=== PATIENT | female | born 1960 | race Caucasian/White ===

== ENCOUNTER → 2016-04-03 | Outpatient (CLI) | payer MEDICARE, MEDICAID | LOC: NC 11:06 | PROVIDERS: ATTEND Family Medicine | DX: E11.9 Type 2 diabetes mellitus without complications (principal); I10 Essential (primary) hypertension; D64.9 Anemia, unspecified; E78.2 Mixed hyperlipidemia ==

== ENCOUNTER → 2016-04-24 | Outpatient (CLI) | payer MEDICARE | LOC: GMAM 16:45 | PROVIDERS: ATTEND Family Medicine | DX: L03.113 Cellulitis of right upper limb (principal) ==

== ENCOUNTER → 2016-05-16 | Outpatient (CLI) | payer MEDICARE | END | disposition home or self-care (01) | LOC: NC 17:01 | PROVIDERS: ATTEND Family Medicine | DX: E11.9 Type 2 diabetes mellitus without complications (principal); I10 Essential (primary) hypertension; D64.9 Anemia, unspecified ==

== ENCOUNTER → 2016-07-24 | Outpatient (CLI) | payer MEDICARE, MEDICAID | END | disposition home or self-care (01) | LOC: GMAM 14:48 | PROVIDERS: ATTEND Family Medicine | DX: Z79.899 Other long term (current) drug therapy (principal); M54.17 Radiculopathy, lumbosacral region ==

== ENCOUNTER → 2016-07-25 | Outpatient (CLI) | payer MEDICARE, MEDICAID ==
--- NOTE | 2016-07-25 18:25 | US ---
EXAM DESCRIPTION: Venous, lower Extremity RT CLINICAL HISTORY: 55 years, Female, PEDAL EDEMA COMPARISON: None. FINDINGS: The right common femoral, superficial femoral, deep femoral, popliteal, posterior tibial and peroneal veins identified. Appropriate flow compressibility and augmentation. IMPRESSION: No evidence deep venous thrombosis right lower extremity. Electronically signed by: Andrea Wadsworth MD 07/25/2016 6:24 PM CDT
== END | disposition home or self-care (01) ==
LOC: US 12:06
PROVIDERS: ATTEND Family Medicine
DX: R60.0 Localized edema (principal)

== ENCOUNTER → 2016-08-28 | Outpatient (CLI) | payer MEDICARE, MEDICAID | END | disposition home or self-care (01) | LOC: GMAM 17:23 | PROVIDERS: ATTEND Family Medicine | DX: M06.9 Rheumatoid arthritis, unspecified (principal); D64.9 Anemia, unspecified; N39.0 Urinary tract infection, site not specified ==

== ENCOUNTER → 2016-12-08 | Outpatient (CLI) | payer MEDICARE, MEDICAID | END | disposition home or self-care (01) | LOC: NC 09:20 | PROVIDERS: ATTEND Family Medicine | DX: E11.9 Type 2 diabetes mellitus without complications (principal); M71.061 Abscess of bursa, right knee ==

== ENCOUNTER → 2016-12-15 | Outpatient (CLI) | payer MEDICARE, MEDICAID | END | disposition home or self-care (01) | LOC: GMAM 14:35 | PROVIDERS: ATTEND Family Medicine | DX: L08.89 Other specified local infections of the skin and subcutaneous tissue (principal) ==

== ENCOUNTER → 2016-12-21 | Outpatient (CLI) | payer MEDICARE, MEDICAID ==
--- NOTE | 2016-12-21 10:28 | US ---
EXAM DESCRIPTION: Thyroid: Ultrasound CLINICAL HISTORY: THYROID NODULE COMPARISON: None. TECHNIQUE: Transcutaneous scannin-dimensional and Doppler modes. FINDINGS: Right lobe dimensions 5.7 x 2.3 x 1.8 cm. Heterogeneous echoes. Complex nodule in the mid right lobe with transverse diameter 1.5 cm. 1.8 x 1.5 cm in the sagittal plane. Second nodule abutting this nodule with calcified echogenic capsule and acoustic shadowing obscuring most of the details of the nodule. Transverse diameter 1.6 cm. 1.6 x 1.6 cm in the sagittal plane. Neither nodule is significantly vascular. Decreased vascularity in the remainder of the lobe. Contour right lobe smooth. Juxta-thyroid masses/fluid: none. Left lobe dimensions 4.0 x 1.5 x 1.2 cm. Heterogeneous echoes. Hypoechoic posterior nodule measuring 5.7 x 4.0 mm and nonvascular. Decreased vascularity in the remainder of the lobe. No microcalcifications. Contour left lobe smooth. Juxta-thyroid masses/fluid: none. Isthmus thickness 1.8 mm. Heterogeneous echoes. Heterogeneous hypoechoic nodule measuring 1.4 cm transverse and 1.6 x 0.6 cm in the sagittal plane. Decreased. Contour smooth. IMPRESSION: 1. Enlarged right lobe in the thyroid gland containing two hypovascular complex nodules. One nodule has calcified kwon and detail is limited due to acoustic shadowing. These nodules both meet the imaging criteria for fine needle aspiration sampling according to RP best practice guidelines, adopted from ACR white paper and Barone 3-tiered guidelines on incidental thyroid nodules. Please see below.* 2. Small nodule in the posterior left lobe and a slightly larger nodule in the isthmus. These nodules do not meet the imaging criteria for fine needle aspiration sampling. These recommendations do not apply to patients with increased risk for thyroid cancer or patients with symptomatic thyroid disease. 3. No discrete solid masses, cystic masses, or edema in the surrounding soft tissues. *Further evaluation by thyroid US recommended for: -Solitary incidental thyroid nodule (ITN) with high risk imaging features (locally invasive nodule or suspicious lymph nodes) -Solitary ITN of any size in pediatric patients <= 18 years of age -Solitary ITN >= 1 cm in axial plane in patients between 18 and 35 years of age -Solitary ITN >= 1.5 cm in axial plane in patients >= 35 years of age -Heterogeneous enlarged thyroid gland -ITN avid on FDG-PET or other nuclear medicine (MIBI and octreotide) scans. FNA biopsy is also recommended for PET avid nodules. 2.No f/u imaging is recommended for ITN's not meeting the above criteria. 3.For multiple thyroid nodules, the above recommendations for solitary ITN are to be applied to the largest nodule. 4.No US or f/u recommended for ITN's without high risk features in patients with limited life expectancy or significant co-morbidities, unless clinically warranted. 5.These recommendations do not apply to patients w/ increased risk for thyroid cancer or patients with symptomatic thyroid disease. Recommendations for f/u of Incidental Thyroid Nodules (ITN) found on CT, MR, NM and Extrathyroidal US are based upon the ACR white paper and Barone 3-tiered system for managing ITN's: [facility] 2015 Apr;12(2): 143-50 Electronically signed by: eY Terrazas MD 12/21/2016 10:27 AM CDT
== END | disposition home or self-care (01) ==
LOC: US 10:35
PROVIDERS: ATTEND Family Medicine
DX: E04.1 Nontoxic single thyroid nodule (principal)

== ENCOUNTER → 2017-02-21 | Outpatient (CLI) | payer MEDICARE, MEDICAID ==
--- NOTE | 2017-02-21 13:22 | US ---
EXAM DESCRIPTION: Biopsy/Needle Guidance: Ultrasound. CLINICAL HISTORY: 56 yearsFemale. Abnormal nodules in the right lobe of the thyroid gland. COMPARISON: Thyroid ultrasound 12/21/2016. TECHNIQUE: Procedure was explained to the patient with risks and benefits. The patient gave verbal and written consent. Sterile preparation draping. 1% xylocaine dermal anesthetic. Sterile ultrasound guidance. A total of 6 passes into 2 separate nodules; to needle samplings with a separate 1.5 inch, 25-gauge needle per sample, , into each nodule and 1 aspiration, with a separate 1.5 inch, 25-gauge needle/10-cc syringe set, per aspiration, from each nodule. Each sample was placed on a separate slide and fixed in 95% alcohol container. for later pathologic examination at remote facility. . Aspirate and needle placed in [place] fluid container for cellblock. Patient tolerated procedure well, with no immediate complications. FINDINGS: Complex hypoechoic nodule in the right lobe mid portion and abutting the anterior capsule of the lobe measuring 1.6 cm transverse and 1.5 cm AP. Second nodule is more medial inferior and posterior, with calcification of the anterior capsule with significant posterior acoustic shadowing. Transverse diameter approximately 1.2 cm. Echogenic needle is noted within each nodule. There was posterior displacement of the nodule with anterior wall calcification, during the procedure. IMPRESSION: Successful, ultrasound-guided fine-needle sampling and aspiration of 2 nodules in the right thyroid lobe. Pathology reports are pending. Electronically signed by: Ye Terrazas MD 02/21/2017 1:21 PM AUDITING MANAGER
== END | disposition home or self-care (01) ==
LOC: US 12:56
PROVIDERS: ATTEND Family Medicine
DX: E04.1 Nontoxic single thyroid nodule (principal)

== ENCOUNTER → 2017-04-13 | Outpatient (CLI) | payer MEDICARE, MEDICAID | END | disposition home or self-care (01) | LOC: NC 09:34 | PROVIDERS: ATTEND Family Medicine | DX: E11.9 Type 2 diabetes mellitus without complications (principal); M71.061 Abscess of bursa, right knee; I10 Essential (primary) hypertension ==

== ENCOUNTER → 2017-04-17 | Outpatient (CLI) | payer MEDICARE, MEDICAID | END | disposition home or self-care (01) | LOC: GMAM 14:14 | PROVIDERS: ATTEND Family Medicine | DX: D64.9 Anemia, unspecified (principal); Z79.899 Other long term (current) drug therapy ==

== ENCOUNTER → 2017-05-15 | Outpatient (CLI) | payer MEDICARE, MEDICAID | LOC: GMAM 14:55 | PROVIDERS: ATTEND Family Medicine | DX: Z79.899 Other long term (current) drug therapy (principal) ==

== ENCOUNTER → 2017-06-04 | Outpatient (CLI) | payer MEDICARE, MEDICAID | LOC: GMAM 10:32 | PROVIDERS: ATTEND Family Medicine | DX: J44.9 Chronic obstructive pulmonary disease, unspecified (principal); G47.00 Insomnia, unspecified; M79.89 Other specified soft tissue disorders; R50.9 Fever, unspecified; R07.89 Other chest pain ==

== ENCOUNTER → 2017-06-14 | Outpatient (CLI) | payer MEDICARE, MEDICAID | LOC: NC 14:27 | PROVIDERS: ATTEND Family Medicine | DX: R30.0 Dysuria (principal); E11.9 Type 2 diabetes mellitus without complications ==

== ENCOUNTER 2017-06-21 11:59 | Emergency (ER) | payer MEDICARE, MEDICAID ==
--- NOTE | 2017-06-21 12:35 | ED.PDOC ---
History of Present Illness - General Chief Complaint: Skin/Abrasion/Tear Stated Complaint: right ankle pain Time Seen by Provider: 06/21/17 12:12 Source: patient Exam Limitations: no limitations - History of Present Illness Initial Comments: Gwen Boyd 56 y/o female stated that while laying in bed rolled over to reach for clothes on her table lamp but rolled down fell on her bed and down to the floor stated right ankle still hurting but with right hip pain and lid swelling felt better except for her right ankle swelling and pain.Denies head or neck injury. Occurred: yesterday Severity: moderate Injuries/Pain Location: lower extremity - right ankle Reason for Fall: other - see hpi Loss of Consciousness: no loss of consciousness Improving Factors: rest Worsening Factors: movement Associated Symptoms (Fall): denies symptoms Allergies/Adverse Reactions: Allergies Trazodone Allergy (Verified 12/10/15 09:24) Home Medications: Ambulatory Orders Gabapentin [Neurontin] 200 mg PO BID 04/21/15 HYDROcodone 10MG/APAP 325MG [[place]ut[place] 10325] 1 - 2 tab PO Q6H PRN 04/21/15 Metformin HCl 500 mg PO BIDFD 04/21/15 Tizanidine HCl [Zanaflex] 6 mg PO QID PRN 04/21/15 ALPRAZolam [Xanax] 0.5 mg PO BEDTIME PRN 12/10/15 Insulin Glargine [Lantus Solostar] 30 unit SC NOON 12/10/15 Sertraline HCl 150 mg PO DAILY 12/10/15 Aspirin [Aspirin Adult Low Dose] 81 mg PO DAILY 01/20/16 Glucagon HCl (Diagnostic) [Glucagon] 1 mg IJ PRN 01/20/16 Promethazine HCl 25 mg PO BID PRN 01/20/16 Vancomycin HCl in Sodium Chlor [Vancomycin 750-0.9 mg/150Ml-%] 1.25 gm IV Q12HR 01/20/16 ALPRAZolam [Xanax] 0.5 mg PO TID PRN 02/15/16 Furosemide 40 mg PO DAILY 02/15/16 Acetamin W/Cod #3 Tab [Tylenol w/CODEINE #3] 1 ea PO TID PRN #10 tab 06/21/17 Review of Systems - Review of Systems Constitutional: States: no symptoms reported EENTM: States: no symptoms reported Respiratory: States: no symptoms reported Cardiology: States: no symptoms reported Gastrointestinal/Abdominal: States: no symptoms reported Genitourinary: States: no symptoms reported Musculoskeletal: States: no symptoms reported Skin: States: other - chronic sinus tract skin from infection of her knee surgery for the last 6 1/2 years-has appoint ment with ortho Dr. Blair 29 June Neurological: States: no symptoms reported Past Medical History (General) - Patient Medical History Hx Seizures: No Hx Stroke: No Hx Dementia: No Hx Asthma: Yes Hx of COPD: Yes Hx Cardiac Disorders: No Hx Congestive Heart Failure: No Hx Pacemaker: No Hx Hypertension: No Hx Thyroid Disease: No Hx Diabetes: Yes Hx Gastroesophageal Reflux: No Hx Renal Disease: No Hx Cancer: No Hx of HIV: No Hx Hepatitis C: No Hx MRSA: Yes MRSA Source:: Wound Surgical History: cholecystectomy, other - lower back,right knee,,BTL, left toe - Vaccination History Hx Tetanus, Diphtheria Vaccination: Yes Hx Influenza Vaccination: Yes Hx Pneumococcal Vaccination: Yes - Social History Hx Tobacco Use: Yes Hx Chewing Tobacco Use: No Hx Alcohol Use: No Hx Substance Use: Yes - not any more pt states Hx Substance Use Treatment: No Hx Depression: No Hx Physical Abuse: No Hx Emotional Abuse: No Hx Suspected Abuse: No - Female History Patient : No Physical Exam - Physical Exam General Appearance: Alert, Comfortable, No apparent distress Head Injury: no evidence of injury Eye Exam: bilateral normal ENT Exam: hearing grossly normal Peripheral Pulses: radial,right: 2+, radial,left: 2+ Cardiovascular/Respiratory: regular rate, rhythm, no M/R/G, normal peripheral pulses Gastrointestinal/Abdominal: non tender, soft, no organomegaly Back Exam: no CVA tenderness, no vertebral tenderness Extremity Exam: pelvis stable, joint effusion - right knee chronic, pain with movement - right ankle, pedal edema - right > left, tenderness - right leg Neurologic: alert, oriented x 3 Skin Exam: other - draining sinus tract right knee - Cookie Coma Score Best Eye Response ([place]): (4) open spontaneously Best Verbal Response (Cookie): (5) oriented Best Motor Response (Cookie): (6) obeys commands Progress - EKG/XRAY/CT XRAY: ankle - no fracture right Xray Comments: Venous US- no dvt right leg Departure - Departure Clinical Impression: Leg swelling Sprained ankle Qualifiers: Encounter type: initial encounter Involved ligament of ankle: unspecified ligament Laterality: right Qualified Code(s): S93.401A - Sprain of unspecified ligament of right ankle, initial encounter Time of Disposition: 14:29 Disposition: Discharge to Home or Self Care Condition: Fair Departure Forms: ED Discharge - Pt. Copy, Patient Portal Self Enrollment Instructions: DI for Abrasion, DI for Ankle Sprain Referrals: Marc Arriola MD [Primary Care Provider] - 1-2 Weeks Prescriptions: Acetamin W/Cod #3 Tab [Tylenol w/CODEINE #3] 1 ea PO TID PRN #10 tab PRN Reason: Pain Home Medications: Ambulatory Orders Gabapentin [Neurontin] 200 mg PO BID 04/21/15 HYDROcodone 10MG/APAP 325MG [Caruthers ] 1 - 2 tab PO Q6H PRN 04/21/15 Metformin HCl 500 mg PO BIDFD 04/21/15 Tizanidine HCl [Zanaflex] 6 mg PO QID PRN 04/21/15 ALPRAZolam [Xanax] 0.5 mg PO BEDTIME PRN 12/10/15 Insulin Glargine [Lantus Solostar] 30 unit SC NOON 12/10/15 Sertraline HCl 150 mg PO DAILY 12/10/15 Aspirin [Aspirin Adult Low Dose] 81 mg PO DAILY 01/20/16 Glucagon HCl (Diagnostic) [Glucagon] 1 mg IJ PRN 01/20/16 Promethazine HCl 25 mg PO BID PRN 01/20/16 Vancomycin HCl in Sodium Chlor [Vancomycin 750-0.9 mg/150Ml-%] 1.25 gm IV Q12HR 01/20/16 ALPRAZolam [Xanax] 0.5 mg PO TID PRN 02/15/16 Furosemide 40 mg PO DAILY 02/15/16 Acetamin W/Cod #3 Tab [Tylenol w/CODEINE #3] 1 ea PO TID PRN #10 tab 06/21/17 Additional Instructions: Keep appointment with orthopedist Dr. Blair as scheduled
--- NOTE | 2017-06-21 12:59 | RAD ---
Study: Three views of the Right Ankle. Indication: pain Comparison: August 12, 2013. Impression: Moderate plantar heel spur. Osteopenia throughout the right lower leg, ankle, foot. Given this limitation, no gross fracture. Ankle mortise alignment appears normal. Soft tissue swelling about the ankle and foot. At least mild tibiotalar joint osteoarthritis noted. Electronically signed by: Daquan Daley MD 06/21/2017 12:57 PM CDT
--- NOTE | 2017-06-21 13:47 | US ---
EXAM DESCRIPTION: Venous,Lower Extremity RT CLINICAL HISTORY: right leg swelling /pain COMPARISON: None Available. TECHNIQUE: Right lower extremity venous duplex FINDINGS: There is no DVT identified. There is normal color flow observed with good flow augmentation. All deep veins compress normally. Extensive subcutaneous edema is present. IMPRESSION: Negative for DVT Electronically signed by: Chu Cohen MD 06/21/2017 1:44 PM CDT
[2017-06-21 14:54] VITALS: TEMP 98.9; O2SAT 95
[2017-06-21 14:59] VITALS: BP 154/91
== END 2017-06-21 14:55 | disposition home or self-care (01) ==
LOC: ER 11:59
DX: S93.401A Sprain of unspecified ligament of right ankle, initial encounter (principal); J44.9 Chronic obstructive pulmonary disease, unspecified; E11.9 Type 2 diabetes mellitus without complications; Z79.82 Long term (current) use of aspirin; Z79.4 Long term (current) use of insulin; Z87.891 Personal history of nicotine dependence; W06.XXXA Fall from bed, initial encounter

== ENCOUNTER 2017-08-29 15:47 | Inpatient (IN) | payer MEDICARE, MEDICAID ==
--- NOTE | 2017-08-29 16:33 | RAD ---
EXAM DESCRIPTION: Knee,Right 2 or More Views CLINICAL HISTORY: 56 years, Female, pain at op site 2 wks out COMPARISON: Previous study December 10, 2015 and February 15, 2016 TECHNIQUE: Two views of the right knee FINDINGS: Intramedullary shoaib traverses the distal femur and proximal tibia with a proximal screw in place. Methacrylate is seen in the region of the right knee joint and the previous total right knee arthroplasty has been removed. A few tiny gas bubbles are present in the soft tissues along the superomedial aspect right knee. If this patient is recently postop this would explain the findings. Otherwise infectious process must be considered. Clinical correlation recommended. Lateral view shows tiny gas bubbles anteriorly behind the patella. There is generalized soft tissue edema. Destructive bony changes are seen posteriorly. IMPRESSION: Posterior destructive changes at the knee joint with tiny gas bubbles anteriorly below the patella. If surgery was not recent and these findings would be worrisome for infection. Electronically signed by: Wellington Alexis MD 08/29/2017 4:31 PM CDT
[2017-08-29] MEDS ORDERED: HYDROcodone 10MG/APAP 325MG 1 EA TAB PO ONE (16:55)
[2017-08-29] MEDS ORDERED: KETOROLAC TROMETHAMINE INJ 30 MG/ML VIAL IM ONE (17:36)
[2017-08-29] MEDS ORDERED: VANCOMYCIN HCL INJ 1,000 MG VIAL IVPB ONE (17:36)
--- NOTE | 2017-08-29 17:39 | ED.PDOC ---
History of Present Illness - General Chief Complaint: Post Op Problems Stated Complaint: s/p knee surgery pain, swelling, and drainage Time Seen by Provider: 08/29/17 15:49 Source: patient Exam Limitations: no limitations - History of Present Illness Initial Comments: the patient is a 56-year-old female presenting to the emergency room secondary to pain in the right knee. Pain has been increasing over the last 2 days along with increasing swelling and now new drainage from just right of the patella. The patient had a knee surgery with Dr. 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 We do not have culture results. The patient has been getting IV meropenem and oral doxycycline and [place] since her discharge from surgery. The patient does not appear septic. No fevers. Erythema appears localized to the knee area. Sutures are still in place. She does have some swelling distally. Timing/Duration: unsure Severity: moderate Improving Factors: nothing Worsening Factors: movement Associated Symptoms: denies symptoms Allergies/Adverse Reactions: Allergies Trazodone Allergy (Verified 08/29/17 16:17) Home Medications: Ambulatory Orders Gabapentin [Neurontin] 200 mg PO BID 04/21/15 HYDROcodone 10MG/APAP 325MG [[place] 10/325] 1 - 2 tab PO Q6H PRN 04/21/15 Metformin HCl 500 mg PO BIDFD 04/21/15 Tizanidine HCl [Zanaflex] 6 mg PO QID PRN 04/21/15 ALPRAZolam [Xanax] 0.5 mg PO BEDTIME PRN 12/10/15 Insulin Glargine [Lantus Solostar] 30 unit SC NOON 12/10/15 Sertraline HCl 150 mg PO DAILY 12/10/15 Aspirin [Aspirin Adult Low Dose] 81 mg PO DAILY 01/20/16 Glucagon HCl (Diagnostic) [Glucagon] 1 mg IJ PRN 01/20/16 Promethazine HCl 25 mg PO BID PRN 01/20/16 Vancomycin HCl in Sodium Chlor [Vancomycin 750-0.9 mg/150Ml-%] 1.25 gm IV Q12HR 01/20/16 ALPRAZolam [Xanax] 0.5 mg PO TID PRN 02/15/16 Furosemide 40 mg PO DAILY 02/15/16 Acetamin W/Cod #3 Tab [Tylenol w/CODEINE #3] 1 ea PO TID PRN #10 tab 06/21/17 Review of Systems - Review of Systems Constitutional: States: no symptoms reported EENTM: States: no symptoms reported Respiratory: States: no symptoms reported Cardiology: States: no symptoms reported Gastrointestinal/Abdominal: States: no symptoms reported Genitourinary: States: no symptoms reported Musculoskeletal: States: see HPI Skin: States: see HPI Neurological: States: anxiety Endocrine: States: no symptoms reported All other Systems: No Change from Baseline Past Medical History (General) - Patient Medical History Hx Seizures: No Hx Stroke: No Hx Dementia: No Hx Asthma: Yes Hx of COPD: Yes Hx Cardiac Disorders: No Hx Congestive Heart Failure: No Hx Pacemaker: No Hx Hypertension: No Hx Thyroid Disease: No Hx Diabetes: Yes Hx Gastroesophageal Reflux: No Hx Renal Disease: No Hx Cancer: No Hx of HIV: No Hx Hepatitis C: No Hx MRSA: Yes MRSA Source:: Wound Surgical History: cholecystectomy, tonsillectomy, other - Vaccination History Hx Tetanus, Diphtheria Vaccination: Yes Hx Influenza Vaccination: Yes Hx Pneumococcal Vaccination: Yes - Social History Hx Tobacco Use: Yes Hx Chewing Tobacco Use: No Hx Alcohol Use: No Hx Substance Use: Yes - not any more pt states Hx Substance Use Treatment: No Hx Depression: No Hx Physical Abuse: No Hx Emotional Abuse: No Hx Suspected Abuse: No - Activities of Daily Living [facility]if applicable[facility] - Female History Patient : No - Triage Comment ED Triage Comment: Staying at [facility] for IV antibiotics for 6- 8 weeks, reported per patient. Family Medical History - Family History Father Family History: Unknown Living Status: Age at (years of age): 60 Hx Family Cancer: Yes Mother Living Status: Age at (years of age): 60 Hx Family Cancer: Yes Physical Exam - Physical Exam General Appearance: Alert, Other - he does seem to be hurting Eye Exam: bilateral normal Ears, Nose, Throat: normal ENT inspection, normal pharynx Neck: full range of motion, supple Respiratory: lungs clear, normal breath sounds, no respiratory distress, no accessory muscle use Cardiovascular/Chest: normal peripheral pulses, no edema, other - egular rate Peripheral Pulses: radial,right: 2+, radial,left: 2+ Gastrointestinal/Abdominal: non tender - obese, soft Rectal Exam: deferred Back Exam: no CVA tenderness, no vertebral tenderness Extremity: no calf tenderness, normal capillary refill, swelling - right knee See history of present illness. 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 The patient has a known chronic infection of that site. She is currently on meropenem and doxycycline. I discussed the patient with Dr. Blair, the surgeon who was uncertain of any change in antibiotics that needs to be made. I then contacted infectious disease, dr leonard, who recommended adding vancomycin and obtaining the knee cultures in the morning from the last surgery to alter antibiotic therapy if necessary. The patient will also be admitted for pain control as she is having very significant pain. The patient will be dosed with a loading dose of 2 g of IV vancomycin. Admit for continued care. Blood cultures have been performed. Orthopedics did not recommend drawing fluid from the joint space at this time. - Results/Orders Results/Orders: x-ray shows postoperative changes. Chronic findings are present as well. 08/29/17 16:26 BLOOD CULTURE Stat Laboratory Results - last 24 hr 08/29/17 08/29/17 16:26 16:26 WBC 6.3 RBC 3.75 L Hgb 10.1 L Hct 30.2 L MCV 80.6 L MCH 26.9 L MCHC 33.4 RDW 17.2 H Plt Count 238 MPV 8.2 Absolute Neuts (auto) 5.00 Absolute Lymphs (auto) 0.80 L Absolute Monos (auto) 0.40 Absolute Eos (auto) 0.10 Absolute Basos (auto) 0.00 Neutrophils % 79.2 H Lymphocytes % 13.2 L Monocytes % 6.3 Eosinophils % 1.1 Basophils % 0.2 Sodium 138 Potassium 4.5 Chloride 103 Carbon Dioxide 26 Anion Gap 13.5 BUN 34 H Creatinine 1.05 BUN/Creatinine Ratio 32.4 H Random Glucose 179 H Serum Osmolality 287.8 Calcium 8.7 Total Bilirubin 0.4 AST 20 ALT 11 Alkaline Phosphatase 253 H C-Reactive Protein 7.0 H Serum Total Protein 8.8 H Albumin 3.3 Globulin 5.5 H Albumin/Globulin Ratio 0.6 L Departure - Departure Clinical Impression: Postoperative complication Qualifiers: Surgical complication system/body Area: musculoskeletal system Surgical complication type: unspecified Disposition: Admit Patient Referrals: Marc Arriola MD [Primary Care Provider] - 1-2 Weeks Home Medications: Ambulatory Orders Gabapentin [Neurontin] 200 mg PO BID 04/21/15 HYDROcodone 10MG/APAP 325MG [[place] ] 1 - 2 tab PO Q6H PRN 04/21/15 Metformin HCl 500 mg PO BIDFD 04/21/15 Tizanidine HCl [Zanaflex] 6 mg PO QID PRN 04/21/15 ALPRAZolam [Xanax] 0.5 mg PO BEDTIME PRN 12/10/15 Insulin Glargine [Lantus Solostar] 30 unit SC NOON 12/10/15 Sertraline HCl 150 mg PO DAILY 12/10/15 Aspirin [Aspirin Adult Low Dose] 81 mg PO DAILY 01/20/16 Glucagon HCl (Diagnostic) [Glucagon] 1 mg IJ PRN 01/20/16 Promethazine HCl 25 mg PO BID PRN 01/20/16 Vancomycin HCl in Sodium Chlor [Vancomycin 750-0.9 mg/150Ml-%] 1.25 gm IV Q12HR 01/20/16 ALPRAZolam [Xanax] 0.5 mg PO TID PRN 02/15/16 Furosemide 40 mg PO DAILY 02/15/16 Acetamin W/Cod #3 Tab [Tylenol w/CODEINE #3] 1 ea PO TID PRN #10 tab 06/21/17 Decision To Admit - Decistion To Admit Decision to Admit Reason: Medical Nature Decision to Admit Date: 08/29/17 Decision to Admit Time: 17:44
[2017-08-29] MEDS ORDERED: SODIUM CHLORIDE 0.9% 250ML 0 ML ONE (17:52)
[2017-08-29] MEDS ORDERED: SODIUM CHLORIDE 0.9% 500ML 500 ML ONE (17:55)
--- NOTE | 2017-08-29 17:57 | HP ---
SUPERVISING PHYSICIAN: Akil Lopez M.D. CHIEF COMPLAINT: Right knee pain. HISTORY OF PRESENT ILLNESS: This is a 56 year-old female patient who has been a resident of [facility] since 08/17/17. She was admitted to [facility] after she had had a shoaib replaced in her right knee by Dr. Blair in [place]. She has had 3 previous knee replacements but has had multiple complications to that right knee with MRSA and other infections to the hardware , and they have had to be replaced. This last time Dr. Blair replaced it with a shoaib. She has been on oral doxycycline and [place] [facility] [place] [facility]. She was seen by the P.A. at [facility] today and was sent to the Emergency Room due to purulent drainage from that right knee. In the Emergency Room her WBCs were 6.3 with hemoglobin 10.1 and hematocrit 30.2, neutrophils were 79.2. Her electrolytes were basically within normal limits. BUN was 34, creatinine 1.04. Alkaline phosphatase is 253. C reactive protein is 7, serum total protein is 8.8. Dr. Nain Arriola, the Emergency Room doctor, contacted Dr. Blair in [place] about the drainage. He did not recommend that it be aspirated but recommended that we do a culture on the drainage. He also stated that he could do no further surgical interventions other than an [id number]-[id number] amputation and she should be treated with antibiotics in the hospital. Dr. Mckeon, Infectious Diseases, was also contacted by Dr. Arriola and he recommended that we continue the Meropenem as well as adding vancomycin due to her history of MRSA. Knee x-ray showed posterior destructive changes at the knee joint with tiny gas bubbles anteriorly below the patella. The surgery was not recent and the findings would be worrisome for infection. I was called for admission to the hospital. PAST MEDICAL HISTORY: 1. Asthma. 2. Atrial flutter. 3. Hypertension. 4. Rheumatoid arthritis. 5. Osteoarthritis. 6. Osteoporosis. 7. Multiple MRSA knee infections. 8. Type 2 diabetes poorly controlled. PAST SURGICAL HISTORY: 1. Tonsillectomy. 2. Cholecystectomy. 3. section times 2. 4. Right knee replacement times 3. 5. Right shoaib replacement times 1. 6. Bilateral tubal ligation. 7. Left first and third toe amputation. 8. Right sided port per Dr. Ng. OUTPATIENT MEDICATIONS: 1. Acetaminophen. 2. Albuterol. 3. Bydureon. 4. Hydrocodone. 5. NovoLog insulin. 6. Tresiba. 7. Meropenem. 8. Doxycycline. 9. Alprazolam. 10. Diphenhydramine. 11. Furosemide. 12. Lisinopril. 13. Melatonin. 14. Metformin. 15. Lyrica. 16. Sertraline. 17. Zanaflex. ALLERGIES: TRAZODONE. FAMILY HISTORY: SOCIAL HISTORY: She has lived at [facility] since 08/17/17, otherwise she is a resident of [place]. She is . She has 2 children. She smokes 1 pack of cigarettes daily and denies any ETOH or illicit drug use. REVIEW OF SYSTEMS: GENERAL: Denies fever, fatigue or weight changes. HEENT: Negative for ear pain, sinus symptoms, sore throat or vision changes. RESPIRATORY: Negative for coughing, wheezing or shortness of breath. CARDIAC: Negative for chest pain, palpitations or tachycardia. GASTROINTESTINAL: Negative for nausea, vomiting or diarrhea. GENITOURINARY: Negative for hematuria, dysuria or polyuria. MUSCULOSKELETAL: As per history of present illness. INTEGUMENT: As per history of present illness. NEUROLOGIC: Positive for anxiety and some depression, but negative for headaches, dizziness or seizures. PHYSICAL EXAMINATION: VITAL SIGNS: She is afebrile, heart rate 96, respiratory rate 20, O2 sat is 99 % on room air. GENERAL: This is a 56 year-old female patient lying in her hospital bed. She is in no acute distress. HEENT: Normocephalic and atraumatic. Pupils are equal and reactive. Oropharynx is clear. NECK: Supple without mass. RESPIRATORY: Somewhat diminished at the bases but otherwise clear to auscultation bilaterally. CARDIOVASCULAR: Regular rate and rhythm. GASTROINTESTINAL: Abdomen is soft. She is obese. It is non-tender. Bowel sounds are positive. EXTREMITIES: No cyanosis or clubbing. There is edema around the incision to the right knee. SKIN: There is drainage just lateral to the right patella. There is erythema around the incision. She also has as very small amount of edema to just distal to her knee along the tibia. Her sutures are still in place to the incision. The incision is well approximated. NEUROLOGIC: She is awake, alert and oriented times three. LABORATORY: Labs and films are as per the History of Present Illness. ASSESSMENT: 1. Right knee pain status post surgical intervention to replace her knee hardware times [address] Blair in [place]. This is due to multiple infections and a history of MRSA infections. 2. Hypertension. 3. Diabetes mellitus type 2 poorly controlled. 4. Asthma. 5. History of rheumatoid arthritis. PLAN: We will admit the patient to the hospital. We will continue her Meropenem. She has received a dose of vancomycin in the E. R. I will continue that tomorrow per Pharmacy protocol. We will get the culture results from [place] tomorrow. I believe it is at [facility]. I have also started a PPI for ulcer prophylaxis and Lovenox for DVT prophylaxis. Her home medications have been restarted. Will also do sliding scale insulin. I will need to contact Dr. Rankin's office to see the length of treatment as well as monitor the culture results as they become available. Repeated lab in the morning. Will continue to monitor closely and follow as needed. Dr. Lopez is the collaborating physician available for consultation. #[id number] [facility]
[2017-08-29] MEDS ORDERED: SODIUM CHLORIDE 0.9% (FLUSH) 10 ML SYG IV PRN (18:46)
[2017-08-29] MEDS ORDERED: SODIUM CHLORIDE 0.45% 1000ML 1,000 ML IV ONE (18:48)
[2017-08-29] MEDS ORDERED: ENOXAPARIN SODIUM 40 MG/0.4 ML SYG SUBCU SCH (19:00)
[2017-08-29] MEDS ORDERED: PANTOPRAZOLE SODIUM IV 40 MG VIAL IV SCH (19:00)
[2017-08-29] MEDS ORDERED: GLUCAGON INJ 1 MG VIAL SUBCU PRN (19:02)
[2017-08-29] MEDS ORDERED: DEXTROSE 50% 25 GM/50 ML SYG IV PRN (19:02)
[2017-08-29] MEDS ORDERED: SODIUM CHL 0.9% 50ML MIN-BAG+ 50 ML IVPB ONE (19:34)
[2017-08-29] MEDS ORDERED: MEROPENEM 1 GM VIAL IVPB ONE (19:35)
[2017-08-29] MEDS: IV SET AND CAP CHANGE INJ INJ SCH (19:50)
[2017-08-29] MEDS ORDERED: ALBUTEROL SULFATE 2.5 MG/3 ML VIAL NEB PRN (20:08)
[2017-08-29] MEDS ORDERED: tiZANidine 4 MG TAB ONE (20:59)
[2017-08-29] MEDS ORDERED: TIZANIDINE HCL 6 MG PO SCH (21:00)
[2017-08-29] MEDS ORDERED: FUROSEMIDE 40 MG TAB PO SCH (21:00)
[2017-08-29] MEDS ORDERED: NON-FORMULARY MEDICATION 1 EA MIS (Melatonin [Melatonin] 5 MG) PO SCH (21:00)
[2017-08-29] MEDS ORDERED: MELATONIN 3 MG TAB ONE (21:00)
[2017-08-29] MEDS: INSULIN LISPRO 100 UNITS/ML PEN SUBCU SCH (21:05)
[2017-08-29] MEDS: diphenhydrAMINE HCL 25 MG CAP PO SCH (21:10)
[2017-08-29] MEDS: PREGABALIN 100 MG CAP PO SCH (21:10)
[2017-08-29] MEDS: ALPRAZolam 0.5 MG TAB PO SCH (21:10)
[2017-08-29] MEDS: LISINOPRIL 5 MG TAB PO SCH (21:11)
[2017-08-29] MEDS: metFORMIN HCL 500 MG TAB PO SCH (21:11)
[2017-08-29] MEDS: SODIUM CHLORIDE 0.9% (FLUSH) 10 ML SYG IV SCH (21:11)
[2017-08-29] MEDS: MELATONIN 3 MG TAB PO SCH (21:19)
[2017-08-29] MEDS: MEROPENEM 1 GM in SODIUM CHL 0.9% 50ML MIN-BAG+ 50 ML IVPB SCH (22:47)
[2017-08-29] MEDS: HYDROcodone 10MG/APAP 325MG 1 EA TAB PO PRN (22:50)
[2017-08-30] MEDS ORDERED: MEROPENEM 1 GM VIAL IVPB ONE ×4 (03:53→20:04)
[2017-08-30] MEDS ORDERED: SODIUM CHL 0.9% 50ML MIN-BAG+ 50 ML IVPB ONE ×4 (03:53→20:02)
[2017-08-30] MEDS ORDERED: MEROPENEM 1 GM in SODIUM CHL 0.9% 50ML MIN-BAG+ 50 ML IVPB SCH (04:22)
[2017-08-30] MEDS: MEROPENEM 1 GM in SODIUM CHL 0.9% 50ML MIN-BAG+ 50 ML IVPB SCH ×4 (04:29→23:18)
[2017-08-30] MEDS: HYDROcodone 10MG/APAP 325MG 1 EA TAB PO PRN ×3 (07:00→21:04)
[2017-08-30] MEDS: INSULIN LISPRO 100 UNITS/ML PEN SUBCU SCH ×4 (07:48→21:44)
[2017-08-30] MEDS ORDERED: VANCOMYCIN PER PHARMACY INJ SCH (08:00)
[2017-08-30] MEDS ORDERED: SODIUM CHLORIDE 0.9% 250ML 250 ML ONE ×2 (08:30→20:02)
[2017-08-30] MEDS ORDERED: VANCOMYCIN HCL INJ 1,000 MG VIAL IVPB ONE ×2 (08:31→20:04)
[2017-08-30] MEDS: ALPRAZolam 0.5 MG TAB PO SCH ×3 (08:37→21:01)
[2017-08-30] MEDS: PREGABALIN 100 MG CAP PO SCH (08:37)
[2017-08-30] MEDS: LISINOPRIL 5 MG TAB PO SCH (08:38)
[2017-08-30] MEDS: tiZANidine 4 MG TAB PO SCH ×3 (08:38→21:04)
[2017-08-30] MEDS: FUROSEMIDE 40 MG TAB PO SCH ×2 (08:39→17:27)
[2017-08-30] MEDS: SERTRALINE HCL 50 MG TAB PO SCH (08:39)
[2017-08-30] MEDS: metFORMIN HCL 500 MG TAB PO SCH ×2 (08:40→21:02)
[2017-08-30] MEDS: SODIUM CHLORIDE 0.9% (FLUSH) 10 ML SYG IV SCH ×2 (08:40→21:02)
[2017-08-30] MEDS: VANCOMYCIN HCL INJ 1,000 MG in SODIUM CHLORIDE 0.9% 250ML 250 ML IVPB SCH ×2 (08:56→21:03)
[2017-08-30] MEDS: NICOTINE PATCH 14 MG TD SCH (11:00)
[2017-08-30] MEDS ORDERED: HYDROcodone 10MG/APAP 325MG 1 EA TAB ONE (13:37)
[2017-08-30] MEDS ORDERED: MORPHINE SULFATE INJ 10 MG/ML VIAL IV ONE (17:40)
[2017-08-30] MEDS: KETOROLAC TROMETHAMINE INJ 30 MG/ML VIAL IV SCH (18:45)
--- NOTE | 2017-08-30 20:51 | PN ---
DATE: 08/30/17 SUPERVISING PHYSICIAN: Akil Lopez M.D. SUBJECTIVE: The patient is sitting up in her hospital bed. She is crying. Her right leg is hurting. She said it is about an 8 out of 10. Otherwise she denies any shortness of breath, chest pain, nausea or vomiting. The pain in her leg feels like needles and like there is "wire wrapped around her lower leg. " OBJECTIVE: VITAL SIGNS: She is afebrile, heart rate 74, blood pressure 120/72, respiratory rate 18, O2 sat is 94% on room air. RESPIRATORY: Essentially clear to auscultation bilaterally. It is somewhat diminished at the bases. CARDIAC: Regular rate and rhythm. GASTROINTESTINAL: She is obese. Abdomen is rounded, soft. Bowel sounds are positive. EXTREMITIES: There is some right lower leg edema that is slightly improved since yesterday. Bilateral pedal pulses are + 2. SKIN: The incision to her right knee is well approximated with sutures. There is some erythema surrounding the incision site and just laterally. There is some drainage from that area but it is much less than yesterday. It is slightly warm and tight. There is less erythema than yesterday. LABORATORY: WBCs are 35, hemoglobin 8.5, hematocrit 25.9. Sodium 137, potassium 4.1, chloride 106, carbon dioxide 25, BUN 34, creatinine 1.19. Blood sugars have run between 154 and 277. Calcium 8. Alkaline phosphatase has improved slightly to 239. Albumin 2.5. Preliminary blood cultures show no growth after 24 hours. All other labs and films have been reviewed via the EMR. ASSESSMENT: 1. Right knee pain status post surgical intervention to replace her knee hardware times [address] Blair in [place]. This is due to multiple infections and a history of MRSA infections. 2. Hypochromic/microcytic anemia. 3. Hypertension. 4. Diabetes mellitus type 2 poorly controlled. 5. Asthma. 6. History of rheumatoid arthritis. PLAN: We will continue present supportive care, including her antibiotics of Merrem and vancomycin. Will monitor her cultures. They have requested her previous wound cultures from [facility]. I will repeat her labs in the morning including a CBC as her hemoglobin has dropped 1.5 grams overnight. That may be dilutional. I will watch that closely. I have given her some IV morphine times 1 dose and will start her on Toradol IV times 6 doses. I have also increased her Lyrica to 150 mg b.i.d. I have ordered a nicotine patch for her. I expect that she will be on IV antibiotic therapy for at least through the weekend. On Sunday will call Dr. Rankin and get her recommendations on the length of our IV antibiotic therapy. Will continue to monitor her closely and follow as needed. Dr. Lopez is the collaborating physician available for consultation. #[id number] [facility]
[2017-08-30] MEDS ORDERED: MELATONIN 3 MG TAB PO SCH (21:00)
[2017-08-30] MEDS: ENOXAPARIN SODIUM 40 MG/0.4 ML SYG SUBCU SCH (21:01)
[2017-08-30] MEDS: PREGABALIN 75 MG CAP PO SCH (21:02)
[2017-08-30] MEDS: diphenhydrAMINE HCL 25 MG CAP PO SCH (21:02)
[2017-08-30] MEDS: MELATONIN 3 MG TAB PO SCH (21:02)
[2017-08-31] MEDS: KETOROLAC TROMETHAMINE INJ 30 MG/ML VIAL IV SCH ×5 (00:24→23:59)
[2017-08-31] MEDS ORDERED: MEROPENEM 1 GM VIAL IVPB ONE ×4 (03:47→20:23)
[2017-08-31] MEDS ORDERED: SODIUM CHL 0.9% 50ML MIN-BAG+ 50 ML IVPB ONE ×4 (03:47→20:22)
[2017-08-31] MEDS: MEROPENEM 1 GM in SODIUM CHL 0.9% 50ML MIN-BAG+ 50 ML IVPB SCH ×4 (06:34→23:27)
[2017-08-31] MEDS: INSULIN LISPRO 100 UNITS/ML PEN SUBCU SCH ×4 (07:43→21:14)
[2017-08-31] MEDS ORDERED: SODIUM CHLORIDE 0.9% 250ML 250 ML ONE ×2 (08:01→20:19)
[2017-08-31] MEDS ORDERED: VANCOMYCIN HCL INJ 1,000 MG VIAL IVPB ONE ×2 (08:05→20:21)
[2017-08-31] MEDS: FUROSEMIDE 40 MG TAB PO SCH ×2 (08:50→18:05)
[2017-08-31] MEDS: ALPRAZolam 0.5 MG TAB PO SCH ×3 (08:50→21:13)
[2017-08-31] MEDS: tiZANidine 4 MG TAB PO SCH ×3 (08:50→21:13)
[2017-08-31] MEDS: metFORMIN HCL 500 MG TAB PO SCH ×2 (08:50→21:14)
[2017-08-31] MEDS: LISINOPRIL 5 MG TAB PO SCH (08:50)
[2017-08-31] MEDS: NICOTINE PATCH 14 MG TD SCH (08:51)
[2017-08-31] MEDS: SODIUM CHLORIDE 0.9% (FLUSH) 10 ML SYG IV SCH ×2 (08:51→21:12)
[2017-08-31] MEDS: PREGABALIN 75 MG CAP PO SCH ×2 (08:51→21:13)
[2017-08-31] MEDS: VANCOMYCIN HCL INJ 1,000 MG in SODIUM CHLORIDE 0.9% 250ML 250 ML IVPB SCH ×2 (08:52→21:12)
[2017-08-31] MEDS: SERTRALINE HCL 50 MG TAB PO SCH (08:52)
[2017-08-31] MEDS: HYDROcodone 10MG/APAP 325MG 1 EA TAB PO PRN ×2 (09:57→20:09)
[2017-08-31] MEDS ORDERED: MAGNESIUM SULFATE PREMIX 2GM 2 GM in PREMIX BAG 1 BAG IVPB ONE (15:18)
[2017-08-31] MEDS ORDERED: MAGNESIUM SULFATE PREMIX 2GM 50 ML IVPB ONE (16:09)
--- NOTE | 2017-08-31 16:19 | PN ---
DATE: 08/31/17 SUPERVISING PHYSICIAN: Akil Lopez M.D. SUBJECTIVE: The patient is lying in bed. She is asleep. She awakens easily. The pain in her leg is much less than it was yesterday. She continues to have some pain at the incision site as well as due to the tightness. Otherwise denies chest pain, nausea, vomiting, constipation or shortness of breath. OBJECTIVE: VITAL SIGNS: She is afebrile, heart rate 100, blood pressure 123/75 , respiratory rate 22, O2 sat 96% on room air. RESPIRATORY: Diminished breath sounds throughout, otherwise clear to auscultation. CARDIAC: Regular rate and rhythm. NEUROLOGIC: She is awake, alert and oriented times three. LABORATORY: WBCs 3.3, hematocrit 8.3, hematocrit 25.4. Sodium 140, potassium 4.4, chloride 107, carbon dioxide 26, BUN 37, creatinine 1.07, magnesium 1.5, calcium 8.3, alkaline phosphatase 266. Preliminary blood cultures are negative to date. All other labs and films have been reviewed via the EMR. ASSESSMENT: 1. Right knee pain status post surgical intervention to replace her knee hardware times [address] Blair in [place]. This is due to multiple infections and a history of MRSA infections. 2. Hypochromic/microcytic anemia. 3. Hypertension. 4. Diabetes mellitus type 2 poorly controlled. 5. Asthma. 6. History of rheumatoid arthritis. PLAN: We will continue present supportive care. I have given her magnesium replacement. Will recheck her labs in the morning. Will continue with her vancomycin and Merrem. Will have to do that for several days. The plan is to call Dr. Rankin, Infectious Diseases, on Sunday to see how long the treatment for her antibiotics should be as well as recommendation on her care. Her H&H is gradually decreasing so we will monitor that closely. Otherwise will continue to monitor her closely and follow as needed. Dr. Lopez is the collaborating physician available for consultation. #[id number] [facility]
[2017-08-31] MEDS: ENOXAPARIN SODIUM 40 MG/0.4 ML SYG SUBCU SCH (21:12)
[2017-08-31] MEDS: diphenhydrAMINE HCL 25 MG CAP PO SCH (21:13)
[2017-08-31] MEDS: MELATONIN 3 MG TAB PO SCH (21:13)
[2017-09-01] MEDS: HYDROcodone 10MG/APAP 325MG 1 EA TAB PO PRN ×4 (02:06→20:56)
[2017-09-01] MEDS: MEROPENEM 1 GM in SODIUM CHL 0.9% 50ML MIN-BAG+ 50 ML IVPB SCH ×3 (05:55→22:26)
[2017-09-01] MEDS: INSULIN LISPRO 100 UNITS/ML PEN SUBCU SCH ×4 (07:25→21:17)
[2017-09-01] MEDS: metFORMIN HCL 500 MG TAB PO SCH ×2 (07:38→20:58)
[2017-09-01] MEDS: VANCOMYCIN HCL INJ 1,000 MG in SODIUM CHLORIDE 0.9% 250ML 250 ML IVPB SCH (09:00)
[2017-09-01] MEDS: ALPRAZolam 0.5 MG TAB PO SCH ×3 (09:07→20:58)
[2017-09-01] MEDS: LISINOPRIL 5 MG TAB PO SCH (09:07)
[2017-09-01] MEDS: PREGABALIN 75 MG CAP PO SCH ×2 (09:07→20:58)
[2017-09-01] MEDS: FUROSEMIDE 40 MG TAB PO SCH ×2 (09:07→17:02)
[2017-09-01] MEDS: tiZANidine 4 MG TAB PO SCH ×3 (09:07→20:58)
[2017-09-01] MEDS: SERTRALINE HCL 50 MG TAB PO SCH (09:07)
[2017-09-01] MEDS: NICOTINE PATCH 14 MG TD SCH (09:08)
[2017-09-01] MEDS: SODIUM CHLORIDE 0.9% (FLUSH) 10 ML SYG IV SCH ×2 (09:08→20:56)
[2017-09-01] MEDS ORDERED: SODIUM CHL 0.9% 50ML MIN-BAG+ 50 ML IVPB ONE ×2 (14:41→22:21)
[2017-09-01] MEDS ORDERED: MEROPENEM 1 GM VIAL IVPB ONE ×2 (14:42→22:21)
--- NOTE | 2017-09-01 15:04 | PN ---
DATE: 09/01/17 SUPERVISING PHYSICIAN: Maikel Rojas M.D. SUBJECTIVE: The patient is sitting up in her bed. Has no complaints of nausea , vomiting or shortness of breath. She feels like her leg is much improved. There is very little redness today. She feels like the swelling has decreased. OBJECTIVE: VITAL SIGNS: She is afebrile, heart rate 80, blood pressure 127/76, respiratory rate 18, O2 sat 98% on room air. RESPIRATORY: Diminished at the bases. Essentially clear to auscultation bilaterally. CARDIAC: Regular rate and rhythm. Her right knee has an incision that is well approximated with sutures. It does appear to be less erythematous and less edematous than it was yesterday. There is no drainage other than a small amount of serosanguinous drainage on the dressing. There is no erythema to the lower leg. The generalized swelling from the ankle up to mid thigh is just diffuse and nonpitting. Her bilateral pedal pulses are +1. NEUROLOGIC: She is awake, alert and oriented times three. LABORATORY: WBCs are 2.9, neutrophils 67. Hemoglobin has improved to 8.5 with hematocrit 25.7. Blood sugars have been running between 173 and 219. Electrolytes are basically within normal limits with excepting her calcium is 8.1. Preliminary blood cultures show no growth. All other labs and films have been reviewed via the EMR. ASSESSMENT: 1. Right knee pain status post surgical intervention to replace her knee hardware times [address] Blair in [place]. This is due to multiple infections and a history of MRSA infections. 2. Hypochromic/microcytic anemia. 3. Hypertension. 4. Diabetes mellitus type 2 poorly controlled. 5. Asthma. 6. History of rheumatoid arthritis. PLAN: We will continue present supportive care, especially continuing with her Merrem and her vancomycin. I will hold off on any labs for tomorrow. I will repeat the labs for Sunday and at that time we can call Dr. Rankin to see recommendations for antibiotic therapy as well as the length of treatment. She is on vancomycin. She is willing to be discharged home and come in daily for outpatient treatment with vancomycin, especially if he length of treatment is for an extended amount of time. Will continue to monitor her closely and follow as needed. Dr. Rojas is the collaborating physician available for consultation. #[id number] [facility]
[2017-09-01] MEDS ORDERED: VANCOMYCIN HCL INJ 1,000 MG VIAL IVPB ONE ×2 (15:05→19:28)
[2017-09-01] MEDS ORDERED: SODIUM CHLORIDE 0.9% 500ML 0 ML ONE (15:05)
[2017-09-01] MEDS: VANCOMYCIN HCL INJ 1,750 MG in SODIUM CHLORIDE 0.9% 500ML 500 ML IVPB SCH (15:57)
[2017-09-01] MEDS ORDERED: SODIUM CHLORIDE 0.9% 500ML 500 ML ONE (19:26)
[2017-09-01] MEDS ORDERED: FLUCONAZOLE IV 100 ML IVPB ONE (19:51)
[2017-09-01] MEDS: IV SET AND CAP CHANGE INJ INJ SCH (19:52)
[2017-09-01] MEDS: diphenhydrAMINE HCL 25 MG CAP PO SCH (20:57)
[2017-09-01] MEDS: MELATONIN 3 MG TAB PO SCH (20:57)
[2017-09-01] MEDS: ENOXAPARIN SODIUM 40 MG/0.4 ML SYG SUBCU SCH (20:57)
[2017-09-01] MEDS: NYSTATIN POWDER 15GM BTTL TOP SCH (20:57)
[2017-09-01] MEDS ORDERED: FLUCONAZOLE IVPB ONE (21:00)
[2017-09-01] MEDS ORDERED: FLUCONAZOLE IV 200 MG in PREMIX BAG 1 BAG IVPB ONE (21:00)
[2017-09-02] MEDS: HYDROcodone 10MG/APAP 325MG 1 EA TAB PO PRN ×3 (03:27→18:16)
[2017-09-02] MEDS ORDERED: MEROPENEM 1 GM VIAL IVPB ONE ×3 (04:11→20:04)
[2017-09-02] MEDS ORDERED: SODIUM CHL 0.9% 50ML MIN-BAG+ 50 ML IVPB ONE ×3 (04:11→20:02)
[2017-09-02] MEDS: MEROPENEM 1 GM in SODIUM CHL 0.9% 50ML MIN-BAG+ 50 ML IVPB SCH ×3 (06:07→22:26)
[2017-09-02] MEDS: INSULIN LISPRO 100 UNITS/ML PEN SUBCU SCH ×4 (06:56→21:15)
[2017-09-02] MEDS: metFORMIN HCL 500 MG TAB PO SCH ×2 (07:52→21:17)
[2017-09-02] MEDS: FUROSEMIDE 40 MG TAB PO SCH ×2 (08:54→16:36)
[2017-09-02] MEDS: ALPRAZolam 0.5 MG TAB PO SCH ×3 (08:55→21:19)
[2017-09-02] MEDS: tiZANidine 4 MG TAB PO SCH ×3 (08:55→21:21)
[2017-09-02] MEDS: PREGABALIN 75 MG CAP PO SCH ×2 (08:55→21:19)
[2017-09-02] MEDS: SERTRALINE HCL 50 MG TAB PO SCH (08:55)
[2017-09-02] MEDS: LISINOPRIL 5 MG TAB PO SCH (08:55)
[2017-09-02] MEDS: NICOTINE PATCH 14 MG TD SCH (09:26)
[2017-09-02] MEDS: NYSTATIN POWDER 15GM BTTL TOP SCH ×4 (09:28→21:22)
[2017-09-02] MEDS: SODIUM CHLORIDE 0.9% (FLUSH) 10 ML SYG IV SCH ×2 (09:29→21:19)
[2017-09-02] MEDS ORDERED: SODIUM CHLORIDE 0.9% 500ML 500 ML ONE (14:16)
[2017-09-02] MEDS ORDERED: VANCOMYCIN HCL INJ 1,000 MG VIAL IVPB ONE (14:17)
--- NOTE | 2017-09-02 14:57 | PN ---
DATE: 09/02/17 SUPERVISING PHYSICIAN: Maikel Rojas M.D. SUBJECTIVE: The patient is sitting in her hospital bed. She is crying, she very frustrated over the multiple procedures she has had with her legs. We discussed her discharge plan and at this point after talking with Dr. Rankin tomorrow, she may be able to do outpatient IV therapy. She also complained that she had a yeast infection under her panniculus. She denies any chest pain , nausea or vomiting, diarrhea or constipation. OBJECTIVE: VITAL SIGNS: She is afebrile, heart rate 73, blood pressure 143/78, respiratory rate 18, O2 sat 97% on room air. RESPIRATORY: Essentially clear to auscultation bilaterally. Somewhat diminished at the bases. CARDIAC: Regular rate and rhythm. EXTREMITIES: There is a small amount of erythema surrounding the incision site but drainage is minimal. Swelling has decreased substantially since admission. There is no edema to the ankle area of either leg. Her right lower leg is much improved since admission. NEUROLOGIC: She is awake, alert and oriented times three, although very tearful and somewhat depressed. LABORATORY: There are no labs or films to report at this time. Please refer to the wound culture and sensitivity report in her chart from [facility] from 2 weeks ago. ASSESSMENT: 1. Right knee pain status post surgical intervention to replace her knee hardware times [address] Blair in [place]. This is due to multiple infections and a history of MRSA infections. 2. Hypochromic/microcytic anemia. 3. Hypertension. 4. Diabetes mellitus type 2 poorly controlled. 5. Asthma. 6. History of rheumatoid arthritis. 7. Yeast infection to the panniculus. PLAN: We will continue present supportive care. I will hold on any lab for tomorrow as it has fairly normalized. She has been on vancomycin and Merrem since admission to the hospital on the . Recommendations that Dr. Rankin be contacted tomorrow to discuss which antibiotics to continue as well as the length of treatment due to her multiple and extensive of MRSA infections, especially for her surgical implants. If she is only on vancomycin, she can most likely do this as an outpatient. She is on Merrem. She may have to go back to [facility]. She would prefer to go home and come in daily for outpatient treatment but I will leave that up to Dr. Rankin tomorrow. She is on an antidepressant and antianxiety medication and will continue to monitor her closely and follow as needed. Dr. Rojas is the collaborating physician available for consultation. #[id number] [facility]
[2017-09-02] MEDS: VANCOMYCIN HCL INJ 1,750 MG in SODIUM CHLORIDE 0.9% 500ML 500 ML IVPB SCH (15:23)
[2017-09-02] MEDS ORDERED: FLUCONAZOLE IV 100 ML IVPB ONE (20:03)
[2017-09-02] MEDS ORDERED: FLUCONAZOLE IVPB SCH (21:00)
[2017-09-02] MEDS: diphenhydrAMINE HCL 25 MG CAP PO SCH (21:16)
[2017-09-02] MEDS: ENOXAPARIN SODIUM 40 MG/0.4 ML SYG SUBCU SCH (21:18)
[2017-09-02] MEDS: MELATONIN 3 MG TAB PO SCH (21:18)
[2017-09-03] MEDS: HYDROcodone 10MG/APAP 325MG 1 EA TAB PO PRN ×3 (02:31→16:22)
[2017-09-03] MEDS ORDERED: SODIUM CHL 0.9% 50ML MIN-BAG+ 50 ML IVPB ONE ×2 (04:23→08:29)
[2017-09-03] MEDS ORDERED: MEROPENEM 1 GM VIAL IVPB ONE ×2 (04:23→08:31)
[2017-09-03] MEDS: MEROPENEM 1 GM in SODIUM CHL 0.9% 50ML MIN-BAG+ 50 ML IVPB SCH ×2 (06:44→14:41)
[2017-09-03] MEDS: INSULIN LISPRO 100 UNITS/ML PEN SUBCU SCH ×3 (07:15→17:14)
[2017-09-03] MEDS: metFORMIN HCL 500 MG TAB PO SCH (07:16)
[2017-09-03] MEDS: ALPRAZolam 0.5 MG TAB PO SCH ×2 (08:44→16:20)
[2017-09-03] MEDS: PREGABALIN 75 MG CAP PO SCH (08:44)
[2017-09-03] MEDS: tiZANidine 4 MG TAB PO SCH ×2 (08:44→16:20)
[2017-09-03] MEDS: FUROSEMIDE 40 MG TAB PO SCH ×2 (08:45→17:10)
[2017-09-03] MEDS: LISINOPRIL 5 MG TAB PO SCH (08:45)
[2017-09-03] MEDS: SERTRALINE HCL 50 MG TAB PO SCH (08:45)
[2017-09-03] MEDS: NYSTATIN POWDER 15GM BTTL TOP SCH ×3 (08:45→17:10)
[2017-09-03] MEDS: SODIUM CHLORIDE 0.9% (FLUSH) 10 ML SYG IV SCH (08:46)
[2017-09-03] MEDS: NICOTINE PATCH 14 MG TD SCH (08:46)
[2017-09-03 11:25] VITALS: O2SAT 96
[2017-09-03] MEDS ORDERED: IBUPROFEN 400 MG TAB ONE (14:00)
[2017-09-03] MEDS ORDERED: IBUPROFEN 400 MG TAB PO ONE (14:06)
[2017-09-03] MEDS ORDERED: VANCOMYCIN HCL INJ 1,750 MG in SODIUM CHLORIDE 0.9% 500ML 500 ML IVPB ONE (15:30)
[2017-09-03] MEDS ORDERED: SODIUM CHLORIDE 0.9% 500ML 500 ML ONE (15:52)
[2017-09-03] MEDS ORDERED: VANCOMYCIN HCL INJ 1,000 MG VIAL IVPB ONE (15:52)
[2017-09-03] MEDS: VANCOMYCIN HCL INJ 1,750 MG in SODIUM CHLORIDE 0.9% 500ML 500 ML IVPB SCH (17:27)
[2017-09-03 19:13] VITALS: BP 145/76; TEMP 97.8
[2017-09-03] MEDS ORDERED: FLUCONAZOLE 100 MG TAB PO ONE (21:00)
--- NOTE | 2017-09-04 08:45 | DS ---
SUPERVISING PHYSICIAN: Marc Arriola MD DISCHARGE DIAGNOSIS: 1. Right knee pain status post surgical intervention having replaced her knee with hardware times [address] Blair in [place] due to multiple infections and a history of MRSA infections with continued wound drainage requiring initiation of vancomycin. 2. Hypochromic/microcytic anemia secondary to chronic illness. 3. Hypertension, stable, 4. Diabetes mellitus type 2 poorly controlled secondary to poor medical compliance. 5. Asthma. 6. History of rheumatoid arthritis. 7. Yeast infection to the panniculus secondary to chronic antibiotic therapy. REASON FOR HOSPITALIZATION: The patient was admitted on 08/29/17 to the hospital. She is a 56 year-old female resident of [facility] since . She was initially admitted to [facility] after she had had a shoaib replaced in her right knee by Dr. Blair in [place]. She had 3 previous knee replacements but this had multiple complications to that right knee with MRSA and other infections to the hardware which had to be replaced. This last time Dr. Blair replaced it with a shoaib. She was then started on oral doxycycline and IV Meropenem in the skilled nursing. She was seen by the P.A. at [facility] on the date of admission and was sent to the Emergency Room due to purulent drainage from that right knee. In the Emergency Room her white count was noted to ave 6,300 with an early left shift. C-reactive protein was 7. Dr. Nain Arriola, Emergency Room physician, was able to contact Dr. Blair in [place] about the drainage. He did not recommend that it be aspirated but recommended that the drainage be cultured. He noted that he could do any further surgical interventions other than an [id number] amputation and she should be treated with antibiotics in the hospital. Dr. Mckeon, Infectious Diseases, was also contacted by Dr. Arriola who recommended that we continue the Meropenem as well as adding vancomycin due to her history of MRSA. Knee x-ray showed posterior destructive changes at the knee with gas bubbles anteriorly below the patella. The surgery was not recent and the findings would be worrisome for infection. The patient was then admitted to the medical/surgical floor for further treatment.. LABORATORY STUDIES: White count on admission was 6,300, at discharge was 4, 200. Hemoglobin and hematocrit were stable and on discharge was 9.0 and 27.6 with RBC indices indicating a microcytic hypochromic anemia with a platelet count of 165,000. She did have a slight left shift on admission and then had a slight increase in bands up to 3%. This had resolved and normalized back to baseline before discharge. Initial ESR at discharge was 115. Chemistries on admission showed normal electrolytes with a BUN of 34, creatinine 1.05, calcium 8.7, magnesium 1.5 and after replacement it was 1.8 prior to discharge. Liver functions all showed to be within normal limits except for alkaline phosphatase which was elevated at 253. She did have a C-reactive protein that was 7.0 initially on admission. At discharge it was essentially the same at 7.3. She had 2 sets of vancomycin trough that were drawn initially on 09/01 it was 29.0 and on date of discharge it was 17.7. MICROBIOLOGY: Wound cultures were pending. Blood cultures showed to be negative RADIOLOGY: There was a knee performed in the Emergency Department prior to admission and per radiology interpretation showed posterior destructive changes in the knee with tiny gas bubbles anteriorly below the patella. Surgery was not recent and these findings would be worrisome for infection per radiology interpretation. No additional radiographic studies were completed prior to discharge. HOSPITAL COURSE: Ms. Boyd was admitted as noted on 08/29/17 with concerns for worsening infection of her right knee with having a history of MRSA. Per recommendations of Dr. Mckeon and Dr. Blair, the patient was admitted. She was started on IV vancomycin and continued on emamnuel Meropenem over the weekend. She did show good response after beginning vancomycin. On date of discharge, the patient was showing good improvement and after discussing the case with Dr. Rankin, the patient was to be discharged home to continue with outpatient treatment plan which would include at least 2 more months of antibiotic therapy with vancomycin and Rocephin. Again, the patient was showing to be improved clinically and was discharged to continue with outpatient management. PLAN: Ms. Boyd was discharged on 09/03/17 with instructions to have continued outpatient treatment for IV antibiotic therapy with vancomycin per pharmacy protocol at [facility] as well as 2 grams of Rocephin every 24 hours. She was to make arrangements with outpatient services to have infusions daily for at least two months. She was to followup with Dr. Rankin in two to three weeks as well as her primary care physician, Dr. Arriola. Wound care was july but no tub bath per physical therapy and Dr. Blair. ACTIVITIES: The patient was to have no weightbearing to that right leg and to keep it elevated when possible. DISCHARGE DIET: Diabetic diet. ACTIVITIES: As noted above. NEW PRESCRIPTIONS AT DISCHARGE: 1. Rocephin 2 grams every 24 hours. 2. Vancomycin per pharmacy protocol daily for 60 days with a goal of peak-and- trough between 15 and 20 and to have troughs drawn per protocol at least every third dose and doses adjusted accordingly. 3. Nystatin powder to areas of panniculus for yeast infection as needed. CONDITION AT DISCHARGE: Stable and improved. #[id number] [facility]
== END 2017-09-03 20:05 | disposition home or self-care (01) | DRG 561 ==
LOC: ER 15:47 → MS 17:56
PROVIDERS: ADMIT Nurse Practitioner Acute Care; ATTEND Nurse Practitioner Family
DX: T84.53XA Infection and inflammatory reaction due to internal right knee prosthesis, initial encounter (principal); B37.2 Candidiasis of skin and nail; D50.9 Iron deficiency anemia, unspecified; J44.9 Chronic obstructive pulmonary disease, unspecified; I10 Essential (primary) hypertension; R74.8 Abnormal levels of other serum enzymes; M06.9 Rheumatoid arthritis, unspecified; M19.90 Unspecified osteoarthritis, unspecified site; M81.0 Age-related osteoporosis without current pathological fracture; E66.9 Obesity, unspecified; E11.9 Type 2 diabetes mellitus without complications; F17.210 Nicotine dependence, cigarettes, uncomplicated; Z96.641 Presence of right artificial hip joint; Z79.891 Long term (current) use of opiate analgesic; Z79.4 Long term (current) use of insulin; Z79.899 Other long term (current) drug therapy; Z88.8 Allergy status to other drugs, medicaments and biological substances; Y92.9 Unspecified place or not applicable; Z91.19 Patient's noncompliance with other medical treatment and regimen; T36.95XA Adverse effect of unspecified systemic antibiotic, initial encounter; Y92.230 Patient room in hospital as the place of occurrence of the external cause; Z86.14 Personal history of Methicillin resistant Staphylococcus aureus infection; Z68.39 Body mass index [BMI] 39.0-39.9, adult

== ENCOUNTER → 2017-10-29 | Outpatient (CLI) | payer MEDICARE, MEDICAID | LOC: GMAE 11:29 | PROVIDERS: ATTEND Family Medicine | DX: R06.02 Shortness of breath (principal) ==

== ENCOUNTER 2017-11-20 16:48 | Inpatient (IN) | payer MEDICARE, MEDICAID ==
[2017-11-20] MEDS ORDERED: SODIUM CHLORIDE 0.9% 1000ML 1,000 ML IVS ONE ×2 (17:23→18:31)
[2017-11-20] MEDS ORDERED: ONDANSETRON INJ 4 MG/2 ML VIAL IV ONE ×2 (17:23→18:02)
--- NOTE | 2017-11-20 17:56 | ED.PDOC ---
History of Present Illness - General Chief Complaint: GI Problem Stated Complaint: vomiting,diarrhea Time Seen by Provider: 11/20/17 17:47 Source: patient Exam Limitations: no limitations - History of Present Illness Initial Comments: 8 D OF N/V/D. KEEPING H20 DOWN BUT NOT FOOD. MILD FRONTAL TENSION-TYPE H.A. Timing/Duration: 1 week Severity: moderate Improving Factors: nothing Worsening Factors: nothing Associated Symptoms: headaches, nausea/vomiting Allergies/Adverse Reactions: Allergies Trazodone Allergy (Verified 08/29/17 18:21) Home Medications: Ambulatory Orders HYDROcodone 10MG/APAP 325MG [Cylinder 10/325] 1 tab PO Q4H PRN 04/21/15 Tizanidine HCl [Zanaflex] 6 mg PO TID 04/21/15 ALPRAZolam [Xanax] 0.5 mg PO TID 02/15/16 Furosemide 20 mg PO BID 02/15/16 Albuterol Sulfate [Proair Hfa] 2 puff INH Q4H PRN 08/29/17 Exenatide [Bydureon Pen] 2 mg SC WKLY 08/29/17 Insulin Aspart [Novolog] 7 unit SC BID 08/29/17 Insulin Degludec [Tresiba Flextouch] 36 unit SC DAILY 08/29/17 Lisinopril 5 mg PO DAILY 08/29/17 Melatonin 5 mg PO BEDTIME 08/29/17 Metformin HCl 1,000 mg PO BID 08/29/17 Pregabalin [Lyrica] 100 mg PO BID 08/29/17 diphenhydrAMINE HCL [Benadryl] 100 mg PO BEDTIME 08/29/17 Doxycycline (Monohydrate) [Doxycycline] 100 mg PO BID 11/20/17 Review of Systems - Review of Systems Constitutional: States: no symptoms reported EENTM: Denies: ear pain, ear discharge, nose congestion Respiratory: Denies: cough, short of breath Cardiology: States: no symptoms reported Gastrointestinal/Abdominal: States: diarrhea, nausea, vomiting. Denies: abdominal pain Genitourinary: States: no symptoms reported Musculoskeletal: States: no symptoms reported Skin: States: lumps - L BACK, C/W LIPOMA AND TOLD THE SAME IN PAST BY HER PCP. Neurological: States: no symptoms reported Endocrine: States: no symptoms reported Hematologic/Lymphatic: States: no symptoms reported All other Systems: Reviewed and Negative Past Medical History (General) - Patient Medical History Hx Seizures: No Hx Stroke: No Hx Dementia: No Hx Asthma: Yes Hx of COPD: Yes Hx Cardiac Disorders: No Hx Congestive Heart Failure: No Hx Pacemaker: No Hx Hypertension: Yes Hx Thyroid Disease: No Hx Diabetes: Yes Hx Gastroesophageal Reflux: No Hx Renal Disease: No Hx Cancer: No Hx of HIV: No Hx Hepatitis C: No Hx MRSA: Yes MRSA Source:: Wound Surgical History: cholecystectomy - Vaccination History Hx Tetanus, Diphtheria Vaccination: Yes Hx Influenza Vaccination: Yes Hx Pneumococcal Vaccination: Yes - Social History Hx Tobacco Use: Yes Hx Chewing Tobacco Use: No Hx Alcohol Use: No Hx Substance Use: Yes - not any more pt states Hx Substance Use Treatment: No Hx Depression: No Hx Physical Abuse: No Hx Emotional Abuse: No Hx Suspected Abuse: No - Female History Patient : No Family Medical History - Family History Father Family History: Unknown Living Status: Age at (years of age): 60 Hx Family Cancer: Yes Mother Living Status: Age at (years of age): 60 Hx Family Cancer: Yes Physical Exam - Physical Exam General Appearance: Alert, Obese Eye Exam: bilateral normal Ears, Nose, Throat: hearing grossly normal, normal ENT inspection Neck: full range of motion, normal inspection Respiratory: lungs clear, normal breath sounds Cardiovascular/Chest: regular rate, rhythm, no murmur Peripheral Pulses: radial,right: 2+, radial,left: 2+ Gastrointestinal/Abdominal: normal bowel sounds, non tender, soft, no organomegaly, no pulsatile mass Back Exam: no CVA tenderness, no vertebral tenderness Extremity: normal range of motion, normal inspection Neurologic: no motor/sensory deficits, alert Skin Exam: normal color, warm/dry, other - L SUPERIOR BACK SOFT TUMOR, NTTP, BALLOTTABLE, NON-INDURATED. C/W LIPOMA VS SEBACEOUS CYST. Lymphatic: no adenopathy Progress - Progress Progress: 11/20/17 18:49 CBC UNREMARKABLE. CMP: Na 130. BICARB 14 (METAB ACIDOSIS). BUN 86 (BASELINE ~30). CR 2.21 ( BASELINE ~ 1). ANION GAP NL AT 11. UA: NEG FOR KETONES. POS TRACE PROTEIN AND RARE BACTERIA. SEVERE DEHYDRATION/HYPOVOLEMIA RESULTING IN ARF/PRERENAL AZOTEMIA, METABOLIC ACIDOSIS, AND RESULTANT H.A. 2L NS BOLUS GIVEN IN ER BUT SHE NEEDS ADMISSION WITH IVF OVERNIGHT TO RECHECK LABS IN THE AM AND ENSURE HER ARF IS IMPROVING. I TALKED WITH BILL TARIQ, HOSPITALIST [facility], WHO HAS ACCEPTED ADMISSION AND FURTHER CARE. THANK YOU, [facility], FOR ACCEPTING CARE OF THIS PT. Departure - Departure Clinical Impression: Acute renal failure (ARF), Acute prerenal azotemia, Metabolic acidosis with normal anion gap and bicarbonate losses, Severe dehydration, Gastroenteritis, Headache, Hyponatremia, Proteinuria, Vomiting and diarrhea Disposition: Admit Patient Condition: Fair Departure Forms: ED Discharge - Pt. Copy, Patient Portal Self Enrollment Diet: bland diet Referrals: Marc Arriola MD [Primary Care Provider] - 1-2 Weeks Home Medications: Ambulatory Orders HYDROcodone 10MG/APAP 325MG [Cylinder 10/325] 1 tab PO Q4H PRN 04/21/15 Tizanidine HCl [Zanaflex] 6 mg PO TID 04/21/15 ALPRAZolam [Xanax] 0.5 mg PO TID 02/15/16 Furosemide 20 mg PO BID 02/15/16 Albuterol Sulfate [Proair Hfa] 2 puff INH Q4H PRN 08/29/17 Exenatide [Bydureon Pen] 2 mg SC WKLY 08/29/17 Insulin Aspart [Novolog] 7 unit SC BID 08/29/17 Insulin Degludec [Tresiba Flextouch] 36 unit SC DAILY 08/29/17 Lisinopril 5 mg PO DAILY 08/29/17 Melatonin 5 mg PO BEDTIME 08/29/17 Metformin HCl 1,000 mg PO BID 08/29/17 Pregabalin [Lyrica] 100 mg PO BID 08/29/17 diphenhydrAMINE HCL [Benadryl] 100 mg PO BEDTIME 08/29/17 Doxycycline (Monohydrate) [Doxycycline] 100 mg PO BID 11/20/17 Decision To Admit - Decistion To Admit Decision to Admit Reason: Admit from ER Decision to Admit Date: 11/20/17 Decision to Admit Time: 19:01
[2017-11-20] MEDS ORDERED: ACETAMINOPHEN 500 MG TAB PO ONE (18:23)
--- NOTE | 2017-11-20 19:57 | HP ---
SUPERVISING PHYSICIAN: Maikel Rojas M.D. CHIEF COMPLAINT: HISTORY OF PRESENT ILLNESS: This is a 56 year-old female who came to the Emergency Room with an 8 day history of nausea and vomiting with some diarrhea. She denies any blood in the stool. States her appetite has been down quite a bit and when asked about her blood sugar she says they have actually been pretty good, but she has not had much p.o. intake. She really denies any significant abdominal pain either other than being sore from the vomiting. In the E. R., she had a workup which included labs primarily. She had a CO2 of 14 on her chemistry. White count was normal. No left shift. Sodium was low at 130 but she had an elevated BUN and creatinine of 86 and 2.21 respectively as well. Bilirubin was normal. For these reasons she was referred for admission. I went to see her in the Emergency Room and added a KUB which was pretty much nonspecific. Had a lactic acid as well which was normal and an arterial blood gas which actually showed a pretty significant metabolic acidosis with a pH of 7.20, PCO2 of 25, bicarb 9.4, PO2 of 98, base excess of -17.2. However, the patient is completely alert and oriented. Her vital signs appear to be acceptable. She has not had any episodes of hypotension and she does not appear to be in any severe distress at this time. Given the nonspecific nature of the abdominal film, I couldn't really see any gas pattern, therefore I ordered a CT scan of the abdomen and pelvis without contrast due to her renal function. This did not show any acute findings. She continued to vomit and got some Zofran in the Emergency Room but I have added Promethazine to her regimen as well. PAST MEDICAL HISTORY: 1. Asthma. 2. Atrial flutter. 3. Hypertension. 4. Rheumatoid arthritis. 5. Osteoarthritis. 6. Osteoporosis. 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 8. Type 2 diabetes mellitus. PAST SURGICAL HISTORY: 1. Tonsillectomy. 2. Cholecystectomy. 3. sections times 2. 4. 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 This last time she had a shoaib placed, therefore she is unable to bend her knee. 5. Bilateral tubal ligation. 6. Left first and third toe amputations. 7. [id number] placement on the right by Dr. Ng for antibiotic infusion due to the fact PICC lines were unsuccessful. CURRENT MEDICATIONS: 1. Albuterol 2 puffs every 4 hours p.r.n. 2. Alprazolam 0.5 mg p.o. t.i.d. 3. Benadryl 100 mg p.o. at bedtime. 4. Doxycycline 100 mg p.o. b.i.d. 5. Exenatide 2 mg subcutaneously weekly. 6. Furosemide 20 mg p.o. b.i.d. 7. Hydrocodone 10/325 one tab every 4 hours p.r.n. for pain. 8. NovoLog 7 units subcutaneously b.i.d. 9. Tresiba 36 units subcutaneously daily. 10. Lisinopril 5 mg p.o. daily. 11. Melatonin 5 mg p.o. at bedtime. 12. Metformin 1,000 mg p.o. b.i.d. 13. Lyrica 100 mg p.o. b.i.d. 14. Zanaflex 6 mg p.o. t.i.d. ALLERGIES: TRAZODONE. FAMILY HISTORY: Hypertension and chronic obstructive pulmonary disease. SOCIAL HISTORY: The patient smoke a pack of cigarettes daily. Denies alcohol or illicit drugs. She is . Has 2 children. She was at [facility] this summer after her knee infection but she is currently at home. REVIEW OF SYSTEMS: CONSTITUTIONAL: No fever or chills. No recent weight loss or weight gain. HEENT: No headaches, vision changes, ear pain, nasal congestion or throat pain. RESPIRATORY: No cough, hemoptysis or pleuritic chest pain. CARDIOVASCULAR: No chest pain, palpitations or peripheral edema. GASTROINTESTINAL: Positive for nausea, vomiting and diarrhea. No constipation. No significant abdominal pain. GENITOURINARY: No dysuria, frequency or flank pain. HEMATOLOGIC: No easy bruising or transfusion reaction. MUSCULOSKELETAL: No muscle cramping. She does have that right knee discomfort due to the shoaib being in place. INTEGUMENT: No rashes, lesions or wounds. NEUROLOGIC: No paresthesias. No seizures. No syncope. ENDOCRINE: No polydipsia, polyuria or polyphagia. No heat or cold intolerance. PHYSICAL EXAMINATION: VITAL SIGNS: Blood pressure 145/71, heart rate 72, respiratory rate 16, temperature 97.8, oxygen saturation 100%. GENERAL: Ms. Boyd is a 56 year-old female in no active distress. HEENT: Head is normocephalic and atraumatic. Eyes: Pupils are equal and reactive. Nose: No drainage. Throat: Moist mucosa. NECK: Supple. Midline trachea. No jugular venous distention. CHEST: Symmetrical with equal rise and fall of the chest with inspiration and expiration. Lung sounds are diminished in the bases but otherwise clear to auscultation bilaterally. CARDIOVASCULAR: The patient has a regular rate and rhythm. Normal S1 and S2. ABDOMEN: Soft, obese. Positive bowel sounds. She does have a little bit of epigastric tenderness to palpation but no rebound tenderness. There is no rigidity. GENITOURINARY: Exam is deferred. EXTREMITIES: Lower extremities with 2+ pulses. Capillary refill is less than 2 seconds. The right knee is straight due to the shoaib being in place. She cannot bend that knee. NEUROLOGIC: The patient is alert and oriented. Moves all extremities. Extraocular movements are intact. There are no focal deficits. LABORATORY: Labs and films are as discussed in the History of Present Illness. ASSESSMENT: 1. Acute kidney injury. 2. Severe dehydration. 3. Metabolic acidosis. 4. Gastroenteritis versus an infectious process. 5. Diabetes mellitus which appears to be controlled currently. 6. Hypertension. 7. 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 PLAN: At this time, the patient will be admitted as an inpatient due to the acute renal failure and metabolic acidosis. I am giving her additional IV fluids as she already had 2 liters in the Emergency Room, but she is still acidotic on her labs. Lactic acid is normal so it does not appear that she has any tissue hypoperfusion. I am going to go ahead and give her some sodium bicarbonate due to the fact she is acidotic. That has already been ordered. I have added Zofran as well as Promethazine to try to control her vomiting. She will remain NPO for now. Additionally due to the vomiting, I will need to hold her home medications. As stated above, the CT scan of the abdomen does not show any acute infectious process. Given the fact she has a normal white count , there is no indication for any antibiotic therapy at this time. Will start her on DVT and GI prophylaxis as well. Recheck labs in the morning. In fact, I will repeat an ABG tonight to ensure that we are not going in the wrong direction. #[id number] [facility]
--- NOTE | 2017-11-20 20:13 | RAD ---
EXAM DESCRIPTION: KUB CLINICAL HISTORY: 56 years Female, vomiting COMPARISON: None. FINDINGS: Surgical clips in the right upper quadrant noted. Bowel gas pattern is nonspecific with paucity of gas. No obvious free air. Degenerative changes of the lower lumbar spine noted. IMPRESSION: Nonspecific paucity of bowel gas. Obstruction not excluded. Electronically signed by: Parveen Elizalde MD 11/20/2017 8:12 PM CDT
[2017-11-20] MEDS ORDERED: LACTATED RINGERS 1,000 ML IVS PRN (20:14)
[2017-11-20] MEDS ORDERED: SODIUM BICARBONATE VIAL 50 MEQ/50 ML VIAL IV ONE (20:17)
[2017-11-20] MEDS: ONDANSETRON INJ 4 MG/2 ML VIAL IV PRN (20:25)
[2017-11-20] MEDS ORDERED: IV SET AND CAP CHANGE INJ INJ SCH (20:30)
--- NOTE | 2017-11-20 21:06 | CT ---
CT ABDOMEN PELVIS WITHOUT IV CONTRAST Exam date: 11/20/2017 8:19 PM CDT Comparison: CT abdomen July 12, 2009 Indication: MAIN Technique: Multiple helical axial images were obtained through the abdomen and pelvis without intravenous contrast. Sagittal and coronal reformatted images are reviewed as well. All CT scans at this facility use dose modulation, iterative reconstruction, and/or weight-based dosing when appropriate to reduce radiation dose to as low as reasonably achievable. Findings: Lung bases: There is a 3 mm nodular density in the left lower lobe (series 2, image 8) not seen on the prior study. Small nodular density in the right lower lobe is unchanged suggestive of an intrapulmonary lymph node. Liver: There is slight low-attenuation in the liver suggestive of fatty changes. Liver demonstrates a slightly nodular contour which may reflect cirrhotic changes. Caudate lobe appears prominent. Gallbladder/biliary: Gallbladder is surgically absent. No calcified gallstones. No evidence of biliary ductal dilatation. Pancreas: Unremarkable. Spleen: Unremarkable. Adrenals: Unremarkable. Kidneys and ureters: No evidence of renal or ureteral stones. No hydronephrosis. Bladder: Unremarkable. Pelvic organs: Unremarkable. Bowel: No evidence of bowel obstruction. No bowel wall thickening. Appendix appears unremarkable. Peritoneum: No free air. No significant free fluid. Lymph nodes: Nonspecific mildly prominent 4 cm x 1.2 cm lymph node in the right inguinal region noted. Vasculature: Aortoiliac atherosclerosis is noted. Soft tissues: Unremarkable. Bones: Degenerative changes of the lumbar spine noted. Postoperative changes involving the intramedullary region of the right femur partly imaged. Impression: 1. No obvious acute process within the abdomen or pelvis. 2. Left lower lobe 3 mm nodule. For a high-risk patient, optional follow-up chest CT in one year is recommended. 3. Few additional incidental findings as above. Electronically signed by: Parveen Elizalde MD 11/20/2017 9:05 PM CDT
[2017-11-20] MEDS: PANTOPRAZOLE SODIUM IV 40 MG VIAL IV SCH (21:10)
[2017-11-20] MEDS ORDERED: LACTATED RINGERS 1,000 ML ONE (21:44)
[2017-11-20] MEDS ORDERED: PROMETHAZINE HCL INJ 25 MG/ML VIAL ONE (21:44)
[2017-11-20] MEDS ORDERED: SODIUM CHLORIDE 0.9% 50ML 50 ML ONE (21:44)
[2017-11-20] MEDS: PROMETHAZINE HCL INJ 12.5 MG in SODIUM CHLORIDE 0.9% 50ML 50 ML IVPB PRN (22:36)
[2017-11-20] MEDS: SODIUM CHLORIDE 0.9% (FLUSH) 10 ML SYG IV PRN (22:37)
[2017-11-20] MEDS ORDERED: SODIUM CHLORIDE 0.9% 100ML 100 ML IVPB ONE (22:39)
[2017-11-21] MEDS ORDERED: SODIUM CHLORIDE 0.45% 1000ML 1,000 ML IVS ONE ×2 (00:25→08:55)
[2017-11-21] MEDS ORDERED: SODIUM BICARBONATE VIAL 50 MEQ/50 ML VIAL IV ONE (00:25)
[2017-11-21] MEDS: SODIUM CHLORIDE 0.9% (FLUSH) 10 ML SYG IV PRN ×2 (00:37→05:39)
[2017-11-21] MEDS: SODIUM CHLORIDE 0.45% IVS PRN ×2 (00:38→09:12)
[2017-11-21] MEDS: SODIUM BICARBONATE IVS PRN ×2 (00:38→09:12)
[2017-11-21] MEDS: HYDROcodone 10MG/APAP 325MG 1 EA TAB PO PRN ×4 (00:44→20:27)
[2017-11-21] MEDS ORDERED: SODIUM CHLORIDE 0.9% 50ML 50 ML ONE (05:33)
[2017-11-21] MEDS ORDERED: PROMETHAZINE HCL INJ 25 MG/ML VIAL ONE (05:33)
[2017-11-21] MEDS: PROMETHAZINE HCL INJ 12.5 MG in SODIUM CHLORIDE 0.9% 50ML 50 ML IVPB PRN (05:39)
[2017-11-21] MEDS ORDERED: SODIUM BICARBONATE VIAL 50 MEQ/50 ML VIAL ONE (09:01)
[2017-11-21] MEDS: ENOXAPARIN SODIUM 30 MG/0.3 ML SYG SUBCU SCH (09:19)
[2017-11-21] MEDS ORDERED: DEXTROSE 50% 25 GM/50 ML SYG IV PRN (09:24)
[2017-11-21] MEDS ORDERED: GLUCAGON INJ 1 MG VIAL SUBCU PRN (09:24)
[2017-11-21] MEDS: INSULIN LISPRO 100 UNITS/ML PEN SUBCU SCH ×2 (12:26→18:04)
[2017-11-21] MEDS: DEX 5% W/NACL 0.45% 1000ML 1,000 ML IVS PRN ×2 (14:27→22:09)
[2017-11-21] MEDS ORDERED: HYDROcodone 10MG/APAP 325MG 1 EA TAB PO PRN (15:57)
[2017-11-21] MEDS ORDERED: ALPRAZolam 0.5 MG TAB PO PRN (15:57)
[2017-11-21] MEDS ORDERED: FUROSEMIDE 40 MG TAB PO PRN (15:57)
[2017-11-21] MEDS ORDERED: TEMAZEPAM 15 MG CAP PO PRN (16:37)
--- NOTE | 2017-11-21 17:14 | PN ---
DATE: 11/21/17 SUPERVISING PHYSICIAN: Maikel Rojas M.D. SUBJECTIVE: The patient is lying in bed. She has no complaints of chest pain but continues complaints of some generalized abdominal pain as well as some mild nausea. Denies chest pain. OBJECTIVE: VITAL SIGNS: She is afebrile, heart rate 93, blood pressure 129/72, respiratory rate 18, O2 sat 97% on room air. RESPIRATORY: Essentially clear to auscultation bilaterally, somewhat diminished at the bases. CARDIOVASCULAR: Regular rate and rhythm. GASTROINTESTINAL: Abdomen is soft. She is obese. There is mild epigastric tenderness but no rebound tenderness. There is no guarding and bowel sounds are positive. NEUROLOGIC: She is awake, alert and oriented times three. LABORATORY: CBC is basically within normal limits. Electrolytes are within normal limits. Creatinine has improved slightly to 1.57, BUN 65. Stool culture is pending. Clostridium Difficile is negative. MRSA is pending. KUB x -ray shows surgical clips in the right upper quadrant, bowel gas pattern is nonspecific with paucity of gas. No obvious free air. Obstruction is not excluded. All other labs and films have been reviewed via the EMR. ASSESSMENT: 1. Acute kidney injury that is slightly improving. 2. Severe dehydration. 3. Metabolic acidosis that has improved. 4. Gastroenteritis versus an infectious process but cannot rule out an early small bowel obstruction 5. Diabetes mellitus. 6. Hypertension. 7. 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 PLAN: We will continue present supportive care. I have restarted her home medications. I have discontinued her bicarb drip and have started her on fluids. We will continue with bowel rest and I will repeat an abdominal x-ray in the morning to rule out early small bowel obstruction. If there are complications or she continues to have pain, I will consult Dr. Ng. We will hold on antibiotics for right now as her white count is normal. Will continue to monitor closely and follow as needed. Dr. Rojas is the collaborating physician available for consultation. #[id number] [facility]
[2017-11-21] MEDS ORDERED: ONDANSETRON INJ 4 MG/2 ML VIAL ONE (17:23)
[2017-11-21] MEDS: ONDANSETRON INJ 4 MG/2 ML VIAL IV PRN (17:26)
[2017-11-21] MEDS ORDERED: DOXYCYCLINE HYCLATE CAP 100 MG CAP ONE (19:35)
[2017-11-21] MEDS ORDERED: MELATONIN 40 MG PO SCH (21:00)
[2017-11-21] MEDS ORDERED: NON-FORMULARY MEDICATION 1 EA MIS (Tizanidine Hcl [Zanaflex] 4 MG) PO SCH (21:00)
[2017-11-21] MEDS ORDERED: NON-FORMULARY MEDICATION 1 EA MIS (Metformin Hcl [Metformin Hcl] 1,000 MG) PO SCH (21:00)
[2017-11-21] MEDS: PREGABALIN 100 MG CAP PO SCH (21:05)
[2017-11-21] MEDS: diphenhydrAMINE HCL 25 MG CAP PO SCH (21:05)
[2017-11-21] MEDS: metFORMIN HCL 500 MG TAB PO SCH (21:05)
[2017-11-21] MEDS: PANTOPRAZOLE SODIUM IV 40 MG VIAL IV SCH (21:05)
[2017-11-21] MEDS: tiZANidine 4 MG TAB PO SCH (21:05)
[2017-11-21] MEDS: MELATONIN 3 MG TAB PO SCH (21:05)
[2017-11-21] MEDS: DOXYCYCLINE 100 MG PO SCH (21:06)
[2017-11-22] MEDS: INSULIN LISPRO 100 UNITS/ML PEN SUBCU SCH ×5 (00:11→21:09)
[2017-11-22] MEDS: DEX 5% W/NACL 0.45% 1000ML 1,000 ML IVS PRN (05:59)
[2017-11-22] MEDS: HYDROcodone 10MG/APAP 325MG 1 EA TAB PO PRN ×2 (07:00→19:57)
--- NOTE | 2017-11-22 07:08 | RAD ---
EXAM DESCRIPTION: Abdomen Flat Upright CLINICAL HISTORY: 56 years Female, ?early SBO COMPARISON: None. FINDINGS: There is no free subdiaphragmatic gas or intra-abdominal air-fluid level. Several gas-filled small bowel loops in the right midabdomen are at the upper limits of normal caliber. There is a small amount of colonic stool and gas. Surgical clips are noted in the right mid abdomen. Multiple small pelvic calcifications are probably vascular. Degenerative changes in the lumbar spine. IMPRESSION: Slightly abnormal bowel gas pattern is detailed above without convincing evidence of obstruction at this time. Findings may represent focal ileus or enteritis, less likely developing small bowel obstruction. If symptoms persist or worsen, follow-up KUB or CT is recommended. Electronically signed by: Amando Fontenot MD 11/22/2017 7:07 AM CDT
[2017-11-22] MEDS ORDERED: DOXYCYCLINE HYCLATE CAP 100 MG CAP ONE ×2 (08:39→19:35)
[2017-11-22] MEDS: DOXYCYCLINE 100 MG PO SCH ×2 (08:50→20:52)
[2017-11-22] MEDS: SERTRALINE HCL 50 MG TAB PO SCH (08:50)
[2017-11-22] MEDS: PREGABALIN 100 MG CAP PO SCH ×2 (08:51→20:35)
[2017-11-22] MEDS: LISINOPRIL 5 MG TAB PO SCH (08:51)
[2017-11-22] MEDS: INSULIN DEGLUDEC 36 UNIT SC SCH (08:51)
[2017-11-22] MEDS: ENOXAPARIN SODIUM 30 MG/0.3 ML SYG SUBCU SCH (08:51)
[2017-11-22] MEDS: tiZANidine 4 MG TAB PO SCH ×3 (08:51→20:34)
[2017-11-22] MEDS: metFORMIN HCL 500 MG TAB PO SCH ×2 (08:51→20:34)
[2017-11-22] MEDS ORDERED: MAGNESIUM SULFATE PREMIX 2GM 2 GM in PREMIX BAG 1 BAG IVPB ONE (09:08)
[2017-11-22] MEDS ORDERED: MAGNESIUM SULFATE PREMIX 2GM 50 ML IVPB ONE (09:19)
--- NOTE | 2017-11-22 11:41 | PN ---
SUPERVISING PHYSICIAN: Maliha Rojas MD DATE: 11/22/17 SUBJECTIVE: The patient is lying in bed. She is asleep. She awakens easily. She tolerated her clear liquid diet without any issues and has no complaints of abdominal pain, nausea or vomiting. OBJECTIVE: VITAL SIGNS: Afebrile. Heart rate 74. Blood pressure 138/71. Respiratory rate 18. O2 saturation 99% on room air. RESPIRATORY: Essentially clear to auscultation bilaterally. CARDIOVASCULAR: Regular rate and rhythm. GASTROINTESTINAL: Abdomen is soft, nondistended. It is nontender. Bowel sounds are positive. EXTREMITIES: No cyanosis, clubbing or edema. NEUROLOGIC: She is awake, alert and oriented times three. LABORATORY: WBCs slightly low at 3.3, hemoglobin 11.5, hematocrit 35.3, platelet count 82. Blood sugars have run between 92 and 172. Electrolytes are basically within normal limits with the exception of magnesium is low at 1.5. Her stool studies are pending. Her abdominal x-ray shows slightly abnormal bowel gas pattern without convincing evidence of obstruction at this time. Findings may represent focal ileus or enteritis, less likely developing small bowel obstruction. All other labs and films have been reviewed via the EMR. ASSESSMENT: 1. Acute kidney injury, improving. 2. Severe dehydration, improved with fluids. 3. Metabolic acidosis, improved. 4. Gastroenteritis versus an infectious process, but cannot rule out an early small bowel obstruction 5. Diabetes mellitus, type 2. 6. Hypertension. 7. History of methicillin resistant Staphylococcus aureus infections of the knee. PLAN: We will continue present supportive care. She has tolerated her clear liquids this morning. I will advance her diet to full liquid. If she tolerates that, she will have a bland diet this evening. I have given her some magnesium supplementation today. I will recheck her labs and abdominal x-ray tomorrow. If she tolerates her diet and has no further abdominal pain, she can be discharged home tomorrow. Otherwise, we will monitor closely and follow as needed. Dr. Rojas is the collaborating physician available for consultation. #[id number] [facility]
[2017-11-22] MEDS: MELATONIN 3 MG TAB PO SCH (20:34)
[2017-11-22] MEDS: PANTOPRAZOLE SODIUM IV 40 MG VIAL IV SCH ×2 (20:35→21:57)
[2017-11-22] MEDS: diphenhydrAMINE HCL 25 MG CAP PO SCH (20:35)
[2017-11-22] MEDS: SODIUM CHLORIDE 0.9% (FLUSH) 10 ML SYG IV SCH (20:53)
[2017-11-23] MEDS: HYDROcodone 10MG/APAP 325MG 1 EA TAB PO PRN ×2 (05:08→11:14)
[2017-11-23] MEDS ORDERED: PANTOPRAZOLE SODIUM TAB 40 MG PO SCH (06:30)
[2017-11-23] MEDS: INSULIN LISPRO 100 UNITS/ML PEN SUBCU SCH (07:20)
[2017-11-23] MEDS ORDERED: DOXYCYCLINE HYCLATE CAP 100 MG CAP ONE (07:46)
[2017-11-23] MEDS: ENOXAPARIN SODIUM 30 MG/0.3 ML SYG SUBCU SCH (08:42)
[2017-11-23] MEDS: LISINOPRIL 5 MG TAB PO SCH (08:48)
[2017-11-23] MEDS: PREGABALIN 100 MG CAP PO SCH (08:48)
[2017-11-23] MEDS: metFORMIN HCL 500 MG TAB PO SCH (08:48)
[2017-11-23] MEDS: tiZANidine 4 MG TAB PO SCH (08:48)
[2017-11-23] MEDS: SERTRALINE HCL 50 MG TAB PO SCH (08:48)
[2017-11-23] MEDS ORDERED: DOXYCYCLINE HYCLATE CAP 100 MG CAP PO SCH (09:00)
[2017-11-23] MEDS: INSULIN DEGLUDEC 36 UNIT SC SCH (09:35)
[2017-11-23] MEDS: SODIUM CHLORIDE 0.9% (FLUSH) 10 ML SYG IV SCH (09:35)
--- NOTE | 2017-11-23 09:56 | RAD ---
Procedure: XR ABDOMEN 2 VIEWS SUPINE ERECT Exam Date: 11/23/2017 Ordering Provider: KOLTON BEVERLY Clinical Indication: abd pain Comparison: 11/22/2017 Findings: Surgical clips in the right upper quadrant. Nonobstructive bowel gas pattern. There is no pneumoperitoneum. Pelvic phleboliths. There is no acute osseous abnormality. Impression: 1. Nonobstructive bowel gas pattern. Electronically signed by: Ilya Culp MD 11/23/2017 9:55 AM CDT
[2017-11-23 10:11] VITALS: BP 157/85; TEMP 98.1; O2SAT 100
--- NOTE | 2017-11-27 13:46 | DS ---
SUPERVISING PHYSICIAN: Maliha Rojas MD ADMISSION DIAGNOSIS: 1. Acute kidney injury. 2. Severe dehydration. 3. Metabolic acidosis. 4. Gastroenteritis versus an infectious process. 5. Diabetes mellitus which appears to be controlled currently. 6. Hypertension. 7. 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 DISCHARGE DIAGNOSIS: 1. Acute kidney injury, improving, returning to baseline. 2. Severe dehydration, resolved after fluids. 3. Metabolic acidosis, resolved. 4. Gastroenteritis, likely viral, improving with fluids. 5. Diabetes mellitus, type 2, poorly controlled. 6. Hypertension. 7. History of methicillin resistant Staphylococcus aureus infections of the knee on chronic medications. REASON FOR HOSPITALIZATION: Ms. Boyd is a 56-year-old female who came to the Emergency Room on 11/20/17 with an 8-day history of nausea and vomiting with some diarrhea. She denied any blood in the stool. She noted her appetite had been poor and her blood sugar had actually been pretty good despite not having much p.o. intake. She denied any significant abdominal pain other than being sore from the vomiting. In the Emergency Room, initial workup included labs which showed a CO2 of 14 with normal white count with no liver function tests shift. Renal function did show an elevation in creatinine at 2.21. She had a KUB completed, which was nonspecific. She also had a lactic acid that was normal. Arterial blood gas showed a significant metabolic acidosis with a pH of 7.2, PCO2 of 25, bicarb 9.4, base excess of -17.2. The patient was completely alert and oriented in the Emergency Room and in no severe distress without Any significant abdominal pains. Given the patient appeared to be stable despite the metabolic acidosis, she was admitted for ongoing treatment of the nausea, vomiting and metabolic acidosis, likely secondary to persisted diarrhea, nausea and vomiting. LABORATORY: White count on admission was 7,400. At discharge, it was 3,300. Hemoglobin and hematocrit were fairly stable. At discharge, hemoglobin 11.5, hematocrit 35.3. She did show a microcytic/hyperchromic RBC presentation with platelet count of 82,000 compared to admission of 237,000. Differential was without a left shift for the entire hospitalization. Initial blood gas in the Emergency Room showed pH 7.2, PCO2 25, PO2 98, bicarb 9.4 with -17.2 base excess. Repeat ABG after fluids later that night showed pH 7.33, PCO2 30, PO2 87, base excess -9.4. Chemistries initially in the Emergency Room showed sodium 130, normal potassium of 4.4, but carbon dioxide was 14. BUN 86, creatinine 2.21, initial glucose 139, lactic acid 0.8, calcium 9.1. AST, ALT and bilirubin were normal with alkaline phosphatase elevated at 309. At discharge, electrolytes had normalized with sodium 137, BUN 27, creatinine down to 1.2, blood sugars ranging between 100 and 174. She did have a low magnesium of 1.5 to 1.6. Initial urinalysis on admission was within normal limits. She had stool studies completed that were still pending at time of discharge although there was a report on stool Giardia antigen that was none detected. MICROBIOLOGY: She had a stool culture and final report showed normal enteric maldonado recovered. She also had MRSA surveillance culture that was negative for methicillin-resistant Staphylococcus aureus. One C. difficile toxin A and B that was negative for antigen and toxin. RADIOLOGY: Initially in the Emergency Department, she had a KUB and abdominopelvic CT. Per radiologic interpretation, the KUB showed nonspecific opacity of bowel gas, obstruction not excluded. This was followed up with a non -contrast CT of her abdomen and pelvis and per radiologic interpretation it showed no obvious acute process within the abdomen or pelvis. There was note of left lower lobe 3-mm nodule in additional findings. Please see that report for full details. Abdominal x-ray done on 11/22/17 showed slight abnormal bowel gas pattern without any convincing evidence of obstruction with concerns for possible focus ileus or enteritis, less likely developing small bowel obstruction. Additional followup abdominal x-ray on 11/23/17 showed nonobstructive bowel gas pattern. DISCHARGE PHYSICAL EXAMINATION: VITAL SIGNS: Temperature 98.1. Pulse 70. Blood pressure 157/85. Respirations 20. Saturation 100%. GENERAL APPEARANCE: The patient was comfortable, in no distress, very pleasant. RESPIRATORY: Lungs clear to auscultation bilaterally. HEART: Regular rate and rhythm. ABDOMEN: Soft, nontender with positive bowel sounds. EXTREMITIES: No cyanosis or clubbing. NEUROLOGIC: Alert and oriented with no motor or sensory deficits noted. HOSPITAL COURSE: Ms. Boyd was admitted as noted above for nausea, vomiting and diarrhea along with developing metabolic acidosis. She was given IV fluids which she responded well to. Her nausea and vomiting was controlled with Zofran which did resolve prior to discharge. Her diet was advanced slowly as she tolerated and on the day of discharge, she was tolerating a regular diet and was noted to be dramatically improved and clinically feeling good. Therefore, she was discharged home to continue with outpatient management. PLAN: Ms. Boyd was discharged on 11/23/[address] Arriola in 7 days or sooner. She was to continue activities as previous as tolerated utilizing a wheelchair and with physical therapy. Diet was to be diabetic diet as tolerated. She was instructed to encourage oral fluids to prevent dehydration. She was told to return to the hospital if she had concerning symptoms or call Dr. Arriola's office. MEDICATIONS AT DISCHARGE: No new medications were prescribed at discharge. She continued on medications as previous. 1. Albuterol 2 puffs every 4 hours p.r.n. 2. Alprazolam 0.5 mg p.o. t.i.d. 3. Benadryl 100 mg p.o. at bedtime. 4. Doxycycline 100 mg p.o. b.i.d. 5. Exenatide 2 mg subcutaneously weekly. 6. Furosemide 20 mg p.o. b.i.d. 7. Hydrocodone 10/325 one tab every 4 hours p.r.n. for pain. 8. NovoLog 7 units subcutaneously b.i.d. 9. Tresiba 36 units subcutaneously daily. 10. Lisinopril 5 mg p.o. daily. 11. Melatonin 5 mg p.o. at bedtime. 12. Metformin 1,000 mg p.o. b.i.d. 13. Lyrica 100 mg p.o. b.i.d. 14. Zanaflex 6 mg p.o. t.i.d. #[id number] [facility]
[2017-11-28] MEDS ORDERED: EXENATIDE 2 MG SC SCH (09:00)
== END 2017-11-23 11:29 | disposition home or self-care (01) | DRG 683 ==
LOC: ER 16:48 → OBSVTOIN 19:56 → MS 19:56
PROVIDERS: ADMIT Nurse Practitioner; ATTEND Nurse Practitioner Family
DX: N17.9 Acute kidney failure, unspecified (principal); E87.2 Acidosis; I48.92 Unspecified atrial flutter; E86.0 Dehydration; A08.4 Viral intestinal infection, unspecified; E83.42 Hypomagnesemia; E11.9 Type 2 diabetes mellitus without complications; I10 Essential (primary) hypertension; J44.9 Chronic obstructive pulmonary disease, unspecified; M06.9 Rheumatoid arthritis, unspecified; M19.90 Unspecified osteoarthritis, unspecified site; M81.0 Age-related osteoporosis without current pathological fracture; F17.210 Nicotine dependence, cigarettes, uncomplicated; E66.9 Obesity, unspecified; Z96.651 Presence of right artificial knee joint; Z86.14 Personal history of Methicillin resistant Staphylococcus aureus infection; Z79.4 Long term (current) use of insulin; Z79.891 Long term (current) use of opiate analgesic; Z79.899 Other long term (current) drug therapy; Z88.8 Allergy status to other drugs, medicaments and biological substances; Z68.36 Body mass index [BMI] 36.0-36.9, adult

== ENCOUNTER 2017-12-31 09:54 | Inpatient (IN) | payer MEDICARE, MEDICAID ==
[2017-12-31] MEDS ORDERED: ONDANSETRON INJ 4 MG/2 ML VIAL IV ONE ×2 (10:15→11:57)
--- NOTE | 2017-12-31 10:22 | ED.PDOC ---
History of Present Illness - General Chief Complaint: Abdominal Pain Time Seen by Provider: 12/31/17 10:08 Source: patient Exam Limitations: no limitations - History of Present Illness Initial Comments: Patient presents with watery diarrhea for one week and N/V for two days. She has a cramping sensation just above her bladder that she says gets a little better after a bowel movement. The cramping is constant with no exacerbating symptoms. Diarrhea is non-bloody. She has had a decreased appetite. She had dysuria today but not yesterday. She says she hasn't had anything to eat in two days. She has had previous episodes of this and the last time she was hospitalized for three days. That was about two weeks ago. She has had a cholecystectomy and two C-sections. She says she received CT scans the last time this happened. No other complaints. Timing/Duration: 1 week Severity: moderate Improving Factors: nothing Worsening Factors: nothing Associated Symptoms: other - see HPI Allergies/Adverse Reactions: Allergies Trazodone Allergy (Verified 11/20/17 21:18) Home Medications: Ambulatory Orders HYDROcodone 10MG/APAP 325MG [[place] 10/325] 2 tab PO Q6HR PRN 04/21/15 Tizanidine HCl [Zanaflex] 4 mg PO TID 04/21/15 ALPRAZolam [Xanax] 0.5 mg PO TID PRN 02/15/16 Furosemide 20 mg PO BID PRN 02/15/16 Albuterol Sulfate [Proair Hfa] 2 puff INH Q4H PRN 08/29/17 Exenatide [Bydureon Pen] 2 mg SC WKLY 08/29/17 Insulin Aspart [Novolog] See Protocol SC BID 08/29/17 Insulin Degludec [Tresiba Flextouch] 36 unit SC DAILY 08/29/17 Lisinopril 5 mg PO DAILY 08/29/17 Metformin HCl 1,000 mg PO BID 08/29/17 Pregabalin [Lyrica] 100 mg PO BID 08/29/17 diphenhydrAMINE HCL [Benadryl] 100 mg PO BEDTIME 08/29/17 Doxycycline (Monohydrate) [Doxycycline] 100 mg PO BID 11/20/17 Melatonin 40 mg PO BEDTIME 11/20/17 Sertraline HCl [Zoloft] 150 mg PO DAILY 11/20/17 Review of Systems - Review of Systems Constitutional: States: no symptoms reported EENTM: States: no symptoms reported Respiratory: States: no symptoms reported Cardiology: States: no symptoms reported Gastrointestinal/Abdominal: States: see HPI Genitourinary: States: see HPI Musculoskeletal: States: no symptoms reported Skin: States: no symptoms reported Neurological: States: no symptoms reported Endocrine: States: no symptoms reported Hematologic/Lymphatic: States: no symptoms reported Past Medical History (General) - Patient Medical History Hx Seizures: No Hx Stroke: No Hx Dementia: No Hx Asthma: Yes Hx of COPD: No Hx Cardiac Disorders: No Hx Congestive Heart Failure: No Hx Pacemaker: No Hx Hypertension: Yes Hx Thyroid Disease: No Hx Diabetes: Yes Hx Gastroesophageal Reflux: No Hx Renal Disease: No Hx Cancer: No Hx of HIV: No Hx Hepatitis C: No Hx MRSA: Yes MRSA Source:: Wound Surgical History: no surgical history - Vaccination History Hx Tetanus, Diphtheria Vaccination: Yes Hx Influenza Vaccination: Yes Hx Pneumococcal Vaccination: Yes Immunizations Up to Date: Yes - Social History Hx Tobacco Use: Yes Hx Chewing Tobacco Use: No Hx Alcohol Use: No Hx Substance Use: No Hx Substance Use Treatment: No Hx Depression: No Feels Threatened In Home Enviroment: No Feels Threatened In a Relationship: No Hx Physical Abuse: No Hx Emotional Abuse: No Hx Suspected Abuse: No - Female History Patient is a Female of Child Bearing Age (10 -59 yrs old): No Patient : No Family Medical History - Family History Father Family History: Unknown Living Status: Age at (years of age): 60 Hx Family Cancer: Yes - mesothelioma Mother Living Status: Age at (years of age): 60 Hx Family Diabetes: Yes Hx Family Cancer: Yes - ovarian Physical Exam - Physical Exam General Appearance: Alert Eye Exam: bilateral normal Ears, Nose, Throat: normal ENT inspection Neck: non-tender, full range of motion, supple Respiratory: other - bronchia sounds diffusily and expiratory wheezing diffusily Cardiovascular/Chest: regular rate, rhythm, no edema Gastrointestinal/Abdominal: normal bowel sounds, non tender, soft Back Exam: normal inspection, no CVA tenderness Extremity: normal range of motion, non-tender, normal inspection Neurologic: chief contract officer II-XII nml as tested, no motor/sensory deficits, alert, normal mood/affect, oriented x 3 Skin Exam: other - TNTC excoriations over the patient's trunk and arms. Lymphatic: no adenopathy Progress - Progress Progress: 12/31/17 15:13 Laboratory Tests 12/31/17 12/31/17 12/31/17 10:40 10:40 10:40 WBC 7.7 RBC 4.77 Hgb 12.9 Hct 39.2 MCV 82.3 MCH 27.1 MCHC 32.9 L RDW 19.4 H Plt Count 162 MPV 8.6 Absolute Neuts (auto) 6.20 Absolute Lymphs (auto) 0.90 L Absolute Monos (auto) 0.50 Absolute Eos (auto) 0.00 Absolute Basos (auto) 0.00 Neutrophils % 80.6 H Lymphocytes % 11.4 L Monocytes % 7.1 Eosinophils % 0.3 L Basophils % 0.6 RBC Morphology 1+microcytosis Sodium 132 L Potassium 4.4 Chloride 108 Carbon Dioxide 17 L Anion Gap 11.4 L BUN 35 H Creatinine 1.25 BUN/Creatinine Ratio 28.0 H POC Glucose Random Glucose 144 H Serum Osmolality 275.0 Calcium 9.3 Total Bilirubin 0.6 AST 22 ALT 17 Alkaline Phosphatase 241 H Serum Total Protein 8.6 H Albumin 3.5 Globulin 5.1 H Albumin/Globulin Ratio 0.7 L Lipase 20 L Urine Color Urine Appearance Urine pH Ur Specific [place] Urine Protein Urine Glucose (UA) Urine Ketones Urine Blood Urine Nitrite Urine Bilirubin Urine Urobilinogen Ur Leukocyte Esterase Urine RBC Urine WBC Ur Epithelial Cells Urine Bacteria 12/31/17 12/31/17 11:05 11:38 WBC RBC Hgb Hct MCV MCH MCHC RDW Plt Count MPV Absolute Neuts (auto) Absolute Lymphs (auto) Absolute Monos (auto) Absolute Eos (auto) Absolute Basos (auto) Neutrophils % Lymphocytes % Monocytes % Eosinophils % Basophils % RBC Morphology Sodium Potassium Chloride Carbon Dioxide Anion Gap BUN Creatinine BUN/Creatinine Ratio POC Glucose 144 H Random Glucose Serum Osmolality Calcium Total Bilirubin AST ALT Alkaline Phosphatase Serum Total Protein Albumin Globulin Albumin/Globulin Ratio Lipase Urine Color Yellow Urine Appearance Clear Urine pH 5.5 Ur Specific [place] 1.020 Urine Protein 100 H Urine Glucose (UA) Negative Urine Ketones Negative Urine Blood Trace-lysed H Urine Nitrite Negative Urine Bilirubin Negative Urine Urobilinogen 0.2 Ur Leukocyte Esterase Trace H Urine RBC 1-3 Urine WBC 1-3 Ur Epithelial Cells 1-3 Urine Bacteria 0 Bicarbonate 17. Unable to get ABG due to dehydration. It would be safer to rehydrate the patient in the hospital and check pH at a later time. Stool culture, ova and parasites, and C. difficile collected and sent. Patient admitted for dehydration, N/V/D, and likely metabolic acidosis. - EKG/XRAY/CT CT Ordered: No CT Interpretation Call Back: No Departure - Departure Clinical Impression: Dehydration, Nausea & vomiting, Diarrhea Disposition: Admit Patient Condition: Fair Departure Forms: ED Discharge - Pt. Copy, Patient Portal Self Enrollment Instructions: DI for Abdominal Pain-Adult Diet: other - as per hospitalist Activity: other - as per hospitalist Referrals: Marc Arriola MD [Primary Care Provider] - 1-2 Weeks Home Medications: Ambulatory Orders HYDROcodone 10MG/APAP 325MG [[place] 10/325] 2 tab PO Q6HR PRN 04/21/15 Tizanidine HCl [Zanaflex] 4 mg PO TID 04/21/15 ALPRAZolam [Xanax] 0.5 mg PO TID PRN 02/15/16 Furosemide 20 mg PO BID PRN 02/15/16 Albuterol Sulfate [Proair Hfa] 2 puff INH Q4H PRN 08/29/17 Exenatide [Bydureon Pen] 2 mg SC WKLY 08/29/17 Insulin Aspart [Novolog] See Protocol SC BID 08/29/17 Insulin Degludec [Tresiba Flextouch] 36 unit SC DAILY 08/29/17 Lisinopril 5 mg PO DAILY 08/29/17 Metformin HCl 1,000 mg PO BID 08/29/17 Pregabalin [Lyrica] 100 mg PO BID 08/29/17 diphenhydrAMINE HCL [Benadryl] 100 mg PO BEDTIME 08/29/17 Doxycycline (Monohydrate) [Doxycycline] 100 mg PO BID 11/20/17 Melatonin 40 mg PO BEDTIME 11/20/17 Sertraline HCl [Zoloft] 150 mg PO DAILY 11/20/17
[2017-12-31] MEDS ORDERED: SODIUM CHLORIDE 0.9% 1000ML 1,000 ML IVS ONE ×2 (12:23→19:04)
[2017-12-31] MEDS ORDERED: ALUM & MAG HYDROX-SIMETHICONE 30 ML UD ONE (14:00)
[2017-12-31] MEDS ORDERED: ALUM & MAG HYDROX-SIMETHICONE 30 ML, LIDOCAINE VISCOUS 2% 15 ML PO ONE ×2 (14:00)
[2017-12-31] MEDS ORDERED: LIDOCAINE HCL 2% (MOUTH-THROAT) 15 ML UD ONE (14:00)
[2017-12-31] MEDS ORDERED: SODIUM CHLORIDE 0.9% 1000ML 1,000 ML IVS PRN (15:10)
--- NOTE | 2017-12-31 15:27 | HP ---
SUPERVISING PHYSICIAN: Maikel Rojas M.D. CHIEF COMPLAINT: Nausea, vomiting, diarrhea and abdominal pain. HISTORY OF PRESENT ILLNESS: Ms. Boyd is a 57 year-old female that presented to the Emergency Room today complaining of 1 week of watery diarrhea with nausea and vomiting for the last 2 days. She noted that she had been having diarrhea and over the weekend started developing some nausea with vomiting associated with some abdominal cramping and she was having a bladder spasm but was better once she had a bowel movement. She denied any bloody diarrhea but has been unable to hold any significant oral intake in. Due to the fact that she was having persistent nausea and vomiting, she presented today for evaluation. On admission, laboratory studies showed that she was with a normal white count with a slight left shift. Electrolytes showed a low sodium at 132 with carbon dioxide 17, anion gap was 11.4 with BUN 35, creatinine 1.25. Glucose 144 with serum osmolality 275. Liver functions were showing to be within normal limits as well as lipase. Urinalysis showed just 100 of protein with trace amount of blood, leukocyte esterase otherwise within normal limits. Attempts were made at obtaining ABGs, however, 3 attempts were unsuccessful due to the patient's dehydration. Again, the fact that her CO2 was showing to be low at 17 with nausea and vomiting, persistent diarrhea and severe dehydration, the patient was felt to be in a metabolic acidotic state, however she is diabetic but her glucose was only 144. She was given initially a liter of IV fluids in the E. R. without any success of getting ABG and the patient only having 1 liter of fluid and persistent normal with vomiting, Dr. Aviles requested the patient be admitted for further evaluation and treatment. The patient had been admitted within the last month on 11/20/17 for similar symptoms. At that time a CT was completed after admission. That report indicated there was no acute process noted that explained the patient's symptoms. Of note is the patient has had an ongoing chronic infection in her relative knee with a prosthesis that has been positive for MRSA and she has had multiple rounds of vancomycin as well as has been on doxycycline well over a year or more. Again, the concern was that possibly she was starting to develop an enterocolitis secondary to Clostridium Difficile versus a viral gastroenteritis. Her white count was showing to be normal. She has been afebrile. At this point no antibiotics were started in the E. R. She was admitted in stable condition for further treatment. PAST MEDICAL HISTORY: 1. Asthma. 2. Atrial flutter. 3. Hypertension. 4. Rheumatoid arthritis. 5. Osteoarthritis. 6. Osteoporosis. 7. 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 8. Type 2 diabetes mellitus both on insulin and oral therapy. PAST SURGICAL HISTORY: 1. Tonsillectomy. 2. Cholecystectomy. 3. section times 2. 4. 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 5. Bilateral tubal ligation. 6. 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 7. [id number] placement by Dr. Ng on the right for antibiotic infusions due to difficulty with insertion of PICC line in the past. CURRENT MEDICATIONS: 1. Benadryl 100 mg at bedtime. 2. Tizanidine 4 mg t.i.d. 3. Zoloft 150 mg daily. 4. Lyrica 100 mg b.i.d. 5. Metformin 1,000 mg b.i.d. 6. Melatonin 40 mg at bedtime. 7. Lisinopril 5 mg daily. 8. Tresiba Flextouch 36 units daily. 9. Novolog sliding scale. 10. Troup 10/325 two tablets every 6 hours p.r.n. 11. Lasix 20 mg b.i.d. as needed. 12. Bydureon pen 2 mg weekly. 13. Doxycycline 100 mg b.i.d. 14. Albuterol inhaler 2 puffs every 4 hours as needed. 15. Xanax 0.5 mg t.i.d. as needed. ALLERGIES: TRAZODONE. FAMILY HISTORY: Hypertension and chronic obstructive pulmonary disease. SOCIAL HISTORY: The patient smokes approximately a pack of cigarettes a day. She denies any alcohol or illicit drug use. She is . She has 2 children. She lives at home currently and has been previously in [facility] for ongoing knee infections. REVIEW OF SYSTEMS: CONSTITUTIONAL: Denies any fever or chills. No weight changes or weight gain. HEENT: No headaches, vision changes, ear pain, nasal congestion or sore throat. RESPIRATORY: Denies any cough, hemoptysis, pleuritic chest pains, wheezing. CARDIOVASCULAR: Denies any chest pains, palpitations or peripheral edema. GASTROINTESTINAL: Positive for nausea, vomiting, diarrhea. Denies any constipation or any other bowel habit changes. She does note she has had some intermittent abdominal pains. GENITOURINARY: Denies dysuria, hematuria, polyuria or flank pains. MUSCULOSKELETAL: No muscle cramping. She does have chronic knee discomfort due to multiple infections and ongoing hardware with a shoaib in place. INTEGUMENT: She denies any rashes, lesions or wounds, but reports that she has had some lesions or scabbing of areas to her left upper extremity but denies any infection. NEUROLOGIC: No reported paresthesias, seizures, syncopal episodes, ataxia or other focal neurological deficits. ENDOCRINE: Positive for diabetes but denies any polydipsia, polyuria or polyphagia. PHYSICAL EXAMINATION: VITAL SIGNS: Temperature on admission to the [facility] was 96.3, pulse 97, blood pressure 144/88, respirations 18, satting 93 to 97% on room air. Admission weight 95.0 kg. GENERAL: She is alert, appears to be comfortable in no acute distress. She does look somewhat dehydrated. HEENT: Tympanic membranes are clear bilaterally. Oropharynx is pink with mucosal membranes showing to be dry with cracked lips but no lesions. NECK: Supple, non-tender with full range of motion. No jugular venous distention was noted. CHEST: Lung sounds are clear to auscultation bilaterally without any rhonchi, wheezing or rales. CARDIOVASCULAR: Regular rate and rhythm without appreciable murmurs, gallops, or rubs. ABDOMEN: Soft but obese with positive bowel sounds with no rebound tenderness but some tenderness over the epigastric region on palpation. No peritoneal signs. No guarding. GENITOURINARY: Exam was deferred. EXTREMITIES: Left leg is without any edema, clubbing or cyanosis. Capillary refill was brisk. Right knee is straight with bandage overlying the knee with no drainage noted with the leg extended and rigid with no edema noted distally and pulses were equal bilaterally. NEUROLOGIC: She is alert and oriented times three. Extraocular movements are within normal limits. There was no notable nystagmus. Facial features were symmetrical. Cranial nerves II-XII are grossly intact. LABORATORY: White count on admission was 7,700 with hemoglobin 12.9, hematocrit 39.2, platelet count 162,000. Differential showed just a slight left shift. No bands. Chemistry showed low sodium at 132, potassium 4.4, carbon dioxide was low at 17, anion gap 11.4, BUN 35, creatinine 1.25, glucose 144, lactic acid was pending, calcium normal at 9.3. AST and ALT were normal. Alkaline phosphatase was elevated at 241. Lipase normal at 20. Urinalysis showed 100 protein, trace lysed blood with trace leukocyte esterase, otherwise within normal limits. She did have stool cultures collected and pending. Occult stool bloods pending. Leukoferrin is pending. First Clostridium Difficile toxin A and B was negative for both antigen and toxin. MRSA surveillance cultures pending. Stool cultures pending. RADIOLOGY: Chest x-ray and abdominal x-ray pending at time of admission. ASSESSMENT: 1. Severe dehydration secondary to persistent nausea and vomiting and diarrhea , uncertain etiology possibly due to gastroenteritis, viral versus bacterial with concern for possible Clostridium Difficile infection with the patient having a longstanding history of extensive antibiotic coverage for MRSA infections. 2. Metabolic acidosis with a noted low CO2 with ABGs unable to be obtained due to the patient's dehydration status. 3. Electrolyte imbalance to include hyponatremia secondary to persistent diarrhea. 4. Diabetes mellitus both oral and insulin dependent with the patient having severe dehydration and a metabolic acidotic state and unable to hold a significant amount of oral intake in requiring initiation of IV fluids to prevent further complications. 5. Hypertension poorly controlled. 6. 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 PLAN: The patient is going to be admitted as an inpatient given that she is diabetic and has been unable to hold any significant oral intake, and has had diarrhea and nausea well over 3 to 4 days placing her at high risk for complications. She does have a Mediport in place. This has been accessed. She was given a liter of fluid in the E. R. This will be followed-up with an additional liter of normal saline and maintenance fluids with D5W with 20 of potassium at 150 an hour to repeat a BMP in 4 hours and in the morning to further help in management of IV fluids. Will hold off on any insulin but put her on a sliding scale a.c. and h.s., and monitor blood sugars closely. As her blood sugar shows elevation, certainly will put her on long-acting insulin with Levemir and prevent her from going into fasting state, and hopefully reverse her metabolic acidosis and prevent from worsening. Maday will keep her NPO and have her on bowel rest. Once she shows clinical improvement, certainly will stater her on a clear liquid diet and advance as tolerated. Will anticipate her length of stay to be at least 2 to 3 days until she is able to advance to a diet and shows clinical improvement. At this point, there is no significant evidence of infection. Will hold off on any antibiotic therapy and await further stool cultures and Clostridium Difficile samples. If she continues with some abdominal pain in the morning, will consider a CT of the abdomen. Will repeat labs in the morning. Until she is showing clinical improvement and can discharge for outpatient management, will continue to monitor and treat appropriately. #[id number] [facility]
[2017-12-31] MEDS ORDERED: PROMETHAZINE HCL INJ 25 MG in SODIUM CHLORIDE 0.9% 50ML 50 ML IVPB ONE (17:00)
[2017-12-31] MEDS ORDERED: SODIUM CHLORIDE 0.9% 50ML 50 ML ONE (17:00)
[2017-12-31] MEDS ORDERED: PROMETHAZINE HCL INJ 25 MG/ML VIAL ONE (17:00)
[2017-12-31] MEDS ORDERED: ONDANSETRON INJ 4 MG/2 ML VIAL IV PRN (18:58)
[2017-12-31] MEDS ORDERED: GLUCAGON INJ 1 MG VIAL SUBCU PRN (18:58)
[2017-12-31] MEDS ORDERED: ACETAMINOPHEN SUPPOSITORY 650 MG PR PRN (18:58)
[2017-12-31] MEDS ORDERED: DEXTROSE 50% 25 GM/50 ML SYG IV PRN (18:58)
[2017-12-31] MEDS ORDERED: IV SET AND CAP CHANGE INJ INJ SCH (19:00)
[2017-12-31] MEDS ORDERED: KCL 20MEQ/D5W 1,000 ML IVS PRN (19:03)
[2017-12-31] MEDS ORDERED: MORPHINE SULFATE INJ 10 MG/ML VIAL IV PRN (19:08)
[2017-12-31] MEDS ORDERED: ALBUTEROL SULFATE 2.5 MG/3 ML VIAL NEB PRN (19:13)
[2017-12-31] MEDS ORDERED: tiZANidine 4 MG TAB ONE (19:27)
[2017-12-31] MEDS ORDERED: PANTOPRAZOLE SODIUM IV 40 MG VIAL IV SCH (19:30)
[2017-12-31] MEDS ORDERED: PROMETHAZINE HCL INJ 25 MG in SODIUM CHLORIDE 0.9% 50ML 50 ML IVPB PRN (20:06)
[2017-12-31] MEDS: diphenhydrAMINE HCL 25 MG CAP PO SCH (20:53)
[2017-12-31] MEDS: PREGABALIN 100 MG CAP PO SCH (20:53)
[2017-12-31] MEDS ORDERED: NON-FORMULARY MEDICATION 1 EA MIS (Tizanidine Hcl [Zanaflex] 4 MG) PO SCH (21:00)
[2017-12-31] MEDS ORDERED: INSULIN LISPRO 100 UNITS/ML PEN SUBCU SCH (21:00)
[2017-12-31] MEDS: MELATONIN 40 MG PO SCH (21:01)
[2018-01-01] MEDS ORDERED: GLUCAGON INJ 1 MG VIAL SUBCU PRN (01:22)
[2018-01-01] MEDS ORDERED: DEXTROSE 50% 25 GM/50 ML SYG IV PRN (01:22)
[2018-01-01] MEDS ORDERED: DEXTROSE 5% IV PRN (03:06)
[2018-01-01] MEDS ORDERED: SODIUM BICARBONATE IV PRN (03:06)
[2018-01-01] MEDS ORDERED: SODIUM BICARBONATE SYRINGE 50 MEQ/50 ML SYG IV ONE (03:10)
[2018-01-01] MEDS ORDERED: DEXTROSE 5% 1000ML 1,000 ML IVS ONE ×3 (03:10→18:44)
[2018-01-01] MEDS ORDERED: SODIUM BICARBONATE VIAL 50 MEQ/50 ML VIAL ONE ×3 (03:12→18:44)
[2018-01-01] MEDS: SODIUM BICARBONATE IVS PRN ×3 (03:43→18:55)
[2018-01-01] MEDS: DEXTROSE 5% IVS PRN ×3 (03:43→18:55)
[2018-01-01] MEDS ORDERED: SODIUM BICARBONATE IVS SCH (04:00)
[2018-01-01] MEDS ORDERED: DEXTROSE 5% IVS SCH (04:00)
[2018-01-01] MEDS: HYDROcodone 10MG/APAP 325MG 1 EA TAB PO PRN ×3 (05:11→19:59)
[2018-01-01] MEDS: ALPRAZolam 0.5 MG TAB PO PRN ×2 (05:12→20:43)
[2018-01-01] MEDS: INSULIN LISPRO 100 UNITS/ML PEN SUBCU SCH ×3 (07:20→20:57)
[2018-01-01] MEDS ORDERED: tiZANidine 4 MG TAB ONE (07:25)
[2018-01-01] MEDS: PANTOPRAZOLE SODIUM IV 40 MG VIAL IV SCH (09:00)
[2018-01-01] MEDS: PREGABALIN 100 MG CAP PO SCH ×2 (09:01→20:43)
[2018-01-01] MEDS: SERTRALINE HCL 50 MG TAB PO SCH (09:01)
[2018-01-01] MEDS: LISINOPRIL 5 MG TAB PO SCH (09:01)
[2018-01-01] MEDS: tiZANidine 4 MG TAB PO SCH ×3 (09:01→20:43)
[2018-01-01] MEDS: diphenhydrAMINE HCL 25 MG CAP PO SCH (20:43)
[2018-01-01] MEDS: MELATONIN 40 MG PO SCH (20:58)
[2018-01-01] MEDS ORDERED: ENOXAPARIN SODIUM 40 MG/0.4 ML SYG SUBCU SCH (21:00)
--- NOTE | 2018-01-01 21:27 | PN ---
DATE: 01/01/18 SUPERVISING PHYSICIAN: Maikel Rojas M.D. SUBJECTIVE: The patient notes that she is feeling a little bit better today. She is still having a significant amount of diarrhea but is able to tolerate clear liquids this morning. She was started on sodium bicarbonate infusion last night given that she continues to show a significant decline and an increase in metabolic acidosis due to the diarrhea. She has been afebrile. She has had no nausea or vomiting. OBJECTIVE: VITAL SIGNS: Temperature 97.5, pulse 62, blood pressure 151/76, respirations 16, satting 97% on room air. I's and O's show a positive balance of 1320 with 2920 in, 1600 out. Weight 94.8 kg. GENERAL: The patient is sitting on his bed resting comfortably and appears to be in no acute distress. She is alert. CHEST: Lungs are clear to auscultation. HEART: Regular rate and rhythm. ABDOMEN: Obese but soft, non-tender. Positive bowel sounds. EXTREMITIES: Without any significant clubbing, cyanosis or edema. NEUROLOGIC: She is alert and oriented times three. LABORATORY: White count 4,600, hemoglobin and hematocrit have shown a slight decrease 10.8 and 33.0 respectively with platelet count 140,000. Differential shows to be without a left shift today. She had a blood gas analysis last night and early this morning it showed a pH of 7.27 with pCO2 of 30, pO2 of 85, bicarb was 13. She was satting 97% on nasal cannula at 2 liters. Chemistries today show mild low sodium at 134 and decreasing chloride from initial 117 that is down to 113. BUN 23, creatinine 1.0. Blood sugars are between 132 and 194. Liver functions all show to be within normal limits. Stool occult blood was negative. O and P is pending. She has 2 Clostridium Difficile toxins A and B that both have been negative. Stool culture is pending. MRSA surveillance is pending. Stool leukocytes were negative. RADIOLOGY: No radiographic studies this morning. ASSESSMENT: 1. Severe dehydration secondary to persistent nausea and vomiting on admission with some diarrhea, most likely gastroenteritis with viral infectious process with current stool cultures pending as well as Clostridium Difficile toxin showing to be negative. 2. Metabolic acidosis requiring initiation of bicarbonate infusion showing improvement. 3. Electrolyte imbalance to include hyponatremia and hyperkalemia secondary to persistent diarrhea. 4. Diabetes mellitus type 2 both on oral and insulin therapy with the patient having severe dehydration and metabolic acidotic state showing improvement with fluids and able to slowly increase diet. 5. Hypertension poorly controlled. 6. 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 7. History of being on multiple rounds of antibiotic infusions including both vancomycin and p.o. doxycycline. PLAN: At this point will continue with sodium bicarbonate and recheck her BMP, and then decrease probably as her metabolic acidosis improves. Decrease the sodium bicarb content to an amp and a half for at least another 12 to 24 hours and repeat labs in the morning. She is not showing any signs of infection at this point. Will continue to hold off on any antibiotics. I have advanced her diet to clear liquid and then will advance after that as she tolerates. She will be managed on sliding scale now a.c. and h.s., and has had good blood sugar control. Will anticipate hopefully being able to discharge tomorrow or the next. Until then continue to monitor and treat appropriately. #[id number] [facility]
[2018-01-01] MEDS: SODIUM CHLORIDE 0.9% (FLUSH) 10 ML SYG IV SCH (21:59)
[2018-01-02] MEDS: SODIUM CHLORIDE 0.9% (FLUSH) 10 ML SYG IV PRN ×2 (06:36→15:26)
[2018-01-02] MEDS: PANTOPRAZOLE SODIUM IV 40 MG VIAL IV SCH (06:36)
[2018-01-02] MEDS: INSULIN LISPRO 100 UNITS/ML PEN SUBCU SCH ×3 (07:17→17:05)
[2018-01-02] MEDS: HYDROcodone 10MG/APAP 325MG 1 EA TAB PO PRN ×2 (07:37→15:37)
[2018-01-02] MEDS: tiZANidine 4 MG TAB PO SCH ×2 (09:08→15:26)
[2018-01-02] MEDS: SERTRALINE HCL 50 MG TAB PO SCH (09:08)
[2018-01-02] MEDS: LISINOPRIL 5 MG TAB PO SCH (09:09)
[2018-01-02] MEDS: PREGABALIN 100 MG CAP PO SCH (09:09)
[2018-01-02] MEDS: SODIUM CHLORIDE 0.9% (FLUSH) 10 ML SYG IV SCH (09:09)
[2018-01-02] MEDS: NYSTATIN POWDER 15GM BTTL TOP SCH ×3 (09:18→17:35)
[2018-01-02] MEDS: ALPRAZolam 0.5 MG TAB PO PRN (11:53)
[2018-01-02 12:23] VITALS: TEMP 98; O2SAT 98
[2018-01-02] MEDS ORDERED: HEPARIN SODIUM 100 U/ML 5 ML SYG IV ONE ×2 (14:13→14:17)
[2018-01-02 18:13] VITALS: BP 138/72
--- NOTE | 2018-01-07 08:17 | DS ---
SUPERVISING PHYSICIAN: Maikel Rojas MD ADMISSION DIAGNOSES: 1. Severe dehydration secondary to persistent nausea and vomiting and diarrhea , uncertain etiology possibly due to gastroenteritis, versus viral versus bacterial with concern for possible Clostridium Difficile infection with the patient having a longstanding history of extensive antibiotic coverage for MRSA infections. 2. Metabolic acidosis, hyperkalemic state noted with a low CO2 with ABGs and exacerbated by patient's dehydration status. 3. Electrolyte imbalance to include hyponatremia secondary to persistent diarrhea. 4. Diabetes mellitus both oral and insulin dependent with the patient having severe dehydration and a metabolic acidotic state and unable to hold a significant amount of oral intake in requiring initiation of IV fluids to prevent further complications. 5. Hypertension poorly controlled. 6. 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 DISCHARGE DIAGNOSES: 1. Severe dehydration secondary to persistent nausea and vomiting likely gastroenteritis with viral infectious process with stools pending at time of discharge with negative Clostridium Difficile screen responding well to fluids. . 2. Metabolic acidosis hyperkalemic state requiring initiation of bicarbonate infusion improving with treatment. . 3. Electrolyte imbalance to include hyponatremia and hyperkalemia secondary to persistent diarrhea resolved with treatment.and IV fluids. 4. Diabetes mellitus type 2 both on oral and insulin therapy with the patient having severe dehydration and metabolic acidotic state improving with fluids and able tolerate normal diabetic diet at discharge. . 5. Hypertension poorly controlled. 6. 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 7. History of being on multiple rounds of antibiotic infusions including both vancomycin and doxycycline for #6. REASON FOR HOSPITALIZATION: Ms. Boyd is a 57 year-old female that presented to the Emergency Room today on 12/31/17 complaining of 7 days of diarrhea with nausea and vomiting now for 2 days. She noted that she had been having diarrhea well over a week and then started developing nausea and vomiting associated with abdominal cramping and she having severe bladder spasms but improved once she had a bowel movement. She denied any bloody diarrhea but has been unable to hold any significant oral intake in. Due to the fact that she was having persistent nausea and vomiting, she presented today for evaluation. On the Emergency Room evaluation, studies showed that she was having a normal white count with a slight left shift. Electrolytes indicated she had a low sodium at 132 with carbon dioxide low at 17, anion gap was 11.4. Liver functions were showing to be within normal limits as well as lipase. Urinalysis showed 100 of protein with trace amount of blood, leukocyte esterase within normal limits. Attempts were made in the Emergency Room for ABGs, however, 3 attempts were unsuccessful due to the patient's dehydrated status. Again, the fact that her CO2 was showing to be low at 17 with nausea and vomiting, persistent diarrhea and severe dehydration, the patient was felt to be in a metabolic acidotic state, however she is diabetic but her glucose was only 144. She was given initial liter of IV fluids in the Emergency Room without any success of getting ABG and the patient only having 1 liter of fluid and persistent normal with vomiting, Dr. Aviles requested the patient be admitted for further evaluation and treatment. The patient was admitted within the last month on 11/20/17 for similar symptoms. At that time a CT was completed after admission. That report indicated there was no acute process noted that explained the patient's symptoms. Of note is the patient has had an ongoing chronic infection in her right knee with a prosthesis that has been positive for MRSA and she has had multiple rounds of vancomycin as well as has been on doxycycline chronically for over 3 years. Again, the concern was that possibly she was starting to develop an enterocolitis secondary to Clostridium Difficile versus a viral gastroenteritis. Her white count was showing to be normal and she was afebrile. At this point no antibiotics were started in the Emergency Room and she was then admitted in stable condition for further treatment and evaluation. LABORATORY STUDIES: White count on admission was 7,700, discharge was 4,600. Hemoglobin and hematocrit were stable, at discharge was 10.8 and 33.0 with a platelet count of 140,000. Differential showed to be slightly shifted to the left on admission but had normalized prior to discharge. Blood gas analysis were finally obtained on 01/01 at 3:30 in the morning with ABG showing a pH of 7.27, PC02 of 30, P02 of 85, bicarb 13 with a base excess of negative 12.5. Chemistries initially on admission showed a sodium of 132 with a carbon dioxide of 17, BUN 35, creatinine 1.25. Liver functions all within normal limits with lipase normal at 20. Blood sugar initially was 144. C02 did drop to a low of 11. She was initiated on bicarb drip and normalized at 23 and 24 before discharge. BUN had gone down to 20, creatinine had stayed within normal limits and was at 1.13 prior to discharge. Anion gap was persistently low at 11.4 on admission, at discharge was 8.8, however, correcting for a low albumin corrected to 22. However, the patient was showing to be without any significant evidence of acidosis. It was felt her C02 had improved and had resulted in an anion gap with by the bicarb drip increasing to just slightly above normal limits. MICROBIOLOGY: She had multiple cultures, C-diff toxins that were all negative. Leukocytes on stools was negative. MRSA surveillance culture was negative. Stool culture was pending at time of discharge. RADIOLOGY: She had no additional radiographic studies on this stay. HOSPITAL COURSE: Ms. Boyd was admitted on 12/31/17 for metabolic acidosis secondary to a significant hypochloremic state from persistent diarrhea. Given that she was showing no signs of infectious process, she was given fluids, antibiotics were not started and she showed good response to fluids, however, she remained acidotic and required initiation of the bicarb infusion which was initiated with 3 amps of bicarb continued for 12 hours and she improved significantly and was felt stable enough to be discharged to continue with outpatient management. On the morning of discharge her vital signs were showing temperature of 98, pulse 88, blood pressure 138/72, respirations 16, saturation 98% on room air. She was actually a regular diabetic diet without anymore nausea or vomiting and had very minimal diarrhea and was showing to be ore euvolemic with good output in regards to her urine output. PLAN: Ms. Boyd was discharged on 01/02/18 with instructions to followup with Dr. Arriola as scheduled. She is to resume her home medications as instructed and encouraged fluids to prevent dehydration. She was told to return to the hospital if she had any concerning symptoms or other questions. Discharge diet was diabetic diet. Activities: increase as tolerated. Her home medications are resumed as prior to hospitalization and no new medications were prescribed at discharge. She had a followup appointment at 01/03 at 10:45 AM. Condition on discharge was stable and improved. #[id number] [facility]
== END 2018-01-02 17:30 | disposition home or self-care (01) | DRG 641 ==
LOC: ER 09:54 → MS 15:24
PROVIDERS: ADMIT Nurse Practitioner Family; ATTEND Nurse Practitioner Family
DX: E86.0 Dehydration (principal); I48.92 Unspecified atrial flutter; A08.4 Viral intestinal infection, unspecified; E87.2 Acidosis; E87.5 Hyperkalemia; E87.1 Hypo-osmolality and hyponatremia; E11.9 Type 2 diabetes mellitus without complications; I10 Essential (primary) hypertension; E87.8 Other disorders of electrolyte and fluid balance, not elsewhere classified; J45.909 Unspecified asthma, uncomplicated; F17.210 Nicotine dependence, cigarettes, uncomplicated; M06.9 Rheumatoid arthritis, unspecified; M81.0 Age-related osteoporosis without current pathological fracture; Z96.651 Presence of right artificial knee joint; Z88.8 Allergy status to other drugs, medicaments and biological substances; Z89.422 Acquired absence of other left toe(s); Z79.84 Long term (current) use of oral hypoglycemic drugs; Z79.4 Long term (current) use of insulin; Z86.14 Personal history of Methicillin resistant Staphylococcus aureus infection

== ENCOUNTER 2018-01-14 17:07 | Emergency (ER) | payer MEDICARE, MEDICAID ==
--- NOTE | 2018-01-14 17:38 | RAD ---
EXAM DESCRIPTION: AP view of the chest CLINICAL HISTORY:57 years Female, chest pain Comparison: July 24, 2017 FINDINGS: The lung volumes are decreased. Mediport from a right subclavian approach is unchanged. There is right basilar subsegmental atelectasis and possible tiny right pleural effusion. Fluid is noted in the minor fissure. The left lung is clear with no pleural abnormalities. The cardiac silhouette remains stable. IMPRESSION: Right basilar subsegmental atelectasis and possible small pleural effusion. Electronically signed by: Ariel Leyva DO 01/14/2018 5:36 PM CDT
[2018-01-14] MEDS ORDERED: ALBUTEROL SULFATE 2.5 MG/3 ML VIAL NEB ONE (17:45)
[2018-01-14] MEDS: ALBUTEROL SULFATE 2.5 MG/3 ML VIAL NEB ONE (17:54)
[2018-01-14] MEDS: SODIUM CHLORIDE 0.9% 1000ML 1,000 ML IVS ONE ×2 (18:01→21:37)
--- NOTE | 2018-01-14 18:39 | ED.PDOC ---
History of Present Illness - General Chief Complaint: Chest Pain/KS Stated Complaint: chest pain Time Seen by Provider: 01/14/18 17:26 Source: patient - History of Present Illness Initial Comments: Gwen Boyd 57 y/o female brought by EMS with sob yesterday then hurts to breaths mostlly back of her chest.Her symptoms not any better she called up EMS.Had thallium stress test in 2017 no acute findings. Timing/Duration: 24 hours Severity: moderate Location: back - between shoulder blades Activities at Onset: none Prior Chest Pain/Cardiac Workup: thallium scan Improving Factors: nothing Worsening Factors: nothing Nitro Today/Relief: no nitro taken today Aspirin Treatment Today: no aspirin today Allergies/Adverse Reactions: Allergies Trazodone Allergy (Verified 12/31/17 18:15) Home Medications: Ambulatory Orders HYDROcodone 10MG/APAP 325MG [[place] 10/325] 2 tab PO Q6HR PRN 04/21/15 Tizanidine HCl [Zanaflex] 4 mg PO TID 04/21/15 ALPRAZolam [Xanax] 0.5 mg PO TID PRN 02/15/16 Furosemide 20 mg PO BID PRN 02/15/16 Albuterol Sulfate [Proair Hfa] 2 puff INH Q4H PRN 08/29/17 Exenatide [Bydureon Pen] 2 mg SC WKLY 08/29/17 Insulin Aspart [Novolog] See Protocol SC BID 08/29/17 Insulin Degludec [Tresiba Flextouch] 36 unit SC DAILY 08/29/17 Lisinopril 5 mg PO DAILY 08/29/17 Metformin HCl 1,000 mg PO BID 08/29/17 Pregabalin [Lyrica] 100 mg PO BID 08/29/17 diphenhydrAMINE HCL [Benadryl] 100 mg PO BEDTIME 08/29/17 Doxycycline (Monohydrate) [Doxycycline] 100 mg PO BID 11/20/17 Melatonin 40 mg PO BEDTIME 11/20/17 Sertraline HCl [Zoloft] 150 mg PO DAILY 11/20/17 Review of Systems - Review of Systems Constitutional: States: no symptoms reported EENTM: States: no symptoms reported Respiratory: States: see HPI Cardiology: States: see HPI Gastrointestinal/Abdominal: States: no symptoms reported Genitourinary: States: no symptoms reported Musculoskeletal: States: no symptoms reported Skin: States: no symptoms reported Neurological: States: no symptoms reported Past Medical History (General) - Patient Medical History Hx Seizures: No Hx Stroke: No Hx Dementia: No Hx Asthma: Yes Hx of COPD: No Hx Cardiac Disorders: No Hx Congestive Heart Failure: No Hx Pacemaker: No Hx Hypertension: Yes Hx Thyroid Disease: No Hx Diabetes: Yes Hx Gastroesophageal Reflux: No Hx Renal Disease: No Hx Cancer: No Hx of HIV: No Hx Hepatitis C: No Hx MRSA: Yes MRSA Source:: Wound Surgical History: appendectomy, cholecystectomy, other - 6 right knee surgeries- - Vaccination History Hx Tetanus, Diphtheria Vaccination: No Hx Influenza Vaccination: Yes Hx Pneumococcal Vaccination: Yes Immunizations Up to Date: No - Social History Hx Tobacco Use: No Hx Chewing Tobacco Use: No Hx Alcohol Use: No Hx Substance Use: No Hx Substance Use Treatment: No Hx Depression: No Feels Threatened In Home Enviroment: No Feels Threatened In a Relationship: No Hx Physical Abuse: No Hx Emotional Abuse: No Hx Suspected Abuse: No - Activities of Daily Living Patient Lives Alone: Yes - brother in law Hospice Agency (if applicable):: None Grooming Ability: Independent Eating (Feeding) Ability: Independent Toileting Ability: Independent - Female History Patient is a Female of Child Bearing Age (10 -59 yrs old): No Patient : No Family Medical History - Family History Father Family History: Unknown Living Status: Age at (years of age): 59 Hx Family Stroke: Yes - sister Hx Family Cancer: Yes - mesothelioma-dad;ovaries-mom Mother Living Status: Age at (years of age): 59 Hx Family Diabetes: Yes Hx Family Cancer: Yes - ovarian Physical Exam - Physical Exam General Appearance: Alert, Comfortable, No apparent distress Eyes, Ears, Nose, Throat Exam: normal ENT inspection Neck: non-tender, full range of motion, supple Respiratory: decreased breath sounds, wheezing - expiratory Cardiovascular/Chest: normal peripheral pulses, regular rate, rhythm, no murmur Peripheral Pulses: radial,right: 2+, radial,left: 2+ Gastrointestinal/Abdominal: normal bowel sounds, non tender, soft, no organomegaly Extremity: non-tender, no pedal edema, no calf tenderness, swelling - right knee ,warm Neurologic: alert, oriented x 3 Skin Exam: normal color, warm/dry, other - skin sinus tract drainage right knee, Progress - Progress Progress: 01/14/18 18:37 Vital Signs - 24 hr 01/14/18 01/14/18 17:08 17:54 Temperature 98.3 F Pulse Rate 80 Pulse Rate [ 79 Apical] Respiratory 20 20 Rate Blood Pressure 119/70 [Left Arm] O2 Sat by Pulse 80 L 86 L Oximetry 01/14/18 19:06 Crcl-39.67;GFR-23.4 - Results/Orders Results/Orders: 01/14/18 17:30 B-TYPE NATRIURETIC PEPTIDE/BNP Stat HEPATIC FUNCTION PANEL Stat 01/14/18 18:21 BLOOD CULTURE Routine BLOOD CULTURE Routine 01/14/18 18:28 URINE CULTURE W/COLONY COUNT Stat 01/14/18 19:00 SVN/Updraft Therapy .ONCE 01/14/18 19:12 Vancomycin HCl Inj 1,000 mg Vancomycin HCl Inj 500 mg Sodium Chloride 0.9% 250Ml [NS 250ml] 250 ml IVPB ONCE 01/14/18 20:09 URINE CULTURE W/COLONY COUNT Stat 01/14/18 20:14 Sodium Chloride 0.9% 500Ml [NS 500ml] 500 ml IVS ONCE 01/14/18 20:16 cefTRIAXone SODIUM [Rocephin] 2 gm Sodium Chl 0.9% 100Ml Mini-Bag [NS 100ml MINI-BAG+] 100 ml IVPB ONCE 01/15/18 09:00 Updrafts Daily Laboratory Results - last 24 hr 01/14/18 01/14/18 01/14/18 17:30 17:30 17:30 WBC 26.5 H* RBC 3.63 L Hgb 9.8 L Hct 29.8 L MCV 82.2 MCH 26.9 L MCHC 32.7 L RDW 19.1 H Plt Count 117 L MPV 9.1 Absolute Neuts (auto) Floor Surfacer Absolute Lymphs (auto) Floor Surfacer Absolute Monos (auto) Floor Surfacer Absolute Eos (auto) Floor Surfacer Absolute Basos (auto) Floor Surfacer Neutrophils % Floor Surfacer Neutrophils % (Manual) 81.0 H Lymphocytes % Floor Surfacer Lymphocytes % (Manual) 4.0 Monocytes % Floor Surfacer Monocytes % (Manual) 1.0 Eosinophils % Floor Surfacer Basophils % Floor Surfacer Band Neutrophils 14.0 H* Platelet Estimate Normal Normal RBC Morphology Normal rbc morph PT 12.1 H INR 1.21 H PTT (SP) 32.8 H Sodium 123 L Potassium 4.9 Chloride 93 L Carbon Dioxide 18 L Anion Gap 16.9 BUN 53 H Creatinine 2.28 H BUN/Creatinine Ratio 23.2 H Random Glucose 309 H Serum Osmolality 273.9 L Calcium 6.3 L* Phosphorus Magnesium 0.8 L* Creatine Kinase 38 CK-MB (CK-2) 3.0 CK-MB (CK-2) % Not Reportable Troponin I 0.03 C-Reactive Protein B-Natriuretic Peptide 155.0 H Urine Color Urine Appearance Urine pH Ur Specific Brogan Urine Protein Urine Glucose (UA) Urine Ketones Urine Blood Urine Nitrite Urine Bilirubin Urine Urobilinogen Ur Leukocyte Esterase Urine RBC Urine WBC Ur Epithelial Cells Amorphous Sediment Urine Bacteria Urine Mucus Urine Opiates Screen Urine Barbiturates Ur Phencyclidine Scrn U Amphetamin/Meth Scrn U Benzodiazepines Scrn U Cocaine Metab Screen U Cannabinoids Screen 01/14/18 01/14/18 01/14/18 17:30 18:28 18:28 WBC RBC Hgb Hct MCV MCH MCHC RDW Plt Count MPV Absolute Neuts (auto) Absolute Lymphs (auto) Absolute Monos (auto) Absolute Eos (auto) Absolute Basos (auto) Neutrophils % Neutrophils % (Manual) Lymphocytes % Lymphocytes % (Manual) Monocytes % Monocytes % (Manual) Eosinophils % Basophils % Band Neutrophils Platelet Estimate Normal RBC Morphology PT INR PTT (SP) Sodium Potassium Chloride Carbon Dioxide Anion Gap BUN Creatinine BUN/Creatinine Ratio Random Glucose Serum Osmolality Calcium Phosphorus 5.5 H Magnesium Creatine Kinase CK-MB (CK-2) CK-MB (CK-2) % Troponin I C-Reactive Protein B-Natriuretic Peptide Urine Color Yellow Urine Appearance Clear Urine pH 5.0 Ur Specific Brogan 1.010 Urine Protein Negative Urine Glucose (UA) Negative Urine Ketones Negative Urine Blood Trace-intact H Urine Nitrite Positive H Urine Bilirubin Negative Urine Urobilinogen 0.2 Ur Leukocyte Esterase Small H Urine RBC 0-1 Urine WBC 1-3 Ur Epithelial Cells 3-5 Amorphous Sediment 2+ Urine Bacteria 1+ Urine Mucus Small Urine Opiates Screen Positive H Urine Barbiturates Negative Ur Phencyclidine Scrn Negative U Amphetamin/Meth Scrn Negative U Benzodiazepines Scrn Positive H U Cocaine Metab Screen Negative U Cannabinoids Screen Negative 01/14/18 Unknown WBC RBC Hgb Hct MCV MCH MCHC RDW Plt Count MPV Absolute Neuts (auto) Absolute Lymphs (auto) Absolute Monos (auto) Absolute Eos (auto) Absolute Basos (auto) Neutrophils % Neutrophils % (Manual) Lymphocytes % Lymphocytes % (Manual) Monocytes % Monocytes % (Manual) Eosinophils % Basophils % Band Neutrophils Platelet Estimate Normal RBC Morphology PT INR PTT (SP) Sodium Potassium Chloride Carbon Dioxide Anion Gap BUN Creatinine BUN/Creatinine Ratio Random Glucose Serum Osmolality Calcium Phosphorus Magnesium Creatine Kinase CK-MB (CK-2) CK-MB (CK-2) % Troponin I C-Reactive Protein 28.7 H* B-Natriuretic Peptide Urine Color Urine Appearance Urine pH Ur Specific Brogan Urine Protein Urine Glucose (UA) Urine Ketones Urine Blood Urine Nitrite Urine Bilirubin Urine Urobilinogen Ur Leukocyte Esterase Urine RBC Urine WBC Ur Epithelial Cells Amorphous Sediment Urine Bacteria Urine Mucus Urine Opiates Screen Urine Barbiturates Ur Phencyclidine Scrn U Amphetamin/Meth Scrn U Benzodiazepines Scrn U Cocaine Metab Screen U Cannabinoids Screen - EKG/XRAY/CT CT Ordered: No CT Interpretation Call Back: No Departure - Departure Clinical Impression: History of right knee surgery, Diabetes 1.5, managed as type 1, Hypomagnesemia with secondary hypocalcemia, Pleuritic pain Pneumonia Qualifiers: Pneumonia type: due to unspecified organism Laterality: bilateral Lung location : lower lobe of lung Qualified Code(s): J18.1 - Lobar pneumonia, unspecified organism Right knee pain Qualifiers: Chronicity: unspecified Qualified Code(s): M25.561 - Pain in right knee Renal failure (ARF), acute on chronic Qualifiers: Acute renal failure type: unspecified Chronic kidney disease stage: stage 4 ( severe) Qualified Code(s): N17.9 - Acute kidney failure, unspecified Time of Disposition: 20:45 Disposition: Transfer to Hospital Condition: Fair Departure Forms: Patient Portal Self Enrollment Referrals: Marc Arriola MD [Primary Care Provider] - 1-2 Weeks Home Medications: Ambulatory Orders HYDROcodone 10MG/APAP 325MG [[place] 10/325] 2 tab PO Q6HR PRN 04/21/15 Tizanidine HCl [Zanaflex] 4 mg PO TID 04/21/15 ALPRAZolam [Xanax] 0.5 mg PO TID PRN 02/15/16 Furosemide 20 mg PO BID PRN 02/15/16 Albuterol Sulfate [Proair Hfa] 2 puff INH Q4H PRN 08/29/17 Exenatide [Bydureon Pen] 2 mg SC WKLY 08/29/17 Insulin Aspart [Novolog] See Protocol SC BID 08/29/17 Insulin Degludec [Tresiba Flextouch] 36 unit SC DAILY 08/29/17 Lisinopril 5 mg PO DAILY 08/29/17 Metformin HCl 1,000 mg PO BID 08/29/17 Pregabalin [Lyrica] 100 mg PO BID 08/29/17 diphenhydrAMINE HCL [Benadryl] 100 mg PO BEDTIME 08/29/17 Doxycycline (Monohydrate) [Doxycycline] 100 mg PO BID 11/20/17 Melatonin 40 mg PO BEDTIME 11/20/17 Sertraline HCl [Zoloft] 150 mg PO DAILY 11/20/17 Transfer to Outside Facility - Transfer Information Accepting Provider:: Dr. 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
[2018-01-14] MEDS: LEVALBUTEROL NEBS 1.25 MG/3 ML VIAL NEB ONE (19:24)
[2018-01-14] MEDS ORDERED: VANCOMYCIN HCL INJ 500 MG VIAL ONE (19:27)
[2018-01-14] MEDS ORDERED: VANCOMYCIN HCL INJ 1,000 MG VIAL IVPB ONE (19:28)
[2018-01-14] MEDS ORDERED: SODIUM CHLORIDE 0.9% 250ML 250 ML ONE (19:28)
[2018-01-14] MEDS: VANCOMYCIN HCL INJ 1,000 MG, VANCOMYCIN HCL INJ 500 MG in SODIUM CHLORIDE 0.9% 250ML 25... IVPB ONE (19:31)
--- NOTE | 2018-01-14 19:52 | RAD ---
PROCEDURE: Knee,Right 2 or More Views Clinical History: swelling Indication: Same as above. Comparison: 08/29/2017 . Technique: Two Views of the right knee were done. Findings: There is no evidence of acute fractures or dislocations involving the bones of the right knee joint. There is complete arthrodesis of the right knee joint utilizing an intramedullary shoaib through the distal right femur and the proximal right tibia. There appears to be interval loosening of the proximal fixating screw in the distal right femur. Exuberant periosteal reaction is seen in the distal right femur and the proximal right tibia. The lucency around the bone cement in the proximal right tibia is stable. There is no interval loosening of the fixation screw anchoring the intramedullary shoaib in the right proximal tibia Impression: There is complete arthrodesis of the right knee joint utilizing an intramedullary shoaib through the distal right femur and the proximal right tibia. There appears to be interval loosening of the proximal fixating screw in the distal right femur. Electronically signed by: Jaspreet Hammond MD 01/14/2018 7:51 PM CDT Workstation: [employer]
--- NOTE | 2018-01-14 19:56 | CT ---
EXAM DESCRIPTION: Chest w/o Contrast CLINICAL HISTORY: chest pain COMPARISON: None Available. TECHNIQUE: Contiguous axial images of the chest were obtained from the thoracic inlet up to the upper abdomen followed by reconstruction images. This exam was performed according to our departmental dose-optimization program, which includes automated exposure control, adjustment of the mA and/or kV according to patient size and/or use of iterative reconstruction technique. FINDINGS: Central catheter tip is at the distal SVC. There is a moderate right pleural effusion, partially loculated. Consolidation and atelectasis involves the right lung. Gallbladder is surgically absent. There is fatty infiltration of liver. There is mild enlargement of mediastinal lymph nodes. Focal consolidation involves the lingula. There is also poorly defined consolidation involving the left lung, and a 6 mm nodule at the left pulmonary apex. The aorta is of normal contour and tapering. IMPRESSION: Loculated right pleural effusion with consolidation of the right lung. Consolidations also involve the left lung. Mediastinal lymph node enlargement. See additional findings. Electronically signed by: Ye Justin 01/14/2018 7:55 PM CDT
[2018-01-14] MEDS ORDERED: SODIUM CHL 0.9% 100ML MINI-BAG 100 ML IVPB ONE (20:18)
[2018-01-14] MEDS: HYDROcodone 10MG/APAP 325MG 1 EA TAB PO ONE (21:01)
[2018-01-14] MEDS: cefTRIAXone SODIUM 2 GM in SODIUM CHL 0.9% 100ML MINI-BAG 100 ML IVPB ONE (21:01)
[2018-01-14] MEDS: SODIUM CHLORIDE 0.9% 500ML 500 ML IVS ONE (21:02)
[2018-01-14 21:28] VITALS: BP 95/56; TEMP 98.4; O2SAT 91
== END 2018-01-14 21:50 | disposition short-term general hospital (02) ==
LOC: ER 17:07
DX: J18.9 Pneumonia, unspecified organism (principal); E83.42 Hypomagnesemia; E83.51 Hypocalcemia; N17.9 Acute kidney failure, unspecified; E11.22 Type 2 diabetes mellitus with diabetic chronic kidney disease; N18.4 Chronic kidney disease, stage 4 (severe); I12.9 Hypertensive chronic kidney disease with stage 1 through stage 4 chronic kidney disease, or unspecified chronic kidney disease; M25.561 Pain in right knee; J45.909 Unspecified asthma, uncomplicated; Z98.890 Other specified postprocedural states; Z79.4 Long term (current) use of insulin; Z79.899 Other long term (current) drug therapy; Z88.8 Allergy status to other drugs, medicaments and biological substances
CPT/HCPCS: 36415; 71045; 71250; 73560; 80048; 80076; 80307; 81001; 82550; 82553; 83605; 83880; 84100; 84484; 85025; 85610; 85730; 86140; 87040; 87086; 93005; 94640; J0696; J3370; J7030; J7040; J7050; J7611; J7614

== ENCOUNTER 2018-02-08 14:20 | Emergency (ER) | payer MEDICARE, MEDICAID ==
[2018-02-08 14:33] VITALS: TEMP 98.9; O2SAT 97
--- NOTE | 2018-02-08 14:48 | ED.PDOC ---
History of Present Illness - General Chief Complaint: General Stated Complaint: bleeding from surgical site Time Seen by Provider: 02/08/18 14:23 Source: patient Exam Limitations: no limitations - History of Present Illness Initial Comments: the patient is a 57-year-old female presenting to the emergency room secondary to continued mild bleeding from her right AKA site. She had the amputation done one week ago. She's not had any other problems other than continued mild bleeding from the mid to right lateral aspect. There is no significant increased erythema. No foul drainage. No evidence of any cellulitis. The patient is pleasant and cooperative. Vital signs are stable. mild bleeding has been present since the surgery. it did not just restart recently. no evidence of wound dehiscence. Timing/Duration: 1 week Severity: mild Improving Factors: nothing Worsening Factors: nothing Associated Symptoms: denies symptoms Allergies/Adverse Reactions: Allergies Trazodone Allergy (Verified 12/31/17 18:15) Home Medications: Ambulatory Orders HYDROcodone 10MG/APAP 325MG [[place] 10/325] 2 tab PO Q6HR PRN 04/21/15 Tizanidine HCl [Zanaflex] 4 mg PO TID 04/21/15 ALPRAZolam [Xanax] 0.5 mg PO TID PRN 02/15/16 Furosemide 20 mg PO BID PRN 02/15/16 Albuterol Sulfate [Proair Hfa] 2 puff INH Q4H PRN 08/29/17 Exenatide [Bydureon Pen] 2 mg SC WKLY 08/29/17 Insulin Aspart [Novolog] See Protocol SC BID 08/29/17 Insulin Degludec [Tresiba Flextouch] 36 unit SC DAILY 08/29/17 Lisinopril 5 mg PO DAILY 08/29/17 Metformin HCl 1,000 mg PO BID 08/29/17 Pregabalin [Lyrica] 100 mg PO BID 08/29/17 diphenhydrAMINE HCL [Benadryl] 100 mg PO BEDTIME 08/29/17 Doxycycline (Monohydrate) [Doxycycline] 100 mg PO BID 11/20/17 Melatonin 40 mg PO BEDTIME 11/20/17 Sertraline HCl [Zoloft] 150 mg PO DAILY 11/20/17 Review of Systems - Review of Systems Constitutional: States: no symptoms reported EENTM: States: no symptoms reported Respiratory: States: no symptoms reported Cardiology: States: no symptoms reported Gastrointestinal/Abdominal: States: no symptoms reported Genitourinary: States: no symptoms reported Musculoskeletal: States: see HPI - expected pain at the operative site Skin: States: no symptoms reported Neurological: States: no symptoms reported Endocrine: States: no symptoms reported All other Systems: No Change from Baseline Past Medical History (General) - Patient Medical History Hx Seizures: No Hx Stroke: No Hx Dementia: No Hx Asthma: Yes Hx of COPD: No Hx Cardiac Disorders: No Hx Congestive Heart Failure: No Hx Pacemaker: No Hx Hypertension: Yes Hx Thyroid Disease: No Hx Diabetes: Yes Hx Gastroesophageal Reflux: No Hx Renal Disease: No Hx Cancer: No Hx of HIV: No Hx Hepatitis C: No Hx MRSA: Yes MRSA Source:: Wound Surgical History: cholecystectomy, tonsillectomy - Vaccination History Hx Tetanus, Diphtheria Vaccination: No Hx Influenza Vaccination: Yes Hx Pneumococcal Vaccination: Yes - Social History Hx Tobacco Use: Yes Hx Chewing Tobacco Use: No Hx Alcohol Use: No Hx Substance Use: No Hx Substance Use Treatment: No Hx Depression: No Hx Physical Abuse: No Hx Emotional Abuse: No Hx Suspected Abuse: No - Activities of Daily Living Longterm/Assisted Living (if applicable):: [facility] - Female History Patient : No Family Medical History - Family History Father Family History: Unknown Living Status: Age at (years of age): 59 Hx Family Stroke: Yes - sister Hx Family Cancer: Yes - mesothelioma-dad;ovaries-mom Mother Living Status: Age at (years of age): 59 Hx Family Diabetes: Yes Hx Family Cancer: Yes - ovarian Physical Exam - Physical Exam General Appearance: Alert, Comfortable, No apparent distress Eye Exam: bilateral normal Ears, Nose, Throat: hearing grossly normal Neck: full range of motion Respiratory: lungs clear, normal breath sounds, no respiratory distress, no accessory muscle use Cardiovascular/Chest: normal peripheral pulses, no edema, other - regular rate Peripheral Pulses: radial,right: 2+, radial,left: 2+ Gastrointestinal/Abdominal: soft, other - obese Rectal Exam: deferred Back Exam: no vertebral tenderness Extremity: other - right AKA site as above. 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 There does not appear to be any clinical evidence of any cellulitis or superimposed infection at this time. I believe she is continuing to have some drainage secondary to what is likely a subcutaneous pocket created by the repair flap, that simply needs additional pressure applied externally in order to stop the seepage. The patient had her wound rewrapped with 2 Woody wraps with increased pressure. The patient tolerated this well. She needs to have this readjusted at least once every 24 hours. She needs to keep follow-up with her orthopedic surgeon. Obviously if it starts to appear that she is having infection at the site, then she will need a reevaluation. At this time it does not appear to be infected. Departure - Departure Clinical Impression: Draining postoperative wound Qualifiers: Encounter type: initial encounter Qualified Code(s): T81.89XA - Other complications of procedures, not elsewhere classified, initial encounter Disposition: Discharge to Home or Self Care Condition: Fair Departure Forms: ED Discharge - Pt. Copy, Patient Portal Self Enrollment Diet: diabetic diet Activity: no pushing/pulling with affected limb Referrals: Marc Arriola MD [Primary Care Provider] - 1-2 Weeks Home Medications: Ambulatory Orders HYDROcodone 10MG/APAP 325MG [[place] 10/325] 2 tab PO Q6HR PRN 04/21/15 Tizanidine HCl [Zanaflex] 4 mg PO TID 04/21/15 ALPRAZolam [Xanax] 0.5 mg PO TID PRN 02/15/16 Furosemide 20 mg PO BID PRN 02/15/16 Albuterol Sulfate [Proair Hfa] 2 puff INH Q4H PRN 08/29/17 Exenatide [Bydureon Pen] 2 mg SC WKLY 08/29/17 Insulin Aspart [Novolog] See Protocol SC BID 08/29/17 Insulin Degludec [Tresiba Flextouch] 36 unit SC DAILY 08/29/17 Lisinopril 5 mg PO DAILY 08/29/17 Metformin HCl 1,000 mg PO BID 08/29/17 Pregabalin [Lyrica] 100 mg PO BID 08/29/17 diphenhydrAMINE HCL [Benadryl] 100 mg PO BEDTIME 08/29/17 Doxycycline (Monohydrate) [Doxycycline] 100 mg PO BID 11/20/17 Melatonin 40 mg PO BEDTIME 11/20/17 Sertraline HCl [Zoloft] 150 mg PO DAILY 11/20/17 Additional Instructions: the patient is a 57-year-old female presenting to emergency room secondary to mild persistent slow serosanguineous drainage from her right AKA site since the surgery one week ago. There does not appear to be any clinical evidence of any cellulitis or superimposed infection at this time. I believe she is continuing to have some drainage secondary to what is likely a subcutaneous pocket created by the repair flap, that simply needs additional pressure applied externally in order to stop the seepage. The patient had her wound rewrapped with 2 Woody wraps with increased pressure. The patient tolerated this well. She needs to have this readjusted at least once every 24 hours. She needs to keep follow-up with her orthopedic surgeon. Obviously if it starts to appear that she is having infection at the site, then she will need a reevaluation. At this time it does not appear to be infected.she does additionally need to maintain good blood sugar control to aid in healing.
[2018-02-08 15:12] VITALS: BP 158/80
== END 2018-02-08 15:12 ==
LOC: ER 14:20
DX: T81.89XA Other complications of procedures, not elsewhere classified, initial encounter (principal); E11.9 Type 2 diabetes mellitus without complications; I10 Essential (primary) hypertension; J45.909 Unspecified asthma, uncomplicated; Y83.8 Other surgical procedures as the cause of abnormal reaction of the patient, or of later complication, without mention of misadventure at the time of the procedure; Z89.611 Acquired absence of right leg above knee; Z87.891 Personal history of nicotine dependence; Z79.4 Long term (current) use of insulin; Z79.899 Other long term (current) drug therapy; Z88.8 Allergy status to other drugs, medicaments and biological substances

== ENCOUNTER 2018-02-12 14:54 | Emergency (ER) | payer MEDICARE, MEDICAID ==
--- NOTE | 2018-02-12 15:07 | ED.PDOC ---
History of Present Illness - General Chief Complaint: Fever Stated Complaint: FEVER Time Seen by Provider: 02/12/18 14:59 Source: patient, EMS Exam Limitations: no limitations - History of Present Illness Initial Comments: The patient presents to ED with complaint of fever. The patient was noted have a fever with MAXIMUM TEMPERATURE of 101. the patient states that this concerns her due to recent surgical procedure that she had on February 07, 2018 where she had an amputation above the knee due to persistent right lower extremity infection. The patient states she noticed occasional chills with this issue as well. She also notes a small nonproductive cough. The patient is currently at a local facility receiving IV antibiotics for this issue and voices concern that the antibiotics "may not be killing my infection" Review of Systems - Review of Systems Review of Systems: 02/12/18 15:13 A 10 pt review of systems was done at the patient's bedside and is negative except as noted in HPI Past Medical History (General) - Patient Medical History Hx Seizures: No Hx Stroke: No Hx Dementia: No Hx Asthma: Yes Hx of COPD: No Hx Cardiac Disorders: No Hx Congestive Heart Failure: No Hx Pacemaker: No Hx Hypertension: Yes Hx Thyroid Disease: No Hx Diabetes: Yes Hx Gastroesophageal Reflux: No Hx Renal Disease: No Hx Cancer: No Hx of HIV: No Hx Hepatitis C: No Hx MRSA: Yes MRSA Source:: Wound - Vaccination History Hx Tetanus, Diphtheria Vaccination: No Hx Influenza Vaccination: Yes Hx Pneumococcal Vaccination: Yes - Social History Hx Tobacco Use: Yes Hx Chewing Tobacco Use: No Hx Alcohol Use: No Hx Substance Use: No Hx Substance Use Treatment: No Hx Depression: No Hx Physical Abuse: No Hx Emotional Abuse: No Hx Suspected Abuse: No - Female History Patient : No Family Medical History - Family History Father Family History: Unknown Living Status: Age at (years of age): 59 Hx Family Stroke: Yes - sister Hx Family Cancer: Yes - mesothelioma-dad;ovaries-mom Mother Living Status: Age at (years of age): 59 Hx Family Diabetes: Yes Hx Family Cancer: Yes - ovarian Physical Exam - Physical Exam General Appearance: Well Developed, Well Groomed ENT Exam: normal ENT inspection, hearing grossly normal Neck: non-tender Respiratory: chest non-tender, lungs clear Cardiovascular/Chest: regular rate, rhythm Gastrointestinal/Abdominal: normal bowel sounds, non tender Extremity: other - there is a right [id number] amputation with sutures in place. There is purulent discharge from the medial aspect of the ceiling wound small amount of erythema noted. Neurologic: alert, oriented x 3 Skin Exam: normal color Lymphatic: no adenopathy Progress - Progress Progress: 02/12/18 15:15 The patient's presentation is concerning for fever at this time. I will order a CBC to evaluate for white blood cell count elevation at this time. The patient will receive a metabolic panel to evaluate for electrolyte derangement, dehydration, and glucose abnormalities. The patient will be evaluated for UTI. The patient will receive a chest x-ray to evaluate for pneumonia. The patient will receive ivf at 30ml/kg based on ibw. The patient will also receive iv abx empirically. The patient's dispo will be dependent upon the patient's ED course. 02/12/18 17:16 The patient is doing well at this time. She has been advised all labs and radiological results at this time. She is advised that I have spoken with her orthopedic surgeon's partner as well as the hospitalist service at [facility]. She is advised that she will be transferred there for further evaluation and care. She is in agreement w/ this plan. 02/12/18 17:22 - Consult/PCP Time Called: 17:15 Consult/PCP: DR NANE(ORTHO) Consult Reason/Comments: STATES HE WILL BE CONSULTING ORTHOPEDIST. - Additional EKG/XRAY/Consults Comments: DR. CHARLES(HOSPITALIST) Time Called: 17:17 Consult/PCP: STATES HE WILL BE ACCEPTING HOSPITALIST AT THIS TIME. Departure - Departure Clinical Impression: Fever due to virus Pneumonia Qualifiers: Pneumonia type: due to unspecified organism Laterality: unspecified laterality Lung location: unspecified part of lung Qualified Code(s): J18.9 - Pneumonia, unspecified organism ICD-10 Supporting Text: CONCERN FOR STUMP INFECTION Disposition: Discharge to Home or Self Care Departure Forms: ED Discharge - Pt. Copy, Patient Portal Self Enrollment Referrals: Marc Arriola MD [Primary Care Provider] - 1-2 Weeks Home Medications: Ambulatory Orders RX: HYDROcodone 10MG/APAP 325MG [[place] 10/325] 2 tab PO Q6HR PRN 04/21/15 RX: ALPRAZolam [Xanax] 0.5 mg PO Q8H PRN 02/15/16 RX: Furosemide 20 mg PO BID PRN 02/15/16 RX: Albuterol Sulfate [Proair Hfa] 2 puff INH Q4H PRN 08/29/17 RX: Exenatide [Bydureon Pen] 2 mg SC WE 08/29/17 RX: Insulin Aspart [Novolog] See Protocol SC BID 08/29/17 RX: Insulin Degludec [Tresiba Flextouch] 36 unit SC DAILY 08/29/17 RX: Lisinopril 5 mg PO DAILY 08/29/17 RX: Metformin HCl 1,000 mg PO BID 08/29/17 RX: Pregabalin [Lyrica] 100 mg PO BID 08/29/17 RX: Melatonin 40 mg PO BEDTIME 11/20/17 RX: Sertraline HCl [Zoloft] 150 mg PO DAILY 11/20/17 Arformoterol Tartrate Nebs [Brovana Nebs] 15 mcg NEB BID 02/08/18 Balsam [place] Oil [Venelex] 1 applic TOP DAILY 02/08/18 Balsam [place] Oil [Venelex] 1 applic TOP PRN 02/08/18 Micafungin Sodium [Mycamine] 100 mg IV DAILY 02/08/18 Nafcillin Sodium in Dextrose [Nallpen Iso-Osmotic in De] 2 gm IV Q4H 02/08/18 Nystatin (Topical) [Nystatin] 100,000 unit EX BID 02/08/18
--- NOTE | 2018-02-12 15:23 | RAD ---
EXAM DESCRIPTION: Chest,1 View CLINICAL HISTORY: 57 years Female, fever COMPARISON: Previous study January 14, 2018 TECHNIQUE: AP portable chest. FINDINGS: Heart size is large with mildly increased pulmonary vascularity. Abnormal density in the right lower lung zone suggests infiltrate, pleural fluid or both. No pulmonary mass or worrisome nodule. No pneumothorax or pleural effusion. Bones are unremarkable. IMPRESSION: Large heart with mild increased pulmonary vascularity. Patchy infiltrate in the right lung base. Electronically signed by: Wellington Alexis MD 02/12/2018 3:21 PM [facility]
[2018-02-12] MEDS ORDERED: VANCOMYCIN HCL INJ 1,000 MG in SODIUM CHLORIDE 0.9% 250ML 250 ML IVPB ONE (16:11)
[2018-02-12] MEDS ORDERED: CEFEPIME 1 GM in SODIUM CHLORIDE 0.9% 50ML 50 ML IVPB ONE (16:11)
[2018-02-12] MEDS ORDERED: SODIUM CHLORIDE 0.9% 1000ML 2,100 ML IVS ONE (16:14)
[2018-02-12] MEDS ORDERED: CEFEPIME 2 GM VIAL ONE (16:16)
[2018-02-12] MEDS ORDERED: SODIUM CHLORIDE 0.9% 50ML 50 ML ONE (16:16)
[2018-02-12] MEDS ORDERED: SODIUM CHLORIDE 0.9% 250ML 250 ML ONE (17:11)
[2018-02-12] MEDS ORDERED: VANCOMYCIN HCL INJ 1,000 MG VIAL IVPB ONE (17:11)
[2018-02-12] MEDS ORDERED: MORPHINE SULFATE INJ 10 MG/ML VIAL IV ONE (17:13)
[2018-02-12] MEDS ORDERED: ACETAMINOPHEN 500 MG TAB PO ONE (17:13)
[2018-02-12 17:14] VITALS: TEMP 100.2
[2018-02-12 17:54] VITALS: BP 176/86; O2SAT 100
== END 2018-02-12 17:54 | disposition short-term general hospital (02) ==
LOC: ER 14:54
DX: J18.9 Pneumonia, unspecified organism (principal); E11.9 Type 2 diabetes mellitus without complications; I10 Essential (primary) hypertension; Z89.611 Acquired absence of right leg above knee; Z86.14 Personal history of Methicillin resistant Staphylococcus aureus infection; Z87.891 Personal history of nicotine dependence
CPT/HCPCS: 36415; 71045; 80048; 81001; 83605; 85025; 87040; 87086; A4216; J0692; J2270; J3370; J7030; J7050

== ENCOUNTER → 2018-02-20 | Outpatient (CLI) | payer MEDICARE, MEDICAID | LOC: GMAM 16:46 | PROVIDERS: ATTEND Family Medicine | DX: I50.9 Heart failure, unspecified (principal) ==

== ENCOUNTER → 2018-02-28 | Outpatient (CLI) | payer MEDICARE, MEDICAID | LOC: GMAM 12:04 | PROVIDERS: ATTEND Family Medicine | DX: A41.02 Sepsis due to Methicillin resistant Staphylococcus aureus (principal) ==

== ENCOUNTER → 2018-03-27 | Outpatient (CLI) | payer MEDICARE, MEDICAID ==
--- NOTE | 2018-03-27 21:10 | MRI ---
EXAM DESCRIPTION: Shoulder,Left: Magnetic Resonance Imaging. CLINICAL HISTORY: SHOULDER PAIN left. COMPARISON: None. TECHNIQUE: Multiplanar, high-field MRI, multiple sequences, without contrast, left shoulder FINDINGS: Edema in the undersurface of the distal supraspinatus and infraspinatus tendons with minimal signal in the insertions but no tear. Edema also on the distal bursal surface of the supraspinatus. Intermediate signal extending longitudinally in the supraspinatus and infraspinatus. Minimal edema in the subacromial-subdeltoid bursa. Minimal fluid on the dorsal surface of the subscapular tendon and intermediate signal at the insertion. No significant atrophy. Enlarged AC joint capsule with effusion and subchondral edema and irregularity of the distal clavicle. Minimal subchondral edema in the acromion facet. Inferior marginal spurs and inferior joint capsule impressing on the musculotendinous junction of the supraspinatus. Minimal flattening of the lateral coracoacromial arch. Type II lateral acromion. Coracoid ligaments are intact. Minimal fluid in the subcoracoid bursa. Degenerative signal in the superior glenoid labrum. Minimal marginal spurs but no subchondral edema. No glenohumeral joint effusion. Minimal edema in the bicipital labral anchor. Long head biceps tendon within the bicipital groove. No loose bodies. IMPRESSION: 1. Edema in the undersurface of the distal supraspinatus infraspinatus tendons. Edema also in the supraspinatus tendon extending approximately and on the bursal surface. Tendinopathy but no definite tear. Minimal fluid in the subacromial-subdeltoid bursa. Tendinopathy distal subscapularis tendon with surrounding fluid. 2. Marked arthrosis in the AC joint with effusion and significant subchondral bone changes of the distal clavicle. Inferior marginal spurs and enlarged joint capsule with moderate impingement of the musculotendinous junction of the supraspinatus. 3. Degenerative changes in the bicipital labral anchor and superior labrum but no definite tear. Marginal spurs but no subchondral bone changes. Electronically signed by: Ye Terrazas MD 03/27/2018 9:09 PM [facility]
== END ==
LOC: MRI 10:00
PROVIDERS: ATTEND Family Medicine
DX: M25.512 Pain in left shoulder (principal); M19.012 Primary osteoarthritis, left shoulder; R60.0 Localized edema

== ENCOUNTER 2018-03-29 11:43 | Observation (INO) | payer MEDICARE, MEDICAID ==
[2018-03-29] MEDS ORDERED: SODIUM CHLORIDE 0.9% (FLUSH) 10 ML SYG IV PRN ×2 (12:04→16:06)
[2018-03-29] MEDS ORDERED: IPRATROPIUM/ALBUTEROL 3 ML VIAL NEB ONE (12:06)
[2018-03-29] MEDS ORDERED: SODIUM CHLORIDE 0.9% 1000ML 1,000 ML IVS ONE (12:06)
--- NOTE | 2018-03-29 12:20 | RAD ---
EXAM DESCRIPTION: Chest,1 View CLINICAL HISTORY: 57 years Female, sob COMPARISON: 02/12/2018 IMPRESSION: The heart is at the upper limits of normal in size, with mild central pulmonary vascular congestion. Mild perihilar interstitial thickening which may be secondary to mild CHF with interstitial edema versus an atypical infectious/inflammatory process. Patchy right basilar airspace opacity which has improved since the prior exam, likely improving pneumonia. Continued follow-up to confirm complete resolution recommended. No large pleural effusion or pneumothorax. No acute osseous abnormality. Electronically signed by: Anderson Lewis MD 03/29/2018 12:18 PM [facility]
--- NOTE | 2018-03-29 12:59 | ED.PDOC ---
History of Present Illness - General Chief Complaint: General Stated Complaint: abnormal lab Time Seen by Provider: 03/29/18 12:04 Source: patient, RN/MD, [facility] - History of Present Illness Initial Comments: PT SENT TO THE ED FROM NURSING FACILITY AFTER HAVING ROUTINE LABS DONE TODAY WHICH REVEALED AN ELEVATED POTASSIUM LEVEL. PT COMPLAINS OF GENERALLY NOT FEELING WELL AND SEVERAL EPISODES OF DIARRHEA OVER THE PAST FEW DAYS. PT ALSO NOTICED A RASH ON THE DORSUM OF HER LEFT FOOT AND STATES SHE FEELS LIKE SHE IS STEPPING ON A ROCK WHEN SHE BEARS WEIGHT ON IT. PT DENIES CHEST PAIN, SOB, OR PALPITATIONS. Improving Factors: nothing Worsening Factors: nothing Associated Symptoms: malaise Allergies/Adverse Reactions: Allergies Trazodone Allergy (Verified 03/29/18 11:58) Home Medications: Ambulatory Orders HYDROcodone 10MG/APAP 325MG [[place] 10/325] 2 tab PO Q6HR PRN 04/21/15 ALPRAZolam [Xanax] 0.5 mg PO Q8H PRN 02/15/16 Furosemide 20 mg PO BID PRN 02/15/16 Albuterol Sulfate [Proair Hfa] 2 puff INH Q4H PRN 08/29/17 Exenatide [Bydureon Pen] 2 mg SC WE 08/29/17 Insulin Aspart [Novolog] See Protocol SC BID 08/29/17 Insulin Degludec [Tresiba Flextouch] 36 unit SC DAILY 08/29/17 Lisinopril 5 mg PO DAILY 08/29/17 Metformin HCl 1,000 mg PO BID 08/29/17 Pregabalin [Lyrica] 100 mg PO BID 08/29/17 Melatonin 40 mg PO BEDTIME 11/20/17 Sertraline HCl [Zoloft] 150 mg PO DAILY 11/20/17 Arformoterol Tartrate Nebs [Brovana Nebs] 15 mcg NEB BID 02/08/18 Balsam [place] Oil [Venelex] 1 applic TOP DAILY 02/08/18 Balsam [place] Oil [Venelex] 1 applic TOP PRN 02/08/18 Micafungin Sodium [Mycamine] 100 mg IV DAILY 02/08/18 Nafcillin Sodium in Dextrose [Nallpen Iso-Osmotic in De] 2 gm IV Q4H 02/08/18 Nystatin (Topical) [Nystatin] 100,000 unit EX BID 02/08/18 Review of Systems - Review of Systems Constitutional: Denies: chills, fever EENTM: Denies: nose congestion, throat pain Respiratory: Denies: cough, short of breath Cardiology: Denies: chest pain, palpitations Gastrointestinal/Abdominal: States: diarrhea. Denies: nausea, vomiting Genitourinary: Denies: dysuria, frequency Musculoskeletal: Denies: joint pain, joint swelling Skin: States: see HPI, rash Neurological: Denies: anxiety, headache Endocrine: States: no symptoms reported Past Medical History (General) - Patient Medical History Hx Seizures: No Hx Stroke: No Hx Dementia: No Hx Asthma: Yes Hx of COPD: No Hx Cardiac Disorders: No Hx Congestive Heart Failure: No Hx Pacemaker: No Hx Hypertension: Yes Hx Thyroid Disease: No Hx Diabetes: Yes Hx Gastroesophageal Reflux: No Hx Renal Disease: No Hx Cancer: No Hx of HIV: No Hx Hepatitis C: No Hx MRSA: Yes MRSA Source:: Wound Surgical History: other - Vaccination History Hx Tetanus, Diphtheria Vaccination: No Hx Influenza Vaccination: Yes Hx Pneumococcal Vaccination: Yes - Social History Hx Tobacco Use: Yes Hx Chewing Tobacco Use: No Hx Alcohol Use: No Hx Substance Use: No Hx Substance Use Treatment: No Hx Depression: No Hx Physical Abuse: No Hx Emotional Abuse: No Hx Suspected Abuse: No - Activities of Daily Living Retirement/Assisted Living (if applicable):: [facility] - Female History Patient : No Family Medical History - Family History Father Family History: Unknown Living Status: Age at (years of age): 59 Hx Family Stroke: Yes - sister Hx Family Cancer: Yes - mesothelioma-dad;ovaries-mom Mother Living Status: Age at (years of age): 59 Hx Family Diabetes: Yes Hx Family Cancer: Yes - ovarian Physical Exam - Physical Exam General Appearance: Alert, Comfortable, No apparent distress, Obese, Well Groomed Eye Exam: bilateral normal Ears, Nose, Throat: hearing grossly normal Neck: non-tender, full range of motion Respiratory: no respiratory distress, no accessory muscle use, wheezing Cardiovascular/Chest: regular rate, rhythm, no murmur Gastrointestinal/Abdominal: non tender, soft Back Exam: normal inspection Extremity: other - RIGHT AKA, FAINT ERYTHEMATOUS MACULAR RASH ON DORUM OF L FOOT AND ANKLE. NO MASSES PALPATED TO BALL OF FOOT. Neurologic: alert, normal mood/affect, oriented x 3 Skin Exam: warm/dry Progress - Results/Orders Results/Orders: Laboratory Tests 03/29/18 12:12 WBC 5.2 RBC 3.63 L Hgb 11.1 L Hct 33.5 L MCV 92.5 MCH 30.5 MCHC 33.0 RDW 15.9 H Plt Count 129 L MPV 8.6 Absolute Neuts (auto) 3.90 Absolute Lymphs (auto) 0.90 L Absolute Monos (auto) 0.40 Absolute Eos (auto) 0.10 Absolute Basos (auto) 0.00 Neutrophils % 73.7 Lymphocytes % 16.9 L Monocytes % 7.6 Eosinophils % 1.3 Basophils % 0.5 PT 9.8 INR 0.98 PTT (SP) 19.0 L Sodium 134 L Potassium 6.5 H Chloride 110 Carbon Dioxide 16 L Anion Gap 14.5 BUN 49 H Creatinine 1.02 BUN/Creatinine Ratio 48.0 H Random Glucose 107 H Serum Osmolality 281.7 Calcium 9.1 Magnesium 1.8 Total Bilirubin 0.5 Direct Bilirubin 0.2 Indirect Bilirubin 0.3 AST 42 ALT 31 Alkaline Phosphatase 243 H Creatine Kinase 43 CK-MB (CK-2) 2.5 CK-MB (CK-2) % Not Reportable Troponin I < 0.02 Serum Total Protein 8.5 H Albumin 3.8 - EKG/XRAY/CT EKG: Sinus - @67BPM, NL INTERVALS, NL AXIS, Unchanged from - 01/14/18 Departure - Departure Clinical Impression: Dehydration, Diarrhea, Hyperkalemia, Metabolic acidosis with normal anion gap and bicarbonate losses Time of Disposition: 14:06 Disposition: Admit Patient Condition: Fair Departure Forms: ED Discharge - Pt. Copy, Patient Portal Self Enrollment Referrals: Marc Arriola MD [Primary Care Provider] - 1-2 Weeks Home Medications: Ambulatory Orders HYDROcodone 10MG/APAP 325MG [[place] 10/325] 2 tab PO Q6HR PRN 04/21/15 ALPRAZolam [Xanax] 0.5 mg PO Q8H PRN 02/15/16 Furosemide 20 mg PO BID PRN 02/15/16 Albuterol Sulfate [Proair Hfa] 2 puff INH Q4H PRN 08/29/17 Exenatide [Bydureon Pen] 2 mg SC WE 08/29/17 Insulin Aspart [Novolog] See Protocol SC BID 08/29/17 Insulin Degludec [Tresiba Flextouch] 36 unit SC DAILY 08/29/17 Lisinopril 5 mg PO DAILY 08/29/17 Metformin HCl 1,000 mg PO BID 08/29/17 Pregabalin [Lyrica] 100 mg PO BID 08/29/17 Melatonin 40 mg PO BEDTIME 11/20/17 Sertraline HCl [Zoloft] 150 mg PO DAILY 11/20/17 Arformoterol Tartrate Nebs [Brovana Nebs] 15 mcg NEB BID 02/08/18 Balsam [place] Oil [Venelex] 1 applic TOP DAILY 02/08/18 Balsam [place] Oil [Venelex] 1 applic TOP PRN 02/08/18 Micafungin Sodium [Mycamine] 100 mg IV DAILY 02/08/18 Nafcillin Sodium in Dextrose [Nallpen Iso-Osmotic in De] 2 gm IV Q4H 02/08/18 Nystatin (Topical) [Nystatin] 100,000 unit EX BID 02/08/18 Critical Care Note - Critical Care Note Total Time (mins): 45 Decision To Admit - Decistion To Admit Decision to Admit Reason: Admit from ER Decision to Admit Date: 03/29/18 Decision to Admit Time: 14:07 - CASE DISCUSSED WITH BILL BROUSSARD NP WHO AGREES TO ADMIT
[2018-03-29] MEDS ORDERED: DEXTROSE 50% 25 GM/50 ML SYG IV ONE (13:35)
[2018-03-29] MEDS ORDERED: SODIUM BICARBONATE VIAL 50 MEQ/50 ML VIAL IV ONE (13:35)
[2018-03-29] MEDS ORDERED: CALCIUM GLUCONATE INJ 1 GM/10 ML VIAL IV ONE (13:36)
[2018-03-29] MEDS ORDERED: INSULIN, REG.(HUMAN) 100 U/ML VIAL IV ONE (13:36)
[2018-03-29] MEDS ORDERED: SOD POLYSTYRENE SULFONATE 15 GM/60 ML BTTL PO ONE (13:36)
--- NOTE | 2018-03-29 14:42 | HP ---
SUPERVISING PHYSICIAN: Maikel Rojas MD CHIEF COMPLAINT: Hyperkalemia. HISTORY OF PRESENT ILLNESS: Ms. Boyd is a 57 year-old female diabetic patient. She has had a longstanding history of a left knee infection that ultimately resulted in above-knee amputation 01-07-18. She had been developing some right foot redness since she started to rehab and went to see Dr. Lopez today in the clinic. She had above-knee amputation on the left leg. She also noted she has been having some diarrhea over the last couple of days and she does live at [facility]. Labs today showed she had an elevated potassium at 6.5. Dr. Lopez referred her to the Emergency Room for further evaluation. Laboratory repeat in the Emergency Room showed her potassium was again 6.5, sodium 134, BUN 49, creatinine 1.0. Liver functions all showed to be within normal limits. CBC showed a normal white count at 5,200, hemoglobin 11.1, hematocrit 13.5, platelet count at 129,000, differential showed to be without a left shift. Coagulation studies showed to be normal PT/PTT as well as urinalysis showed to be unremarkable. On examination, the patient was obviously dehydrated and based off the elevated BUN it was felt the patient was likely having some hypernatremia due to hemoconcentration from dehydration. She was referred to the medical/surgical floor for observation and further evaluation of the hyperkalemia. She was placed in observation in stable. condition. PAST MEDICAL HISTORY: 1. Asthma. 2. Atrial flutter. 3. Hypertension. 4. Rheumatoid arthritis. 5. Osteoarthritis. 6. Osteoporosis. 7. 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 8. Type 2 diabetes mellitus both on insulin and oral therapy. PAST SURGICAL HISTORY: 1. Above-knee amputation, right knee on 01/07/18. 2. Tonsillectomy. 3. Cholecystectomy. 4. section times 2. 5. 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 6. Bilateral tubal ligation. 7. 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 8. Bzuli-O-Pcyn placement by for antibiotic infusions due to difficulty with insertion of PICC line in the past. CURRENT MEDICATIONS: 1. Benadryl 25 mg at bedtime. 2. Zoloft 100 mg daily. 3. Metoprolol tartrate 25 mg b.i.d. 4. Milk of magnesia 400 mg daily. 5. Lactose bacillus 1 tablet b.i.d. 6. [place] 10/325 one every 6 hours as needed for pain. 7. Amino acid protein hydrolysis. 30 mL daily. 8. Lyrica 100 mg b.i.d. 9. Chlorthalidone 25 mg daily. 10. Lisinopril 20 mg daily. 11. NovoLog sliding scale. 12. Bydureon 2 mg daily. 13. Tresiba 36 units daily. 14. Melatonin 40 mg at bedtime. 15. Ranitidine 150 mg b.i.d. 16. Metformin 1000 mg b.i.d. 17. Albuterol inhaler 2 puffs inhaled every 4 hours as needed. 18. Lasix 20 mg b.i.d. as needed. ALLERGIES: TRAZODONE. FAMILY HISTORY: Positive for hypertension, chronic obstructive pulmonary disease. SOCIAL HISTORY: The patient currently lives at [facility]. She does smoke approximately one package of cigarettes per day. She denies any alcohol or illicit drug use. She is a and has 2 children. REVIEW OF SYSTEMS: CONSTITUTIONAL: Negative for any fever or chills or unintentional weight loss or weight gain. HEENT: Negative for headaches, vision changes, ear pain, nasal congestion or sore throat. RESPIRATORY: Negative cough, hemoptysis, pleuritic chest pains, wheezing. CARDIOVASCULAR: Negative chest pains, palpitations or peripheral edema. GASTROINTESTINAL: Positive for diarrhea but negative for nausea or vomiting, constipation or other bowel habit changes. Negative for abdominal pain.. GENITOURINARY: Negative for dysuria, hematuria, polyuria or flank pains. MUSCULOSKELETAL: Negative for muscle cramping. Positive for recent above-knee amputation on right leg. . INTEGUMENT: Negative for any rashes, lesions or wounds. NEUROLOGIC: Negative for paresthesias, seizures, syncopal episodes, ataxia or other focal neurological deficits. ENDOCRINE: Positive for diabetes but negative for any polydipsia, polyuria or polyphagia. PHYSICAL EXAMINATION: VITAL SIGNS: Temperature 98.3, pulse 73, blood pressure 138/80, respirations 20, saturation 99% on room air. Admission weight 97.6 kg. GENERAL: The patient appears to be well-nourished but does look a little dehydrated. She is comfortable and in no acute distress. HEENT: Tympanic membranes are clear bilaterally. Oropharynx is pink with dry mucous membranes. NECK: Supple, non-tender, full range of motion. CHEST: There is some faint inspirational wheezing but no rales or rhonchi noted, diminished toward the bases bilaterally. . CARDIOVASCULAR: Regular rate and rhythm without appreciable murmurs, rubs, or gallops. ABDOMEN: Obese, soft, non-tender, positive bowel sounds. EXTREMITIES: Right above-knee amputation shows just a faint macular rash on the dorsum of the left foot and ankle. No masses are palpated on ball of foot. The wound flap on the right above-knee amputation appears to be healing well without complications. NEUROLOGIC: She is alert and oriented x 3. LABORATORY: White count shows to be at 5,200, hemoglobin 11.1, hematocrit 33.5, platelet count 129,000, differential shows to be without a left shift. Coagulation studies show normal PT/PTT. Chemistries show sodium 134, potassium significant at 6.5, BUN 49, creatinine 1.0, magnesium 1.8, calcium 9.1, liver functions all showed to be within normal limits. Glucose 107. Urinalysis within normal limits. RADIOLOGY: Left foot x-ray pending. Chest x-ray on admission per radiology interpretation of single view chest shows no large pleural effusion or pneumothorax. There is notable patchy right basilar air space opacity which has improved from prior exam, likely improving pneumonia with continued followup recommended. EKG showed a sinus rhythm at 67, unchanged from previous on 01/14/18. ASSESSMENT: 1. Moderate dehydration secondary to diarrhea. 2. Electrolyte imbalance to include hyperkalemia and hyponatremia with a mild metabolic acidosis with normal anion gap probably due to persistent diarrhea complicated by dehydration. 3. History of asthma with current radiographic studies indicating an improving right basilar opacity likely pneumonia. 4. History of atrial flutter with patient having normal sinus rhythm at time of admission. 5. History of hypertension. 6. Rheumatoid arthritis. 7. History of osteoarthritis. 8. 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 PLAN: The patient is going to be admitted and placed in observation and started on some IV fluids. She will be on cardiac telemetry. Will plan to repeat a BNP after admission around 1800. I will get an x-ray of her left foot to further rule out any other complications which more likely is due to ongoing rehabilitation and changes in posture due to recent amputation. Will anticipate her length of stay to be 1 to 2 days. Given she has had x-rays showing some improving pneumonia on the right and had some wheezing on assessment, we will go ahead and put her on breathing treatments but at this point hold off on any antibiotics. She is without any further complaints and she has had normal white counts, she is afebrile. Will resume her home medications as appropriate, certainly will consider holding the lisinopril given her potassium levels and will repeat labs in the morning to include a BNP. Until she can transition to outpatient management, we will continue to monitor and treat as needed. #[id number] [facility]
[2018-03-29] MEDS ORDERED: GLUCAGON INJ 1 MG VIAL SUBCU PRN (15:20)
[2018-03-29] MEDS ORDERED: IV SET AND CAP CHANGE INJ INJ SCH (16:30)
[2018-03-29] MEDS ORDERED: SODIUM CHLORIDE 0.45% 1000ML 1,000 ML IVS ONE (17:07)
[2018-03-29] MEDS: INSULIN LISPRO 100 UNITS/ML PEN SUBCU SCH ×2 (18:23→21:17)
[2018-03-29] MEDS: SODIUM CHLORIDE 0.45% 1000ML 1,000 ML IVS PRN ×2 (18:49→22:16)
--- NOTE | 2018-03-29 19:43 | RAD ---
EXAM: Foot,Left 3 Views CLINICAL INDICATION: 57-year-old female with LEFT foot pain. TECHNIQUE: Three views LEFT foot were obtained in AP, lateral and oblique projections COMPARISON: LEFT distal digits 12/18/2012. FINDINGS: Multifocal osteotomy identified with partial osteotomy of the first digit proximal phalanx and third digit phalanges. Degenerative changes noted at the first metatarsophalangeal joint. There is no fracture or dislocation. The joint spaces are preserved. No soft tissue abnormalities are seen. Bulky plantar heel spur. IMPRESSION: Postoperative changes without acute radiographic abnormality. Electronically signed by: Kia Blount MD 03/29/2018 7:41 PM [facility]
[2018-03-29] MEDS: MELATONIN 40 MG PO SCH (20:35)
[2018-03-29] MEDS: PREGABALIN 100 MG CAP PO SCH (20:35)
[2018-03-29] MEDS: METOPROLOL TARTRATE 50 MG TAB PO SCH (20:35)
[2018-03-29] MEDS: diphenhydrAMINE HCL 25 MG CAP PO SCH (20:35)
[2018-03-29] MEDS: HYDROcodone 10MG/APAP 325MG 1 EA TAB PO PRN (20:38)
[2018-03-29] MEDS: ENOXAPARIN SODIUM 40 MG/0.4 ML SYG SUBCU SCH (21:17)
[2018-03-29] MEDS: ALBUTEROL SULFATE 2.5 MG/3 ML VIAL NEB SCH (21:31)
[2018-03-30] MEDS: SODIUM CHLORIDE 0.45% 1000ML 1,000 ML IVS PRN ×3 (02:11→10:21)
[2018-03-30] MEDS: INSULIN LISPRO 100 UNITS/ML PEN SUBCU SCH ×4 (07:16→21:02)
[2018-03-30] MEDS: ALBUTEROL SULFATE 2.5 MG/3 ML VIAL NEB SCH ×4 (08:17→20:32)
[2018-03-30] MEDS: PREGABALIN 100 MG CAP PO SCH ×2 (08:51→20:35)
[2018-03-30] MEDS: SERTRALINE HCL 50 MG TAB PO SCH (08:51)
[2018-03-30] MEDS: METOPROLOL TARTRATE 50 MG TAB PO SCH ×2 (08:51→20:35)
[2018-03-30] MEDS: LISINOPRIL 5 MG TAB PO SCH (08:52)
[2018-03-30] MEDS: EXENATIDE 2 MG SC SCH (08:52)
[2018-03-30] MEDS: INSULIN DEGLUDEC 36 UNIT SC SCH (08:52)
[2018-03-30] MEDS: HYDROcodone 10MG/APAP 325MG 1 EA TAB PO PRN ×2 (08:58→18:11)
[2018-03-30] MEDS: diphenhydrAMINE HCL 25 MG CAP PO SCH (20:35)
[2018-03-30] MEDS: ENOXAPARIN SODIUM 40 MG/0.4 ML SYG SUBCU SCH (20:35)
[2018-03-30] MEDS: SODIUM CHLORIDE 0.9% (FLUSH) 10 ML SYG IV SCH (20:36)
[2018-03-30] MEDS: MELATONIN 40 MG PO SCH (20:36)
[2018-03-31] MEDS: HYDROcodone 10MG/APAP 325MG 1 EA TAB PO PRN ×2 (00:12→06:19)
[2018-03-31] MEDS: INSULIN LISPRO 100 UNITS/ML PEN SUBCU SCH (07:59)
[2018-03-31] MEDS: ALBUTEROL SULFATE 2.5 MG/3 ML VIAL NEB SCH (08:04)
[2018-03-31] MEDS: EXENATIDE 2 MG SC SCH (08:10)
[2018-03-31] MEDS: INSULIN DEGLUDEC 36 UNIT SC SCH (08:10)
--- NOTE | 2018-03-31 08:19 | PN ---
SUPERVISING PHYSICIAN: TONIO WILKINS MD DATE: 03/30/17 SUBJECTIVE: The patient continues to show hypertension and hyperkalemia, although it is improving. She has had no complaints, no chest pain or shortness of breath. She is starting to have better output. OBJECTIVE: VITAL SIGNS: Temperature 97.1, pulse77, blood pressure 170/84, respirations 16, saturation 99% on room air. CHEST: Lungs are clear to auscultation. HEART regular rate and rhythm. ABDOMEN soft, non-tender, positive bowel sounds. EXTREMITIES: Left lower extremity shows to be without any significant redness although continues to be tender when she stands on the foot and right above-knee amputation stump shows wound site to be healing well without any complications. NEUROLOGICAL: She is alert and oriented x 3. LABORATORY: Potassium remains elevated, this morning is at 5.5, otherwise electrolytes are showing to be fairly normal but continues to who a low carbon dioxide with a BUN of 31, calcium 8.9, blood sugars [id number] and 225. RADIOLOGY: Foot x-ray of left foot yesterday after admission showed no acute findings of acute fractures. ASSESSMENT: 1. Moderate dehydration secondary to diarrhea showing improvement with fluids. 2. Electrolyte imbalance to include hyperkalemia and hyponatremia showing improvement with fluids. 3. Mild metabolic acidosis with normal anion gap but persistent low C02 probably due to diarrhea and complicated by dehydration exacerbating the hyperkalemia although improving with fluids. 4. History of asthma with current radiographic studies on admission showing improving right basilar opacity likely pneumonia, although patient shows no signs of exacerbation or complications of pneumonia. 5. History of atrial flutter with patient having normal sinus rhythm at time of admission. 6. History of hypertension. 7. Rheumatoid arthritis. 8. History of osteoarthritis. 9. 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 PLAN: We will go ahead and finfish the liter of fluids that are hanging this morning and saline lock this afternoon and then repeat a BMP to further ensure that her potassium continues to improve back to baseline. Her diarrhea has now slowed down, I think that her metabolic process with probably resolve. I am going to anticipate discharge tomorrow. She has had no other complaints and remains off antibiotics, therefore, at this point I do not see any reason to put her on antibiotics based off the previous radiographic studies. And again, until she can transition to outpatient management tomorrow, will repeat labs in the morning and continue to monitor as needed. #[id number] [facility]
[2018-03-31] MEDS: SERTRALINE HCL 50 MG TAB PO SCH (08:56)
[2018-03-31] MEDS: PREGABALIN 100 MG CAP PO SCH (08:56)
[2018-03-31] MEDS: METOPROLOL TARTRATE 50 MG TAB PO SCH (08:56)
[2018-03-31] MEDS: LISINOPRIL 5 MG TAB PO SCH (08:56)
[2018-03-31] MEDS: SODIUM CHLORIDE 0.9% (FLUSH) 10 ML SYG IV SCH (08:57)
[2018-03-31] MEDS ORDERED: NYSTATIN POWDER 15GM BTTL TOP SCH (09:00)
[2018-03-31 10:23] VITALS: BP 160/84; TEMP 98.2; O2SAT 99
--- NOTE | 2018-04-01 10:36 | DS ---
SUPERVISING PHYSICIAN: Maikel Rojas MD ADMISSION DIAGNOSIS: 1. Moderate dehydration secondary to diarrhea. 2. Electrolyte imbalance to include hyperkalemia and hyponatremia with a mild metabolic acidosis with normal anion gap probably due to persistent diarrhea complicated by dehydration. 3. History of asthma with current radiographic studies indicating an improving right basilar opacity likely pneumonia. 4. History of atrial flutter with patient having normal sinus rhythm at time of admission. 5. History of hypertension. 6. Rheumatoid arthritis. 7. History of osteoarthritis. 8. 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 DISCHARGE DIAGNOSIS: 1. Moderate dehydration secondary to diarrhea. 2. Electrolyte imbalance to include hyperkalemia and hyponatremia improving with fluids, probably due to the diarrhea and dehydration. 3. Mild metabolic acidosis with normal anion gap but persistent low C02 complicated by the diarrhea dehydration and exacerbated hyperkalemia improved with fluids. The patient take chronic metformin. 4. History of asthma without any exacerbation. . 5. History of atrial flutter with patient showing normal sinus rhythm at time of admission. 6. History of hypertension. 7. Rheumatoid arthritis. 8. History of osteoarthritis. 9. Recent above-knee amputation on right due to complications from persistent MRSA infection of previous hardware. REASON FOR HOSPITALIZATION: : Ms. Boyd is a 57 year-old female diabetic patient. She has had a longstanding history of a left knee infection that ultimately resulted in above-knee amputation 01-07-18. She had been developing some right foot redness since she started to rehab and went to see Dr. Lopez today in the clinic. She had above-knee amputation on the left leg. She also noted she has been having some diarrhea over the last couple of days and she does live at [facility]. Labs today showed she had an elevated potassium at 6.5. Dr. Lopez referred her to the Emergency Room for further evaluation. Laboratory repeat in the Emergency Room showed her potassium was again 6.5, sodium 134, BUN 49, creatinine 1.0. Liver functions all showed to be within normal limits. CBC showed a normal white count at 5,200, hemoglobin 11.1, hematocrit 13.5, platelet count at 129,000, differential showed to be without a left shift. Coagulation studies showed to be normal PT/PTT as well as urinalysis showed to be unremarkable. On examination, the patient was obviously dehydrated and based off the elevated BUN it was felt the patient was likely having some hypernatremia due to hemoconcentration from dehydration. She was referred to the medical/surgical floor for observation and further evaluation of the hyperkalemia. She was placed in observation in stable. condition. LABORATORY STUDIES: White count on admission was 5,200, hemoglobin 11.1, hematocrit 33.5, platelet count 129,000, differential showed to be without a left shift. Coagulation studies showed to be normal. Chemistries showed an elevated potassium initially at 6.5 with sodium 134, carbon dioxide 16 with anion gap being normal at 14, BUN 49, creatinine 1.02. Glucose 107. Liver functions all within normal limits and troponin less than 0.05. After fluids and after treatment and prior to discharge, her electrolytes had normalized with potassium 4.9 and sodium of 137. Carbon dioxide continued to show low at 17, anion gap continued to show low at 11 but BUN was 23, creatinine 0.76. Blood sugars had been anywhere from 108 to 225. RADIOLOGY: Chest x-ray on admission and per radiology interpretation showed right patchy basilar air space opacity which has improved since prior exam. Please see that full report for details. She also had an x-ray of her left foot which per radiology interpretation was without any acute radiographic abnormalities. HOSPITAL COURSE: Ms. Boyd was admitted for dehydration and hyperkalemia and mild metabolic acidosis. She was given adequate fluid replacement and showed normalization of potassium although her Co2 remained low but she was showing clinically to be stable and it was felt that she could continue with outpatient management. It is noted that the patient does take metformin and lisinopril, however, she was showing good control of her blood sugars and was clinically showing to be stable, therefore, no major modification to her medication regimen was made at time of hospitalization and during hospitalization. PLAN: Ms. Boyd was discharged on 03/31/18 with instructions to followup with her primary care physician, Dr. Arirola in the next week. She was return back to [facility]. She is to resume home medications as instructed until she sees Dr. Arriola. Again, her metformin was continued as well as her lisinopril which possibly could be contributing to the recent hyperkalemia and mild acidosis but clinically she was doing well. I encouraged fluids to prevent dehydration and she was told to return to the hospital should she have any worsening symptoms. DIET: Diabetic diet. ACTIVITIES: As per physical therapy and as tolerated. No new medications were prescribed at discharge. DISPOSITION: The patient was discharged back to [facility]. CONDITION ON DISCHARGE: Stable and improving. #[id number] [facility]
== END 2018-03-31 11:00 ==
LOC: ER 11:43 → MS 14:41 → INTOOBSV 14:41
PROVIDERS: ADMIT Nurse Practitioner Family; ATTEND Nurse Practitioner Family
DX: E86.0 Dehydration (principal); E87.8 Other disorders of electrolyte and fluid balance, not elsewhere classified; E87.5 Hyperkalemia; E87.1 Hypo-osmolality and hyponatremia; E87.2 Acidosis; J45.909 Unspecified asthma, uncomplicated; I48.92 Unspecified atrial flutter; I10 Essential (primary) hypertension; M06.9 Rheumatoid arthritis, unspecified; M19.90 Unspecified osteoarthritis, unspecified site; E11.9 Type 2 diabetes mellitus without complications; M81.0 Age-related osteoporosis without current pathological fracture; F17.210 Nicotine dependence, cigarettes, uncomplicated; Z79.4 Long term (current) use of insulin; Z79.891 Long term (current) use of opiate analgesic; Z79.899 Other long term (current) drug therapy; Z88.8 Allergy status to other drugs, medicaments and biological substances; Z89.611 Acquired absence of right leg above knee; Z89.422 Acquired absence of other left toe(s); Z86.14 Personal history of Methicillin resistant Staphylococcus aureus infection
CPT/HCPCS: 96361 ×2; 96374; 96375; 96372 ×2; J7611 ×6; J7799 ×7; Q0163 ×2; J7030; J1650 ×2; J7620; J1815; 80048 ×5; 82948 ×7; 36415 ×5; 82550; 82553; 85025; 85730; 85610; 84484; 81001; 80076; 36416 ×2; 71045; 73630; 94640 ×7; 94760 ×3; 99406; 99285; 93005; G0378

== ENCOUNTER 2018-04-15 16:44 | Emergency (ER) | payer MEDICARE, MEDICAID ==
--- NOTE | 2018-04-15 17:07 | ED.PDOC ---
History of Present Illness - General Chief Complaint: General Stated Complaint: abnormal lab work Time Seen by Provider: 04/15/18 16:56 Source: patient Exam Limitations: no limitations - History of Present Illness Initial Comments: Patient presents from [facility]. She was told today that labs that were done three days ago were abnormal. She also says that she has been wheezing recently but is not sure when that started. She has had generalized weakness. She has IDDM and received a right AKA three months ago. She is at [facility] for rehab. She is a cigarettes smoker but hasn't smoked since the surgery. No other complaints. Denies chest pain. Timing/Duration: unsure Severity: moderate Improving Factors: nothing Worsening Factors: nothing Associated Symptoms: other - see HPI Allergies/Adverse Reactions: Allergies Trazodone Allergy (Verified 04/15/18 16:56) Home Medications: Ambulatory Orders Furosemide 20 mg PO BID PRN 02/15/16 Albuterol Sulfate [Proair Hfa] 2 puff INH Q4H PRN 08/29/17 Insulin Degludec [Tresiba Flextouch] 36 unit SC DAILY 08/29/17 Lisinopril 20 mg PO DAILY 08/29/17 Metformin HCl 1,000 mg PO BID 08/29/17 Pregabalin [Lyrica] 100 mg PO BID 08/29/17 Melatonin 40 mg PO BEDTIME 11/20/17 Sertraline HCl [Zoloft] 100 mg PO DAILY 11/20/17 Amino Acid Protein Hydrolys 30 ml PO DAILY 03/29/18 Chlorthalidone 25 mg PO DAILY 03/29/18 Exenatide [Bydureon] 2 mg SC DAILY 03/29/18 HYDROcodone 10MG/APAP 325MG [[place] 10/325] 1 each PO Q6H PRN 03/29/18 Insulin Aspart [Novolog] 100 unit SC DAILY 03/29/18 Lactobacillus [Acidophilus] 1 tab PO BID 03/29/18 Magnesium Hydroxide [Tarango Milk of Magnesia] 400 mg PO DAILY PRN 03/29/18 Metoprolol Tartrate 25 mg PO BID 03/29/18 Ranitidine HCl 150 mg PO BID 03/29/18 diphenhydrAMINE HCL [Benadryl] 25 mg PO BEDTIME 03/29/18 Review of Systems - Review of Systems Constitutional: States: see HPI EENTM: States: no symptoms reported Respiratory: States: see HPI Cardiology: States: no symptoms reported Genitourinary: States: no symptoms reported Musculoskeletal: States: see HPI Skin: States: no symptoms reported Neurological: States: no symptoms reported Endocrine: States: see HPI Hematologic/Lymphatic: States: no symptoms reported Past Medical History (General) - Patient Medical History Hx Seizures: No Hx Stroke: No Hx Dementia: No Hx Asthma: Yes Hx of COPD: No Hx Cardiac Disorders: No Hx Congestive Heart Failure: No Hx Pacemaker: No Hx Hypertension: Yes Hx Thyroid Disease: No Hx Diabetes: Yes Hx Gastroesophageal Reflux: No Hx Renal Disease: No Hx Cancer: No Hx of HIV: No Hx Hepatitis C: No Hx MRSA: Yes MRSA Source:: Wound Surgical History: cholecystectomy, tonsillectomy - Vaccination History Hx Tetanus, Diphtheria Vaccination: No Hx Influenza Vaccination: Yes Hx Pneumococcal Vaccination: Yes - Social History Hx Tobacco Use: Yes Hx Chewing Tobacco Use: No Hx Alcohol Use: No Hx Substance Use: No Hx Substance Use Treatment: No Hx Depression: No Hx Physical Abuse: No Hx Emotional Abuse: No Hx Suspected Abuse: No - Activities of Daily Living Residential/Assisted Living (if applicable):: [facility] - Female History Patient is a Female of Child Bearing Age (10 -59 yrs old): No Patient : No Family Medical History - Family History Father Family History: Unknown Living Status: Age at (years of age): 59 Hx Family Stroke: Yes - sister Hx Family Cancer: Yes - mesothelioma-dad;ovaries-mom Mother Living Status: Age at (years of age): 60 Hx Family Diabetes: Yes Hx Family Cancer: Yes - ovarian Physical Exam - Physical Exam General Appearance: Alert Eye Exam: bilateral normal Ears, Nose, Throat: hearing grossly normal, normal ENT inspection Neck: non-tender, full range of motion, supple Respiratory: lungs clear, normal breath sounds Cardiovascular/Chest: normal peripheral pulses, regular rate, rhythm Gastrointestinal/Abdominal: normal bowel sounds, non tender, soft Back Exam: normal inspection, no CVA tenderness Extremity: non-tender, other - Right AKA. No edema in left leg or foot. 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, no motor/sensory deficits, alert, normal mood/affect, oriented x 3 Skin Exam: normal color Lymphatic: no adenopathy Progress - Progress Progress: 04/15/18 21:00 Laboratory Tests 04/15/18 04/15/18 04/15/18 17:05 17:10 17:10 WBC 9.2 RBC 4.53 Hgb 13.6 Hct 41.2 MCV 90.9 MCH 30.0 MCHC 33.0 RDW 15.9 H Plt Count 165 MPV 8.0 Absolute Neuts (auto) 6.50 Absolute Lymphs (auto) 2.00 Absolute Monos (auto) 0.60 Absolute Eos (auto) 0.10 Absolute Basos (auto) 0.10 Neutrophils % 70.5 Lymphocytes % 21.3 Monocytes % 6.8 Eosinophils % 0.8 L Basophils % 0.6 PT INR PTT (SP) D-Dimer, Quantitative pCO2 pO2 HCO3 ABG pH ABG O2 Saturation ABG Base Excess ABG Deoxyhemoglobin Oxyhemoglobin % Carboxyhemoglobin % Methemoglobin % Sat Calc Total Hemoglobin Sodium 131 L Potassium 6.4 H Chloride 110 Carbon Dioxide 13 L* Anion Gap 14.4 BUN 99 H Creatinine 2.09 H BUN/Creatinine Ratio 47.4 H Random Glucose 111 H Serum Osmolality 294.2 Lactic Acid Calcium 8.7 Total Bilirubin 0.2 AST 29 ALT 31 Alkaline Phosphatase 209 H Creatine Kinase CK-MB (CK-2) CK-MB (CK-2) % Troponin I B-Natriuretic Peptide Serum Total Protein 8.1 Albumin 4.0 Globulin 4.1 H Albumin/Globulin Ratio 1.0 L Urine Color Yellow Urine Appearance Clear Urine pH 5.0 Ur Specific Icard 1.020 Urine Protein 30 Urine Glucose (UA) Negative Urine Ketones Negative Urine Blood Trace-intact H Urine Nitrite Negative Urine Bilirubin Negative Urine Urobilinogen 0.2 Ur Leukocyte Esterase Trace H Urine RBC 0-1 Urine WBC 0-1 Ur Epithelial Cells 0 Urine Bacteria 0 04/15/18 04/15/18 04/15/18 17:10 17:10 17:10 WBC RBC Hgb Hct MCV MCH MCHC RDW Plt Count MPV Absolute Neuts (auto) Absolute Lymphs (auto) Absolute Monos (auto) Absolute Eos (auto) Absolute Basos (auto) Neutrophils % Lymphocytes % Monocytes % Eosinophils % Basophils % PT 10.4 INR 1.04 PTT (SP) 27.8 D-Dimer, Quantitative 1.08 H* pCO2 pO2 HCO3 ABG pH ABG O2 Saturation ABG Base Excess ABG Deoxyhemoglobin Oxyhemoglobin % Carboxyhemoglobin % Methemoglobin % Sat Calc Total Hemoglobin Sodium Potassium Chloride Carbon Dioxide Anion Gap BUN Creatinine BUN/Creatinine Ratio Random Glucose Serum Osmolality Lactic Acid Calcium Total Bilirubin AST ALT Alkaline Phosphatase Creatine Kinase 23 L CK-MB (CK-2) 1.6 CK-MB (CK-2) % 6.96 H Troponin I < 0.02 B-Natriuretic Peptide < 5.0 Serum Total Protein Albumin Globulin Albumin/Globulin Ratio Urine Color Urine Appearance Urine pH Ur Specific Icard Urine Protein Urine Glucose (UA) Urine Ketones Urine Blood Urine Nitrite Urine Bilirubin Urine Urobilinogen Ur Leukocyte Esterase Urine RBC Urine WBC Ur Epithelial Cells Urine Bacteria 04/15/18 04/15/18 19:14 20:16 WBC RBC Hgb Hct MCV MCH MCHC RDW Plt Count MPV Absolute Neuts (auto) Absolute Lymphs (auto) Absolute Monos (auto) Absolute Eos (auto) Absolute Basos (auto) Neutrophils % Lymphocytes % Monocytes % Eosinophils % Basophils % PT INR PTT (SP) D-Dimer, Quantitative pCO2 32 pO2 106 HCO3 9.1 ABG pH 7.090 L* ABG O2 Saturation 98.2 ABG Base Excess -19.9 ABG Deoxyhemoglobin 1.7 Oxyhemoglobin % 93.7 L Carboxyhemoglobin % 2.5 H Methemoglobin % Sat 2.0 H Calc Total Hemoglobin 12.0 Sodium Potassium Chloride Carbon Dioxide Anion Gap BUN Creatinine BUN/Creatinine Ratio Random Glucose Serum Osmolality Lactic Acid 1.5 Calcium Total Bilirubin AST ALT Alkaline Phosphatase Creatine Kinase CK-MB (CK-2) CK-MB (CK-2) % Troponin I B-Natriuretic Peptide Serum Total Protein Albumin Globulin Albumin/Globulin Ratio Urine Color Urine Appearance Urine pH Ur Specific Icard Urine Protein Urine Glucose (UA) Urine Ketones Urine Blood Urine Nitrite Urine Bilirubin Urine Urobilinogen Ur Leukocyte Esterase Urine RBC Urine WBC Ur Epithelial Cells Urine Bacteria ABG showed pH of 7.09. Lactic acid was 1.5. Bicarbonate was 13. D-dimer elevated but patient denies chest pain, is not tachypneic, and creatinine is 2.0. She is also on Metformin. It is unclear what the etiology is of the acidosis but it is clearly being compensated partially metabolically so Metformin as a source cannot be ruled out. Patient accepted for transfer to [facility]. Departure - Departure Clinical Impression: Acidosis, metabolic Disposition: Transfer to Hospital Condition: Fair Departure Forms: ED Discharge - Pt. Copy, Patient Portal Self Enrollment Diet: other - NPO Activity: other - as per hospitalist Referrals: Marc Arriola MD [Primary Care Provider] - 1-2 Weeks Home Medications: Ambulatory Orders Furosemide 20 mg PO BID PRN 02/15/16 Albuterol Sulfate [Proair Hfa] 2 puff INH Q4H PRN 08/29/17 Insulin Degludec [Tresiba Flextouch] 36 unit SC DAILY 08/29/17 Lisinopril 20 mg PO DAILY 08/29/17 Metformin HCl 1,000 mg PO BID 08/29/17 Pregabalin [Lyrica] 100 mg PO BID 08/29/17 Melatonin 40 mg PO BEDTIME 11/20/17 Sertraline HCl [Zoloft] 100 mg PO DAILY 11/20/17 Amino Acid Protein Hydrolys 30 ml PO DAILY 03/29/18 Chlorthalidone 25 mg PO DAILY 03/29/18 Exenatide [Bydureon] 2 mg SC DAILY 03/29/18 HYDROcodone 10MG/APAP 325MG [[place] 10/325] 1 each PO Q6H PRN 03/29/18 Insulin Aspart [Novolog] 100 unit SC DAILY 03/29/18 Lactobacillus [Acidophilus] 1 tab PO BID 03/29/18 Magnesium Hydroxide [Tarango Milk of Magnesia] 400 mg PO DAILY PRN 03/29/18 Metoprolol Tartrate 25 mg PO BID 03/29/18 Ranitidine HCl 150 mg PO BID 03/29/18 diphenhydrAMINE HCL [Benadryl] 25 mg PO BEDTIME 03/29/18
--- NOTE | 2018-04-15 17:21 | RAD ---
EXAM DESCRIPTION: Chest,1 View CLINICAL HISTORY: 57 years Female wheezing COMPARISON: 03/29/2018 FINDINGS: The cardiomediastinal silhouette appears unremarkable. No consolidating infiltrates or pleural effusions. No pneumothorax. IMPRESSION: No acute abnormality is identified. Electronically signed by: Estelle Lowe MD 04/15/2018 5:20 PM PROFESSIONAL DEVELOPMENT MANAGER
[2018-04-15] MEDS ORDERED: SODIUM CHLORIDE 0.9% 1000ML 1,000 ML IVS ONE ×2 (18:10→20:18)
[2018-04-15 19:26] VITALS: O2SAT 99
[2018-04-15] MEDS ORDERED: ACETAMINOPHEN 325 MG TAB PO ONE (19:47)
[2018-04-15] MEDS ORDERED: HYDROcodone 10MG/APAP 325MG 1 EA TAB PO ONE (20:17)
[2018-04-15 21:38] VITALS: BP 118/87; TEMP 97.8
== END 2018-04-15 21:57 | disposition short-term general hospital (02) ==
LOC: ER 16:44
DX: E87.2 Acidosis (principal); R53.1 Weakness; J45.909 Unspecified asthma, uncomplicated; E11.9 Type 2 diabetes mellitus without complications; I10 Essential (primary) hypertension; Z79.4 Long term (current) use of insulin; Z87.891 Personal history of nicotine dependence; Z79.899 Other long term (current) drug therapy; Z88.8 Allergy status to other drugs, medicaments and biological substances
CPT/HCPCS: 36415; 36600; 71045; 80053; 81001; 82550; 82553; 82803; 82805; 83605; 83880; 84484; 85025; 85379; 85610; 85730; 93005; J7030

== ENCOUNTER → 2018-04-30 | Outpatient (CLI) | payer MEDICARE, MEDICAID | LOC: GMAM 14:45 | PROVIDERS: ATTEND Family Medicine | DX: E87.8 Other disorders of electrolyte and fluid balance, not elsewhere classified (principal) ==

== ENCOUNTER 2018-05-03 14:24 | Observation (INO) | payer MEDICARE, MEDICAID ==
--- NOTE | 2018-05-03 14:26 | HP ---
SUPERVISING PHYSICIAN: Marc Arriola M.D. CHIEF COMPLAINT: Hyperkalemia. HISTORY OF PRESENT ILLNESS: Ms. Boyd is a patient of Dr. Arriola's who resides at a local care facility, having a history of a right knee prosthesis chronic infection requiring an baycb-vfb-ivby amputation. She has been in the hospital multiple times within the last several months for metabolic acidosis and hyperkalemia. Last admission was in March. Dr. Arriola was doing some routine labs on her today and it was noted that she had a significant hyperkalemia up to 6.9. Dr. Arriola requested the patient be admitted for observation and further evaluation and treatment of the hyperkalemia to prevent any adverse effects. The patient was denying any chest pains. No other complaints. She was directly admitted in stable condition. PAST MEDICAL HISTORY: 1. Asthma. 2. Atrial flutter. 3. Hypertension. 4. Rheumatoid arthritis. 5. Osteoarthritis. 6. Osteoporosis. 7. 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 8. Type 2 diabetes mellitus on insulin and oral therapy. PAST SURGICAL HISTORY: 1. Bvnhj-idb-qjtv amputation of right knee on December 2017. 2. Tonsillectomy. 3. Cholecystectomy. 4. section times 2. 5. Right total knee replacement due to infection of hardware. 6. Bilateral tubal ligation. 7. 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 8. Qnlhz-U-Ezts placement for antibiotic infusions due to difficulty inserting PICC line in the past. CURRENT MEDICATIONS: 1. Benadryl 50 mg at bedtime. 2. Zanaflex 6 mg q.i.d. 3. Zoloft 150 mg daily. 4. Ranitidine 150 mg b.i.d. 5. Lyrica 100 mg t.i.d. 6. Mycostatin 1 gram topically b.i.d. 7. Metoprolol tartrate 25 mg b.i.d. 8. Metformin 1,000 mg b.i.d. 9. Melatonin 40 mg at bedtime. 10. Lactobacillus 1 tablet b.i.d. 11. Atrovent nebs 0.5 mg every 6 hours as needed. 12. Tresiba 36 units daily. 13. NovoLog sliding scale. 14. [place] 10/325 two every 6 hours as needed for pain, 15. Lasix 20 mg b.i.d. as needed. 16. Bydureon 2 mg subcue weekly. 17. Eucrisa topically b.i.d. 18. ProAir inhaler 90 mcg inhaled every 4 hours as needed. 19. Xanax 0.5 mg t.i.d. ALLERGIES: TRAZODONE. FAMILY HISTORY: Positive for hypertension and chronic obstructive pulmonary disease. SOCIAL HISTORY: The patient currently resides at [facility]. She does smoke approximately 1 pack of cigarettes a day. She denies alcohol or illicit drug use. She is and has 2 children. REVIEW OF SYSTEMS: Negative for any chills, fevers, unintentional weight loss or gain. HEENT: Negative for headaches, vision changes, ear pain, nasal congestion or sore throat. RESPIRATORY: Negative for cough, hemoptysis, pleuritic chest pains or wheezing. CARDIOVASCULAR: Negative for chest pains, palpitations or peripheral edema. GASTROINTESTINAL: Negative for any nausea, vomiting, diarrhea or constipation, or other bowel habit changes or any abdominal pain. GENITOURINARY: Negative for dysuria, hematuria, polyuria or other flank pain. MUSCULOSKELETAL: Negative for any muscle cramps but positive for kgial-exz-ullx amputation of the right leg. INTEGUMENT: Negative for any rashes, wounds, lesions. NEUROLOGIC: Negative for paresthesias, seizures, syncopal episodes, ataxia or other focal neurological deficits. ENDOCRINE: Positive for diabetes. Negative for any polydipsia, polyuria or polyphagia. PHYSICAL EXAMINATION: VITAL SIGNS: Temperature 98.1, pulse 75, blood pressure 118/68, respirations 15, satting 98% on room air. Admission weight 99.0 kg. GENERAL: The patient appears to be comfortable in no acute distress. She is alert. HEENT: Tympanic membranes are clear bilaterally. Oropharynx is pink and moist, dry without any lesions. NECK: Supple, non-tender. Full range of motion. No jugular venous distention. CHEST: Lung sounds were fairly clear throughout with just a slight inspiratory wheezing and slightly diminished towards both bases. CARDIOVASCULAR: Heart was regular rate and rhythm without any appreciable murmurs, gallops, or rubs. ABDOMEN: Obese but soft, non-tender. Positive bowel sounds. EXTREMITIES: Right hfngr-icm-rmmr amputation stump shows wound flap completely healed without any signs of complications. NEUROLOGIC: She is alert and oriented times three. LABORATORY: White count 4,700, hemoglobin 11.1, hematocrit 33.5, platelet count 120,000. White count 120,000. Differential showed to be without any shift. Chemistries showed potassium 6.2, carbon dioxide 20, chloride normal at 109, sodium 136, BUN 39, creatinine 1, glucose 121, calcium 8.6, magnesium 2.2. Liver functions showed a normal bilirubin at 0.4, slightly elevated AST at 46, normal ALT, alkaline phosphatase is 166. All other liver functions were normal. Urinalysis showed to be within normal limits. EKG showed normal sinus rhythm without any acute changes indicating ischemic changes or T wave elevation. ASSESSMENT: 1. Electrolyte imbalance with a moderate hyperkalemia, uncertain etiology with a normal anion gap. 2. History of asthma without any signs of complications or exacerbations. 3. History of atrial flutter with the patient currently in normal sinus rhythm on admission. 4. History of hypertension. 5. Rheumatoid arthritis. 6. History of arthritis. 7. History of ehmjv-zjn-jjsz amputation on the right due to complications of Methicillin resistant Staphylococcus aureus infection. PLAN: The patient is going to be placed in observation and her hyperkalemia treated. To treat her hyperkalemia I will go ahead and give her 10 units of insulin and D10 500 and infuse over 60 minutes. Will repeat a potassium level in 4 hours post administration of insulin and treat as needed. Will hold off on any Kayexalate as the patient is not showing that significant symptoms and has had complications in the past associated with Kayexalate. Will again plan to repeat labs after the insulin and again in the morning. Anticipate her discharge tomorrow. I did talk to Dr. Arriola. The plan will be to normalize her potassium this weekend and she will have followup with Dr. 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 Will resume her home medications once those have been updated and verified. She will be on sliding scale per protocol. Will put her on DVT prophylaxis per protocol. I will go ahead and start her on some IV fluids half normal saline at 110 overnight. Until she can transition to outpatient management will continue to monitor and treat as needed. #[id number] [facility]
[2018-05-03] MEDS ORDERED: MAGNESIUM HYDROXIDE 30 ML UD PO PRN (15:20)
[2018-05-03] MEDS ORDERED: DEXTROSE 50% 25 GM/50 ML SYG IV PRN (15:20)
[2018-05-03] MEDS ORDERED: ACETAMINOPHEN 325 MG TAB PO PRN (15:20)
[2018-05-03] MEDS ORDERED: GLUCAGON INJ 1 MG VIAL SUBCU PRN (15:20)
[2018-05-03] MEDS ORDERED: SODIUM CHLORIDE 0.9% (FLUSH) 10 ML SYG IV PRN (15:20)
[2018-05-03] MEDS ORDERED: ALUM & MAG HYDROX-SIMETHICONE 30 ML UD PO PRN (15:20)
[2018-05-03] MEDS ORDERED: ACETAMINOPHEN SUPPOSITORY 650 MG PR PRN (15:20)
[2018-05-03] MEDS ORDERED: ONDANSETRON INJ 4 MG/2 ML VIAL IV PRN (15:20)
[2018-05-03] MEDS ORDERED: INSULIN, REG.(HUMAN) 10 UNITS in DEXTROSE 10% 500ML 500 ML IV ONE ×2 (15:27)
[2018-05-03] MEDS ORDERED: IV SET AND CAP CHANGE INJ INJ SCH (15:30)
[2018-05-03] MEDS ORDERED: INSULIN, REG.(HUMAN) 100 U/ML VIAL ONE (16:29)
[2018-05-03] MEDS ORDERED: DEXTROSE 10% 500ML 500 ML ONE (16:32)
[2018-05-03] MEDS: INSULIN LISPRO 100 UNITS/ML PEN SUBCU SCH ×2 (16:38→21:04)
[2018-05-03] MEDS: SODIUM CHLORIDE 0.45% 1000ML 1,000 ML IVS PRN (18:02)
[2018-05-03] MEDS ORDERED: ALPRAZolam 0.5 MG TAB PO PRN (19:28)
[2018-05-03] MEDS ORDERED: IPRATROPIUM BROMIDE NEBS 0.5 MG/2.5 ML VIAL NEB PRN (19:28)
[2018-05-03] MEDS ORDERED: OMEPRAZOLE CAP 20 MG CAP ONE (19:57)
[2018-05-03] MEDS ORDERED: METOPROLOL TARTRATE 25 MG TAB ONE (19:57)
[2018-05-03] MEDS ORDERED: metFORMIN HCL 500 MG TAB ONE (19:58)
[2018-05-03] MEDS ORDERED: tiZANidine 4 MG TAB ONE (19:58)
[2018-05-03] MEDS ORDERED: LACTOBACILLUS 1 TAB ONE (19:59)
[2018-05-03] MEDS: diphenhydrAMINE HCL 25 MG CAP PO SCH (20:57)
[2018-05-03] MEDS ORDERED: TIZANIDINE HCL 6 MG PO SCH (21:00)
[2018-05-03] MEDS ORDERED: METOPROLOL TARTRATE 50 MG TAB PO SCH (21:00)
[2018-05-03] MEDS ORDERED: LACTOBACILLUS PO SCH (21:00)
[2018-05-03] MEDS ORDERED: NON-FORMULARY MEDICATION 1 EA MIS (Metformin Hcl [Metformin Hcl] 1,000 MG) PO SCH (21:00)
[2018-05-03] MEDS: PREGABALIN 100 MG CAP PO SCH (21:01)
[2018-05-03] MEDS: ENOXAPARIN SODIUM 40 MG/0.4 ML SYG SUBCU SCH (21:02)
[2018-05-03] MEDS: MELATONIN 40 MG PO SCH (21:05)
[2018-05-03] MEDS: HYDROcodone 10MG/APAP 325MG 1 EA TAB PO PRN (22:29)
[2018-05-04] MEDS: SODIUM CHLORIDE 0.45% 1000ML 1,000 ML IVS PRN ×2 (03:35→12:28)
[2018-05-04] MEDS: OMEPRAZOLE CAP 20 MG CAP PO SCH (06:41)
[2018-05-04] MEDS ORDERED: METOPROLOL TARTRATE 25 MG TAB ONE (07:21)
[2018-05-04] MEDS ORDERED: tiZANidine 4 MG TAB ONE (07:22)
[2018-05-04] MEDS ORDERED: metFORMIN HCL 500 MG TAB ONE (07:22)
[2018-05-04] MEDS: INSULIN LISPRO 100 UNITS/ML PEN SUBCU SCH ×4 (07:27→21:29)
[2018-05-04] MEDS: HYDROcodone 10MG/APAP 325MG 1 EA TAB PO PRN ×2 (09:09→20:48)
[2018-05-04] MEDS: metFORMIN HCL 500 MG TAB PO SCH ×2 (09:29→16:50)
[2018-05-04] MEDS: tiZANidine 4 MG TAB PO SCH ×4 (09:30→20:47)
[2018-05-04] MEDS: PREGABALIN 100 MG CAP PO SCH ×3 (09:30→20:48)
[2018-05-04] MEDS: SERTRALINE HCL 50 MG TAB PO SCH (09:31)
[2018-05-04] MEDS: INSULIN DEGLUDEC 36 UNIT SC SCH (09:32)
[2018-05-04] MEDS: LACTOBACILLUS 1 TAB PO SCH ×2 (09:37→20:48)
[2018-05-04] MEDS: METOPROLOL TARTRATE 50 MG TAB PO SCH ×2 (09:38→16:50)
[2018-05-04] MEDS ORDERED: FUROSEMIDE 40 MG TAB ONE (10:51)
[2018-05-04] MEDS: FUROSEMIDE 40 MG TAB PO SCH ×2 (11:03→16:50)
[2018-05-04] MEDS: ALBUTEROL SULFATE 2.5 MG/3 ML VIAL NEB SCH ×3 (13:21→20:33)
--- NOTE | 2018-05-04 20:19 | PN ---
DATE: 05/04/18 SUBJECTIVE: The patient is sitting up in bed doing crosswords, in good spirits and feeling well. She does have a slight nonproductive cough, but otherwise has no complaints. OBJECTIVE: VITAL SIGNS: Temperature 98.4, pulse 68, blood pressure 160/87, respiratory rate 17, oxygen saturation 92% on room air. Fluid balance is -423 mL in the last 24 hours. PHYSICAL EXAM: CHEST: Lungs are clear to auscultation, no wheezes or rales. HEART: Normal rate and rhythm, no murmurs, no pitting peripheral edema. ABDOMEN: Obese, soft, non-tender to palpation. Normal bowel sounds. NEUROLOGIC: Alert and oriented to person, place, and time. No focal deficits appreciated. Cranial nerves within normal limits. LABORATORY: Sodium 134, potassium 5.8, chloride 111, carbon dioxide 18, BUN/creatinine 33/1.31. Glucose remains between 100 and 190. Serum osmolality normal at 279.3. ASSESSMENT: 1. Electrolyte imbalance with a moderate hyperkalemia, uncertain etiology with a normal anion gap. 2. History of asthma without any signs of complications or exacerbations. 3. History of atrial flutter with the patient currently in normal sinus rhythm on admission. 4. History of hypertension. 5. Rheumatoid arthritis. 6. History of arthritis. 7. History of egplw-bvq-clmv amputation on the right due to complications of Methicillin resistant Staphylococcus aureus infection. PLAN: The patient is currently being treated for hyperkalemia, received insulin and Glucagon in the previous day. Potassium this morning had risen to the initial presenting potassium level. Her home Lasix, which was p.r.n. originally, was restarted scheduled b.i.d. at 20 mg. I also started the patient on Albuterol treatments as well, as she stated she sometimes hears herself wheezing throughout the day, although none was heard on my exam this morning. A repeat BMP late this afternoon showed a slight improvement in her potassium level. We will continue with this treatment plan and reassess tomorrow, 05/05, with potential discharge that day. #[id number] [facility]
[2018-05-04] MEDS: ENOXAPARIN SODIUM 40 MG/0.4 ML SYG SUBCU SCH (20:47)
[2018-05-04] MEDS: diphenhydrAMINE HCL 25 MG CAP PO SCH (20:47)
[2018-05-04] MEDS: SODIUM CHLORIDE 0.9% 1000ML 1,000 ML IVS PRN (20:48)
[2018-05-04] MEDS: MELATONIN 40 MG PO SCH (21:29)
[2018-05-04] MEDS: NYSTATIN POWDER 15GM BTTL TOP SCH (21:30)
[2018-05-05] MEDS: ALBUTEROL SULFATE 2.5 MG/3 ML VIAL NEB SCH (00:15)
[2018-05-05] MEDS: SODIUM CHLORIDE 0.9% 1000ML 1,000 ML IVS PRN ×3 (05:32→23:09)
[2018-05-05] MEDS: OMEPRAZOLE CAP 20 MG CAP PO SCH (06:22)
[2018-05-05] MEDS: HYDROcodone 10MG/APAP 325MG 1 EA TAB PO PRN ×3 (06:25→21:51)
[2018-05-05] MEDS: INSULIN LISPRO 100 UNITS/ML PEN SUBCU SCH ×4 (08:09→21:38)
[2018-05-05] MEDS ORDERED: ALBUTEROL SULFATE 2.5 MG/3 ML VIAL NEB ONE (08:26)
[2018-05-05] MEDS: SERTRALINE HCL 50 MG TAB PO SCH (08:59)
[2018-05-05] MEDS: FUROSEMIDE 40 MG TAB PO SCH ×2 (08:59→16:41)
[2018-05-05] MEDS: PREGABALIN 100 MG CAP PO SCH ×3 (08:59→21:38)
[2018-05-05] MEDS: metFORMIN HCL 500 MG TAB PO SCH (09:00)
[2018-05-05] MEDS: METOPROLOL TARTRATE 50 MG TAB PO SCH ×2 (09:00→16:43)
[2018-05-05] MEDS: tiZANidine 4 MG TAB PO SCH ×4 (09:01→21:39)
[2018-05-05] MEDS: LACTOBACILLUS 1 TAB PO SCH ×2 (09:02→21:38)
[2018-05-05] MEDS: INSULIN DEGLUDEC 36 UNIT SC SCH (09:06)
[2018-05-05] MEDS: NYSTATIN POWDER 15GM BTTL TOP SCH ×2 (09:08→21:50)
[2018-05-05] MEDS ORDERED: DEXTROSE 10% IV PRN ×2 (14:12)
[2018-05-05] MEDS ORDERED: INSULIN IV PRN ×2 (14:12)
[2018-05-05] MEDS ORDERED: REG IV PRN ×2 (14:12)
[2018-05-05] MEDS ORDERED: DEXTROSE 10% 500ML 500 ML ONE (14:35)
[2018-05-05] MEDS: NON-FORMULARY MEDICATION 1 EA MIS PO SCH ×2 (15:11→21:38)
[2018-05-05] MEDS: diphenhydrAMINE HCL 25 MG CAP PO SCH (21:38)
[2018-05-05] MEDS: ENOXAPARIN SODIUM 40 MG/0.4 ML SYG SUBCU SCH (21:38)
[2018-05-05] MEDS: MELATONIN 40 MG PO SCH (21:50)
--- NOTE | 2018-05-05 22:27 | PN ---
DATE: 05/05/18 SUPERVISING PHYSICIAN: Froylan Alonso M.D. SUBJECTIVE: The patient today says she feels a little bit "blah." She has had no chest pains. No shortness of breath. Her EKG does not show any acute changes, however, her potassium once again is up to levels that it was before admission. I discussed with her that will treat her again fairly aggressively and I will talk to Dr. Burkett in regards to some recommendations on further treatment. OBJECTIVE: VITAL SIGNS: Temperature 98.6, pulse 68, blood pressure 151/75, respirations 20, Satting 99% on room air. I's and O's show a negative balance of 2182 with 3318 in, 5500 out. She has had 1 bowel movement. Weight is 99.8 kg. GENERAL: The patient is in good spirits although somewhat disappointed that she cannot go home today. CHEST: Lungs remain clear to auscultation. HEART: Regular rate and rhythm. ABDOMEN: Soft, non-tender. Positive bowel sounds. NEUROLOGIC: She is alert and oriented times three. LABORATORY: Sodium 133, potassium 6.5, carbon dioxide is down to 17, creatinine 1.2, BUN 31. Blood sugar is between 95 and 155. Calcium 8.7. ASSESSMENT: 1. Electrolyte imbalance with a persistent hyperkalemia, again uncertain etiology with a normal anion gap. 2. History of asthma without any exacerbation on current admission. 3. History of atrial fibrillation with the patient currently in normal sinus rhythm. 4. History of hypertension, stable. 5. Rheumatoid arthritis. 6. History of arthritis. 7. History of recent rcstb-efb-jwlm amputation on the right due to complications of Methicillin resistant Staphylococcus aureus infection. PLAN: I did talk to Dr. Arriola as well as Dr. Burkett. Dr. Burkett recommended instead of the sodium bicarb pills that we put her on baking soda 1 teaspoon 3 times a day as it seems more tolerable for his patients. He also recommended that we continue with treatment as is, therefore I will start again on D10 and 500 with 20 of insulin regular, and will recheck a potassium level in 4 hours. Hopefully she will level off tomorrow and will be able to discharge to followup with Dr. Burkett in the outpatient setting. Will continue to follow her labs in the morning and address as needed. #[id number] [facility]
[2018-05-06] MEDS: OMEPRAZOLE CAP 20 MG CAP PO SCH (06:09)
[2018-05-06] MEDS: SODIUM CHLORIDE 0.9% 1000ML 1,000 ML IVS PRN (06:22)
[2018-05-06 06:42] VITALS: BP 147/77; TEMP 98.2; O2SAT 98
[2018-05-06] MEDS: INSULIN LISPRO 100 UNITS/ML PEN SUBCU SCH (07:16)
[2018-05-06] MEDS: SERTRALINE HCL 50 MG TAB PO SCH (08:11)
[2018-05-06] MEDS: PREGABALIN 100 MG CAP PO SCH (08:11)
[2018-05-06] MEDS: FUROSEMIDE 40 MG TAB PO SCH (08:12)
[2018-05-06] MEDS: METOPROLOL TARTRATE 50 MG TAB PO SCH (08:12)
[2018-05-06] MEDS: tiZANidine 4 MG TAB PO SCH (08:12)
[2018-05-06] MEDS: INSULIN DEGLUDEC 36 UNIT SC SCH (08:14)
[2018-05-06] MEDS: NYSTATIN POWDER 15GM BTTL TOP SCH (08:16)
[2018-05-06] MEDS: LACTOBACILLUS 1 TAB PO SCH (08:16)
[2018-05-06] MEDS: HYDROcodone 10MG/APAP 325MG 1 EA TAB PO PRN (08:19)
[2018-05-06] MEDS: NON-FORMULARY MEDICATION 1 EA MIS PO SCH (08:24)
== END 2018-05-06 10:16 ==
LOC: MS 14:24 → INTOOBSV 14:24
PROVIDERS: ADMIT Nurse Practitioner Family; ATTEND Nurse Practitioner Family
DX: E87.5 Hyperkalemia (principal); E87.8 Other disorders of electrolyte and fluid balance, not elsewhere classified; E11.9 Type 2 diabetes mellitus without complications; I10 Essential (primary) hypertension; I48.92 Unspecified atrial flutter; M06.9 Rheumatoid arthritis, unspecified; J45.909 Unspecified asthma, uncomplicated; M19.90 Unspecified osteoarthritis, unspecified site; M81.0 Age-related osteoporosis without current pathological fracture; F17.210 Nicotine dependence, cigarettes, uncomplicated; Z79.4 Long term (current) use of insulin; Z79.899 Other long term (current) drug therapy; Z88.8 Allergy status to other drugs, medicaments and biological substances; Z89.611 Acquired absence of right leg above knee; Z86.14 Personal history of Methicillin resistant Staphylococcus aureus infection; Z89.412 Acquired absence of left great toe; Z89.422 Acquired absence of other left toe(s)
CPT/HCPCS: 96361 ×4; 96365; 96376; 96372 ×3; J7611 ×4; Q0163 ×3; J7644; J7799 ×5; J7030 ×5; J1650 ×3; J1815; 80048 ×6; 80053; 82948 ×11; 36415 ×5; 81001; 85025; 83735 ×2; 36416 ×10; 94640 ×4; 94760 ×7; 93005; G0378

== ENCOUNTER 2018-05-10 10:05 | Emergency (ER) | payer MEDICARE, OTHER ==
--- NOTE | 2018-05-10 10:24 | ED.PDOC ---
History of Present Illness - General Time Seen by Provider: 05/10/18 10:16 Source: patient Additional Information: 57 YEAR OLD LADY WITH LONG STANDING DIABETES WITH COMPLICATIONS PRESENTS WITH HEAD ACHE AND GENERAL WEAKNESS SHE HAS RIGHT AKA LEFT FOOT GREAT TOE AND 3 RD TOE AMPUTATION PE ALERT AWAKE ORIENTED ORAL MUCOSA IS DRY LUNGS BREATH SOUND DIMISHED LOWER LOBES HEART SOUNDS NORMAL ABDOMEN OBESE BUT SOFT NON TENDER NO CVA TENDERNESS - History of Present Illness Timing/Duration: 24 hours Severity: moderate Improving Factors: nothing Worsening Factors: nothing Associated Symptoms: weakness Allergies/Adverse Reactions: Allergies Trazodone Allergy (Verified 05/03/18 14:55) Home Medications: Ambulatory Orders Furosemide 20 mg PO BID PRN 02/15/16 Insulin Degludec [Tresiba Flextouch] 36 unit SC DAILY 08/29/17 Pregabalin [Lyrica] 100 mg PO TID 08/29/17 Melatonin 40 mg PO BEDTIME 11/20/17 Sertraline HCl [Zoloft] 150 mg PO DAILY 11/20/17 Exenatide [Bydureon] 2 mg SC WKLY 03/29/18 HYDROcodone 10MG/APAP 325MG [[place] 10/325] 2 each PO Q6H PRN 03/29/18 Insulin Aspart [Novolog] 100 unit SC DAILY 03/29/18 Lactobacillus [Acidophilus] 1 tab PO BID 03/29/18 Metoprolol Tartrate 25 mg PO BID 03/29/18 Ranitidine HCl 150 mg PO BID 03/29/18 diphenhydrAMINE HCL [Benadryl] 50 mg PO BEDTIME 03/29/18 ALPRAZolam [Xanax] 0.5 mg PO TID PRN 05/03/18 Albuterol Sulfate [Proair Hfa] 90 mcg IN Q4HR PRN 05/03/18 Crisaborole [Eucrisa] 2 % EX BID 05/03/18 Ipratropium [place] Nebs [Atrovent NEBS] 0.5 mg INH Q6H PRN 05/03/18 Nystatin Powder 1 gm TOP BID 05/03/18 Tizanidine HCl [Zanaflex] 6 mg PO QID 05/03/18 Non-Formulary Medication 1 tbls PO TID 05/06/18 Review of Systems - Review of Systems Constitutional: States: weakness EENTM: States: no symptoms reported Respiratory: States: no symptoms reported Cardiology: States: no symptoms reported Gastrointestinal/Abdominal: States: no symptoms reported Genitourinary: States: no symptoms reported Musculoskeletal: States: no symptoms reported Skin: States: no symptoms reported Neurological: States: no symptoms reported Endocrine: States: no symptoms reported Hematologic/Lymphatic: States: no symptoms reported Past Medical History (General) - Patient Medical History Hx Seizures: No Hx Stroke: No Hx Dementia: No Hx Asthma: Yes Hx of COPD: No Hx Cardiac Disorders: No Hx Congestive Heart Failure: No Hx Pacemaker: No Hx Hypertension: Yes Hx Thyroid Disease: No Hx Diabetes: Yes Hx Gastroesophageal Reflux: No Hx Renal Disease: No Hx Cancer: No Hx of HIV: No Hx Hepatitis C: No Hx MRSA: Yes MRSA Source:: Wound - Vaccination History Hx Tetanus, Diphtheria Vaccination: No Hx Influenza Vaccination: Yes Hx Pneumococcal Vaccination: Yes - Social History Hx Tobacco Use: Yes Hx Chewing Tobacco Use: No Hx Alcohol Use: No Hx Substance Use: No Hx Substance Use Treatment: No Hx Depression: No Hx Physical Abuse: No Hx Emotional Abuse: No Hx Suspected Abuse: No - Female History Patient : No Family Medical History - Family History Father Family History: Unknown Living Status: Age at (years of age): 59 Hx Family Stroke: Yes - sister Hx Family Cancer: Yes - mesothelioma-dad;ovaries-mom Mother Living Status: Age at (years of age): 60 Hx Family Diabetes: Yes Hx Family Cancer: Yes - ovarian Physical Exam - Physical Exam General Appearance: Alert, Comfortable Ears, Nose, Throat: hearing grossly normal, normal ENT inspection, normal pharynx Neck: non-tender, full range of motion, supple Respiratory: chest non-tender, lungs clear, normal breath sounds, no respiratory distress, no accessory muscle use, respiratory distress Gastrointestinal/Abdominal: normal bowel sounds, non tender, soft, no organomegaly, no pulsatile mass Back Exam: normal inspection, no CVA tenderness, no vertebral tenderness Extremity: other - SEE HPI Neurologic: intertype operator II-XII nml as tested, no motor/sensory deficits Skin Exam: normal color, warm/dry Lymphatic: no adenopathy Progress - Results/Orders Results/Orders: Laboratory Tests 05/10/18 05/10/18 05/10/18 10:45 10:45 11:08 WBC 3.5 L RBC 3.69 L Hgb 11.4 L Hct 34.2 L MCV 92.4 MCH 31.0 MCHC 33.5 RDW 16.4 H Plt Count 116 L MPV 8.5 Absolute Neuts (auto) 2.50 Absolute Lymphs (auto) 0.60 L Absolute Monos (auto) 0.30 Absolute Eos (auto) 0.10 Absolute Basos (auto) 0.00 Neutrophils % 71.6 Lymphocytes % 16.5 L Monocytes % 9.7 H Eosinophils % 1.8 Basophils % 0.4 Sodium 133 L Potassium 4.8 Chloride 97 L Carbon Dioxide 26 Anion Gap 14.8 BUN 27 H Creatinine 1.18 BUN/Creatinine Ratio 22.9 H Random Glucose 217 H Serum Osmolality 278.1 Calcium 8.6 Total Bilirubin 0.4 AST 62 H ALT 67 H Alkaline Phosphatase 200 H Serum Total Protein 7.7 Albumin 3.8 Globulin 3.9 H Albumin/Globulin Ratio 1.0 L Urine Color Yellow Urine Appearance Clear Urine pH 7.5 Ur Specific [place] 1.015 Urine Protein Negative Urine Glucose (UA) Negative Urine Ketones Negative Urine Blood Negative Urine Nitrite Negative Urine Bilirubin Negative Urine Urobilinogen 0.2 Ur Leukocyte Esterase Negative Urine RBC 0 Urine WBC 0 Ur Epithelial Cells 1-3 Urine Bacteria 0 Departure - Departure Clinical Impression: Headache, Dehydration, Diabetes, S/P AKA (above knee amputation) unilateral Clinical Impression: (Ruled Out): Antipsychotic-induced akathisia Time of Disposition: 11:54 Disposition: Discharge to Home for Condition: Fair Referrals: Marc Arriola MD [Primary Care Provider] - 1-2 Weeks Home Medications: Ambulatory Orders Furosemide 20 mg PO BID PRN 02/15/16 Insulin Degludec [Tresiba Flextouch] 36 unit SC DAILY 08/29/17 Pregabalin [Lyrica] 100 mg PO TID 08/29/17 Melatonin 40 mg PO BEDTIME 11/20/17 Sertraline HCl [Zoloft] 150 mg PO DAILY 11/20/17 Exenatide [Bydureon] 2 mg SC WKLY 03/29/18 HYDROcodone 10MG/APAP 325MG [[place] 10/325] 2 each PO Q6H PRN 03/29/18 Insulin Aspart [Novolog] 100 unit SC DAILY 03/29/18 Lactobacillus [Acidophilus] 1 tab PO BID 03/29/18 Metoprolol Tartrate 25 mg PO BID 03/29/18 Ranitidine HCl 150 mg PO BID 03/29/18 diphenhydrAMINE HCL [Benadryl] 50 mg PO BEDTIME 03/29/18 ALPRAZolam [Xanax] 0.5 mg PO TID PRN 05/03/18 Albuterol Sulfate [Proair Hfa] 90 mcg IN Q4HR PRN 05/03/18 Cris[place]ole [Eucrisa] 2 % EX BID 05/03/18 Ipratropium [place] Nebs [Atrovent NEBS] 0.5 mg INH Q6H PRN 05/03/18 Nystatin Powder 1 gm TOP BID 05/03/18 Tizanidine HCl [Zanaflex] 6 mg PO QID 05/03/18 Non-Formulary Medication 1 tbls PO TID 05/06/18
[2018-05-10 10:25] VITALS: TEMP 97.4
[2018-05-10] MEDS ORDERED: SODIUM CHLORIDE 0.9% 1000ML 1,000 ML IVS ONE (10:27)
--- NOTE | 2018-05-10 11:03 | RAD ---
EXAM DESCRIPTION: Chest,1 View CLINICAL HISTORY: R/O PNEUMONIA chest pain, shortness of breath COMPARISON: April 15, 2018 IMPRESSION: Single AP portable upright view of the chest shows cardiac silhouette and pulmonary vasculature to be within normal limits. Lungs are normally aerated and clear. No obvious pleural effusion or pneumothorax is seen. Electronically signed by: Frederic Rodriguez MD 05/10/2018 11:01 AM [facility]
[2018-05-10] MEDS ORDERED: KETOROLAC TROMETHAMINE INJ 30 MG/ML VIAL IV ONE (11:31)
[2018-05-10] MEDS ORDERED: INSULIN, REG.(HUMAN) 100 U/ML VIAL IV ONE (11:32)
[2018-05-10 13:04] VITALS: BP 135/76
[2018-05-10 13:16] VITALS: O2SAT 96
== END 2018-05-10 12:45 | disposition home health service (06) ==
LOC: ER 10:05
DX: R51 Headache (principal); E86.0 Dehydration; E11.9 Type 2 diabetes mellitus without complications; Z89.611 Acquired absence of right leg above knee; J45.909 Unspecified asthma, uncomplicated; I10 Essential (primary) hypertension; Z87.891 Personal history of nicotine dependence; Z79.4 Long term (current) use of insulin; Z79.899 Other long term (current) drug therapy; Z88.8 Allergy status to other drugs, medicaments and biological substances
CPT/HCPCS: 36415; 71045; 80053; 81001; 82948; 85025; J1885; J7030

== ENCOUNTER 2018-06-01 10:56 | Emergency (ER) | payer MEDICARE, MEDICAID ==
[2018-06-01 11:28] VITALS: TEMP 96.8
[2018-06-01] MEDS ORDERED: MAGNESIUM OXIDE 400 MG TAB ONE (11:51)
--- NOTE | 2018-06-01 12:02 | CT ---
PROCEDURE: CT Head Without Intravenous Contrast CLINICAL INDICATION: The patient is 57 years years old, Female; fall with head lac above left eye TECHNIQUE: Axial computed tomography images of the head/brain without intravenous contrast. Sagittal and coronal reformatted images were created and reviewed. This CT exam was performed using one or more of the following dose reduction techniques: automated exposure control, adjustment of the mA and/or kV according to patient size, and/or use of iterative reconstruction technique. COMPARISON: No relevant prior studies available. FINDINGS: BRAIN: No intracerebral or extracerebral mass lesions are identified. [place]/white matter distinction is maintained. There is no evidence of intracranial hemorrhage. There is no evidence of acute territorial infarct. (It should be noted that acute infarct may not be discernible in the first [address] ) MIDLINE SHIFT: There is no shift of the midline structures. VENTRICLES: There is prominence of the ventricles, sulci, cerebellar folia, and basilar cisterns consistent with volume loss. BONES/JOINTS: There is no acute calvarial abnormality or other discernible acute osseous abnormalities. SOFT TISSUES: Unremarkable. VASCULATURE: There is atherosclerotic calcification in the siphons of the bilateral internal carotid arteries. SINUSES: There is a minimal amount of fluid or mucosal thickening in the ethmoid sinuses bilaterally and maxillary sinuses. The remainder of the visualized paranasal sinuses are clear. The visualized paranasal sinuses are clear. MASTOID AIR CELLS: The mastoids and middle ears are clear. IMPRESSION: 1. No acute intracranial abnormality. (It should be noted that acute infarct may not be discernible in the first [address]) a follow-up head ct or mri is recommended if neurologic symptoms persist. 2. Volume loss. 3. ASVD. 4. Remainder of findings as discussed above. Electronically signed by: Letitia Cole MD 06/01/2018 11:59 AM [facility]
--- NOTE | 2018-06-01 12:34 | ED.PDOC ---
History of Present Illness - General Chief Complaint: Head Injury Stated Complaint: Pt fell asleep in WC, fell out and hit her head Time Seen by Provider: 06/01/18 11:12 Source: patient Exam Limitations: no limitations - History of Present Illness Initial Comments: the patient is a 57-year-old female presenting to the emergency room after having fallen asleep in her wheelchair and fallen forward and hit the floor with her head. She has a hematoma above the left orbit. She is drowsy but apparently has been drowsy for the last week or so. She does take multiple sedating medications. No confusion at this point. She does have mild edema in the left lower extremity. Vital signs are stable otherwise. No neck pain. No injuries otherwise. Timing/Duration: momentarily Severity: mild Improving Factors: nothing Worsening Factors: nothing Associated Symptoms: denies symptoms Allergies/Adverse Reactions: Allergies Trazodone Allergy (Verified 06/01/18 11:30) Home Medications: Ambulatory Orders Furosemide 40 mg PO DAILY 02/15/16 Insulin Degludec [Tresiba Flextouch] 39 unit SC DAILY 08/29/17 Pregabalin [Lyrica] 100 mg PO TID 08/29/17 Melatonin 40 mg PO BEDTIME 11/20/17 Exenatide [Bydureon] 2 mg SC WKLY 03/29/18 HYDROcodone 10MG/APAP 325MG [[place] 10/325] 2 each PO Q6H PRN 03/29/18 Insulin Aspart [Novolog] 0 unit SC ACHS PRN 03/29/18 Lactobacillus [Acidophilus] 1 tab PO BID 03/29/18 Metoprolol Tartrate 25 mg PO BID 03/29/18 Ranitidine HCl 150 mg PO BID 03/29/18 diphenhydrAMINE HCL [Benadryl] 25 mg PO BEDTIME 03/29/18 ALPRAZolam [Xanax] 0.5 mg PO Q8H PRN 05/03/18 Albuterol Sulfate [Proair Hfa] 2 inh IN Q6H PRN 05/03/18 Crisaborole [Eucrisa] 2 % EX BID 05/03/18 Nystatin Powder 1 gm TOP BID 05/03/18 Tizanidine HCl [Zanaflex] 6 mg PO Q6H PRN 05/03/18 Ipratropium/Albuterol [Duoneb] 3 ml NEB Q6H PRN 05/10/18 Sertraline HCl [Zoloft] 150 mg PO DAILY 05/10/18 Amino Acids-Protein Hydrolysat [Pro-Stat Awc] 30 ml PO DAILY 06/01/18 Magnesium Hydroxide [Milk Of Magnesia] 30 ml PO DAILY PRN 06/01/18 Magnesium Oxide [Magnesium] 500 mg PO DAILY #20 cap 06/01/18 Menthol (Topical Analgesic) [Biofreeze] 4 % EX DAILY 06/01/18 Bozzpfuirdfjj-Vl-GM W/ APAP [Mucinex Sinus-Max Severe 5-31-263-325 mg] 2 cap PO Q6H PRN 06/01/18 Review of Systems - Review of Systems Constitutional: States: malaise EENTM: States: no symptoms reported Respiratory: States: no symptoms reported Cardiology: States: no symptoms reported Gastrointestinal/Abdominal: States: no symptoms reported Genitourinary: States: no symptoms reported Musculoskeletal: States: no symptoms reported Skin: States: see HPI Neurological: States: see HPI Endocrine: States: no symptoms reported All other Systems: No Change from Baseline Past Medical History (General) - Patient Medical History Hx Seizures: No Hx Stroke: No Hx Dementia: No Hx Asthma: Yes Hx of COPD: Yes Hx Cardiac Disorders: No Hx Congestive Heart Failure: No Hx Pacemaker: No Hx Hypertension: Yes Hx Thyroid Disease: No Hx Diabetes: Yes Hx Gastroesophageal Reflux: No Hx Renal Disease: No Hx Cancer: No Hx of HIV: No Hx Hepatitis C: No Hx MRSA: Yes MRSA Source:: Wound Surgical History: cholecystectomy, tonsillectomy - Vaccination History Hx Tetanus, Diphtheria Vaccination: Yes Hx Influenza Vaccination: Yes Hx Pneumococcal Vaccination: Yes Immunizations Up to Date: Yes - Social History Hx Tobacco Use: Yes Hx Chewing Tobacco Use: No Hx Alcohol Use: No Hx Substance Use: Yes Hx Substance Use Treatment: Yes Hx Depression: No Hx Physical Abuse: No Hx Emotional Abuse: No Hx Suspected Abuse: No - Activities of Daily Living Retirement/Assisted Living (if applicable):: [facility] - Female History Patient is a Female of Child Bearing Age (10 -59 yrs old): Yes Patient : No Family Medical History - Family History Father Family History: Unknown Living Status: Age at (years of age): 59 Hx Family Stroke: Yes - sister Hx Family Cancer: Yes - mesothelioma-dad;ovaries-mom Mother Living Status: Age at (years of age): 60 Hx Family Diabetes: Yes Hx Family Cancer: Yes - ovarian Physical Exam - Physical Exam General Appearance: Other - the patient is a little bit sleepy but alert and oriented otherwise. No acute distress. Eye Exam: bilateral normal Ears, Nose, Throat: hearing grossly normal, normal pharynx Neck: full range of motion, supple Respiratory: lungs clear, normal breath sounds, no respiratory distress, no accessory muscle use Cardiovascular/Chest: normal peripheral pulses - regular rate, no edema Peripheral Pulses: radial,right: 2+, radial,left: 2+, dorsalis pedis,left: 1+ Gastrointestinal/Abdominal: non tender - morbidly obese, soft Rectal Exam: deferred Back Exam: no CVA tenderness Extremity: normal range of motion - chronic limitations., swelling - edema to left lower extremity., other - hronic changes otherwise. 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 There is a small laceration that has been Steri-Stripped. Comments: Vital Signs - 8 hr 06/01/18 06/01/18 11:11 12:09 Temperature 96.8 F L Pulse Rate [ 88 88 Right Radial] Respiratory 16 Rate Blood Pressure 104/72 142/72 [Left Arm] O2 Sat by Pulse 96 Oximetry Progress - Progress Progress: 06/01/18 12:34 the patient is a 57-year-old female presenting to the emergency room after having fallen asleep while sitting in her wheelchair and fallen out of her wheelchair. Workup here fails to show any acute pathology otherwise. She is on multiple sedating medications that have likely put her at risk for this. I would suggest reducing the Lyrica from 100 mg 3 times a day down to 100 mg twice daily, or once daily if she can tolerate it. This may also help with the edema. Head CT shows no evidence of any acute intracranial pathology. It is possible she may have a small concussion. Mental status does need to be followed. Laboratory work is reassuring otherwise. Patient will be discharged back to her long-term care facility. ER warnings were given. Keep routine follow-up with primary care doctor otherwise. She does have some mildly low magnesium and this does need to be followed with her primary care doctor. 06/01/18 12:38 - EKG/XRAY/CT CT Ordered: Yes Departure - Departure Clinical Impression: Hypomagnesemia Fall at [facility] Qualifiers: Encounter type: initial encounter Qualified Code(s): W19.XXXA - Unspecified fall, initial encounter; Y92.129 - Unspecified place in [facility] as the place of occurrence of the external cause Hematoma of scalp Qualifiers: Encounter type: initial encounter Qualified Code(s): S00.03XA - Contusion of scalp, initial encounter Concussion Qualifiers: Encounter type: initial encounter Loss of consciousness presence/duration: without LOC Qualified Code(s): S06.0X0A - Concussion without loss of consciousness, initial encounter Disposition: Discharge to SNF Condition: Fair Departure Forms: ED Discharge - Pt. Copy, Patient Portal Self Enrollment Instructions: DI for Concussion, Low Magnesium Level (DC) Diet: diabetic diet Activity: increase activity as tolerated Referrals: Marc Arriola MD [Primary Care Provider] - 1-5 Days Prescriptions: Magnesium Oxide [Magnesium] 500 mg PO DAILY #20 cap Home Medications: Ambulatory Orders Furosemide 40 mg PO DAILY 02/15/16 Insulin Degludec [Tresiba Flextouch] 39 unit SC DAILY 08/29/17 Pregabalin [Lyrica] 100 mg PO TID 08/29/17 Melatonin 40 mg PO BEDTIME 11/20/17 Exenatide [Bydureon] 2 mg SC WKLY 03/29/18 HYDROcodone 10MG/APAP 325MG [[place] 10/325] 2 each PO Q6H PRN 03/29/18 Insulin Aspart [Novolog] 0 unit SC ACHS PRN 03/29/18 Lactobacillus [Acidophilus] 1 tab PO BID 03/29/18 Metoprolol Tartrate 25 mg PO BID 03/29/18 Ranitidine HCl 150 mg PO BID 03/29/18 diphenhydrAMINE HCL [Benadryl] 25 mg PO BEDTIME 03/29/18 ALPRAZolam [Xanax] 0.5 mg PO Q8H PRN 05/03/18 Albuterol Sulfate [Proair Hfa] 2 inh IN Q6H PRN 05/03/18 Crisaborole [Eucrisa] 2 % EX BID 05/03/18 Nystatin Powder 1 gm TOP BID 05/03/18 Tizanidine HCl [Zanaflex] 6 mg PO Q6H PRN 05/03/18 Ipratropium/Albuterol [Duoneb] 3 ml NEB Q6H PRN 05/10/18 Sertraline HCl [Zoloft] 150 mg PO DAILY 05/10/18 Amino Acids-Protein Hydrolysat [Pro-Stat Awc] 30 ml PO DAILY 06/01/18 Magnesium Hydroxide [Milk Of Magnesia] 30 ml PO DAILY PRN 06/01/18 Magnesium Oxide [Magnesium] 500 mg PO DAILY #20 cap 06/01/18 Menthol (Topical Analgesic) [Biofreeze] 4 % EX DAILY 06/01/18 Cpljqfmulezjf-Tv-HP W/ APAP [Mucinex Sinus-Max Severe 5-08-954-325 mg] 2 cap PO Q6H PRN 06/01/18 Additional Instructions: the patient is a 57-year-old female presenting to the emergency room after having fallen asleep while sitting in her wheelchair and fallen out of her wheelchair. Workup here fails to show any acute pathology otherwise. She is on multiple sedating medications that have likely put her at risk for this. I would suggest reducing the Lyrica from 100 mg 3 times a day down to 100 mg twice daily, or once daily if she can tolerate it. This may also help with the edema. Head CT shows no evidence of any acute intracranial pathology. It is possible she may have a small concussion. Mental status does need to be followed. Laboratory work is reassuring otherwise. Patient will be discharged back to her long-term care facility. ER warnings were given. Keep routine follow-up with primary care doctor otherwise. She does have some mildly low magnesium and this does need to be followed with her primary care doctor.
[2018-06-01 14:03] VITALS: BP 116/55; O2SAT 93
[2018-06-02] MEDS ORDERED: MAGNESIUM OXIDE 400 MG TAB PO ONE (11:49)
== END 2018-06-01 14:03 ==
LOC: ER 10:56
DX: S06.0X0A Concussion without loss of consciousness, initial encounter (principal); S00.03XA Contusion of scalp, initial encounter; E11.9 Type 2 diabetes mellitus without complications; I10 Essential (primary) hypertension; J44.9 Chronic obstructive pulmonary disease, unspecified; W05.0XXA Fall from non-moving wheelchair, initial encounter; Y92.129 Unspecified place in nursing home as the place of occurrence of the external cause; Z87.891 Personal history of nicotine dependence; Z79.899 Other long term (current) drug therapy; Z88.8 Allergy status to other drugs, medicaments and biological substances; Z79.4 Long term (current) use of insulin

== ENCOUNTER → 2018-06-06 | Outpatient (CLI) | payer MEDICARE, MEDICAID | LOC: GMAM 14:43 | PROVIDERS: ATTEND Family Medicine | DX: E83.42 Hypomagnesemia (principal) ==

== ENCOUNTER → 2018-06-10 | Outpatient (CLI) | payer MEDICARE, MEDICAID | LOC: GMAM 16:41 | PROVIDERS: ATTEND Family Medicine | DX: L65.9 Nonscarring hair loss, unspecified (principal); E83.42 Hypomagnesemia ==

== ENCOUNTER 2018-07-03 14:53 | Inpatient (IN) | payer MEDICARE, OTHER ==
--- NOTE | 2018-07-03 14:55 | HP ---
SUPERVISING PHYSICIAN: Marc Arriola MD CHIEF COMPLAINT: Left hand cellulitis. HISTORY OF PRESENT ILLNESS: Ms. Boyd is a 57-year-old female patient that lives at [facility]. She presented today to Dr. Arriola's office in followup for a cellulitis to the left hand, specifically the ring finger. Two days previously, she had the onset of discomfort and swelling and was concerned she might have an insect bite. At that time, she was seen in the clinic. She was started on Bactrim for 10 days. She was given 1 gram of Rocephin IM as well as Keflex b.i.d. for 10 days. Today in the clinic, it was noted that it had significant increased in size, redness and was much more tender to palpation and warm on exam. She does have a significant history of poorly controlled diabetes and renal failure. Given that she had failed to respond to outpatient treatment measures, Dr. Arriola requested the patient be admitted for parenteral antibiotic and further evaluation in the hospital. The patient was admitted to the Medical/Surgical Floor in stable condition. PAST MEDICAL HISTORY: 1. Asthma. 2. Atrial flutter. 3. Hypertension. 4. Osteoarthritis. 5. Rheumatoid arthritis. 6. Osteoporosis. 7. 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 8. Type 2 diabetes on insulin and oral therapy. 9. Renal insufficiency. PAST SURGICAL HISTORY: 1. Qjcuo-thx-uojb amputation on the right in December of 2017. 2. Tonsillectomy. 3. Cholecystectomy. 4. x2. 5. Bilateral tubal ligation. 6. 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 7. Previous Pmbigu-T-Dfkq placement due to difficulty to inserting PICC line, but with removal. MEDICATIONS: Awaiting updated list from [facility]. Please see that list. ALLERGIES: TRAZODONE. FAMILY HISTORY: Positive for hypertension and chronic obstructive pulmonary disease. SOCIAL HISTORY: The patient currently resides at [facility]. She does smoke approximately one pack a day. She denies any alcohol or illicit drug use. She is and has two children. REVIEW OF SYSTEMS: CONSTITUTIONAL: Positive for chills, fever, rigors, but no unintentional weight loss or gain. HEENT: Negative for headaches, sore throats, earaches, nasal congestion, vision changes. RESPIRATORY: Negative for cough, hemoptysis, pleuritic chest pains or wheezing. CARDIOVASCULAR: Negative for chest pain, palpitations or peripheral edema. GASTROINTESTINAL: Negative for nausea, vomiting, diarrhea, constipation or other bowel habit changes. GENITOURINARY: Negative for dysuria, hematuria, polyuria or flank pain. MUSCULOSKELETAL: Positive for nonhf-efr-xmii amputation on the right and as noted in history of present illness, left ring finger cellulitis. INTEGUMENTARY: As noted in history of present illness, destroyed an cellulitis of the left hand. NEUROLOGIC: Negative for paresthesias, seizures, syncopal episodes, ataxia or other focal neurologic deficits. PHYSICAL EXAMINATION: VITAL SIGNS: Temperature 98.6. Pulse 87. Blood pressure 137/75. Respiratory rate 14. Oxygen saturation 97% on room air. HEENT: Tympanic membranes clear bilaterally. Oropharynx is pink, moist without any lesions. NECK: Supple, nontender with full range of motion. RESPIRATORY: Lungs clear to auscultation bilaterally without any rhonchi, wheezes, or rales. CARDIOVASCULAR: Regular rate and rhythm without any appreciable murmurs, gallops, or rubs. ABDOMEN: Obese, but soft, nontender. Positive bowel sounds. MUSCULOSKELETAL: Positive for limb pain in the left hand with dorsal aspect of the left ring and index finger warm to touch, mildly erythematous extending down into the wrist. No obvious signs of consolidations, fluctuations. There is one area on the ring finger that is mildly raised, but no obvious signs of fluctuation or consolidation. No drainage. All other extremities without any edema. NEUROLOGIC: The patient is alert and oriented times three. LABORATORY: Labs done in the clinic showed a white count of 5.3 with a differential showing a left shift, hemoglobin 10.9, hematocrit 31.4, platelet count 104,000. Differential again did show a left shift. Chemistries showed glucose 287, BUN 39, creatinine 1.6, sodium 138, potassium 5.1, chloride 106, CO2 20, calcium 8.4. Liver functions within normal limits. Sedrate and CRP were pending at time of admission. Urinalysis was pending. RADIOLOGY: X-ray pending from the clinic. ASSESSMENT: 1. Cellulitis to the left hand, index and ring finger, possible insect bite, failing to respond to outpatient treatment measures with the patient having a history of methicillin-resistant Staphylococcus aureus infections in the past. 2. Electrolyte imbalance with a mild hyperkalemia, chronic, with a normal anion gap. 3. Diabetes mellitus, type 2, on oral and insulin therapy. 4. History of asthma without any signs of complications or exacerbations. 5. History of atrial flutter with the patient showing normal sinus rhythm on admission. 6. History of hypertension. 7. Rheumatoid arthritis. 8. Osteoarthritis. 9. Hypertension. 10. History of jkqrp-exj-jqko amputation on the right. PLAN: The patient is going to be admitted for initiation of parenteral antibiotics to include vancomycin and Rocephin. We will assess in the morning and should this show any area that would benefit from I&D, we will certainly consult with Dr. Ng or Dr. Orellana regarding those findings, but at this point there are no areas of consolidation that would benefit from incision and drainage. We will keep her arm elevated. She will be provided pain management as needed. We will resume her home medications once those have been updated and verified. She will be on DVT prophylaxis per protocol. We will start her on insulin sliding scale per protocol. She will be on the vancomycin per pharmacy protocol. We will anticipate her length of stay to be 2 to 3 days. Until she can transition back to outpatient management, we will continue to monitor and treat as needed. #[id number] [facility]
[2018-07-03] MEDS ORDERED: ACETAMINOPHEN SUPPOSITORY 650 MG PR PRN (15:45)
[2018-07-03] MEDS ORDERED: IV SET AND CAP CHANGE INJ INJ SCH (16:00)
[2018-07-03] MEDS ORDERED: VANCOMYCIN PER PHARMACY INJ SCH (16:00)
[2018-07-03] MEDS ORDERED: SODIUM CHL 0.9% 50ML MIN-BAG+ 50 ML IVPB ONE (16:41)
[2018-07-03] MEDS ORDERED: cefTRIAXone SODIUM 1 GM VIAL ONE (16:41)
[2018-07-03] MEDS: cefTRIAXone SODIUM 1 GM in SODIUM CHL 0.9% 50ML MIN-BAG+ 50 ML IVPB SCH (16:45)
[2018-07-03] MEDS ORDERED: HYDROmorphone HCL INJ 2 MG/ML VIAL IV ONE (17:22)
[2018-07-03] MEDS ORDERED: VANCOMYCIN HCL INJ 500 MG VIAL ONE (18:08)
[2018-07-03] MEDS ORDERED: SODIUM CHLORIDE 0.9% 250ML 250 ML ONE (18:08)
[2018-07-03] MEDS ORDERED: VANCOMYCIN HCL INJ 1,000 MG VIAL IVPB ONE (18:09)
[2018-07-03] MEDS: VANCOMYCIN HCL INJ 1,000 MG, VANCOMYCIN HCL INJ 500 MG in SODIUM CHLORIDE 0.9% 250ML 25... IVPB SCH (18:19)
[2018-07-03] MEDS ORDERED: HYDROmorphone HCL INJ 2 MG/ML VIAL IV PRN (20:40)
[2018-07-03] MEDS ORDERED: METOPROLOL TARTRATE 25 MG TAB ONE (20:53)
[2018-07-03] MEDS ORDERED: ALPRAZolam 0.25 MG TAB ONE (20:54)
[2018-07-03] MEDS ORDERED: MELATONIN 3 MG TAB ONE (20:54)
[2018-07-03] MEDS ORDERED: DEXTROSE 50% 25 GM/50 ML SYG IV PRN (21:18)
[2018-07-03] MEDS ORDERED: GLUCAGON INJ 1 MG VIAL SUBCU PRN (21:18)
[2018-07-03] MEDS: diphenhydrAMINE HCL 25 MG CAP PO SCH (21:27)
[2018-07-03] MEDS: METOPROLOL TARTRATE 50 MG TAB PO SCH (21:29)
[2018-07-03] MEDS: PREGABALIN 100 MG CAP PO SCH (21:30)
[2018-07-03] MEDS: INSULIN LISPRO 100 UNITS/ML PEN SUBCU SCH (21:30)
[2018-07-03] MEDS: ENOXAPARIN SODIUM 40 MG/0.4 ML SYG SUBCU SCH (21:30)
[2018-07-03] MEDS: ALPRAZolam 0.5 MG TAB PO PRN (21:33)
[2018-07-03] MEDS: HYDROcodone 10MG/APAP 325MG 1 EA TAB PO PRN (21:34)
[2018-07-03] MEDS: MELATONIN 40 MG PO SCH (21:36)
[2018-07-03] MEDS: CRISABOROLE EX SCH (21:37)
[2018-07-03] MEDS ORDERED: ONDANSETRON INJ 4 MG/2 ML VIAL IV PRN (22:04)
[2018-07-03] MEDS ORDERED: PROMETHAZINE HCL INJ 25 MG in SODIUM CHLORIDE 0.9% 50ML 50 ML IVPB PRN (22:05)
[2018-07-04] MEDS: INSULIN LISPRO 100 UNITS/ML PEN SUBCU SCH ×4 (07:54→21:26)
[2018-07-04] MEDS ORDERED: METOPROLOL TARTRATE 25 MG TAB ONE (08:34)
[2018-07-04] MEDS: CRISABOROLE EX SCH ×2 (08:40→21:29)
[2018-07-04] MEDS: HYDROcodone 10MG/APAP 325MG 1 EA TAB PO PRN ×3 (08:41→21:30)
[2018-07-04] MEDS: SERTRALINE HCL 50 MG TAB PO SCH (09:45)
[2018-07-04] MEDS: PREGABALIN 100 MG CAP PO SCH ×3 (09:45→21:28)
[2018-07-04] MEDS: FUROSEMIDE 40 MG TAB PO SCH (09:46)
[2018-07-04] MEDS: tiZANidine 4 MG TAB PO PRN ×2 (09:54→21:36)
[2018-07-04] MEDS: INSULIN DEGLUDEC 42 UNIT SC SCH ×2 (09:56→15:36)
[2018-07-04] MEDS: MENTHOL 4% EX SCH (09:57)
[2018-07-04] MEDS: METOPROLOL TARTRATE 50 MG TAB PO SCH (10:04)
[2018-07-04] MEDS: NYSTATIN POWDER 15GM BTTL TOP SCH ×2 (10:09→21:29)
[2018-07-04] MEDS ORDERED: VANCOMYCIN HCL INJ 500 MG VIAL ONE (11:13)
[2018-07-04] MEDS ORDERED: VANCOMYCIN HCL INJ 1,000 MG VIAL IVPB ONE (11:14)
[2018-07-04] MEDS ORDERED: SODIUM CHLORIDE 0.9% 250ML 250 ML ONE (11:14)
[2018-07-04] MEDS: VANCOMYCIN HCL INJ 1,000 MG, VANCOMYCIN HCL INJ 500 MG in SODIUM CHLORIDE 0.9% 250ML 25... IVPB SCH (11:33)
--- NOTE | 2018-07-04 14:35 | PN ---
SUPERVISING PHYSICIAN: Marc Arriola MD DATE: 07/04/18 SUBJECTIVE: The patient is sitting up in bed. Her is at the bedside. She has no complaints of nausea, vomiting, chest pain, shortness of breath. She feels like her hand is much improved and it does hurt as much. OBJECTIVE: VITAL SIGNS: Temperature 98.2. Heart rate 78. Blood pressure 158/74. Respiratory rate 18. O2 saturation 94% on room air. RESPIRATORY: Some scattered rhonchi throughout and diminished at the bases. CARDIAC: Regular rate and rhythm. GASTROINTESTINAL: Abdomen is soft, nondistended, nontender. Bowel sounds are positive. EXTREMITIES: The area of cellulitis on her left hand including the left ring finger continues to be erythematous, but there is no fluctuance or drainage. The area of induration is just below the knuckle and extends to just distal to the proximal interphalangeal joint. NEUROLOGIC: Awake, alert and oriented times three. LABORATORY: CBC is basically within normal limits. ESR is 63. Potassium slightly elevated at 5.6 with BUN 47, creatinine 1.36. Her baseline creatinine is about 1.2 to 1.3. Alkaline phosphatase is high at 167. C-reactive protein is 3.8. All other labs and films have been reviewed via the EMR. ASSESSMENT: 1. Cellulitis to the left hand, index and ring finger, possible insect bite, failing to respond to outpatient treatment measures with the patient having a history of methicillin-resistant Staphylococcus aureus infections in the past. 2. Electrolyte imbalance with a mild hyperkalemia, chronic, with a normal anion gap. 3. Diabetes mellitus, type 2, on oral and insulin therapy. 4. History of asthma without any signs of complications or exacerbations. 5. History of atrial flutter with the patient showing normal sinus rhythm on admission. 6. History of hypertension. 7. Rheumatoid arthritis. 8. Osteoarthritis. 9. Hypertension. 10. History of fddeb-vac-javf amputation on the right. PLAN: We will continue present supportive care. We will continue her antibiotics as previously ordered and monitor her clinical response. In a couple of days, we will need to do an ESR and CRP. I will recheck her lab in the morning due to her high potassium. Hopefully she can be discharged in a couple of days. I am not sure if there were any cultures done, I do not see any on her chart, but if they were done, I will monitor those closely and follow as needed. #[id number] [facility]
[2018-07-04] MEDS ORDERED: SODIUM CHL 0.9% 50ML MIN-BAG+ 50 ML IVPB ONE (16:05)
[2018-07-04] MEDS ORDERED: cefTRIAXone SODIUM 1 GM VIAL ONE (16:06)
[2018-07-04] MEDS: cefTRIAXone SODIUM 1 GM in SODIUM CHL 0.9% 50ML MIN-BAG+ 50 ML IVPB SCH (16:09)
[2018-07-04] MEDS: ENOXAPARIN SODIUM 40 MG/0.4 ML SYG SUBCU SCH (21:27)
[2018-07-04] MEDS: METOPROLOL TARTRATE 25 MG TAB PO SCH (21:28)
[2018-07-04] MEDS: diphenhydrAMINE HCL 25 MG CAP PO SCH (21:28)
[2018-07-04] MEDS: MELATONIN 40 MG PO SCH (21:29)
[2018-07-04] MEDS: SODIUM CHLORIDE 0.9% (FLUSH) 10 ML SYG IV PRN (21:36)
[2018-07-05] MEDS: HYDROcodone 10MG/APAP 325MG 1 EA TAB PO PRN ×3 (05:06→18:17)
[2018-07-05] MEDS ORDERED: VANCOMYCIN HCL INJ 500 MG VIAL ONE ×2 (05:28→20:12)
[2018-07-05] MEDS ORDERED: SODIUM CHLORIDE 0.9% 250ML 250 ML ONE ×2 (05:28→20:13)
[2018-07-05] MEDS ORDERED: VANCOMYCIN HCL INJ 1,000 MG VIAL IVPB ONE ×2 (05:29→20:14)
[2018-07-05] MEDS: SODIUM CHLORIDE 0.9% (FLUSH) 10 ML SYG IV PRN (06:01)
[2018-07-05] MEDS: VANCOMYCIN HCL INJ 1,000 MG, VANCOMYCIN HCL INJ 500 MG in SODIUM CHLORIDE 0.9% 250ML 25... IVPB SCH (06:02)
[2018-07-05] MEDS: INSULIN LISPRO 100 UNITS/ML PEN SUBCU SCH ×4 (07:32→21:17)
[2018-07-05] MEDS: PREGABALIN 100 MG CAP PO SCH ×3 (08:35→20:56)
[2018-07-05] MEDS: ALPRAZolam 0.5 MG TAB PO PRN ×2 (08:35→17:46)
[2018-07-05] MEDS: tiZANidine 4 MG TAB PO PRN ×2 (08:35→20:56)
[2018-07-05] MEDS: METOPROLOL TARTRATE 25 MG TAB PO SCH ×2 (08:35→20:56)
[2018-07-05] MEDS: SERTRALINE HCL 50 MG TAB PO SCH (08:35)
[2018-07-05] MEDS: FUROSEMIDE 40 MG TAB PO SCH (08:36)
[2018-07-05] MEDS: MENTHOL 4% EX SCH (08:36)
[2018-07-05] MEDS: INSULIN DEGLUDEC 42 UNIT SC SCH (08:36)
[2018-07-05] MEDS: CRISABOROLE EX SCH ×2 (08:36→21:17)
[2018-07-05] MEDS: NYSTATIN POWDER 15GM BTTL TOP SCH ×2 (08:37→20:57)
[2018-07-05] MEDS ORDERED: cefTRIAXone SODIUM 1 GM VIAL ONE (16:31)
[2018-07-05] MEDS ORDERED: SODIUM CHL 0.9% 50ML MIN-BAG+ 50 ML IVPB ONE (16:31)
[2018-07-05] MEDS: cefTRIAXone SODIUM 1 GM in SODIUM CHL 0.9% 50ML MIN-BAG+ 50 ML IVPB SCH (16:53)
[2018-07-05] MEDS: diphenhydrAMINE HCL 25 MG CAP PO SCH (20:56)
[2018-07-05] MEDS: ENOXAPARIN SODIUM 40 MG/0.4 ML SYG SUBCU SCH (20:57)
[2018-07-05] MEDS: MELATONIN 40 MG PO SCH (20:57)
[2018-07-06] MEDS: VANCOMYCIN HCL INJ 1,000 MG, VANCOMYCIN HCL INJ 500 MG in SODIUM CHLORIDE 0.9% 250ML 25... IVPB SCH (00:23)
[2018-07-06 03:36] VITALS: O2SAT 96
[2018-07-06] MEDS: INSULIN LISPRO 100 UNITS/ML PEN SUBCU SCH ×2 (07:50→12:05)
[2018-07-06] MEDS: HYDROcodone 10MG/APAP 325MG 1 EA TAB PO PRN (07:55)
[2018-07-06] MEDS: INSULIN DEGLUDEC 42 UNIT SC SCH (08:27)
[2018-07-06] MEDS: CRISABOROLE EX SCH (08:27)
[2018-07-06] MEDS: PREGABALIN 100 MG CAP PO SCH (08:28)
[2018-07-06] MEDS: FUROSEMIDE 40 MG TAB PO SCH (08:28)
[2018-07-06] MEDS: METOPROLOL TARTRATE 25 MG TAB PO SCH (08:28)
[2018-07-06] MEDS: MENTHOL 4% EX SCH (08:28)
[2018-07-06] MEDS: NYSTATIN POWDER 15GM BTTL TOP SCH (08:30)
[2018-07-06] MEDS: SERTRALINE HCL 50 MG TAB PO SCH (08:30)
--- NOTE | 2018-07-06 10:35 | PN ---
SUPERVISING PHYSICIAN: Marc Arriola MD DATE: 07/05/18 SUBJECTIVE: The patient is sitting up in bed. She had been going outside to smoke and I explained to her that she was unable to do so while in the hospital as this is a no smoking environment. She agreed to stay in her room. She is very anxious and she is feeling much, much better. She denies any shortness of breath, chest pain, nausea or vomiting. She did say that earlier today that the area on her finger had opened up itself and was draining. We did get a culture earlier. OBJECTIVE: VITAL SIGNS: Temperature 98.2. Heart rate 61. Blood pressure 127/77. Respiratory rate 16. O2 saturation 97%. RESPIRATORY: Diminished breath sounds throughout. CARDIAC: Regular rate and rhythm. GASTROINTESTINAL: Abdomen is soft, nondistended, nontender. Bowel sounds are positive. SKIN: Her left hand is no longer erythematous and the edema has subsided except for the proximal interphalangeal joint on her ring fingers is erythematous with some very mild edema. There is no fluctuance, but there is some purulent drainage that was cultured earlier. NEUROLOGIC: Awake, alert and oriented times three. LABORATORY: CBC is basically unremarkable. Sodium 133, potassium down to 5.2, chloride 104, carbon dioxide 19, BUN 44, creatinine 1.36. Blood sugars have run between 189 and 307. Alkaline phosphatase is high at 172 with serum total protein 1.5. All other labs and films have been reviewed via the EMR. ASSESSMENT: 1. Cellulitis to the left hand, index and ring finger, possible insect bite, failing to respond to outpatient treatment measures with the patient having a history of methicillin-resistant Staphylococcus aureus infections in the past. 2. Electrolyte imbalance with a mild hyperkalemia, chronic, with a normal anion gap. 3. Diabetes mellitus, type 2, on oral and insulin therapy. 4. History of asthma without any signs of complications or exacerbations. 5. History of atrial flutter with the patient showing normal sinus rhythm on admission. 6. History of hypertension. 7. Rheumatoid arthritis. 8. Osteoarthritis. 9. Hypertension. 10. History of nfrnj-smv-ywie amputation on the right. PLAN: We will continue present supportive care. We will continue her present medications of vancomycin and Rocephin. The patient continues to improve and I am not quite sure why we do not have a blood culture, but we probably will send her home tomorrow with close followup with Dr. Arriola especially to followup on her wound culture. Hopefully we can send her home on some doxycycline and some Bactrim and/or a cephalosporin. We will see her progress tomorrow. We will continue to monitor the patient closely and follow as needed. #[id number] [facility]TDD
[2018-07-06] MEDS: ALPRAZolam 0.5 MG TAB PO PRN (10:50)
[2018-07-06 11:29] VITALS: BP 133/68; TEMP 98.3
[2018-07-06] MEDS ORDERED: ALPRAZolam 0.25 MG TAB PO PRN (12:00)
--- NOTE | 2018-07-07 17:52 | DS ---
SUPERVISING PHYSICIAN: Marc Arriola M.D. DISCHARGE DIAGNOSIS: 1. Cellulitis to the left hand, index and ring finger, possible insect bite, failing to respond to outpatient treatment measures with the patient having a history of methicillin-resistant Staphylococcus aureus infections in the past. 2. Electrolyte imbalance with a mild hyperkalemia, chronic, with a normal anion gap. 3. Diabetes mellitus, type 2, on oral and insulin therapy. 4. History of asthma without any signs of complications or exacerbations. 5. History of atrial flutter with the patient showing normal sinus rhythm on admission. 6. History of hypertension. 7. Rheumatoid arthritis. 8. Osteoarthritis. 9. Hypertension. 10. 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 HISTORY OF PRESENT ILLNESS: This is a 57-year-old female patient who lives at [facility]. She saw her primary care physician, Dr. Arriola, with cellulitis of the left hand, specifically the ring finger. It had started 2 days prior to her admission and she thought she had an insect bite on her finger. She was placed on Bactrim and a gram of Rocephin as well as Keflex b.i.d. Being seen in the clinic it had significantly worsened and was more tender to palpation. She has significant history of poorly controlled diabetes, renal failure and she is a tobacco smoker. She was directly admitted to the hospital for parenteral antibiotics and further evaluation. HOSPITAL COURSE: The patient was admitted to the hospital and started on vancomycin and Rocephin. The area of cellulitis improved over the next several days, although it began to drain and a wound culture was obtained. Her outpatient medications were restarted as well as sliding scale insulin per protocol. On the day prior to discharge the area actually opened up and was drained. She did go outside several times to smoke and she was cautioned that this is a nonsmoking hospital and she should not do so. Today, the gram stain was obtained and she will be discharged in stable condition back to [facility]. LABORATORY: Her CBCs in the hospital were basically within normal limits with normal white count but her ESR was 63. Blood sugars ran between 156 and 327. Potassium did get slightly high at 5.6 on admission and normalized to 5 on the date of discharge. Her other electrolytes were basically within normal limits. She does have a high alkaline phosphatase at 167 on admission and 172 on subsequent lab. Creatinine was 1.3 on admission and on day of discharge was 1.33. Her baseline creatinine is about 1.2. Wound cultures are still pending although her gram stain showed moderate gram positive cocci and shown to be Staph aureus. RADIOLOGY: There are no radiographic tests to report. DISCHARGE PLAN: The patient will be discharged to [facility] in stable condition. She is resume her previous diet, her previous activity as well as her previous medications. She will continue on doxycycline and Bactrim until she sees Dr. Arriola, her PCP, on 07/11/18 at 1:30 PM. At that time the final wound culture should be completed and he can target antibiotic therapy at that time. She does have a significant history of MRSA. She is to return to the hospital or call Dr. Arriola's office for any problems or complications. DISCHARGE MEDICATIONS: 1. Furosemide. 2. Lyrica. 3. Tresiba. 4. Melatonin. 5. Lactobacillus. 6. NovoLog. 7. Bydureon. 8. Benadryl. 9. Ranitidine. 10. Metoprolol tartrate. 11. Hydrocodone. 12. Albuterol sulfate. 13. Nystatin. 14. Xanax. 15. Eucrisa. 16. Sertraline. 17. Milk of Magnesia. 18. Biofreeze. 19. Mucinex. 20. Zanaflex. 21. Bactrim. 22. Doxycycline. #[id number] [facility]
--- NOTE | 2018-07-11 17:51 | DS ---
SUPERVISING PHYSICIAN: Marc Arriola M.D. DISCHARGE DIAGNOSIS: 1. Cellulitis of the left hand, index and ring finger, possibly an insect bite, failing to respond to outpatient treatment measures with the patient having a history of methicillin-resistant Staphylococcus aureus infections in the past. 2. Electrolyte imbalance with a mild hyperkalemia, chronic, with a normal anion gap. 3. Diabetes mellitus, type 2, on oral and insulin therapy, poorly controlled. 4. History of asthma without any signs of complication or exacerbation. 5. History of atrial flutter with the patient showing normal sinus rhythm on admission. 6. History of hypertension. 7. Rheumatoid arthritis. 8. Osteoarthritis. 9. Hypertension. 10. History of qaqoa-xmo-moee amputation on the right. HISTORY OF PRESENT ILLNESS: This is a 57-year-old female patient who lives at [facility]. She has been in the hospital multiple times for many MRSA infections. She came to Dr. Arriola's office due to a followup of cellulitis of the left hand, specifically the ring finger. Two days prior to her admission she had the onset of discomfort and swelling and concerned that she might have an insect bite. At that time, she was seen in the clinic and was started on Bactrim for 10 days. She was also given 1 gram of Rocephin as well as Keflex b.i.d. for 10 days. On followup it was noted that it had significantly increased in size, redness and was much more tender to palpation and warm on exam. She has a significant history of poorly controlled diabetes and renal failure. She failed to respond to outpatient treatment, so Dr. Arriola requested that the patient be admitted to the hospital for parenteral antibiotics and further evaluation in the hospital. She was admitted to the Medical/Surgical Floor in stable condition. HOSPITAL COURSE: The patient was admitted to the hospital and started on some gentle fluids as well as antibiotics of vancomycin and Rocephin. Wound culture was done. Initially it was thought that Dr. Ng would be consulted for wound care, but it was felt that the wound would not benefit from initial incision and drainage. The next day the wound actually broke open on its own and some fluid contents were removed. There was no gram stain initially available for review. The patient improved to the point she felt like she could go back to the [facility]. After making several calls I did obtain the initial gram stain. The gram stain showed gram positive cocci in pairs and clusters. The patient had been previously put on Bactrim by Dr. Arriola and she will be discharged to [facility] today to continue the Bactrim as well as to start doxycycline. LABORATORY: CBC during her stay was essentially unremarkable. She did have an ESR that was elevated at 63. Blood sugars ran between 156 and 327. Sodium was stable at 135. She initially came in with a high potassium of 5.6, but on discharge it was 5. Chloride was stable at 106, carbon dioxide was 18 to 20, BUN 44, creatinine 1.33, calcium was stable at 8.8, magnesium 2.0. She did have an elevated alkaline phosphatase of 172 and serum total protein of 8.5. C reactive protein was 3.8. Gram stain showed gram positive cocci in pairs and clusters. DISCHARGE PLAN: The patient will be discharged to [facility] in stable condition. She is to resume her previous activity, diet and medications. She has Bactrim at the facility and I have added doxycycline in addition to her current antibiotic. She has a followup appointment with Dr. Arriola on 07/11/18 at 1:30 PM. She is to return to the hospital or followup with Dr. Arriola for any problems or complications. DISCHARGE MEDICATIONS: 1. Furosemide. 2. Lyrica. 3. Tresiba insulin. 4. Melatonin. 5. Lactobacillus. 6. NovoLog insulin. 7. Bydureon. 8. Benadryl. 9. Ranitidine. 10. Metoprolol. 11. Hydrocodone. 12. Albuterol sulfate. 13. Nystatin powder. 14. Alprazolam. 15. Eucrisa. 16. Zoloft. 17. Milk of Magnesia. 18. Biofreeze. 19. Mucinex sinus. 20. Pro-Stat amino acid. 21. Zanaflex. 22. Bactrim. 23. Doxycycline. #[id number] [facility]
== END 2018-07-06 13:25 | DRG 603 ==
LOC: MS 14:53
PROVIDERS: ADMIT Nurse Practitioner Family; ATTEND Nurse Practitioner Acute Care
DX: L03.012 Cellulitis of left finger (principal); L03.114 Cellulitis of left upper limb; E87.5 Hyperkalemia; F41.9 Anxiety disorder, unspecified; E11.9 Type 2 diabetes mellitus without complications; J45.909 Unspecified asthma, uncomplicated; I10 Essential (primary) hypertension; M19.90 Unspecified osteoarthritis, unspecified site; M06.9 Rheumatoid arthritis, unspecified; M81.0 Age-related osteoporosis without current pathological fracture; F17.210 Nicotine dependence, cigarettes, uncomplicated; E66.9 Obesity, unspecified; Z89.611 Acquired absence of right leg above knee; Z79.4 Long term (current) use of insulin; Z86.14 Personal history of Methicillin resistant Staphylococcus aureus infection

== ENCOUNTER → 2018-09-10 | Outpatient (CLI) | payer MEDICARE, MEDICAID ==
--- NOTE | 2018-09-11 08:36 | CT ---
EXAM DESCRIPTION: Abdoment/Pelvis w/o Contrast CLINICAL HISTORY: 57 years, Female, HEMATURIA COMPARISON: CT abdomen and pelvis November 20, 2017 TECHNIQUE: CT of the abdomen and pelvis is performed according to our non contrast protocol. FINDINGS: The lung bases are relatively clear. Spleen is large. Liver surface irregularity is seen which has progressed since previous study consistent with cirrhosis. There is relative enlargement of the caudate lobe and left lobe of the liver compared to the right. Adrenal glands and pancreas are unremarkable. Gallbladder surgically absent. The right kidney is unremarkable. The left kidney is unremarkable. No renal stones or hydronephrosis. Small bowel loops appear normal in caliber with normal wall thickness. There is no lymphadenopathy, inflammation, or free fluid observed. In the pelvis, the appendix is normal. No inflammation around the cecum or terminal ileum or sigmoid colon. No stones in the distal ureters or bladder. Rectal wall thickness is normal for degree of distention. No free fluid or mass in the pelvis. Uterus appears normal. No ovarian enlargement. No inguinal or lower pelvic adenopathy. Coronal and sagittal reformatted images confirm the findings. Advanced degenerative disc disease of the thoracic and lumbar spine with old T12 compression. Enlarged spleen measures 20.1 cm in length. Liver length of 22.6 cm is increased. No renal mass or renal stone is identified to suggest a cause for hematuria. No bladder wall thickening or bladder mass. IMPRESSION: Cirrhosis with splenomegaly. This exam was performed according to our departmental dose-optimization program, which includes automated exposure control, adjustment of the mA and/or kV according to patient size and/or use of iterative reconstruction technique. Total DLP equals 1494.39 mGycm. Electronically signed by: Wellington Alexis MD 09/11/2018 8:34 AM CDT
== END ==
LOC: CT 08:08
PROVIDERS: ATTEND Nurse Practitioner Family
DX: K74.60 Unspecified cirrhosis of liver (principal); R16.1 Splenomegaly, not elsewhere classified

== ENCOUNTER → 2018-09-30 | Outpatient (CLI) | payer MEDICARE, MEDICAID | LOC: GMAM 17:25 | PROVIDERS: ATTEND Family Medicine | DX: M79.645 Pain in left finger(s) (principal); Z79.899 Other long term (current) drug therapy ==

== ENCOUNTER → 2018-10-24 | Outpatient (CLI) | payer MEDICARE, MEDICAID ==
--- NOTE | 2018-10-24 17:02 | RAD ---
PROVIDED CLINICAL HISTORY/REASON FOR EXAM: M25.512 Findings: Number of images: 4 Location: Left shoulder No acute fracture or dislocation. Mild acromioclavicular osteoarthritis. Soft tissues are unremarkable. Subacromial space is maintained. Visualized chest is clear. IMPRESSION: No evidence of acute process in the left shoulder. Electronically signed by: Keith Butts MD 10/24/2018 5:00 PM CDT
== END ==
LOC: RAD 08:09
PROVIDERS: ATTEND Orthopaedic Surgery
DX: M25.512 Pain in left shoulder (principal)

== ENCOUNTER → 2018-11-20 | Outpatient (CLI) | payer MEDICARE, MEDICAID | LOC: GMAM 19:01 | PROVIDERS: ATTEND Family Medicine | DX: R30.0 Dysuria (principal) ==

== ENCOUNTER → 2018-11-26 | Outpatient (CLI) | payer MEDICARE, MEDICAID ==
--- NOTE | 2018-11-27 08:55 | CT ---
EXAM DESCRIPTION: Upper Extremity: Computed Tomography. CLINICAL HISTORY: 57 years Female PAIN IN LEFT WRIST COMPARISON: Radiograph of the left breast at [facility] 10/31/2018. TECHNIQUE: Spiral, axial 1.25 x 1.25 mm scans through the left wrist without contrast. Coronal and sagittal 2.0 mm reconstructions. Total Exam DLP: 107.34 mGy-cm. This exam was performed according to our departmental CT dose-optimization program which includes automated exposure control, adjustment of the mA and/or kV according to patient size and/or use of iterative reconstruction technique; to reduce radiation dose to as low as reasonably achievable (ALARA). FINDINGS: Narrowing of the radial scaphoid and radial lunate joint spaces. Cystic changes are most likely degenerative in the scaphoid, capitate, radial aspect of the lunate bone, and triquetrum. The cyst in the scaphoid is communicates with a defect in the volar cortex, but the margins are sclerotic. Subchondral radiolucency on the radius opposing the scapholunate joint space. Minimal arthrosis in the trapezoid trapezium joint, and the second carpometacarpal joint. No bony loose bodies in the soft tissues or joint spaces. Effusion and fatty stranding on the radial aspect of the distal radius abutting the extensor carpi radialis and extensor pollicis longus and abductor pollicis longus tendons. IMPRESSION: 1. Overall bone density decreased. Cystic changes in several of the carpal bones. The cyst in the scaphoid bone communicates with a cortical defect on the volar surface, but the margins are sclerotic indicating chronic process. 2. Subchondral radiolucency on the distal radius. 3. Effusion and fatty stranding on the radial aspect of the distal radius abutting the extensor carpi radialis tendon, and extensor pollicis longus and abductor pollicis longus tendons. This can indicate strain or partial tear of these tendons. Electronically signed by: Ye Terrazas MD 11/27/2018 8:53 AM CDT
== END ==
LOC: CT 08:11
PROVIDERS: ATTEND Family Medicine
DX: M85.832 Other specified disorders of bone density and structure, left forearm (principal); M85.632 Other cyst of bone, left forearm; M67.932 Unspecified disorder of synovium and tendon, left forearm; M25.432 Effusion, left wrist

== ENCOUNTER → 2019-01-21 | Outpatient (CLI) | payer MEDICARE, MEDICAID | LOC: GMAM 11:33 | PROVIDERS: ATTEND Family Medicine | DX: E04.9 Nontoxic goiter, unspecified (principal); E11.9 Type 2 diabetes mellitus without complications; I10 Essential (primary) hypertension; M10.9 Gout, unspecified ==

== ENCOUNTER 2019-01-27 17:02 | Observation (INO) | payer MEDICARE, MEDICAID ==
[2019-01-27] MEDS ORDERED: methylPREDNISolone SODIUM SUC 125 MG/2 ML VIAL IV ONE (17:52)
[2019-01-27] MEDS ORDERED: IPRATROPIUM/ALBUTEROL 3 ML VIAL NEB ONE (17:52)
--- NOTE | 2019-01-27 17:53 | ED.PDOC ---
History of Present Illness - General Chief Complaint: Respiratory Problem Time Seen by Provider: 01/27/19 17:17 Source: patient Exam Limitations: no limitations - History of Present Illness Initial Comments: 58 yo F who presents for SOB with associated wheezing and cough from clinic stating they were concerned about pneumonia because she had a low WBC. Reports associated headache for the past 19 days. Denies f/c, change in vision, neck stiffness, neck pain, CP, abd pain, n/v/d, edema, weakness, numbness, hematemesis, melena, hematochezia. Hx of asthma. Allergies/Adverse Reactions: Allergies Trazodone Allergy (Verified 06/01/18 11:30) orange juice Allergy (Uncoded 07/03/18 16:09) Home Medications: Ambulatory Orders Furosemide 40 mg PO DAILY 02/15/16 Insulin Degludec [Tresiba Flextouch] 42 unit SC DAILY 08/29/17 Pregabalin [Lyrica] 100 mg PO TID 08/29/17 Melatonin 40 mg PO BEDTIME 11/20/17 Exenatide [Bydureon] 2 mg SC WKLY 03/29/18 HYDROcodone 10MG/APAP 325MG [[place] 10/325] 2 each PO Q6H PRN 03/29/18 Insulin Aspart [Novolog] 0 unit SC ACHS PRN 03/29/18 Lactobacillus [Acidophilus] 1 tab PO BID 03/29/18 Metoprolol Tartrate 25 mg PO BID 03/29/18 Ranitidine HCl 150 mg PO BID 03/29/18 diphenhydrAMINE HCL [Benadryl] 25 mg PO BEDTIME 03/29/18 ALPRAZolam [Xanax] 0.25 mg PO Q8H PRN 05/03/18 Albuterol Sulfate [Proair Hfa] 2 inh IN Q6H PRN 05/03/18 Crisaborole [Eucrisa] 2 % EX BID 05/03/18 Nystatin Powder 1 gm TOP BID 05/03/18 Sertraline HCl [Zoloft] 150 mg PO DAILY 05/10/18 Amino Acids-Protein Hydrolysat [Pro-Stat Awc] 30 ml PO DAILY 06/01/18 Magnesium Hydroxide [Milk Of Magnesia] 30 ml PO DAILY PRN 06/01/18 Menthol (Topical Analgesic) [Biofreeze] 4 % EX DAILY 06/01/18 Aqsyxbfheffrz-Zn-HL W/ APAP [Mucinex Sinus-Max Severe 1-97-477-325 mg] 2 cap PO Q6H PRN 06/01/18 Sulfamethoxazole-Trimethoprim [Bactrim Ds 800-160 mg] 1 tablet PO BID 07/03/18 tiZANidine [Zanaflex] 4 mg PO Q6HR PRN 07/03/18 Doxycycline Hyclate 100 mg IV BID #20 inj 07/07/18 Sulfa/Trimeth 800/160 (Ds) Tab [Bactrim DS] 1 tablet PO BID #20 tab 07/07/18 Review of Systems - Review of Systems Constitutional: Denies: chills, fever EENTM: Denies: nose congestion, throat pain Respiratory: States: cough, short of breath, wheezing Cardiology: Denies: chest pain, edema, palpitations Gastrointestinal/Abdominal: Denies: abdominal pain, diarrhea, vomiting Genitourinary: Denies: dysuria, hematuria Musculoskeletal: Denies: back pain, neck pain Skin: Denies: lesions, rash Neurological: States: headache. Denies: numbness, weakness Endocrine: Denies: increased thirst, increased urine Past Medical History (General) - Patient Medical History Hx Seizures: No Hx Stroke: No Hx Dementia: No Hx Asthma: Yes Hx of COPD: Yes Hx Cardiac Disorders: No Hx Congestive Heart Failure: No Hx Pacemaker: No Hx Hypertension: Yes Hx Thyroid Disease: No Hx Diabetes: Yes Hx Gastroesophageal Reflux: No Hx Renal Disease: No Hx Cancer: No Hx of HIV: No Hx Hepatitis C: No Hx MRSA: Yes MRSA Source:: Wound - Vaccination History Hx Tetanus, Diphtheria Vaccination: Yes Hx Influenza Vaccination: Yes Hx Pneumococcal Vaccination: Yes - Social History Hx Tobacco Use: Yes Hx Chewing Tobacco Use: No Hx Alcohol Use: No Hx Substance Use: No Hx Substance Use Treatment: Yes Hx Depression: No Hx Physical Abuse: No Hx Emotional Abuse: No Hx Suspected Abuse: No - Female History Patient : No Family Medical History - Family History Father Family History: Unknown Living Status: Age at (years of age): 60 Hx Family Stroke: Yes - sister Hx Family Cancer: Yes - mesothelioma-dad;ovaries-mom Mother Living Status: Age at (years of age): 60 Hx Family Diabetes: Yes Hx Family Cancer: Yes - ovarian Physical Exam - Physical Exam General Appearance: Alert, No apparent distress, Other - Obese Eye Exam: bilateral normal Ears, Nose, Throat: hearing grossly normal, normal ENT inspection Neck: non-tender, full range of motion, supple, normal inspection Respiratory: chest non-tender, no respiratory distress, no accessory muscle use, wheezing Cardiovascular/Chest: normal peripheral pulses, regular rate, rhythm, no edema, no gallop, no JVD, no murmur Peripheral Pulses: radial,right: 2+, radial,left: 2+ Gastrointestinal/Abdominal: normal bowel sounds, non tender, soft, no organomegaly, no pulsatile mass Back Exam: normal inspection, no CVA tenderness, no vertebral tenderness Extremity: normal range of motion, non-tender, no pedal edema, other - R AKA Neurologic: no motor/sensory deficits, alert Skin Exam: normal color, warm/dry Progress - Progress Progress: 01/27/19 20:45 Rechecked pt, doing well, NAD, CTAB after breathing treatment, SOB resolved. Discussed results, reports seeing Dr. Burkett, nephrology, for which she was prescribed baking soda, she does not believe she has been told her kidneys are not functioning well. 01/27/19 21:09 Discussed with Levon SENIOR DATA INTEGRATION DEVELOPER for hospitalist, accepts pt for observation overnight to hydrate for CHERYL and associated hyperkalemia. 01/27/19 21:15 Updated pt on results and need for admission. Pt agrees with plan, all questions and concerns addressed. Pt is well appearing, resting comfortably. Elida Mosley MD Emergency Medicine Physician Billing Number [id number] - Results/Orders Results/Orders: 01/27/19 21:00 EKG STAT 01/27/19 21:09 ED Intent to Admit Routine 01/27/19 21:10 Sodium Chloride 0.9% 1000ML [Ns 1000 ml] 1,000 ml IVS ONCE Laboratory Results - last 24 hr 01/27/19 01/27/19 01/27/19 17:45 18:00 18:00 WBC 2.0 L* RBC 4.15 L Hgb 12.6 Hct 36.8 MCV 88.7 MCH 30.3 MCHC 34.2 RDW 15.5 H Plt Count 69 L MPV 8.8 Absolute Neuts (auto) Not Reportable Absolute Lymphs (auto) Not Reportable Absolute Monos (auto) Not Reportable Absolute Eos (auto) Not Reportable Neutrophils % Not Reportable Neutrophils % (Manual) 62.0 Lymphocytes % Not Reportable Lymphocytes % (Manual) 28.0 Monocytes % Not Reportable Monocytes % (Manual) 2.0 Eosinophils % Not Reportable Basophils % Not Reportable Band Neutrophils 8.0 H Platelet Estimate Decreased Normal RBC Morphology Normal rbc morph Sodium 139 Potassium 5.4 H Chloride 97 L Carbon Dioxide 30 Anion Gap 17.4 BUN 27 H Creatinine 1.47 H BUN/Creatinine Ratio 18.4 Random Glucose 176 H Serum Osmolality 287.0 Calcium 8.5 Total Bilirubin 0.5 AST 65 H ALT 48 Alkaline Phosphatase 163 H Troponin I B-Natriuretic Peptide Serum Total Protein 7.8 Albumin 3.8 Globulin 4.0 H Albumin/Globulin Ratio 1.0 L Urine Color Yellow Urine Appearance Clear Urine pH >= 9.0 H* Ur Specific [place] 1.015 Urine Protein 100 H Urine Glucose (UA) 250 H Urine Ketones Negative Urine Blood Trace-intact H Urine Nitrite Negative Urine Bilirubin Negative Urine Urobilinogen 0.2 Ur Leukocyte Esterase Negative Urine RBC 0-1 Urine WBC 0 Ur Epithelial Cells 0-1 Urine Bacteria 0 01/27/19 01/27/19 18:00 18:00 WBC RBC Hgb Hct MCV MCH MCHC RDW Plt Count MPV Absolute Neuts (auto) Absolute Lymphs (auto) Absolute Monos (auto) Absolute Eos (auto) Neutrophils % Neutrophils % (Manual) Lymphocytes % Lymphocytes % (Manual) Monocytes % Monocytes % (Manual) Eosinophils % Basophils % Band Neutrophils Platelet Estimate Normal RBC Morphology Sodium Potassium Chloride Carbon Dioxide Anion Gap BUN Creatinine BUN/Creatinine Ratio Random Glucose Serum Osmolality Calcium Total Bilirubin AST ALT Alkaline Phosphatase Troponin I < 0.02 B-Natriuretic Peptide 20.4 Serum Total Protein Albumin Globulin Albumin/Globulin Ratio Urine Color Urine Appearance Urine pH Ur Specific [place] Urine Protein Urine Glucose (UA) Urine Ketones Urine Blood Urine Nitrite Urine Bilirubin Urine Urobilinogen Ur Leukocyte Esterase Urine RBC Urine WBC Ur Epithelial Cells Urine Bacteria CXR: EXAM: 2 Views CLINICAL INDICATION: 58-year-old female with cough. TECHNIQUE: Two-view, PA and lateral projections of the chest were obtained. COMPARISON: 05/10/2018. FINDINGS: Unremarkable cardiac and mediastinal silhouette. Heart size is normal. Lungs are clear without focal opacity, pneumothorax or pleural effusions. The visualized bones are within normal limits. Nonspecific focus of air lucency is identified at the level of the medial RIGHT lower lobe raising the possibility of artifact versus hernia. If there is clinical concern for free intra-abdominal air, CT of the abdomen and pelvis may be considered. No additional findings to suggest air lucency underlying the bilateral hemidiaphragms. IMPRESSION: 1. No acute cardiopulmonary abnormalities. 2. Nonspecific focus of air lucency at the level of the medial RIGHT lower lobe as detailed above. Electronically signed by: Kia Blount MD 01/27/2019 6:59 PM CORPORATE DEVELOPMENT ANALYST KUB: EXAM DESCRIPTION: KUB CLINICAL HISTORY: 58 years Female CXR finding COMPARISON: None TECHNIQUE: Two images of the abdomen were obtained. FINDINGS: Gas is seen throughout the bowel. Bowel is normal in caliber. Surgical clips right upper abdomen. Pelvic calcifications likely vascular in nature. Marked overlying soft tissue. IMPRESSION: Nonspecific bowel gas pattern. No definite bowel obstruction. Electronically signed by: Brynn Leon MD 01/27/2019 9:[address]ATE [address]ELOPMENT ANALYST CT Head: EXAM: Head CLINICAL INDICATION: 58-year-old female with headache. COMPARISON: 06/01/2017. TECHNIQUE: CT brain without contrast. This exam was performed according to our departmental dose optimization program which includes use of automated exposure control, adjustment of the mA and/or kV according to patient size and/or use of iterative reconstruction technique. FINDINGS: The ventricles, sulci, and cisterns are within normal limits. The live-white matter differentiation is preserved. There is no mass effect, midline shift, intra- or extra-axial fluid collection/acute hemorrhage. The osseous structures are unremarkable. The paranasal sinuses and mastoid air cells are clear. IMPRESSION: No acute intracranial abnormalities. Electronically signed by: Kia Blount MD 01/27/2019 7:05 PM CORPORATE DEVELOPMENT ANALYST - EKG/XRAY/CT EKG: Sinus, no ST T wave changes Comments: No hyperacute T waves Departure - Departure Clinical Impression: Hyperkalemia, CHERYL (acute kidney injury), Thrombocytopenia Leukopenia Qualifiers: Leukopenia type: unspecified Qualified Code(s): D72.819 - Decreased white blood cell count, unspecified Disposition: Admit Patient Condition: Fair Home Medications: Ambulatory Orders Furosemide 40 mg PO DAILY 02/15/16 Insulin Degludec [Tresiba Flextouch] 42 unit SC DAILY 08/29/17 Pregabalin [Lyrica] 100 mg PO TID 08/29/17 Melatonin 40 mg PO BEDTIME 11/20/17 Exenatide [Bydureon] 2 mg SC WKLY 03/29/18 HYDROcodone 10MG/APAP 325MG [[place] 10/325] 2 each PO Q6H PRN 03/29/18 Insulin Aspart [Novolog] 0 unit SC ACHS PRN 03/29/18 Lactobacillus [Acidophilus] 1 tab PO BID 03/29/18 Metoprolol Tartrate 25 mg PO BID 03/29/18 Ranitidine HCl 150 mg PO BID 03/29/18 diphenhydrAMINE HCL [Benadryl] 25 mg PO BEDTIME 03/29/18 ALPRAZolam [Xanax] 0.25 mg PO Q8H PRN 05/03/18 Albuterol Sulfate [Proair Hfa] 2 inh IN Q6H PRN 05/03/18 Crisaborole [Eucrisa] 2 % EX BID 05/03/18 Nystatin Powder 1 gm TOP BID 05/03/18 Sertraline HCl [Zoloft] 150 mg PO DAILY 05/10/18 Amino Acids-Protein Hydrolysat [Pro-Stat Awc] 30 ml PO DAILY 06/01/18 Magnesium Hydroxide [Milk Of Magnesia] 30 ml PO DAILY PRN 06/01/18 Menthol (Topical Analgesic) [Biofreeze] 4 % EX DAILY 06/01/18 Lefwaytboqgnr-Rv-ED W/ APAP [Mucinex Sinus-Max Severe 9-24-881-325 mg] 2 cap PO Q6H PRN 06/01/18 Sulfamethoxazole-Trimethoprim [Bactrim Ds 800-160 mg] 1 tablet PO BID 07/03/18 tiZANidine [Zanaflex] 4 mg PO Q6HR PRN 07/03/18 Doxycycline Hyclate 100 mg IV BID #20 inj 07/07/18 Sulfa/Trimeth 800/160 (Ds) Tab [Bactrim DS] 1 tablet PO BID #20 tab 07/07/18
--- NOTE | 2019-01-27 19:01 | RAD ---
EXAM: 2 Views CLINICAL INDICATION: 58-year-old female with cough. TECHNIQUE: Two-view, PA and lateral projections of the chest were obtained. COMPARISON: 05/10/2018. FINDINGS: Unremarkable cardiac and mediastinal silhouette. Heart size is normal. Lungs are clear without focal opacity, pneumothorax or pleural effusions. The visualized bones are within normal limits. Nonspecific focus of air lucency is identified at the level of the medial RIGHT lower lobe raising the possibility of artifact versus hernia. If there is clinical concern for free intra-abdominal air, CT of the abdomen and pelvis may be considered. No additional findings to suggest air lucency underlying the bilateral hemidiaphragms. IMPRESSION: 1. No acute cardiopulmonary abnormalities. 2. Nonspecific focus of air lucency at the level of the medial RIGHT lower lobe as detailed above. Electronically signed by: Kia Blount MD 01/27/2019 6:59 PM [facility]
--- NOTE | 2019-01-27 19:07 | CT ---
EXAM: Head CLINICAL INDICATION: 58-year-old female with headache. COMPARISON: 06/01/2017. TECHNIQUE: CT brain without contrast. This exam was performed according to our departmental dose optimization program which includes use of automated exposure control, adjustment of the mA and/or kV according to patient size and/or use of iterative reconstruction technique. FINDINGS: The ventricles, sulci, and cisterns are within normal limits. The live-white matter differentiation is preserved. There is no mass effect, midline shift, intra- or extra-axial fluid collection/acute hemorrhage. The osseous structures are unremarkable. The paranasal sinuses and mastoid air cells are clear. IMPRESSION: No acute intracranial abnormalities. Electronically signed by: Kia Blount MD 01/27/2019 7:05 PM [facility]
[2019-01-27] MEDS ORDERED: SODIUM CHLORIDE 0.9% 1000ML 1,000 ML IVS ONE (21:10)
[2019-01-27] MEDS ORDERED: ACETAMINOPHEN IV 1000MG 1,000 MG in PREMIX BOTTLE 1 BOTTLE IVPB ONE (21:31)
[2019-01-27] MEDS ORDERED: ACETAMINOPHEN 500 MG TAB PO ONE (21:37)
--- NOTE | 2019-01-27 21:48 | RAD ---
EXAM DESCRIPTION: KUB CLINICAL HISTORY: 58 years Female CXR finding COMPARISON: None TECHNIQUE: Two images of the abdomen were obtained. FINDINGS: Gas is seen throughout the bowel. Bowel is normal in caliber. Surgical clips right upper abdomen. Pelvic calcifications likely vascular in nature. Marked overlying soft tissue. IMPRESSION: Nonspecific bowel gas pattern. No definite bowel obstruction. Electronically signed by: Brynn Leon MD 01/27/2019 9:47 PM [facility]
[2019-01-27] MEDS ORDERED: ALBUTEROL SULFATE 2.5 MG/3 ML VIAL NEB PRN (22:49)
[2019-01-27] MEDS ORDERED: ACETAMINOPHEN 325 MG TAB PO PRN (22:49)
[2019-01-27] MEDS ORDERED: MAGNESIUM HYDROXIDE 30 ML UD PO PRN (22:49)
[2019-01-27] MEDS ORDERED: ALUM & MAG HYDROX-SIMETHICONE 30 ML UD PO PRN (22:49)
[2019-01-27] MEDS ORDERED: SODIUM CHLORIDE 0.9% (FLUSH) 10 ML SYG IV PRN (22:49)
[2019-01-27] MEDS ORDERED: SODIUM CHLORIDE 0.9% 1000ML 1,000 ML IVS PRN (22:49)
[2019-01-27] MEDS ORDERED: ONDANSETRON INJ 4 MG/2 ML VIAL IV PRN (22:49)
[2019-01-27] MEDS ORDERED: IV SET AND CAP CHANGE INJ INJ SCH (23:00)
[2019-01-27] MEDS ORDERED: AZITHROMYCIN IV 500 MG in SODIUM CHLORIDE 0.9% 250ML 250 ML IVPB ONE (23:03)
[2019-01-27] MEDS ORDERED: DEXTROSE 50% 25 GM/50 ML SYG IV PRN (23:11)
[2019-01-27] MEDS ORDERED: GLUCAGON INJ 1 MG VIAL SUBCU PRN (23:11)
[2019-01-27] MEDS ORDERED: SODIUM CHLORIDE 0.9% 250ML 250 ML ONE (23:11)
[2019-01-27] MEDS ORDERED: cloNIDine HCL 0.1 MG TAB PO PRN (23:12)
[2019-01-27] MEDS ORDERED: SODIUM CHL 0.9% 50ML MIN-BAG+ 50 ML IVPB ONE (23:12)
[2019-01-27] MEDS ORDERED: HYDROcodone 10MG/APAP 325MG 1 EA TAB PO PRN (23:12)
[2019-01-27] MEDS ORDERED: AZITHROMYCIN IV 500 MG VIAL IVPB ONE (23:12)
[2019-01-27] MEDS ORDERED: cefTRIAXone SODIUM 1 GM VIAL ONE (23:12)
[2019-01-27] MEDS: cefTRIAXone SODIUM 1 GM in SODIUM CHL 0.9% 50ML MIN-BAG+ 50 ML IVPB SCH (23:14)
[2019-01-27] MEDS: METOPROLOL TARTRATE 50 MG TAB PO SCH ×2 (23:32→23:55)
[2019-01-27] MEDS: tiZANidine 4 MG TAB PO PRN (23:54)
[2019-01-27] MEDS: HYDROcodone 10MG/APAP 325MG 1 EA TAB PO PRN (23:54)
[2019-01-27] MEDS: diphenhydrAMINE HCL 25 MG CAP PO SCH (23:55)
[2019-01-27] MEDS: PREGABALIN 100 MG CAP PO SCH (23:55)
[2019-01-28] MEDS: NICOTINE PATCH 14 MG TD SCH ×2 (00:28→08:02)
[2019-01-28] MEDS: HYDROcodone 10MG/APAP 325MG 1 EA TAB PO PRN ×3 (06:14→22:43)
[2019-01-28] MEDS: INSULIN LISPRO 100 UNITS/ML PEN SUBCU SCH ×6 (06:31→20:32)
[2019-01-28] MEDS ORDERED: INSULIN LISPRO 100 UNITS/ML PEN SUBCU ONE (07:31)
[2019-01-28] MEDS ORDERED: METOPROLOL TARTRATE 50 MG TAB ONE (07:41)
[2019-01-28] MEDS: METOPROLOL TARTRATE 50 MG TAB PO SCH ×2 (07:56→20:27)
[2019-01-28] MEDS: PREGABALIN 100 MG CAP PO SCH ×3 (07:56→20:27)
[2019-01-28] MEDS: ALLOPURINOL 100 MG TAB PO SCH (07:56)
[2019-01-28] MEDS: FUROSEMIDE 40 MG TAB PO SCH (07:56)
[2019-01-28] MEDS: SITagliptin 50 MG TAB PO SCH (08:02)
[2019-01-28] MEDS: SERTRALINE HCL 50 MG TAB PO SCH (08:04)
[2019-01-28] MEDS ORDERED: metFORMIN HCL 500 MG TAB PO SCH (09:00)
[2019-01-28] MEDS ORDERED: AMLODIPINE BESYLATE 2.5 MG PO SCH (09:00)
--- NOTE | 2019-01-28 09:20 | CT ---
EXAM DESCRIPTION: Chest w/o Contrast (accession [id number]), Abdoment/Pelvis w/o Contrast (accession [id number]) CLINICAL HISTORY: Possible source of infection. COMPARISON: CT abdomen pelvis September 10, 2018, CT chest January 14, 2018 TECHNIQUE: CT of the chest, abdomen and Pelvis was performed without IV contrast. This exam was performed according to our departmental dose-optimization program, which includes automated exposure control, adjustment of the mA and/or kV according to patient size and/or use of iterative reconstruction technique. FINDINGS: CT chest: The thyroid and thoracic inlet are unremarkable. Coronary artery calcifications. No thoracic aortic aneurysm. No esophageal wall thickening. No pleural or pericardial effusion. Limited sensitivity for detection of adenopathy due to lack of IV contrast, but no mediastinal or hilar adenopathy is seen. The central airways are clear. No airspace consolidation or lung mass. 4 mm noncalcified left lower lobe nodule, stable from December, and requiring no further follow-up. 3 mm right apical lung nodule which is not definitely calcified. This was only tentatively identified on the prior exam but is also likely benign and requires no further follow-up based on its size. No new lung nodule. No axillary adenopathy, breast or other chest wall lesion. The right breast and right lateral chest wall are partially excluded from this exam. Degenerative changes in the thoracic spine at multiple levels. CT abdomen pelvis: There calcification in the thoracic aorta without aneurysm. Bilateral inguinal lymph nodes are increased in number but not size, unchanged from the previous exam. Periaortic lymph nodes are also slightly increased in number but not size, stable. No mesenteric adenopathy. No hiatal hernia or gastric wall thickening. The gallbladder is surgically absent. The pancreas, adrenals and kidneys are unremarkable for noncontrast technique. The spleen is enlarged, measuring approximately 20 cm craniocaudal but stable from the prior exam. Subtle liver contour nodularity without hepatomegaly. No dilated small bowel loops or mesenteric inflammation. The bladder is slightly distended without wall thickening or calcification. The uterus and left ovary are unremarkable for patient's age. The right ovary is not visualized, the right adnexal mass. No colonic diverticular disease, wall thickening or pericolonic inflammation. The appendix is not visualized, no secondary signs of appendicitis. Degenerative and postoperative changes in the lumbar spine including degenerative disc disease. Compression of the T12 body is at least partially related to a superior endplate Schmorl's node but stable from August,. IMPRESSION: Splenomegaly, stable from August,. Findings are nonspecific but, considering subtle nodular liver contour may be related to underlying hepatic cirrhosis. No acute abnormality in the chest, abdomen or pelvis to explain patient's symptoms. Electronically signed by: Amando Fontenot MD 01/28/2019 9:19 AM [facility]
[2019-01-28] MEDS: IPRATROPIUM/ALBUTEROL 3 ML VIAL INH SCH ×4 (09:30→20:56)
[2019-01-28] MEDS ORDERED: SODIUM CHLORIDE 0.9% 1000ML 1,000 ML IVS ONE ×2 (11:23→11:24)
[2019-01-28] MEDS: INSULIN DEGLUDEC 48 UNIT SC SCH (11:31)
[2019-01-28] MEDS: amLODIPine BESYLATE 5 MG TAB PO SCH (11:33)
[2019-01-28] MEDS: LACTOBACILLUS 1 TAB PO SCH ×2 (11:34→20:27)
[2019-01-28] MEDS: NYSTATIN POWDER 15GM BTTL TOP SCH ×2 (11:34→20:28)
[2019-01-28] MEDS: OLMESARTAN MEDOXOMIL 40 MG PO SCH (12:53)
[2019-01-28] MEDS: tiZANidine 4 MG TAB PO PRN ×2 (13:39→22:43)
[2019-01-28] MEDS ORDERED: SODIUM CHLORIDE 0.45% 1000ML 1,000 ML IVS PRN (14:42)
[2019-01-28] MEDS ORDERED: ASPIRIN/ACETAMINOPHEN/CAFFEINE 1 EA TAB PO ONE (14:43)
[2019-01-28] MEDS ORDERED: MORPHINE SULFATE INJ 10 MG/ML VIAL IV PRN (19:17)
[2019-01-28] MEDS ORDERED: SODIUM CHLORIDE 0.9% 250ML 250 ML ONE (19:44)
[2019-01-28] MEDS ORDERED: SODIUM CHL 0.9% 50ML MIN-BAG+ 50 ML IVPB ONE (19:44)
[2019-01-28] MEDS ORDERED: cefTRIAXone SODIUM 1 GM VIAL ONE (19:45)
[2019-01-28] MEDS ORDERED: AZITHROMYCIN IV 500 MG VIAL IVPB ONE (19:46)
[2019-01-28] MEDS: diphenhydrAMINE HCL 25 MG CAP PO SCH (20:27)
[2019-01-28] MEDS: SODIUM BICARBONATE PO SCH (20:29)
[2019-01-28] MEDS ORDERED: MELOXICAM 7.5 MG TAB ONE (20:39)
[2019-01-28] MEDS ORDERED: MELATONIN PO SCH (21:00)
[2019-01-28] MEDS ORDERED: MELATONIN 40 MG PO SCH (21:00)
--- NOTE | 2019-01-28 21:05 | HP ---
SUPERVISING PHYSICIAN: Akil Lopez M.D. CHIEF COMPLAINT: Shortness of breath. HISTORY OF PRESENT ILLNESS: Ms. Boyd is a 58 year-old female that presented to the Emergency Department last night. She does reside at [facility]. She is noting to have some wheezing and coughing, and was sent to the clinic for evaluation. From the clinic she was referred to the E. R. after they noticed that she had a low white count with concerns for possible pneumonia. The patient notes that she has had a has a headache that is described as being on the top of her head, but notably tender on palpation which has been present for well over a month. She actually denied any changes in vision, neck stiffness or neck pain. She does have a history of asthma, hypertension, atrial flutter and type 2 diabetes on insulin therapy with renal insufficiency. In the E. R. her labs showed that she had a white count of 2,000 with a left shift and 8% bands. Chemistries showed that she was hyperkalemic with potassium of 5.4 with creatinine 1.47 with the patient having a baseline creatinine normally around 1.3 to 1.36. Chest x-ray in the E. R. per radiology interpretation showed nonspecific cardiopulmonary abnormalities with a nonspecific focus of air lucency at the level of the medial right lower lobe described as possibly an artifact versus a hernia. This was followed-up with KUB in the E. R. and per radiology interpretation a nonspecific bowel gas pattern was noted with no definite bowel obstruction. EKG was showing a normal sinus rhythm without any ST or T wave changes. Urinalysis showed a pH of greater than 9 with protein 100 and 250 glucose, otherwise within normal limits. Vital signs show that she was afebrile initially on presentation with temperature 98.4 initially. She was having some mild respiratory difficulties with some notable wheezing and shortness of breath. She was given Albuterol treatments which did result in a significant improvement in her symptoms. Given her findings on labs to include a neutropenia with a white count of 2,100 and thrombocytopenia with platelet count 69,000 and a left shift on differential. Along with the hyperkalemia and elevated creatinine, the patient is going to be admitted for initiation of treatment for acute kidney injury with neutropenia with concerns for developing upper respiratory infection including possibly community acquired pneumonia with hyperkalemia. It was also noted on her initial chemistries that her anion gap was initially normal at 17.4 with pCO2 of 30. Liver functions are showing just a slightly elevated AST at 65. Troponin was less than 0.02. BNP was normal at 20.4. PAST MEDICAL HISTORY: 1. Asthma. 2. History of atrial flutter. 3. Hypertension. 4. Osteoarthritis. 5. Rheumatoid arthritis. 6. Osteoporosis. 7. 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 8. Type 2 diabetes on insulin and oral therapy. 9. Renal insufficiency. PAST SURGICAL HISTORY: 1. Buzut-gic-rzbu amputation on the right in December of 2017 due to multiple MRSA infections. 2. Tonsillectomy. 3. Cholecystectomy. 4. section times 2. 5. Bilateral tubal ligation. 6. 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 HOME MEDICATIONS: Awaiting updated list from [facility]. Please see that list for verified medications. ALLERGIES: TRAZODONE. FAMILY HISTORY: Positive for hypertension and chronic obstructive pulmonary disease. SOCIAL HISTORY: The patient resides at [facility]. She notes that she continues to smoke about a half pack or less a day. She denies any alcohol or illicit drug use. She is and has two children. REVIEW OF SYSTEMS: Denies any chills or fever. HEENT: Denies any nasal congestion, sore throat, ear aches, neck pain, neck stiffness or vision changes. Does report a chronic headache for over 30 days with noting more painful to palpation on the top of the head. RESPIRATORY: Positive for wheezing with associated shortness of breath and cough. CARDIOVASCULAR: Denies any chest pains, palpitations, syncopal episodes or peripheral edema. GASTROINTESTINAL: Negative for any nausea, vomiting, diarrhea, constipation or abdominal pains. GENITOURINARY: Denies any dysuria, hematuria or polyuria. MUSCULOSKELETAL: Denies any back pain or neck pain. SKIN: Denies any lesions, rashes or unexplained changes. NEUROLOGIC: Denies any numbness, weakness, focal neurological deficits, syncopal episodes or ataxia. ENDOCRINE: Negative for polydipsia or polyuria. PHYSICAL EXAMINATION: VITAL SIGNS: On admission, temperature 98.4, pulse 85, blood pressure 183/89, respirations 18, satting 96% on room air. Admission weight was 116.4 kg. GENERAL: The patient on admission to the Medical/Surgical floor was resting comfortably and appeared to be in no acute distress. HEENT: Tympanic membranes are clear bilaterally. Oropharynx was pink and moist without any lesions. NECK: Supple, non-tender. Full range of motion. No jugular venous distention. CHEST: Chest sounds were diminished through the bases with just very faint inspiratory and expiratory wheezing. No obvious rhonchi or rales. CARDIOVASCULAR: Regular rate and rhythm without appreciable murmurs, gallops, or rubs. ABDOMEN: Soft, non-tender. Positive bowel sounds. EXTREMITIES: Dazoa-dno-yuoa amputation on the right. The remaining extremities are without edema, clubbing or cyanosis. NEUROLOGIC: She is alert and oriented times three. Cranial nerves II-XII are grossly intact. LABORATORY: White count showed neutropenia at 2,000 with hemoglobin 12.6 and hematocrit 36.8 with platelet count at 69,000. Differential did show a left shift with increased bands. Chemistries on admission showed potassium 5.4, BUN 27, creatinine 1.47, glucose 176. AST 65, alkaline phosphatase 163. Troponin less than 0.02. BNP was normal at 20.4. Urinalysis showed a pH of greater than 9 with protein 100, and 250 glucose, trace of blood. Serum ketones were negative. Strep screen was negative. MICROBIOLOGY: Influenza A and B antigen was negative. RADIOLOGY: Initial chest x-ray in the Emergency Department shows no acute cardiopulmonary abnormalities. Nonspecific focus of air lucency at the level of the medial right lower lobe as detailed above which included a possible artifact versus hernia noted. This was followed-up with a CT of the abdomen after admission which is pending as well as CT of the chest. They also did a KUB in the Emergency Room and per radiology interpretation no acute findings noted. CT of the head without contrast per radiology interpretation showed no acute intracranial abnormalities. 12-lead EKG showed normal sinus rhythm without any ST or T wave changes to indicate acute ischemia. ASSESSMENT: 1. Acute kidney injury with hyperkalemia, uncertain etiology with a mild metabolic acidosis with the patient having a history of chronic metabolic acidosis and being followed by Dr. Burkett in the past with EKG not showing any acute changes in the T waves. 2. Asthma with acute exacerbation with concerns for developing pneumonia, community acquired versus healthcare acquired in a patient with a neutropenic presentation. 3. Diabetes mellitus type 2 on both oral and insulin therapy with a chronic metabolic acidosis complicated by steroid administration on initial admission. 4. History of atrial flutter with the patient showing a normal sinus rhythm on admission. 5. History of chronic rheumatoid arthritis and osteoarthritis. 6. Hypertension. 7. 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 8. Thrombocytopenia with neutropenia, uncertain etiology. PLAN: Ms. Boyd is going to be admitted for treatment of underlying metabolic acidosis which is noted to be chronic in her along with acute kidney injury and hyperkalemia. She was given 125 mg of Solu-Medrol. Will go ahead and aggressively manage her blood sugars as well as give fluids to try to get her blood sugars better controlled and hopefully drop a little bit of potassium back without having to administer any other treatment such as Kayexalate. She will be on sliding scale per insulin protocol. She is on DVT prophylaxis per protocol, but will hold off on Lovenox given her thrombocytopenia. Given the patient's history and concerns for developing pneumonia and diabetes, will go ahead and treat her aggressively with antibiotics but will hold off on any actual steroids at this point because she did improve with 1 single dose, but will monitor closely. I will try to get her blood sugars better controlled and get her rehydrated and see if this will help drop some potassium back. Of course if we cannot get her potassium leveled off at more normal levels, will certainly will get more aggressive with management. I did a ketone which was negative and there is no evidence of any diabetic ketoacidosis at this point. I would anticipate her length of stay to be 2 to 3 days until we can get her potassium leveled off. She has been having a headache which on palpation to the top of her head seems to aggravate it and this is being followed by Dr. Arriola in the outpatient setting, and is certainly not a new finding, but will go ahead and try some additional treatment and see if we can get some relief, although will need to avoid much NSAID administration given her kidney function. I have requested her medications to update those and get those restarted as verified. Will go ahead and start her sodium bicarb as soon as we them verified. In regards to antibiotic therapy, will go ahead and put her on azithromycin for atypicals and Rocephin, again for concerns for developing pneumonia. Will try to avoid any additional steroids if possible. Will closely monitor and if needed to administer appropriate dosing. Until we can transition her back to outpatient management will continue to monitor and treat as needed. #[id number] [facility]
[2019-01-28] MEDS: cefTRIAXone SODIUM 1 GM in SODIUM CHL 0.9% 50ML MIN-BAG+ 50 ML IVPB SCH (22:36)
[2019-01-28] MEDS ORDERED: AZITHROMYCIN IV 500 MG in SODIUM CHLORIDE 0.9% 250ML 250 ML IVPB SCH (23:00)
[2019-01-29 05:47] VITALS: BP 129/78; TEMP 97.1
[2019-01-29] MEDS ORDERED: metFORMIN HCL 500 MG TAB PO SCH (07:30)
[2019-01-29] MEDS: IPRATROPIUM/ALBUTEROL 3 ML VIAL INH SCH ×2 (08:04→11:50)
[2019-01-29] MEDS ORDERED: REMOVE OLD PATCH TOP SCH (09:00)
--- NOTE | 2019-01-29 09:33 | PN ---
SUPERVISING PHYSICIAN: Aikl Lopez MD DATE: 01/28/19 SUBJECTIVE: The patient is doing a little better in regards to her breathing. Her shortness of breath is not quite as severe. She is still having a headache which is located on the front part of her head. Her potassium is still elevated, but she is not showing any adverse effects and EKG remains unchanged. OBJECTIVE: VITAL SIGNS: Temperature 98.2. Pulse 76. Blood pressure 146/66. Respirations 16. Saturation 97% on room air. I&Os show negative balance of 1075 with 1700 in, 2475 out. Weight 116.1 kg. GENERAL: The patient is resting comfortably. She does appear generally unwell, but is in no acute distress. CHEST: Lung sounds are much improved today, just very faint rhonchi heard bilaterally and diminished towards the bases. HEART: Regular rate and rhythm. ABDOMEN: Obese, but soft and nontender. Positive bowel sounds. NEUROLOGIC: Alert and oriented times three. LABORATORY: White count is low 1,900, but no longer has any bands. Left shift is resolving. Platelet count is down to 59,000. Hemoglobin and hematocrit stable at 12.5 and 37.7. Blood gas analysis this morning showed pH 7.32 with pCO2 42, pO2 80, bicarb 20, saturation 95% on 2 liters nasal cannula. Repeat potassium this morning was 6 with carbon dioxide 19, anion gap 20. After continued fluids, potassium was down to 5.4, sodium normalized at 136, carbon dioxide still low at 19, anion gap normalized, BUN down to 133. Blood sugars are a little bit better controlled between 175 and 224. RADIOLOGY: Abdominopelvic CT without contrast per radiologic interpretation showed splenomegaly stable from August of 2018. Findings are nonspecific, but considering subtle nodular liver contour may be related to underlying hepatici cirrhosis. No acute abnormality in the chest, abdomen or pelvis to explain the patient's symptoms. CT of the chest without contrast showed no acute abnormalities in the chest noted per radiologic interpretation. ASSESSMENT: 1. Acute kidney injury with hyperkalemia, uncertain etiology, but probably due to underlying metabolic acidosis with hyperglycemia with no evidence of diabetic ketoacidosis with the patient having chronic metabolic acidosis and followed by linter drier operator, Dr. Burkett, in the past with EKG not showing any acute T- wave changes. 2. Asthma with acute exacerbation with questionable developing community acquired pneumonia versus healthcare acquired in a patient with a neutropenic presentation with no other obvious signs of infection. 3. Diabetes mellitus, type 2, on both oral and insulin therapy with a chronic metabolic acidosis complicated by steroid administration initially on admission. 4. History of atrial flutter with the patient showing a normal sinus rhythm. 5. History of chronic rheumatoid arthritis and osteoarthritis. 6. Hypertension. 7. History of pudms-gxk-dqta amputation on the right due to chronic methicillin resistant Staphylococcus aureus infection. 8. Thrombocytopenia with neutropenia, uncertain etiology. PLAN: We will continue antibiotic coverage. Given her neutropenia and concerns for possible developing pneumonia, at this point we will leave her on azithromycin and Rocephin as she seems to be doing okay and she remains afebrile. I will try some morphine to see if we can get her relief from her headache. It seems this is a chronic issue. We will continue with IV fluids and give her 2 liters of fluid. We will follow this up with maintenance fluid with half normal saline at 80 an hour. We will follow BNPs closely and repeat in the morning. I have started her back on oral sodium bicarb with baking soda as previous. She is on aggressive pulmonary hygiene. She remains on DVT prophylaxis on SCDs due to her thrombocytopenia. I anticipate at least another 24 to 48 hours hospitalization so we can stabilize her labs. Until the patient can transition to outpatient management, we will continue to monitor and treat as needed. #[id number] [facility]
[2019-01-29] MEDS: INSULIN LISPRO 100 UNITS/ML PEN SUBCU SCH ×4 (13:13→13:20)
[2019-01-29] MEDS: LACTOBACILLUS 1 TAB PO SCH (13:14)
[2019-01-29] MEDS: NICOTINE PATCH 14 MG TD SCH (13:14)
[2019-01-29] MEDS: INSULIN DEGLUDEC 48 UNIT SC SCH (13:14)
[2019-01-29] MEDS: SITagliptin 50 MG TAB PO SCH (13:14)
[2019-01-29] MEDS: FUROSEMIDE 40 MG TAB PO SCH (13:15)
[2019-01-29] MEDS: PREGABALIN 100 MG CAP PO SCH (13:15)
[2019-01-29] MEDS: METOPROLOL TARTRATE 50 MG TAB PO SCH (13:15)
[2019-01-29] MEDS: SODIUM BICARBONATE PO SCH (13:16)
[2019-01-29] MEDS: amLODIPine BESYLATE 5 MG TAB PO SCH (13:16)
[2019-01-29] MEDS: NYSTATIN POWDER 15GM BTTL TOP SCH (13:18)
[2019-01-29] MEDS: SERTRALINE HCL 50 MG TAB PO SCH (13:18)
[2019-01-29] MEDS: OLMESARTAN MEDOXOMIL 40 MG PO SCH (13:18)
[2019-01-29] MEDS: ALLOPURINOL 100 MG TAB PO SCH (13:19)
--- NOTE | 2019-01-29 14:03 | DS ---
SUPERVISING PHYSICIAN: Akil Lopez MD ADMISSION DIAGNOSIS: 1. Acute kidney injury with hyperkalemia. 2. Metabolic acidosis. 3. Asthma with acute exacerbation. 4. Diabetes mellitus, type 2. 5. History of atrial flutter with normal sinus rhythm on admission. 6. History of chronic rheumatoid arthritis and osteoarthritis. 7. Hypertension. 8. History of fugpp-sff-pyed amputation on the right. 9. Thrombocytopenia with neutropenia DISCHARGE DIAGNOSIS: 1. Acute kidney injury with hyperkalemia. 2. Metabolic acidosis. 3. Asthma with acute exacerbation. 4. Diabetes mellitus, type 2. 5. History of atrial flutter with normal sinus rhythm on admission. 6. History of chronic rheumatoid arthritis and osteoarthritis. 7. Hypertension. 8. History of rjkwk-iss-vczk amputation on the right. 9. Thrombocytopenia with neutropenia HISTORY OF PRESENT ILLNESS: Ms. Boyd is a 58 year-old female who presented to the Emergency Room. She resides at [facility]. She had some wheezing and coughing, and was sent from her primary care physician's office. She also had a headache on admission. In the ER, she had a low white count with some bands. She also had acute kidney injury with hyperkalemia. Potassium was 6.0. She was given IV fluids and was admitted to the hospital. Initially in the Emergency Room, she was having some wheezing, but was given 125 mg of Solu- Medrol. She improved after that one dose and therefore was not started on any more. Since that time, her wheezing has resolved. Her labs stepwise improved as well. Today, potassium was 5.1. Creatinine is still a little bit elevated at 1.37, however, she does have some chronic renal insufficiency and has seen Dr. Burkett in the past. She does have also some pancytopenia, unclear on the etiology of that at this time, but she does not appear to be septic and this appears to be probably a chronic finding. Today, she has no complaints. Therefore, she will be discharged back to [facility]. I resumed her home medications and added sodium bicarbonate tablets as I do not see this on her home medication list. She will need to followup with her primary care physician next week and labs will need to be repeated. She did have a CT scan of the abdomen and pelvis as well as chest CT. The abdominal CT showed splenomegaly which was unchanged from August with findings consistent with hepatitis. She also had a CT scan of the brain in the Emergency Room which showed no acute intracranial process. #[id number] [facility]
[2019-01-29 14:23] VITALS: O2SAT 97
== END 2019-01-29 13:26 ==
LOC: ER 17:02 → MS 21:47
PROVIDERS: ADMIT Nurse Practitioner Family; ATTEND Nurse Practitioner
DX: N17.9 Acute kidney failure, unspecified (principal); E87.5 Hyperkalemia; E87.2 Acidosis; J45.901 Unspecified asthma with (acute) exacerbation; E11.65 Type 2 diabetes mellitus with hyperglycemia; M06.9 Rheumatoid arthritis, unspecified; M19.90 Unspecified osteoarthritis, unspecified site; D69.6 Thrombocytopenia, unspecified; D70.9 Neutropenia, unspecified; R51 Headache; I12.9 Hypertensive chronic kidney disease with stage 1 through stage 4 chronic kidney disease, or unspecified chronic kidney disease; E11.22 Type 2 diabetes mellitus with diabetic chronic kidney disease; N18.9 Chronic kidney disease, unspecified; M81.0 Age-related osteoporosis without current pathological fracture; R16.1 Splenomegaly, not elsewhere classified; Z79.4 Long term (current) use of insulin; Z79.899 Other long term (current) drug therapy; Z88.8 Allergy status to other drugs, medicaments and biological substances; Z89.611 Acquired absence of right leg above knee; Z86.79 Personal history of other diseases of the circulatory system; Z86.14 Personal history of Methicillin resistant Staphylococcus aureus infection; Z90.49 Acquired absence of other specified parts of digestive tract; Z87.891 Personal history of nicotine dependence; Z82.49 Family history of ischemic heart disease and other diseases of the circulatory system; Z82.5 Family history of asthma and other chronic lower respiratory diseases; Z80.41 Family history of malignant neoplasm of ovary; Z80.8 Family history of malignant neoplasm of other organs or systems
CPT/HCPCS: 96361 ×2; 96366; 96367; 96365; 96375 ×2; 96376; 96372; J0696 ×2; Q0163 ×2; J2930; J2270; J2405; J7799; J7030 ×4; J7050 ×4; J0456 ×2; J7620 ×7; J1815; 82009; 80048 ×2; 80053 ×2; 82948 ×8; 87880; 87804; 36415 ×3; 81001; 85025 ×3; 87070; 84484; 83880; 36416 ×7; 71046; 74018; 70450; 71250; 74176; 94640 ×7; 94760 ×4; 82803; 36600; 82805; 99406; 99285; 93005 ×2; G0378

== ENCOUNTER 2019-03-25 11:36 | Inpatient (IN) | payer MEDICARE, MEDICAID ==
--- NOTE | 2019-03-25 11:40 | HP ---
SUPERVISING PHYSICIAN: Akil Lopez M.D. CHIEF COMPLAINT: Cellulitis of the left lower leg. HISTORY OF PRESENT ILLNESS: This is a 58 year-old female patient that has a longstanding history of cellulitis of the lower extremities. In fact, she had a right mgkod-lfp-fmug amputation in the past due to her multiple episodes of cellulitis with multidrug resistant organisms. About 6 weeks ago she saw her primary care physician and was treated with Bactrim. After a couple of weeks her cellulitis did not improve and she came back to the clinic. She was given Rocephin antibiotic treatment as well as clindamycin treatment. She was seen in the office today and her cellulitis had not improved. She has had a low-grade fever as well as some sores on her toes with swelling and burning. Due to her failed outpatient treatment I was called for hospital admission and she was directly admitted to the hospital. Once she was admitted her vital signs showed temperature 98.5, heart rate 76, blood pressure 134/79, respiratory rate 16, O2 saturation 94% on room air. Laboratory was done and her CBC was basically within normal limits although her ESR was 45. Chemistry showed sodium 132, potassium 5.2, chloride 95, BUN 24, creatinine 1.57. She does have a chronic kidney disease and her baseline creatinine is about 1.2. She does see Dr. Burkett in [place]. Her CRP was also elevated at 2. The patient was started on vancomycin as well as Zosyn. She was in stable condition. PAST MEDICAL HISTORY: 1. Asthma. 2. History of atrial flutter. 3. Hypertension. 4. Osteoarthritis. 5. Rheumatoid arthritis. 6. Osteoporosis. 7. Multiple Methicillin resistant Staphylococcus aureus/other multidrug resistant infections of the lower extremities. 8. Diabetes mellitus type 2 on insulin and oral therapy that is poorly controlled. 9. Chronic renal insufficiency. PAST SURGICAL HISTORY: 1. Lyjss-dyz-wekj amputation in 2018. 2. Tonsillectomy. 3. Cholecystectomy. 4. section times 2. 5. Bilateral tubal ligation. 6. Multiple toe amputations on her left foot due to diabetic complications. HOME MEDICATIONS: Per the EMR and awaiting verification. ALLERGIES: TRAZODONE. FAMILY HISTORY: Positive for hypertension and chronic obstructive pulmonary disease. SOCIAL HISTORY: She lives at [facility]. She smokes about a half a pack of cigarettes daily. She denies any ETOH or illicit drug use. She is and has two children. REVIEW OF SYSTEMS: GENERAL: Positive for subjective fever as well as some mild chills. Negative for weight changes. HEENT: Negative for sinus symptoms, ear pain, vision changes or sore throat. RESPIRATORY: Negative for wheezing, coughing or shortness of breath. CARDIAC: Negative for chest pain, palpitations or tachycardia. GASTROINTESTINAL: Negative for nausea, vomiting, diarrhea or constipation. INTEGUMENT: As per History of Present Illness. NEUROLOGIC: Negative for headache, dizziness or seizures. PSYCHIATRIC: Negative for anxiety, depression or sleep disturbances. PHYSICAL EXAMINATION: VITAL SIGNS: Temperature 98.5, heart rate 74, blood pressure 132/74, respiratory rate 16, O2 saturation 94% on room air. GENERAL: This is a 58 year-old female patient who is lying in her hospital bed. She is in no acute distress. HEENT: Normocephalic, atraumatic. Pupils are equal and reactive. Oropharynx is clear. She has poor dentition. NECK: Supple without mass. RESPIRATORY: Essentially clear to auscultation bilaterally. CARDIOVASCULAR: Regular rate and rhythm. GASTROINTESTINAL: Abdomen is soft, nondistended, nontender. Bowel sounds are positive. EXTREMITIES: She has a right bybvq-bce-dpun amputation. Her left lower extremity is edematous up to just below the left knee. There are multiple cracks and open areas on her foot as well as between her toes. There is some drainage from several places. It is tender to palpation. NEUROLOGIC: Awake, alert and oriented times three. Cranial nerves II-XII are grossly intact as tested. LABORATORY: Labs and films are as per the History of Present Illness. ASSESSMENT: 1. Cellulitis of the left lower extremity failed outpatient treatment on 3 different antibiotics with an elevated ESR of 45 and a CRP of 2. 2. History of chronic cellulitis to her lower extremities with Methicillin resistant Staphylococcus aureus as well as other multidrug resistant organisms. 3. History of right fevov-qlf-tiij amputation secondary to #2. 4. Diabetes mellitus type 2 poorly controlled. 5. Asthma with frequent exacerbations. She is a chronic smoker. 6. History of atrial flutter. 7. History of chronic rheumatoid arthritis as well as osteoarthritis. 8. Hypertension. PLAN: We will admit the patient to the hospital. I have ordered labs for in the morning as well as I will culture her blood as well as her wound and I will start her on vancomycin and Zosyn. Will change antibiotics as cultures become available. We may need to contact Dr. Rankin, Infectious Diseases physician, for recommendations as to length of treatment. I may need to do an MRI in the next day or 2 to make sure she does not have any osteomyelitis to that left foot. I will restart her home medications when they are verified. I will put her on her routine diabetic medications as well as her sliding scale insulin protocol. She will need some fluids overnight hopefully that will correct her kidney function and I may need to change her Zosyn to another antibiotic. Will watch her kidney function closely. I have encouraged good pulmonary hygiene. She will have p.r.n. and scheduled nebulizer treatments. Will continue to monitor closely and follow as needed. #[id number] [facility]
[2019-03-25] MEDS: HYDROmorphone HCL INJ 2 MG/ML VIAL IV PRN ×3 (14:35→22:42)
[2019-03-25] MEDS ORDERED: GLUCAGON INJ 1 MG VIAL SUBCU PRN (14:37)
[2019-03-25] MEDS ORDERED: DEXTROSE 50% 25 GM/50 ML SYG IV PRN (14:37)
[2019-03-25] MEDS ORDERED: ONDANSETRON INJ 4 MG/2 ML VIAL IV PRN (14:38)
[2019-03-25] MEDS ORDERED: cloNIDine HCL 0.1 MG TAB PO PRN (14:47)
[2019-03-25] MEDS: IV SET AND CAP CHANGE INJ INJ SCH (14:52)
[2019-03-25] MEDS ORDERED: ALBUTEROL SULFATE 2.5 MG/3 ML VIAL NEB PRN (14:54)
[2019-03-25] MEDS ORDERED: VANCOMYCIN PER PHARMACY INJ SCH (15:00)
[2019-03-25] MEDS ORDERED: PIPERACILLIN/TAZOBACTAM 3.375 GM VIAL IVPB ONE ×3 (15:48→21:55)
[2019-03-25] MEDS ORDERED: SODIUM CHLORIDE 0.9% 100ML 100 ML IVPB ONE ×3 (15:49→21:55)
[2019-03-25] MEDS: PREGABALIN 100 MG CAP PO SCH ×2 (15:56→20:42)
[2019-03-25] MEDS: PIPERACILLIN/TAZOBACTAM 3.375 GM in SODIUM CHLORIDE 0.9% 100ML 100 ML IVPB SCH ×2 (15:56→20:54)
[2019-03-25] MEDS: ALBUTEROL SULFATE 2.5 MG/3 ML VIAL NEB SCH (16:20)
[2019-03-25] MEDS ORDERED: VANCOMYCIN HCL INJ 1,000 MG VIAL IVPB ONE (16:21)
[2019-03-25] MEDS ORDERED: VANCOMYCIN HCL INJ 500 MG VIAL ONE (16:21)
[2019-03-25] MEDS ORDERED: SODIUM CHLORIDE 0.9% 500ML 500 ML ONE (16:21)
[2019-03-25] MEDS: VANCOMYCIN HCL INJ 1,000 MG, VANCOMYCIN HCL INJ 500 MG in SODIUM CHLORIDE 0.9% 500ML 50... IVPB SCH (17:00)
[2019-03-25] MEDS: INSULIN LISPRO 100 UNITS/ML PEN SUBCU SCH ×2 (17:00→20:52)
[2019-03-25] MEDS: tiZANidine 4 MG TAB PO PRN (18:13)
[2019-03-25] MEDS: LACTOBACILLUS 1 TAB PO SCH (20:41)
[2019-03-25] MEDS: diphenhydrAMINE HCL 25 MG CAP PO SCH (20:42)
[2019-03-25] MEDS: SODIUM CHLORIDE 0.9% (FLUSH) 10 ML SYG IV SCH (20:43)
[2019-03-25] MEDS: NYSTATIN POWDER 15GM BTTL TOP SCH (20:43)
[2019-03-25] MEDS: SODIUM BICARBONATE 650 MG TAB PO SCH (20:44)
[2019-03-25] MEDS: ENOXAPARIN SODIUM 40 MG/0.4 ML SYG SUBCU SCH (20:44)
[2019-03-25] MEDS: METOPROLOL TARTRATE 50 MG TAB PO SCH (20:50)
[2019-03-25] MEDS ORDERED: LACTOBACILLUS PO SCH (21:00)
[2019-03-25] MEDS ORDERED: MELATONIN 40 MG PO SCH (21:00)
[2019-03-26] MEDS: PIPERACILLIN/TAZOBACTAM 3.375 GM in SODIUM CHLORIDE 0.9% 100ML 100 ML IVPB SCH ×4 (03:17→21:15)
[2019-03-26] MEDS: HYDROmorphone HCL INJ 2 MG/ML VIAL IV PRN ×4 (03:56→21:22)
[2019-03-26] MEDS: tiZANidine 4 MG TAB PO PRN ×3 (03:56→20:38)
[2019-03-26] MEDS: ALBUTEROL SULFATE 2.5 MG/3 ML VIAL NEB SCH ×6 (06:18→20:18)
[2019-03-26] MEDS ORDERED: PIPERACILLIN/TAZOBACTAM 3.375 GM VIAL IVPB ONE ×3 (07:26→19:09)
[2019-03-26] MEDS ORDERED: SODIUM CHLORIDE 0.9% 100ML 100 ML IVPB ONE ×3 (07:26→19:10)
[2019-03-26] MEDS: INSULIN LISPRO 100 UNITS/ML PEN SUBCU SCH ×4 (08:06→21:25)
[2019-03-26] MEDS: SODIUM BICARBONATE 650 MG TAB PO SCH ×2 (08:14→20:38)
[2019-03-26] MEDS: amLODIPine BESYLATE 5 MG TAB PO SCH (08:14)
[2019-03-26] MEDS: SERTRALINE HCL 50 MG TAB PO SCH (08:14)
[2019-03-26] MEDS: SITagliptin 50 MG TAB PO SCH (08:15)
[2019-03-26] MEDS: LACTOBACILLUS 1 TAB PO SCH ×2 (08:15→20:37)
[2019-03-26] MEDS: NYSTATIN POWDER 15GM BTTL TOP SCH ×2 (08:15→20:38)
[2019-03-26] MEDS: INSULIN DEGLUDEC 48 UNIT SC SCH (08:15)
[2019-03-26] MEDS: OLMESARTAN MEDOXOMIL 40 MG PO SCH (08:15)
[2019-03-26] MEDS: metFORMIN HCL 500 MG TAB PO SCH (08:15)
[2019-03-26] MEDS: FUROSEMIDE 40 MG TAB PO SCH (08:15)
[2019-03-26] MEDS: ALLOPURINOL 100 MG TAB PO SCH (08:15)
[2019-03-26] MEDS: PREGABALIN 100 MG CAP PO SCH ×3 (08:15→20:38)
[2019-03-26] MEDS: SODIUM CHLORIDE 0.9% (FLUSH) 10 ML SYG IV SCH ×2 (08:16→20:41)
[2019-03-26] MEDS: METOPROLOL TARTRATE 50 MG TAB PO SCH ×2 (08:17→20:38)
[2019-03-26] MEDS ORDERED: AMLODIPINE BESYLATE 2.5 MG PO SCH (09:00)
--- NOTE | 2019-03-26 09:11 | RAD ---
EXAM: Chest,1 View CLINICAL INDICATION: Admit, no other history provided COMPARISON: 01/27/2019 FINDINGS: A single view of the chest was obtained. The heart size is normal. The pulmonary vascularity is unremarkable. The lungs are clear. There is no consolidation, infiltrate, pleural effusion, or pneumothorax. IMPRESSION: No evidence of active pulmonary disease. Electronically signed by: Gio Long MD 03/26/2019 9:09 AM [facility]
--- NOTE | 2019-03-26 09:12 | RAD ---
EXAM: Foot,Left 3 Views CLINICAL INDICATION: Left foot cellulitis COMPARISON: 03/29/2018 FINDINGS: 3 views of the left foot reveal surgical absence of the third toe as well as the distal phalanx and part of the proximal phalanx of the first toe. Surgical changes are stable from prior. No active bony destructive process is identified. There is no fracture or dislocation. IMPRESSION: Stable postsurgical changes involving the left foot compared to 03/29/2018. Electronically signed by: Gio Long MD 03/26/2019 9:10 AM [facility]
[2019-03-26] MEDS ORDERED: SODIUM CHLORIDE 0.9% 1000ML 1,000 ML IVS ONE (14:16)
[2019-03-26] MEDS: HYDROcodone 10MG/APAP 325MG 1 EA TAB PO PRN (16:02)
[2019-03-26] MEDS ORDERED: VANCOMYCIN HCL INJ 500 MG VIAL ONE (16:39)
[2019-03-26] MEDS ORDERED: SODIUM CHLORIDE 0.9% 500ML 500 ML ONE (16:39)
[2019-03-26] MEDS ORDERED: VANCOMYCIN HCL INJ 1,000 MG VIAL IVPB ONE (16:40)
--- NOTE | 2019-03-26 16:44 | PN ---
DATE: 03/26/19 SUPERVISING PHYSICIAN: Akil Lopez M.D. SUBJECTIVE: The patient is lying in bed. She has no complaints other than her legs still hurt quite a bit, but she feels like she can go to her routine pain medication. Otherwise no complaints of shortness of breath, nausea or vomiting. OBJECTIVE: VITAL SIGNS: Temperature 98.6, heart rate 89, blood pressure 163/81, respiratory rate 16, O2 saturation 97% on room air. RESPIRATORY: Essentially clear to auscultation bilaterally. CARDIAC: Regular rate and rhythm. GASTROINTESTINAL: Abdomen is soft, nondistended, non-tender. Bowel sounds are positive. EXTREMITIES: She has a right mmlws-tnd-vpjq amputation. Her left lower leg is still edematous and erythematous but it is improved since yesterday. The erythema extends just to the distal portion of her foot. There is no drainage noted today. It continues to be tender to palpation. Pedal pulse is palpable at +1 to 2. NEUROLOGIC: She is awake, alert and oriented times three. LABORATORY: CBC is basically within normal limits. Blood sugars have run between 158 and 224. Sodium is slightly low at 132 with potassium 5.2, carbon dioxide 100, BUN 27, creatinine 1.72, alkaline phosphatase is 137. Urinalysis shows 100 of urine protein, trace of urine leukocyte esterase and 3 to 5 urine WBCs. Preliminary blood cultures are negative to date. Wound culture is pending. Chest x-ray shows no evidence of active pulmonary disease. Foot x-ray shows stable post surgical changes involving the left foot compared to 03/418 and no active bony destructive process is identified. All other labs and films have been reviewed via the EMR. ASSESSMENT: 1. Cellulitis of the left lower extremity failed outpatient treatment on 3 different antibiotics with an elevated ESR of 45 and a CRP of 2. 2. History of chronic cellulitis to her lower extremities with Methicillin resistant Staphylococcus aureus as well as other multidrug resistant organisms. 3. History of right cftat-ztf-ofye amputation secondary to #2. 4. Diabetes mellitus type 2 poorly controlled. 5. Asthma with frequent exacerbations. She is a chronic smoker. 6. History of atrial flutter. 7. History of chronic rheumatoid arthritis as well as osteoarthritis. 8. Hypertension. PLAN: We will continue present supportive care. I will give her a judicious amount of fluid to help correct the creatinine. I will recheck her lab in the morning. She will continue on Zosyn and vancomycin. I will call Dr. Rankin, Infectious Diseases physician in [place], tomorrow to get her recommendations on her antibiotic treatment as well as her outpatient therapy as this patient has had a longstanding history of cellulitis of her lower extremities with multiple drug resistant organisms. Otherwise we will monitor her closely and follow as needed. #[id number] [facility]
[2019-03-26] MEDS: VANCOMYCIN HCL INJ 1,000 MG, VANCOMYCIN HCL INJ 500 MG in SODIUM CHLORIDE 0.9% 500ML 50... IVPB SCH (16:48)
[2019-03-26] MEDS: diphenhydrAMINE HCL 25 MG CAP PO SCH (20:37)
[2019-03-26] MEDS: ENOXAPARIN SODIUM 40 MG/0.4 ML SYG SUBCU SCH (20:38)
[2019-03-26] MEDS ORDERED: MELATONIN 3 MG TAB ONE (20:41)
[2019-03-26] MEDS: MELATONIN 3 MG TAB PO SCH (20:48)
[2019-03-27] MEDS: HYDROmorphone HCL INJ 2 MG/ML VIAL IV PRN (01:22)
[2019-03-27] MEDS ORDERED: PIPERACILLIN/TAZOBACTAM 3.375 GM VIAL IVPB ONE ×4 (02:19→19:04)
[2019-03-27] MEDS ORDERED: SODIUM CHLORIDE 0.9% 100ML 100 ML IVPB ONE ×4 (02:19→19:04)
[2019-03-27] MEDS: PIPERACILLIN/TAZOBACTAM 3.375 GM in SODIUM CHLORIDE 0.9% 100ML 100 ML IVPB SCH ×4 (02:45→20:47)
[2019-03-27] MEDS: INSULIN LISPRO 100 UNITS/ML PEN SUBCU SCH ×4 (07:55→21:03)
[2019-03-27] MEDS: metFORMIN HCL 500 MG TAB PO SCH (08:00)
[2019-03-27] MEDS: amLODIPine BESYLATE 5 MG TAB PO SCH (08:01)
[2019-03-27] MEDS: FUROSEMIDE 40 MG TAB PO SCH (08:01)
[2019-03-27] MEDS: METOPROLOL TARTRATE 50 MG TAB PO SCH ×2 (08:01→20:36)
[2019-03-27] MEDS: SITagliptin 50 MG TAB PO SCH (08:01)
[2019-03-27] MEDS: PREGABALIN 100 MG CAP PO SCH ×3 (08:01→20:37)
[2019-03-27] MEDS: LACTOBACILLUS 1 TAB PO SCH ×2 (08:01→20:33)
[2019-03-27] MEDS: SODIUM BICARBONATE 650 MG TAB PO SCH ×2 (08:02→20:39)
[2019-03-27] MEDS: ALLOPURINOL 100 MG TAB PO SCH (08:02)
[2019-03-27] MEDS: HYDROcodone 10MG/APAP 325MG 1 EA TAB PO PRN ×3 (08:02→21:31)
[2019-03-27] MEDS: SERTRALINE HCL 50 MG TAB PO SCH (08:02)
[2019-03-27] MEDS: INSULIN DEGLUDEC 48 UNIT SC SCH (08:04)
[2019-03-27] MEDS: OLMESARTAN MEDOXOMIL 40 MG PO SCH (08:04)
[2019-03-27] MEDS: NYSTATIN POWDER 15GM BTTL TOP SCH ×2 (08:04→20:39)
[2019-03-27] MEDS: ALBUTEROL SULFATE 2.5 MG/3 ML VIAL NEB SCH ×4 (08:27→20:34)
[2019-03-27] MEDS: SODIUM CHLORIDE 0.9% (FLUSH) 10 ML SYG IV SCH ×2 (09:09→20:40)
[2019-03-27] MEDS: tiZANidine 4 MG TAB PO PRN ×2 (11:52→21:31)
[2019-03-27] MEDS ORDERED: VANCOMYCIN HCL INJ 500 MG VIAL ONE (13:14)
[2019-03-27] MEDS ORDERED: SODIUM CHLORIDE 0.9% 500ML 500 ML ONE (13:14)
[2019-03-27] MEDS ORDERED: VANCOMYCIN HCL INJ 1,000 MG VIAL IVPB ONE (13:15)
[2019-03-27] MEDS: SODIUM CHLORIDE 0.9% (FLUSH) 10 ML SYG IV PRN ×2 (15:28→16:36)
--- NOTE | 2019-03-27 15:35 | US ---
EXAM DESCRIPTION: Venous,Lower Extremity LT CLINICAL HISTORY: 58 years, Female, leg pain COMPARISON: None TECHNIQUE: Duplex venous ultrasound of the left lower extremity was performed. FINDINGS: The left lower extremity veins are fully compressible and demonstrate physiologic responses to augmentation maneuvers. Color Doppler images show no intraluminal filling defect. IMPRESSION: Negative exam. No deep or superficial venous thrombosis in the left lower extremity. Electronically signed by: Amando Fontenot MD 03/27/2019 3:33 PM [employer] [facility]
[2019-03-27] MEDS ORDERED: SODIUM BICARBONATE VIAL 75 MEQ in DEXTROSE 5% 1000ML 1,000 ML IVS ONE (16:17)
[2019-03-27] MEDS: VANCOMYCIN HCL INJ 1,000 MG, VANCOMYCIN HCL INJ 500 MG in SODIUM CHLORIDE 0.9% 500ML 50... IVPB SCH (16:36)
[2019-03-27] MEDS ORDERED: DEXTROSE 5% 1000ML 1,000 ML IVS ONE (17:32)
[2019-03-27] MEDS ORDERED: SODIUM BICARBONATE VIAL 50 MEQ/50 ML VIAL ONE (17:33)
[2019-03-27] MEDS: diphenhydrAMINE HCL 25 MG CAP PO SCH (20:33)
[2019-03-27] MEDS: ENOXAPARIN SODIUM 40 MG/0.4 ML SYG SUBCU SCH (20:37)
[2019-03-27] MEDS: MELATONIN 3 MG TAB PO SCH (20:37)
--- NOTE | 2019-03-27 20:58 | PN ---
DATE: 03/27/19 SUPERVISING PHYSICIAN: Akil Lopez M.D. SUBJECTIVE: The patient is lying in bed. She is asleep. Earlier today she had complained of some left lower calf pain and was concerned that she had a deep venous thrombosis. I explained that she most likely did not as she is on anticoagulant therapy. Her lower extremity was not warm to touch or erythematous, but I did order a venous Doppler study on her left lower extremity. I also discussed with her the possibility of discharging her from the Acute Care setting and continue with her IV antibiotic therapy in Swing Bed. She agreed to that plan of care. She denies any chest pain, shortness of breath, nausea or vomiting. OBJECTIVE: VITAL SIGNS: Temperature 98.2, heart rate 71, blood pressure 149/53, respiratory rate 20, O2 saturation 98% on room air. RESPIRATORY: Essentially clear to auscultation bilaterally. CARDIAC: Regular rate and rhythm. GASTROINTESTINAL: Abdomen is soft, nondistended, non-tender. Bowel sounds are positive. EXTREMITIES: Left lower extremity is mildly erythematous with some mild edema. It has improved since yesterday. The erythema is mostly on her toes. There is no drainage or fluctuance noted. Pulse is palpable at +1. NEUROLOGIC: She is awake, alert and oriented times three. LABORATORY: CBC is unremarkable. Blood sugars have run between 158 and 253. Sodium 132, potassium 5.7, chloride 102, carbon dioxide 18, BUN 28, creatinine 1.71. Preliminary blood cultures show no growth after 48 hours. Wound culture is pending. Doppler venous ultrasound of her left lower extremity is negative for deep venous thrombosis. All other labs and films have been reviewed via the EMR. ASSESSMENT: 1. Cellulitis of the left lower extremity failed outpatient treatment on 3 different antibiotics with an elevated ESR of 45 and a CRP of 2. 2. History of chronic cellulitis to her lower extremities with Methicillin resistant Staphylococcus aureus as well as other multidrug resistant organisms. 3. History of right kprpp-lji-kqha amputation secondary to #2. 4. Diabetes mellitus type 2 poorly controlled. 5. Asthma with frequent exacerbations. She is a chronic smoker. 6. History of atrial flutter. 7. History of chronic rheumatoid arthritis as well as osteoarthritis. 8. Hypertension. 9. Chronic renal insufficiency with a slightly worsening creatinine. Today it was 1.71. Baseline is about 1.5. PLAN: We will continue present supportive care. I will give her 1 liter of D5W with 1-1/2 amps of bicarb and hopefully her kidney function will improve. I will check her labs in the morning. Initially I had attempted to call Dr. Rankin about recommendations on her antibiotic therapy and she was unavailable at this time. I spoke with her primary care physician, Dr. Luci Arriola, and we both felt that the patient should be continued on her present antibiotics. Hopefully we can discharge her from the Acute Care setting tomorrow and readmit her to Swing Bed for antibiotic therapy tomorrow or the next day. Maybe next week we can contact Dr. Rankin to see her prescriptions for the length of treatment as well as antibiotic selection. Hopefully her wound cultures will come back by next week. Will continue to monitor closely and follow as needed. #[id number] [facility]
[2019-03-28] MEDS ORDERED: PIPERACILLIN/TAZOBACTAM 3.375 GM VIAL IVPB ONE ×4 (02:45→21:15)
[2019-03-28] MEDS ORDERED: SODIUM CHLORIDE 0.9% 100ML 100 ML IVPB ONE ×4 (02:45→21:16)
[2019-03-28] MEDS: PIPERACILLIN/TAZOBACTAM 3.375 GM in SODIUM CHLORIDE 0.9% 100ML 100 ML IVPB SCH ×4 (03:00→21:54)
[2019-03-28] MEDS: tiZANidine 4 MG TAB PO PRN (03:51)
[2019-03-28] MEDS: HYDROcodone 10MG/APAP 325MG 1 EA TAB PO PRN ×2 (03:51→11:24)
[2019-03-28] MEDS: INSULIN LISPRO 100 UNITS/ML PEN SUBCU SCH ×4 (07:16→21:45)
[2019-03-28] MEDS: ALBUTEROL SULFATE 2.5 MG/3 ML VIAL NEB SCH ×4 (07:24→20:42)
[2019-03-28] MEDS: LACTOBACILLUS 1 TAB PO SCH ×2 (08:29→21:51)
[2019-03-28] MEDS: HYDROmorphone HCL INJ 2 MG/ML VIAL IV PRN ×3 (08:29→20:55)
[2019-03-28] MEDS: FUROSEMIDE 40 MG TAB PO SCH (08:30)
[2019-03-28] MEDS: SODIUM BICARBONATE 650 MG TAB PO SCH ×2 (08:30→21:52)
[2019-03-28] MEDS: NYSTATIN POWDER 15GM BTTL TOP SCH ×2 (08:30→21:53)
[2019-03-28] MEDS: metFORMIN HCL 500 MG TAB PO SCH (08:30)
[2019-03-28] MEDS: SITagliptin 50 MG TAB PO SCH (08:30)
[2019-03-28] MEDS: PREGABALIN 100 MG CAP PO SCH ×3 (08:30→21:53)
[2019-03-28] MEDS: amLODIPine BESYLATE 5 MG TAB PO SCH (08:31)
[2019-03-28] MEDS: METOPROLOL TARTRATE 50 MG TAB PO SCH ×2 (08:31→21:56)
[2019-03-28] MEDS: ALLOPURINOL 100 MG TAB PO SCH (08:31)
[2019-03-28] MEDS: SERTRALINE HCL 50 MG TAB PO SCH (08:32)
[2019-03-28] MEDS: SODIUM CHLORIDE 0.9% (FLUSH) 10 ML SYG IV SCH ×2 (08:34→21:52)
[2019-03-28] MEDS: OLMESARTAN MEDOXOMIL 40 MG PO SCH (08:38)
[2019-03-28] MEDS: INSULIN DEGLUDEC 48 UNIT SC SCH (08:38)
[2019-03-28] MEDS ORDERED: ALUM & MAG HYDROX-SIMETHICONE 30 ML UD PO ONE (10:31)
[2019-03-28] MEDS: IV SET AND CAP CHANGE INJ INJ SCH (15:23)
[2019-03-28] MEDS ORDERED: SODIUM CHLORIDE 0.9% 250ML 250 ML ONE (16:39)
[2019-03-28] MEDS ORDERED: VANCOMYCIN HCL INJ 1,000 MG VIAL IVPB ONE (16:42)
[2019-03-28] MEDS: VANCOMYCIN HCL INJ 1,000 MG in SODIUM CHLORIDE 0.9% 250ML 250 ML IVPB SCH (16:46)
[2019-03-28] MEDS: diphenhydrAMINE HCL 25 MG CAP PO SCH (21:51)
[2019-03-28] MEDS: ENOXAPARIN SODIUM 40 MG/0.4 ML SYG SUBCU SCH (21:53)
[2019-03-28] MEDS ORDERED: CALCIUM CARBONATE (ANTACID) 500 MG CHEWABLE TAB PO PRN (23:06)
[2019-03-28] MEDS: MELATONIN 3 MG TAB PO SCH (23:09)
[2019-03-29] MEDS: tiZANidine 4 MG TAB PO PRN ×3 (01:17→18:03)
[2019-03-29] MEDS: HYDROcodone 10MG/APAP 325MG 1 EA TAB PO PRN ×3 (01:17→18:03)
[2019-03-29] MEDS ORDERED: SODIUM CHLORIDE 0.9% 100ML 100 ML IVPB ONE ×2 (03:28→07:45)
[2019-03-29] MEDS ORDERED: PIPERACILLIN/TAZOBACTAM 3.375 GM VIAL IVPB ONE ×2 (03:28→07:44)
[2019-03-29] MEDS: PIPERACILLIN/TAZOBACTAM 3.375 GM in SODIUM CHLORIDE 0.9% 100ML 100 ML IVPB SCH ×2 (03:31→08:10)
[2019-03-29] MEDS: SERTRALINE HCL 50 MG TAB PO SCH (08:02)
[2019-03-29] MEDS: SODIUM BICARBONATE 650 MG TAB PO SCH ×2 (08:02→21:17)
[2019-03-29] MEDS: INSULIN LISPRO 100 UNITS/ML PEN SUBCU SCH ×4 (08:02→21:14)
[2019-03-29] MEDS: FUROSEMIDE 40 MG TAB PO SCH (08:03)
[2019-03-29] MEDS: ALLOPURINOL 100 MG TAB PO SCH (08:03)
[2019-03-29] MEDS: metFORMIN HCL 500 MG TAB PO SCH (08:03)
[2019-03-29] MEDS: PREGABALIN 100 MG CAP PO SCH ×3 (08:03→21:17)
[2019-03-29] MEDS: amLODIPine BESYLATE 5 MG TAB PO SCH (08:03)
[2019-03-29] MEDS: METOPROLOL TARTRATE 50 MG TAB PO SCH ×2 (08:03→21:17)
[2019-03-29] MEDS: INSULIN DEGLUDEC 48 UNIT SC SCH (08:04)
[2019-03-29] MEDS: SITagliptin 50 MG TAB PO SCH (08:04)
[2019-03-29] MEDS: NYSTATIN POWDER 15GM BTTL TOP SCH ×2 (08:09→21:18)
[2019-03-29] MEDS: SODIUM CHLORIDE 0.9% (FLUSH) 10 ML SYG IV SCH ×2 (08:09→21:18)
[2019-03-29] MEDS: LACTOBACILLUS 1 TAB PO SCH ×2 (08:09→21:17)
[2019-03-29] MEDS: OLMESARTAN MEDOXOMIL 40 MG PO SCH (08:09)
[2019-03-29] MEDS: ALBUTEROL SULFATE 2.5 MG/3 ML VIAL NEB SCH ×4 (08:25→20:42)
--- NOTE | 2019-03-29 10:35 | PN ---
DATE: 03/28/19 SUPERVISING PHYSICIAN: Akil Lopez M.D. SUBJECTIVE: The patient is resting in bed. She has not had any complaints other than she continues to say her lower leg is sore but DVT study was not showing any thrombus. We are still waiting on final culture results so we can target antibiotic therapy as appropriate. She is not complaining of any chest pain, nausea, vomiting or diarrhea. OBJECTIVE: VITAL SIGNS: Temperature 97.1, heart rate 76, blood pressure 138/80, respiratory rate 15, oxygen saturation 95% on room air. GENERAL: The patient is resting comfortably and is in no acute distress. CHEST: Lungs are clear to auscultation bilaterally. . CARDIAC: Regular rate and rhythm. GASTROINTESTINAL: Abdomen is soft, non-tender, positive bowel sounds. . EXTREMITIES: No edema or erythema today. There is still an area underneath her toes that is a little red and inflamed, otherwise no noted fluctuation or drainage. She does note it is still painful to palpation and cannot put much weight on the foot. NEUROLOGIC: She is alert and oriented times three. LABORATORY: Sed rate 58. Chemistries show sodium 132, BUN 24, creatinine 1.6 which is increased from yesterday at 1.7. C-reactive protein is high at 2.3. Blood sugars are ranging between 179 and 262. RADIOLOGY: Lower extremity Doppler ultrasound of the left leg shows negative exam. No superficial thrombus in the left lower extremity per radiology interpretation. ASSESSMENT: 1. Cellulitis of the left lower extremity failed outpatient treatment on 3 different antibiotics with an elevated ESR of 59, awaiting final culture results. 2. History of chronic cellulitis to her lower extremities with Methicillin resistant Staphylococcus aureus as well as other multidrug resistant organisms. 3. History of right azfcg-yna-hwdk amputation secondary to #2. 4. Diabetes mellitus type 2 poorly controlled. 5. Asthma with frequent exacerbations. She is a chronic smoker. 6. History of atrial flutter. 7. History of chronic rheumatoid arthritis as well as osteoarthritis. 8. Hypertension. 9. Chronic renal insufficiency with a slightly worsening creatinine. Today it was 1.71. Baseline is about 1.5. PLAN: We will continue with current plan of care. Kidney function has improved. Will await final cultures results which hopefully will be out tomorrow. Once those are available, we can target antibiotic therapy as appropriate. Until we can transition him to outpatient management, either needing IV antibiotics or p.o. medication, we will continue to monitor and treat as needed #[id number] [facility]
[2019-03-29] MEDS: HYDROmorphone HCL INJ 2 MG/ML VIAL IV PRN ×2 (12:39→21:59)
[2019-03-29] MEDS ORDERED: VANCOMYCIN HCL INJ 1,000 MG VIAL IVPB ONE (15:20)
[2019-03-29] MEDS ORDERED: AMPICILLIN & SULBACTAM SODIUM 3 GM VIAL ONE ×3 (15:20→21:44)
[2019-03-29] MEDS ORDERED: SODIUM CHLORIDE 0.9% 250ML 250 ML ONE (15:20)
[2019-03-29] MEDS ORDERED: SODIUM CHL 0.9% 100ML MINI-BAG 100 ML IVPB ONE ×3 (15:20→21:44)
[2019-03-29] MEDS: VANCOMYCIN HCL INJ 1,000 MG in SODIUM CHLORIDE 0.9% 250ML 250 ML IVPB SCH (15:28)
--- NOTE | 2019-03-29 16:20 | PN ---
DATE: 03/29/19 SUPERVISING PHYSICIAN: Akil Lopez M.D. SUBJECTIVE: The patient notes today she just doesn't feel well. No specific complaint other than she has some general malaise. Preliminary culture showing a gram negative shoaib but do not have a full culture result back. She has not had any fevers, no chest pain or nausea or vomiting. OBJECTIVE: VITAL SIGNS: Temperature 97.5, heart rate 76, blood pressure 116/75, respiratory rate 20, oxygen saturation 95% on room air. GENERAL: The patient is resting comfortably and appears to be in no acute distress. She does look a little tired. CHEST: Lung sounds are clear to auscultation. CARDIAC: Regular rate and rhythm. GASTROINTESTINAL: Abdomen is soft, non-tender, positive bowel sounds. . EXTREMITIES: Left leg shows no obvious edema or erythema. Underneath her toes, pinky and second toe, shows a small area of redness but no obvious drainage. She does continue to complain of severe pain with any weightbearing. NEUROLOGIC: She is alert and oriented times three. LABORATORY: Her CBC is normal so only laboratory available to is a BMP which does show improvement in her sodium up to 133, potassium up just a little bit to 5.2. Anion gap normal. BUN 24, creatinine 1.74, blood sugars are ranging between 183 and 244. Her sodium actually corrects with the 223 blood sugar to 136. MICROBIOLOGY: Blood cultures are negative at 4 days. Wound culture of the left foot preliminary shows a gram negative shoaib, identification and sensitivity pending. ASSESSMENT: 1. Cellulitis of the left lower extremity failed outpatient treatment on 3 different antibiotics with an elevated ESR of 59 with preliminary culture showing a gram negative shoaib with patient currently on Zosyn and vancomycin. 2. History of chronic cellulitis to her lower extremities with Methicillin resistant Staphylococcus aureus as well as other multidrug resistant organisms. 3. History of right izhbl-yvu-flyi amputation secondary to #2. 4. Diabetes mellitus type 2 poorly controlled. 5. Asthma with frequent exacerbations. She is a chronic smoker. 6. History of atrial flutter. 7. History of chronic rheumatoid arthritis as well as osteoarthritis. 8. Hypertension. 9. Chronic renal insufficiency with a slightly worsening creatinine. Today it was 1.71. Baseline is about 1.5. Slight worsening with creatinine showing a slight elevation possibly due to the antibiotic combination that included vancomycin and Zosyn. PLAN: Given her kidney function is showing a little be of a decline today, I think this is probably a result of the combination of the Zosyn and vancomycin, therefore I will change her to Unasyn. Will continue vancomycin coverage. Will await final cultures results which did show gram negative shoaib. She does remain on DVT prophylaxis. She is on sliding scale per insulin protocol. Will plan to repeat a BNP in the morning. I will encourage fluids today as she may be a little dehydrated. Hopefully, we will have a full culture result back tomorrow which will allow us to therapy antibiotic therapy as appropriate. Until we will continue to monitor and treat as needed [id number]
[2019-03-29] MEDS: AMPICILLIN & SULBACTAM SODIUM 3 GM in SODIUM CHL 0.9% 100ML MINI-BAG 100 ML IVPB SCH ×2 (17:47→23:21)
[2019-03-29] MEDS: ENOXAPARIN SODIUM 40 MG/0.4 ML SYG SUBCU SCH (21:17)
[2019-03-29] MEDS: diphenhydrAMINE HCL 25 MG CAP PO SCH (21:17)
[2019-03-29] MEDS: MELATONIN 3 MG TAB PO SCH (21:58)
[2019-03-30] MEDS: tiZANidine 4 MG TAB PO PRN ×2 (01:19→09:46)
[2019-03-30] MEDS: HYDROcodone 10MG/APAP 325MG 1 EA TAB PO PRN ×2 (01:19→09:46)
[2019-03-30] MEDS: AMPICILLIN & SULBACTAM SODIUM 3 GM in SODIUM CHL 0.9% 100ML MINI-BAG 100 ML IVPB SCH ×2 (05:41→11:25)
[2019-03-30] MEDS: ALBUTEROL SULFATE 2.5 MG/3 ML VIAL NEB SCH ×2 (07:54→13:06)
[2019-03-30] MEDS ORDERED: SODIUM CHL 0.9% 100ML MINI-BAG 100 ML IVPB ONE (08:19)
[2019-03-30] MEDS ORDERED: AMPICILLIN & SULBACTAM SODIUM 3 GM VIAL ONE (08:20)
[2019-03-30] MEDS: INSULIN LISPRO 100 UNITS/ML PEN SUBCU SCH ×2 (09:24→11:26)
[2019-03-30] MEDS: INSULIN DEGLUDEC 48 UNIT SC SCH (09:26)
[2019-03-30] MEDS: SERTRALINE HCL 50 MG TAB PO SCH (09:34)
[2019-03-30] MEDS: SITagliptin 50 MG TAB PO SCH (09:34)
[2019-03-30] MEDS: FUROSEMIDE 40 MG TAB PO SCH (09:35)
[2019-03-30] MEDS: amLODIPine BESYLATE 5 MG TAB PO SCH (09:36)
[2019-03-30] MEDS: ALLOPURINOL 100 MG TAB PO SCH (09:36)
[2019-03-30] MEDS: metFORMIN HCL 500 MG TAB PO SCH (09:36)
[2019-03-30] MEDS: PREGABALIN 100 MG CAP PO SCH ×2 (09:36→13:13)
[2019-03-30] MEDS: LACTOBACILLUS 1 TAB PO SCH (09:37)
[2019-03-30] MEDS: SODIUM BICARBONATE 650 MG TAB PO SCH (09:46)
[2019-03-30] MEDS: NYSTATIN POWDER 15GM BTTL TOP SCH (11:24)
[2019-03-30] MEDS: METOPROLOL TARTRATE 50 MG TAB PO SCH (11:24)
[2019-03-30] MEDS: OLMESARTAN MEDOXOMIL 40 MG PO SCH (11:24)
[2019-03-30] MEDS: SODIUM CHLORIDE 0.9% (FLUSH) 10 ML SYG IV SCH (11:24)
[2019-03-30] MEDS: HYDROmorphone HCL INJ 2 MG/ML VIAL IV PRN (13:13)
[2019-03-30 14:21] VITALS: O2SAT 98
[2019-03-30] MEDS ORDERED: SODIUM CHLORIDE 0.9% 250ML 250 ML ONE (15:12)
[2019-03-30] MEDS ORDERED: VANCOMYCIN HCL INJ 1,000 MG VIAL IVPB ONE (15:13)
[2019-03-30] MEDS: VANCOMYCIN HCL INJ 1,000 MG in SODIUM CHLORIDE 0.9% 250ML 250 ML IVPB SCH (15:29)
[2019-03-30 18:26] VITALS: BP 136/88; TEMP 98.4
--- NOTE | 2019-03-31 10:19 | DS ---
SUPERVISING PHYSICIAN: Akil Lopez MD ADMISSION DIAGNOSES: 1. Cellulitis of the left lower extremity failed outpatient treatment on 3 different antibiotics with an elevated ESR of 45 and a CRP of 2. 2. History of chronic cellulitis to her lower extremities with Methicillin resistant Staphylococcus aureus as well as other multidrug resistant organisms. 3. History of right aieii-gsy-iksf amputation secondary to #2. 4. Diabetes mellitus type 2 poorly controlled. 5. Asthma with frequent exacerbations. She is a chronic smoker. 6. History of atrial flutter. 7. History of chronic rheumatoid arthritis as well as osteoarthritis. 8. Hypertension. DISCHARGE DIAGNOSIS: 1. Cellulitis of the left lower extremity failed outpatient treatment with elevated ESR and C-reactive protein treated with Zosyn, Unasyn and vancomycin, showing good response to treatment with final culture results still pending at discharge. Preliminary showing a gram negative shoaib with patient transitioned to oral medications to include Augmentin and Doxycycline. 2. History of chronic cellulitis to her lower extremities with Methicillin resistant Staphylococcus aureus as well as other multidrug resistant organisms with no identification of MRSA on current admission. 3. History of right nkida-prp-pmns amputation secondary to #2. 4. Diabetes mellitus type 2 poorly controlled. 5. Asthma with frequent exacerbations. She is a chronic smoker. 6. History of atrial flutter. 7. History of chronic rheumatoid arthritis as well as osteoarthritis. 8. Hypertension. 9. Chronic renal insufficiency with a slightly worsening creatinine. Today it was 1.71. Baseline is about 1.5. Slight worsening with creatinine showing a slight elevation possibly due to the antibiotic combination that included vancomycin and Zosyn. REASON FOR HOSPITALIZATION: : This is a 58 year-old female patient that has a longstanding history of cellulitis of the lower extremities. In fact, she had a right uvhot-xoj-vpya amputation in the past due to her multiple episodes of cellulitis with multidrug resistant organisms. About 6 weeks ago she saw her primary care physician and was treated with Bactrim. After a couple of weeks her cellulitis did not improve and she came back to the clinic. She was given Rocephin antibiotic treatment as well as clindamycin treatment. She was seen in the office today and her cellulitis had not improved. She has had a low-grade fever as well as some sores on her toes with swelling and burning. Due to her failed outpatient treatment I was called for hospital admission and she was directly admitted to the hospital. Once she was admitted her vital signs showed temperature 98.5, heart rate 76, blood pressure 134/79, respiratory rate 16, O2 saturation 94% on room air. Laboratory was done and her CBC was basically within normal limits although her ESR was 45. Chemistry showed sodium 132, potassium 5.2, chloride 95, BUN 24, creatinine 1.57. She does have a chronic kidney disease and her baseline creatinine is about 1.2. She does see Dr. Burkett in [place]. Her CRP was also elevated at 2. The patient was started on vancomycin as well as Zosyn. She was admitted in stable condition. LABORATORY STUDIES: White count admission was 5,800, discharge was 4,900, differential showed to be within normal limits. Hemoglobin and hematocrit showing to be stable at 13.3 and 40.2 prior to discharge. She did have an elevated ESR initially on admission to 45, prior to discharge was 58. Chemistries at discharge showed a sodium of 133, potassium 5.2, creatinine was up to 1.74, blood sugar were elevated between 179 and 273. Magnesium was normal at 1.8. Liver functions all showed to be within normal limits except for elevated alkaline phosphatase at 147. C-reactive protein was elevated at 2.0. Urinalysis showed 100 of protein, trace leukoesterase. Microscopic reveals 1 RBC, 3 to 5 WBCs, 5 to 10 epithelials, rare bacteria. She had one vancomycin trough on March 28 that was elevated at 17.6. MICROBIOLOGY: Blood cultures were negative at 5 days. Wound culture preliminary on discharge was showing a gram negative shoaib. RADIOLOGY: Chest x-ray on admission showed no evidence of active pulmonary disease. X-ray of left foot showed stable postsurgical changes in the left foot compared. Lower extremity Doppler studies showed negative exam, no superficial wilder thrombus in the left lower leg. She also had an additional foot x-ray of the left that showed stable postsurgical changes involving the left foot compared to March 29, 2018 that showed no active bony destruction process identified. HOSPITAL COURSE: Ms. Boyd was admitted for cellulitis of the left lower leg with a wound to her small toe. She was started on treatment with antibiotics with Zosyn and vancomycin. Cultures were obtained. She continued on treatment. She was eventually changed from Zosyn, vancomycin, to Unasyn and vancomycin given that she was having some elevation of her creatinine levels. She did show good treatment to therapy with the cellulitis resolving completely prior to discharge. The wound on her foot was showing to be without any drainage, fluctuation or any signs of overt infection and showed good response initial antibiotic treatment. She was stable and on oral antibiotics with coverage for gram positive as well as gram negative and it was felt that she had progressed clinically well enough and was stable to discharge on oral medication for continued coverage, back to the long-term facility awaiting final culture results that were to be called to Dr. Arriola's office. After discussion with Dr. Arriola, her primary care physician, on date of discharge, he was in agreement to have the patient discharged back to [facility] and he would followup with her culture results as they were made available. PLAN: Ms. Boyd was discharged back to [facility]. All treatments including wound management were to continue as previous as per directions and plan of care. They were to resume her home medications as directed on her medical administration record. Diet: Diabetic diet as tolerated. Activities: As per physical therapy. Additional medications prescribed: 1. Augmentin 875 twice a day for 14 days. 2. Doxycycline 100 mg twice a day for 14 days with followup to be provided through Dr. Arriola's office for continuation if needed of antibiotic coverage. Condition on Discharge: Stable and improved. Disposition: Patient discharged back to [facility] via ground transport. #[id number] MTDD
[2019-04-01] MEDS ORDERED: EXENATIDE SC SCH (09:00)
== END 2019-03-30 16:35 | DRG 603 ==
LOC: MS 11:36
PROVIDERS: ADMIT Nurse Practitioner Acute Care; ATTEND Nurse Practitioner Family
DX: L03.116 Cellulitis of left lower limb (principal); I48.92 Unspecified atrial flutter; E11.22 Type 2 diabetes mellitus with diabetic chronic kidney disease; J45.909 Unspecified asthma, uncomplicated; M06.9 Rheumatoid arthritis, unspecified; M19.90 Unspecified osteoarthritis, unspecified site; I12.9 Hypertensive chronic kidney disease with stage 1 through stage 4 chronic kidney disease, or unspecified chronic kidney disease; F17.210 Nicotine dependence, cigarettes, uncomplicated; N18.9 Chronic kidney disease, unspecified; M81.0 Age-related osteoporosis without current pathological fracture; Z86.14 Personal history of Methicillin resistant Staphylococcus aureus infection; Z89.611 Acquired absence of right leg above knee; Z89.422 Acquired absence of other left toe(s); Z88.8 Allergy status to other drugs, medicaments and biological substances

== ENCOUNTER → 2019-04-07 | Outpatient (CLI) | payer MEDICARE, MEDICAID | LOC: GMAM 17:41 | PROVIDERS: ATTEND Family Medicine | DX: M06.9 Rheumatoid arthritis, unspecified (principal); I10 Essential (primary) hypertension ==

== ENCOUNTER → 2019-04-14 | Outpatient (CLI) | payer MEDICARE, MEDICAID | LOC: GMAM 16:59 | PROVIDERS: ATTEND Family Medicine | DX: R79.82 Elevated C-reactive protein (CRP) (principal); R74.8 Abnormal levels of other serum enzymes ==

== ENCOUNTER → 2019-04-18 | Outpatient (CLI) | payer MEDICARE, MEDICAID | LOC: LAB.O 14:09 | PROVIDERS: ATTEND Family Medicine | DX: T36.95XA Adverse effect of unspecified systemic antibiotic, initial encounter (principal) ==

== ENCOUNTER → 2019-04-19 | Outpatient (CLI) | payer MEDICARE, MEDICAID | LOC: GOCC 09:07 | PROVIDERS: ATTEND Family Medicine | DX: T36.95XA Adverse effect of unspecified systemic antibiotic, initial encounter (principal) ==

== ENCOUNTER 2019-05-07 18:16 | Emergency (ER) | payer MEDICARE, MEDICAID ==
[2019-05-07 18:29] VITALS: TEMP 98.4
--- NOTE | 2019-05-07 18:43 | ED.PDOC ---
History of Present Illness - General Chief Complaint: Respiratory Problem Time Seen by Provider: 05/07/19 18:34 - History of Present Illness Comments: 58 yo F PMH COPD HTN DM Right AKA presents to ED from [facility] facility c/o fever cough congestion sore throat body aches x 3 days. Admits fever chills and post tussive emesis with nausea and diarrhea no blood denies chest pain admits sob denies diaphoresis no change in diet rest bowel admits dysuria admits smoking denies drinking has PMD for follow up Luci Arriola admits FH DM denies FH HTN no other c/o today. Allergies/Adverse Reactions: Allergies Trazodone Allergy (Verified 06/01/18 11:30) orange juice Allergy (Mild, Uncoded 01/27/19 22:22) Other geographical tongue Home Medications: Ambulatory Orders Furosemide 40 mg PO DAILY 02/15/16 Insulin Degludec [Tresiba Flextouch] 48 unit SC DAILY 08/29/17 Pregabalin [Lyrica] 100 mg PO TID 08/29/17 Melatonin 40 mg PO BEDTIME 11/20/17 Exenatide [Bydureon] 0.65 ml SC WKLY 03/29/18 HYDROcodone 10MG/APAP 325MG [[place] 10/325] 1 tablet PO Q6H PRN 03/29/18 Lactobacillus [Acidophilus] 1 tab PO BID 03/29/18 Metoprolol Tartrate 50 mg PO BID 03/29/18 Ranitidine HCl 150 mg PO BID 03/29/18 diphenhydrAMINE HCL [Benadryl] 25 mg PO BEDTIME 03/29/18 Albuterol Sulfate [Proair Hfa] 2 inh IN Q6H PRN 05/03/18 Nystatin Powder 1 gm TOP BID 05/03/18 Sertraline HCl [Zoloft] 150 mg PO DAILY 05/10/18 Menthol (Topical Analgesic) [Biofreeze] 4 % EX PRN PRN 06/01/18 tiZANidine [Zanaflex] 4 mg PO Q6HR PRN 07/03/18 Allopurinol [Zyloprim] 100 mg PO DAILY 01/27/19 Amlodipine Besylate 2.5 mg PO DAILY 01/27/19 Ascorbic Acid [Vitamin C 500 mg] 1 tab PO DAILY 01/27/19 Clonidine HCl 0.1 mg PO PRN PRN 01/27/19 Crisaborole [Eucrisa] 2 % TOP PRN PRN 01/27/19 Insulin Lispro [Humalog] 100 units SUBCU ACHS 01/27/19 Loperamide Cap [Imodium Cap] 2 mg PO PRN PRN 01/27/19 Olmesartan Medoxomil 40 mg PO DAILY 01/27/19 SITagliptin [Januvia] 50 mg PO DAILY 01/27/19 metFORMIN HCL [Glucophage] 500 mg PO DAILY 01/27/19 Sodium Bicarbonate Tab 650 mg PO BID 30 Days #60 tab 01/29/19 Amoxicillin & Pot Clavulanate [Augmentin Tab] 875 mg PO BID 14 Days tab 03/30/19 Doxycycline Hyclate [Vibramycin] 100 mg PO Q12H 14 Days cap 03/30/19 Acetaminophen [Tylenol] 650 mg PO Q6H PRN #30 tab 05/07/19 Amoxicillin & Pot Clavulanate [Augmentin Tab] 875 mg PO BID 10 Days #20 tab 05/07/19 Ibuprofen 600 mg PO Q6H PRN #20 tab 05/07/19 Prednisone 40 mg PO DAILY 5 Days #10 tab 05/07/19 Review of Systems - Review of Systems Constitutional: States: see HPI EENTM: States: see HPI Respiratory: States: see HPI Cardiology: States: see HPI Gastrointestinal/Abdominal: States: see HPI Genitourinary: States: see HPI Musculoskeletal: States: see HPI Skin: States: see HPI Neurological: States: see HPI Endocrine: States: see HPI Hematologic/Lymphatic: States: see HPI All other Systems: Reviewed and Negative Past Medical History (General) - Patient Medical History Hx Seizures: No Hx Stroke: No Hx Dementia: No Hx Asthma: Yes Hx of COPD: Yes Hx Cardiac Disorders: No Hx Congestive Heart Failure: No Hx Pacemaker: No Hx Hypertension: Yes Hx Thyroid Disease: No Hx Diabetes: Yes Hx Gastroesophageal Reflux: No Hx Renal Disease: No Hx Cancer: No Hx of HIV: No Hx Hepatitis C: No Hx MRSA: Yes MRSA Source:: Wound Surgical History: cholecystectomy, tonsillectomy, other - Vaccination History Hx Tetanus, Diphtheria Vaccination: Yes Hx Influenza Vaccination: Yes - 2019 Hx Pneumococcal Vaccination: Yes - Social History Hx Tobacco Use: Yes Hx Chewing Tobacco Use: No Hx Alcohol Use: No Hx Substance Use: Yes Hx Substance Use Treatment: Yes Hx Depression: No Hx Physical Abuse: No Hx Emotional Abuse: No Hx Suspected Abuse: No - Activities of Daily Living Detention/Assisted Living (if applicable):: [facility] - Female History Patient : No Family Medical History - Family History Father Family History: Unknown Living Status: Age at (years of age): 59 Cause of : cancer Hx Family Stroke: Yes - sister Hx Family Cancer: Yes - mesothelioma-dad;ovaries-mom Mother Living Status: Age at (years of age): 60 Cause of : MVA Hx Family Diabetes: Yes Hx Family Cancer: Yes - ovarian Physical Exam - Physical Exam General Appearance: No apparent distress Eye Exam: bilateral normal ENT Exam: normal ENT inspection, pharyngeal erythema Neck: non-tender, full range of motion Respiratory: no respiratory distress, rhonchi, wheezing Cardiovascular/Chest: regular rate, rhythm Gastrointestinal/Abdominal: non tender, soft Extremity: normal range of motion, non-tender Neurologic: no motor/sensory deficits Skin Exam: normal color Progress - Progress Progress: 05/07/19 18:44 A/P-Fever Pharyngitis Cough URI Myalgia COPD-iv bolus flu strep ekg cxr ua cbc cmp lipase trop lactate reassess tylenol decadron duonebs 05/07/19 19:41 Laboratory Tests 05/07/19 05/07/19 05/07/19 18:18 18:18 18:18 WBC 5.5 RBC 4.49 Hgb 14.0 Hct 40.6 MCV 90.5 MCH 31.2 H MCHC 34.5 RDW 15.7 H Plt Count 72 L MPV 9.2 Absolute Neuts (auto) 4.10 Absolute Lymphs (auto) 0.90 L Absolute Monos (auto) 0.40 Absolute Eos (auto) 0.10 Absolute Basos (auto) 0.00 Neutrophils % 73.7 Lymphocytes % 16.0 L Monocytes % 7.2 Eosinophils % 2.2 Basophils % 0.9 PT 10.1 INR 1.02 PTT (SP) 26.9 Sodium 134 L Potassium 5.3 H Chloride 107 Carbon Dioxide 18 L Anion Gap 14.3 BUN 38 H Creatinine 1.33 H BUN/Creatinine Ratio 28.6 H Random Glucose 233 H Serum Osmolality 284.8 Lactic Acid Calcium 9.4 Total Bilirubin 0.5 AST 47 H ALT 36 Alkaline Phosphatase 175 H Troponin I Serum Total Protein 8.4 H Albumin 4.1 Globulin 4.3 H Albumin/Globulin Ratio 1.0 L Lipase 39 Urine Color Urine Appearance Urine pH Ur Specific [place] Urine Protein Urine Glucose (UA) Urine Ketones Urine Blood Urine Nitrite Urine Bilirubin Urine Urobilinogen Ur Leukocyte Esterase Urine RBC Urine WBC Ur Epithelial Cells Urine Bacteria Group A Strep Rapid 05/07/19 05/07/19 05/07/19 18:50 18:55 18:55 WBC RBC Hgb Hct MCV MCH MCHC RDW Plt Count MPV Absolute Neuts (auto) Absolute Lymphs (auto) Absolute Monos (auto) Absolute Eos (auto) Absolute Basos (auto) Neutrophils % Lymphocytes % Monocytes % Eosinophils % Basophils % PT INR PTT (SP) Sodium Potassium Chloride Carbon Dioxide Anion Gap BUN Creatinine BUN/Creatinine Ratio Random Glucose Serum Osmolality Lactic Acid 1.3 Calcium Total Bilirubin AST ALT Alkaline Phosphatase Troponin I < 0.02 Serum Total Protein Albumin Globulin Albumin/Globulin Ratio Lipase Urine Color Urine Appearance Urine pH Ur Specific [place] Urine Protein Urine Glucose (UA) Urine Ketones Urine Blood Urine Nitrite Urine Bilirubin Urine Urobilinogen Ur Leukocyte Esterase Urine RBC Urine WBC Ur Epithelial Cells Urine Bacteria Group A Strep Rapid Negative 05/07/19 19:05 WBC RBC Hgb Hct MCV MCH MCHC RDW Plt Count MPV Absolute Neuts (auto) Absolute Lymphs (auto) Absolute Monos (auto) Absolute Eos (auto) Absolute Basos (auto) Neutrophils % Lymphocytes % Monocytes % Eosinophils % Basophils % PT INR PTT (SP) Sodium Potassium Chloride Carbon Dioxide Anion Gap BUN Creatinine BUN/Creatinine Ratio Random Glucose Serum Osmolality Lactic Acid Calcium Total Bilirubin AST ALT Alkaline Phosphatase Troponin I Serum Total Protein Albumin Globulin Albumin/Globulin Ratio Lipase Urine Color Yellow Urine Appearance Clear Urine pH 6.0 Ur Specific [place] 1.025 Urine Protein >=300 H Urine Glucose (UA) 250 H Urine Ketones Negative Urine Blood Small H Urine Nitrite Negative Urine Bilirubin Negative Urine Urobilinogen 0.2 Ur Leukocyte Esterase Negative Urine RBC 3-5 H Urine WBC 1-3 Ur Epithelial Cells 3-5 Urine Bacteria Rare Group A Strep Rapid 05/07/19 19:47 EXAM DESCRIPTION: XR Chest,1 View CLINICAL HISTORY: cough COPD TECHNIQUE: Single frontal view of the chest is submitted. COMPARISON: 03/26/2019 FINDINGS: Heart: The cardiothoracic silhouette is mildly enlarged, stable, in part accentuated by portable technique. Lungs: No focal consolidation. Mediastinum: Unremarkable Pleura: No appreciable effusion. No pneumothorax. Bones: Multilevel spondylosis. No acute fracture. Upper abdomen: Unremarkable IMPRESSION: No acute disease. Electronically signed by: Lakisha Martin MD 05/07/2019 7:05 PM [facility] Will d/c follow up pcp tylenol ibuprofen prednisone augmentin for the pharyngitis Departure - Departure Clinical Impression: Cough, Myalgia Fever Qualifiers: Fever type: unspecified Qualified Code(s): R50.9 - Fever, unspecified COPD (chronic obstructive pulmonary disease) Qualifiers: COPD type: unspecified COPD Qualified Code(s): J44.9 - Chronic obstructive pulmonary disease, unspecified HTN (hypertension) Qualifiers: Hypertension type: unspecified Qualified Code(s): I10 - Essential (primary) hypertension Pharyngitis Qualifiers: Pharyngitis/tonsillitis etiology: unspecified etiology Qualified Code(s): J02.9 - Acute pharyngitis, unspecified URI (upper respiratory infection) Qualifiers: URI type: unspecified URI Qualified Code(s): J06.9 - Acute upper respiratory infection, unspecified Time of Disposition: 19:57 Disposition: Discharge to Home or Self Care Condition: Good Departure Forms: ED Discharge - Pt. Copy, Patient Portal Self Enrollment Referrals: Marc Arriola MD [Primary Care Provider] - 1-2 Days Prescriptions: Acetaminophen [Tylenol] 650 mg PO Q6H PRN #30 tab PRN Reason: Pain Amoxicillin & Pot Clavulanate [Augmentin Tab] 875 mg PO BID 10 Days #20 tab Ibuprofen 600 mg PO Q6H PRN #20 tab PRN Reason: Pain Prednisone 40 mg PO DAILY 5 Days #10 tab Home Medications: Ambulatory Orders Furosemide 40 mg PO DAILY 02/15/16 Insulin Degludec [Tresiba Flextouch] 48 unit SC DAILY 08/29/17 Pregabalin [Lyrica] 100 mg PO TID 08/29/17 Melatonin 40 mg PO BEDTIME 11/20/17 Exenatide [Bydureon] 0.65 ml SC WKLY 03/29/18 HYDROcodone 10MG/APAP 325MG [[place] 10/325] 1 tablet PO Q6H PRN 03/29/18 Lactobacillus [Acidophilus] 1 tab PO BID 03/29/18 Metoprolol Tartrate 50 mg PO BID 03/29/18 Ranitidine HCl 150 mg PO BID 03/29/18 diphenhydrAMINE HCL [Benadryl] 25 mg PO BEDTIME 03/29/18 Albuterol Sulfate [Proair Hfa] 2 inh IN Q6H PRN 05/03/18 Nystatin Powder 1 gm TOP BID 05/03/18 Sertraline HCl [Zoloft] 150 mg PO DAILY 05/10/18 Menthol (Topical Analgesic) [Biofreeze] 4 % EX PRN PRN 06/01/18 tiZANidine [Zanaflex] 4 mg PO Q6HR PRN 07/03/18 Allopurinol [Zyloprim] 100 mg PO DAILY 01/27/19 Amlodipine Besylate 2.5 mg PO DAILY 01/27/19 Ascorbic Acid [Vitamin C 500 mg] 1 tab PO DAILY 01/27/19 Clonidine HCl 0.1 mg PO PRN PRN 01/27/19 Crisaborole [Eucrisa] 2 % TOP PRN PRN 01/27/19 Insulin Lispro [Humalog] 100 units SUBCU ACHS 01/27/19 Loperamide Cap [Imodium Cap] 2 mg PO PRN PRN 01/27/19 Olmesartan Medoxomil 40 mg PO DAILY 01/27/19 SITagliptin [Januvia] 50 mg PO DAILY 01/27/19 metFORMIN HCL [Glucophage] 500 mg PO DAILY 01/27/19 Sodium Bicarbonate Tab 650 mg PO BID 30 Days #60 tab 01/29/19 Amoxicillin & Pot Clavulanate [Augmentin Tab] 875 mg PO BID 14 Days tab 03/30/19 Doxycycline Hyclate [Vibramycin] 100 mg PO Q12H 14 Days cap 03/30/19 Acetaminophen [Tylenol] 650 mg PO Q6H PRN #30 tab 05/07/19 Amoxicillin & Pot Clavulanate [Augmentin Tab] 875 mg PO BID 10 Days #20 tab 05/07/19 Ibuprofen 600 mg PO Q6H PRN #20 tab 05/07/19 Prednisone 40 mg PO DAILY 5 Days #10 tab 05/07/19
[2019-05-07] MEDS: SODIUM CHLORIDE 0.9% 1000ML 1,000 ML IVS ONE (18:48)
[2019-05-07] MEDS: DEXAMETHASONE INJ 10 MG/ML VIAL IV ONE (18:49)
[2019-05-07] MEDS: ACETAMINOPHEN 500 MG TAB PO ONE (18:57)
--- NOTE | 2019-05-07 19:07 | RAD ---
EXAM DESCRIPTION: XR Chest,1 View CLINICAL HISTORY: cough COPD TECHNIQUE: Single frontal view of the chest is submitted. COMPARISON: 03/26/2019 FINDINGS: Heart: The cardiothoracic silhouette is mildly enlarged, stable, in part accentuated by portable technique. Lungs: No focal consolidation. Mediastinum: Unremarkable Pleura: No appreciable effusion. No pneumothorax. Bones: Multilevel spondylosis. No acute fracture. Upper abdomen: Unremarkable IMPRESSION: No acute disease. Electronically signed by: Lakisha Martin MD 05/07/2019 7:05 PM [facility]
[2019-05-07] MEDS: IPRATROPIUM/ALBUTEROL 3 ML VIAL NEB ONE (19:50)
[2019-05-07] MEDS: LABETALOL INJ 5 MG/ML VIAL IV ONE (19:50)
[2019-05-07 20:04] VITALS: BP 183/118; O2SAT 96
== END 2019-05-07 20:35 ==
LOC: ER 18:16
DX: J44.9 Chronic obstructive pulmonary disease, unspecified (principal); J02.9 Acute pharyngitis, unspecified; J06.9 Acute upper respiratory infection, unspecified; I10 Essential (primary) hypertension; E11.9 Type 2 diabetes mellitus without complications; R11.2 Nausea with vomiting, unspecified; R30.0 Dysuria; F17.200 Nicotine dependence, unspecified, uncomplicated; Z88.8 Allergy status to other drugs, medicaments and biological substances; Z79.4 Long term (current) use of insulin; Z79.899 Other long term (current) drug therapy
CPT/HCPCS: 36415; 71045; 80053; 81001; 83605; 83690; 84484; 85025; 85610; 85730; 87070; 87502; 87880; 93005; 94640; 94760; J1100; J7030; J7620

== ENCOUNTER 2019-06-03 | Emergency (ER) | payer MEDICARE, MEDICAID | END 2019-06-03 15:39 | DX: J10.1 Influenza due to other identified influenza virus with other respiratory manifestations (principal); J45.21 Mild intermittent asthma with (acute) exacerbation; R51 Headache; J44.9 Chronic obstructive pulmonary disease, unspecified; E66.01 Morbid (severe) obesity due to excess calories; E11.9 Type 2 diabetes mellitus without complications; I10 Essential (primary) hypertension; Z89.611 Acquired absence of right leg above knee; Z79.4 Long term (current) use of insulin; Z87.891 Personal history of nicotine dependence; Z68.41 Body mass index [BMI] 40.0-44.9, adult; Z79.899 Other long term (current) drug therapy; Z88.8 Allergy status to other drugs, medicaments and biological substances | CPT/HCPCS: 71045; 87502; 94640; J1030; J7620 ==

== ENCOUNTER → 2019-08-04 | Outpatient (CLI) | payer MEDICARE, MEDICAID | LOC: GOCC 17:12 | PROVIDERS: ATTEND Family Medicine | DX: R30.0 Dysuria (principal) ==

== ENCOUNTER 2019-08-14 05:43 | Day surgery (SDC) | payer MEDICARE, MEDICAID ==
--- NOTE | 2019-08-06 15:06 | RAD ---
EXAM DESCRIPTION: Chest,1 View CLINICAL HISTORY: preop for surgery COMPARISON: June 03, 2019 IMPRESSION: Single AP portable upright view of the chest shows mild enlargement of the cardiac silhouette without pulmonary vascular congestion. Lungs are normally aerated and clear. No obvious pleural effusion or pneumothorax is seen. Electronically signed by: Frederic Rodriguez MD 08/06/2019 3:04 PM CDT
[2019-08-14] MEDS ORDERED: LIDOCAINE 1% 10 ML VIAL INJ ONE (07:00)
[2019-08-14] MEDS ORDERED: MIDAZOLAM INJ 2 MG/2 ML VIAL ONE (07:00)
[2019-08-14] MEDS ORDERED: ONDANSETRON INJ 4 MG/2 ML VIAL ONE (07:00)
[2019-08-14] MEDS ORDERED: FAMOTIDINE 10 MG/ML ML IV ONE (07:00)
[2019-08-14] MEDS ORDERED: PROPOFOL 200 MG/20 ML VIAL IV ONE (07:00)
[2019-08-14] MEDS ORDERED: KETAMINE HCL 100 MG/ML VIAL ONE (07:00)
[2019-08-14] MEDS ORDERED: LACTATED RINGERS 1,000 ML IVS ONE (10:08)
[2019-08-14] MEDS ORDERED: BUPIVACAINE 0.5% W/EPI 30 ML VIAL INJ ONE (11:29)
--- NOTE | 2019-08-14 11:50 | OP ---
DATE OF PROCEDURE: 08/14/19 SURGEON: Akil Miller MD ANESTHESIA: General and local. FINDINGS: Subcutaneous deep fatty tumor to, but not invading the muscle. COMPLICATIONS: None. ESTIMATED BLOOD LOSS: None. CONDITION: Stable. SPECIMEN: Mass, approximately 7 cm. PLAN: Discharge. INDICATION: As stated. PROCEDURE: General anesthesia was induced. She was prepped and draped in sterile fashion. 10 cc of 0.5% Marcaine with epinephrine were used. Incision was made over the palpable lesion. Subcutaneous tissues were taken down. Underneath the deep subcutaneous fat was the cavity. This mass was shelled out from the surrounding tissues and removed in its entirety. Minimal hemostasis was necessary. This was going down to the back muscle, but not invading. Once hemostasis was confirmed, it was closed in 3 layers with absorbable suture, closing the space. Dressing was applied. She was awakened and taken to Recovery to be discharged. #[id number] cc: Marc Arriola MD MTD
[2019-08-14 13:48] VITALS: BP 118/72; TEMP 96.8; O2SAT 92
== END 2019-08-14 13:40 | disposition home or self-care (01) ==
LOC: AMB 05:43
PROVIDERS: ATTEND Surgery
DX: D17.1 Benign lipomatous neoplasm of skin and subcutaneous tissue of trunk (principal); I10 Essential (primary) hypertension; E11.9 Type 2 diabetes mellitus without complications; J45.909 Unspecified asthma, uncomplicated; F17.200 Nicotine dependence, unspecified, uncomplicated; F32.9 Major depressive disorder, single episode, unspecified; F41.9 Anxiety disorder, unspecified; J44.9 Chronic obstructive pulmonary disease, unspecified; Z79.899 Other long term (current) drug therapy; Z79.4 Long term (current) use of insulin
CPT/HCPCS: 00300; 21931; 36416; 71045; 82948; 88304; 93005; J2250; J2405; J3490; J7120

== ENCOUNTER → 2019-09-20 | Outpatient (CLI) | payer MEDICARE, MEDICAID | LOC: GOCC 17:10 | PROVIDERS: ATTEND Family Medicine | DX: J09.X2 Influenza due to identified novel influenza A virus with other respiratory manifestations (principal); R05 Cough; Z11.59 Encounter for screening for other viral diseases ==

== ENCOUNTER → 2019-12-12 | Outpatient (CLI) | payer MEDICARE, MEDICAID | LOC: GOCC 22:55 | PROVIDERS: ATTEND Family Medicine | DX: N39.0 Urinary tract infection, site not specified (principal) ==

== ENCOUNTER 2020-02-27 11:10 | Inpatient (IN) | payer MEDICARE, MEDICAID ==
[2020-02-27] MEDS ORDERED: SODIUM CHLORIDE 0.9% (FLUSH) 10 ML SYG IV PRN ×2 (13:00→20:38)
[2020-02-27] MEDS ORDERED: SODIUM CHLORIDE 0.9% 1000ML 1,000 ML IVS ONE (14:02)
[2020-02-27] MEDS ORDERED: SODIUM CHL 0.9% 50ML VIAL 12 ML, ALBUTEROL SULFATE NEBS 7.5 MG NEB ONE ×2 (15:07)
[2020-02-27] MEDS ORDERED: INSULIN, REG.(HUMAN) 100 U/ML VIAL IV ONE (15:07)
[2020-02-27] MEDS ORDERED: CALCIUM GLUCONATE INJ 1 GM/10 ML VIAL IV ONE (15:07)
[2020-02-27] MEDS ORDERED: DEXTROSE 50% 25 GM/50 ML SYG IV ONE (15:07)
--- NOTE | 2020-02-27 15:41 | ED.PDOC ---
History of Present Illness - General Chief Complaint: Skin/Abrasion/Tear Stated Complaint: lower extremity redness and swelling Time Seen by Provider: 02/27/20 12:44 Source: patient - History of Present Illness Initial Comments: 59-year-old female who was sent from [facility] by PCP for chief complaint of low platelets. Patient reports she was told that her recent blood work at the longterm showed her platelets were low and Dr. Arriola wanted her to get checked out. Her chief complaint however is nausea, vomiting, and diarrhea. She states illness began about 1 week ago. She reports approximately 6 episodes of watery diarrhea in the past 24 hours. She does report some nausea without emesis in the past 24 hours. Also having some mild intermittent left upper quadrant abdominal discomfort but none currently. She has not taken any medication for the symptoms. She also reports that she has had left lower extremity cellulitis for the past month and just completed 10 days of Keflex and Bactrim. Reports it is improving and has minimal pain currently. Denies any fevers, chills, chest pain, cough. Reports chronic dyspnea which is unchanged currently. She also states that she has some occasional pains to the posterior aspect of the right upper extremity amputation stump for the past month. Allergies/Adverse Reactions: Allergies Trazodone Allergy (Verified 02/27/20 12:15) orange juice Allergy (Mild, Uncoded 02/27/20 12:15) Other geographical tongue Home Medications: Ambulatory Orders Furosemide 40 mg PO DAILY 02/15/16 Pregabalin [Lyrica] 100 mg PO TID 08/29/17 Melatonin 40 mg PO BEDTIME 11/20/17 Exenatide [Bydureon] 0.65 ml SC WKLY 03/29/18 HYDROcodone 10MG/APAP 325MG [[place] 10/325] 1 tablet PO Q6H PRN 03/29/18 Metoprolol Tartrate 100 mg PO BID 03/29/18 Albuterol Sulfate [Proair Hfa] 2 inh IN Q4H PRN 05/03/18 Nystatin Powder 1 gm TOP BID PRN 05/03/18 Sertraline HCl [Zoloft] 150 mg PO DAILY 05/10/18 tiZANidine [Zanaflex] 4 mg PO Q6HR PRN 07/03/18 Allopurinol [Zyloprim] 100 mg PO DAILY 01/27/19 Amlodipine Besylate 5 mg PO DAILY 01/27/19 Clonidine HCl 0.1 mg PO PRN PRN 01/27/19 Insulin Lispro [Humalog] 100 units SUBCU ACHS 01/27/19 Loperamide Cap [Imodium Cap] 2 mg PO PRN PRN 01/27/19 Olmesartan Medoxomil 40 mg PO DAILY 01/27/19 metFORMIN HCL [Glucophage] 500 mg PO DAILY 01/27/19 Diclofenac Sodium (Actinic Ker [Diclofenac Sodium] 3 % TD BID 06/03/19 Albuterol Sulfate Nebs [Proventil Nebs] 1.25 mg INH Q4H 08/06/19 Amitriptyline HCl [Amitriptyline Hydrochlori] 25 mg PO BEDTIME 08/06/19 Fluticasone Furoate-Vilanterol [Breo Ellipta 200-25 Mcg/INH] 1 inh PO DAILY 08/06/19 Insulin Degludec [Tresiba Flextouch] 48 unit SC DAILY 08/06/19 Buspirone HCl [Buspirone Hydrochloride] 7.5 mg PO DAILY 08/14/19 Review of Systems - Review of Systems Review of Systems: 02/27/20 15:41 as per HPI All other Systems: Reviewed and Negative Past Medical History (General) - Patient Medical History Hx Seizures: No Hx Stroke: No Hx Dementia: No Hx Asthma: Yes Hx of COPD: Yes Hx Cardiac Disorders: No Hx Congestive Heart Failure: No Hx Pacemaker: No Hx Hypertension: Yes Hx Thyroid Disease: No Hx Diabetes: Yes Hx Gastroesophageal Reflux: No Hx Renal Disease: No Hx Cancer: No Hx of HIV: No Hx Hepatitis C: No Hx MRSA: No MRSA Source:: knee Surgical History: cholecystectomy - Vaccination History Hx Tetanus, Diphtheria Vaccination: Yes Hx Influenza Vaccination: Yes Hx Pneumococcal Vaccination: Yes - Social History Hx Tobacco Use: No Hx Chewing Tobacco Use: No Hx Alcohol Use: No Hx Substance Use: No Hx Substance Use Treatment: No Hx Depression: No Hx Physical Abuse: No Hx Emotional Abuse: No Hx Suspected Abuse: No - Activities of Daily Living [facility] (if applicable):: [facility] Chu - Female History Patient : No Family Medical History - Family History Father Family History: Unknown Living Status: Age at (years of age): 59 Cause of : cancer Hx Family Stroke: Yes - sister Hx Family Cancer: Yes - mesothelioma-dad;ovaries-mom Mother Living Status: Age at (years of age): 59 Cause of : MVA Hx Family Diabetes: Yes Hx Family Cancer: Yes - ovarian Physical Exam - Physical Exam General Appearance: Alert, Comfortable, No apparent distress, Obese Eye Exam: bilateral normal Ears, Nose, Throat: hearing grossly normal, other - dry oral mucosa Neck: non-tender, full range of motion, normal inspection Respiratory: chest non-tender, lungs clear, normal breath sounds, no respiratory distress, no accessory muscle use Cardiovascular/Chest: normal peripheral pulses, regular rate, rhythm, no edema, no gallop, no JVD, no murmur Peripheral Pulses: radial,right: 2+, radial,left: 2+ Gastrointestinal/Abdominal: non tender, soft, no organomegaly Back Exam: normal inspection, no CVA tenderness, no vertebral tenderness Extremity: other - LLE anterior gant with approx 8x8 cm with mild erythema and warmth and ttp. RUE amputation stump posterior aspect with approx 6x6 cm area of mild ecchymoses and ttp w/o warmth or erythema/induration Neurologic: color matcher II-XII nml as tested, no motor/sensory deficits, alert, normal mood/affect, oriented x 3 Skin Exam: warm/dry, other - as above Progress - Progress Progress: 02/27/20 12:43 N/V/D -consider gastroenteritis most likely. Consider also COVID-19, flu, strep, pancreatitis, UTI, bacterial infection, iatrogenic from antibiotics, C. difficile colitis, other -Patient stable, no acute distress -Obtain basic blood work. We will also repeat CBC to check on platelet count since Dr. Arriola was concerned for thrombocytopenia. Patient states she has had to have platelet transfusion in the past. 02/27/20 15:45 -Pt noted to have initial K 5.8 - repeat up to 6.6. Also with CHERYL - BUN 47, Cr 2.8. WBC 5,100 with 69% segs and no bands, H/H 11.7/34, PLTs 97,000. As no active bleeding, no platelet transfusion indicated at this time. For hyperkalemia stat EKG showed no concerning findings. We will give calcium gluconate 1 g IV, insulin 10 units IV with 1 amp of D50, albuterol 7.5 mg nebs, Kayexalate 30 g PO, 1 amp bicarb. Likely need for hospital admission for hyperkalemia and acute kidney injury. Suspect all secondary to acute gastroenteritis/dehydration. 02/27/20 16:09 -Discussed pt with Emy Elder who accepts for admission for hyperkalemia, acute renal failure, acute gastroenteritis, dehydration. Vik Wagner MD Billing #[id number] 02/27/20 13:00 IV Care:Saline Lock per Protoc QSHIFT Sodium Chloride 0.9% (Flush) [Saline Flush Syringe] 10 ml IV PRN PRN 02/27/20 14:01 Telemetry .ONCE 02/27/20 14:15 EKG STAT Laboratory Results - last 24 hr 02/27/20 02/27/20 02/27/20 13:13 13:13 14:24 WBC 5.1 RBC 3.54 L Hgb 11.7 L Hct 34.3 L MCV 96.9 MCH 33.1 H MCHC 34.2 RDW 16.3 H Plt Count 97 L MPV 8.6 Absolute Neuts (auto) 3.60 Absolute Lymphs (auto) 1.00 Absolute Monos (auto) 0.40 Absolute Eos (auto) 0.10 Absolute Basos (auto) 0.00 Neutrophils % 69.3 Lymphocytes % 20.3 Monocytes % 7.2 Eosinophils % 2.5 Basophils % 0.7 Sodium 139 139 Potassium 5.8 H 6.6 H* Chloride 100 L 102 Carbon Dioxide 27 27 Anion Gap 17.8 16.6 BUN 47 H 47 H Creatinine 2.86 H 2.82 H BUN/Creatinine Ratio 16.4 16.7 Random Glucose 93 90 Serum Osmolality 289.5 289.3 Calcium 8.1 L 8.0 L Magnesium 1.8 - EKG/XRAY/CT EKG: Sinus - Normal sinus rhythm, heart rate 75, no ST elevations or Q waves noted, axis normal, intervals normal, compared to 08/14/2019 EKG appears unchanged. Departure - Departure Clinical Impression: Gastroenteritis, Acute kidney injury, Hyperkalemia Time of Disposition: 16:10 Disposition: Admit Patient Condition: Fair Departure Forms: ED Discharge - Pt. Copy, Patient Portal Self Enrollment Instructions: DI for Abrasion Diet: low fat, low cholesterol Referrals: Marc Arriola MD [Primary Care Provider] - 1-2 Weeks Home Medications: Ambulatory Orders Furosemide 40 mg PO DAILY 02/15/16 Pregabalin [Lyrica] 100 mg PO TID 08/29/17 Melatonin 40 mg PO BEDTIME 11/20/17 Exenatide [Bydureon] 0.65 ml SC WKLY 03/29/18 HYDROcodone 10MG/APAP 325MG [[place] 10/325] 1 tablet PO Q6H PRN 03/29/18 Metoprolol Tartrate 100 mg PO BID 03/29/18 Albuterol Sulfate [Proair Hfa] 2 inh IN Q4H PRN 05/03/18 Nystatin Powder 1 gm TOP BID PRN 05/03/18 Sertraline HCl [Zoloft] 150 mg PO DAILY 05/10/18 tiZANidine [Zanaflex] 4 mg PO Q6HR PRN 07/03/18 Allopurinol [Zyloprim] 100 mg PO DAILY 01/27/19 Amlodipine Besylate 5 mg PO DAILY 01/27/19 Clonidine HCl 0.1 mg PO PRN PRN 01/27/19 Insulin Lispro [Humalog] 100 units SUBCU ACHS 01/27/19 Loperamide Cap [Imodium Cap] 2 mg PO PRN PRN 01/27/19 Olmesartan Medoxomil 40 mg PO DAILY 01/27/19 metFORMIN HCL [Glucophage] 500 mg PO DAILY 01/27/19 Diclofenac Sodium (Actinic Ker [Diclofenac Sodium] 3 % TD BID 06/03/19 Albuterol Sulfate Nebs [Proventil Nebs] 1.25 mg INH Q4H 08/06/19 Amitriptyline HCl [Amitriptyline Hydrochlori] 25 mg PO BEDTIME 08/06/19 Fluticasone Furoate-Vilanterol [Breo Ellipta 200-25 Mcg/INH] 1 inh PO DAILY 08/06/19 Insulin Degludec [Tresiba Flextouch] 48 unit SC DAILY 08/06/19 Buspirone HCl [Buspirone Hydrochloride] 7.5 mg PO DAILY 08/14/19 Decision To Admit - Decistion To Admit Decision to Admit Reason: Admit from ER Decision to Admit Date: 02/27/20 Decision to Admit Time: 16:11
[2020-02-27] MEDS ORDERED: SOD POLYSTYRENE SULFONATE 15 GM/60 ML BTTL PO ONE (16:00)
[2020-02-27] MEDS ORDERED: SODIUM BICARBONATE VIAL 50 MEQ/50 ML VIAL IV ONE (16:00)
--- NOTE | 2020-02-27 18:44 | HP ---
SUPERVISING PHYSICIAN: Akil Lopez MD CHIEF COMPLAINT: Low platelets and left lower extremity cellulitis. HISTORY OF PRESENT ILLNESS: This is a 59 year-old female patient who presented to the Emergency Room after being told by her primary care physician, Dr. Joni Arriola, to be evaluated due to low platelets from a recent blood draw. She has also had cellulitis of the left lower extremity for which she has had 10 days of antibiotic therapy that included Keflex and Bactrim. She has a significant history of MRSA with diabetes. She has also had a right above-knee amputation about 2 years ago. She also had some nausea, vomiting, diarrhea that started about a week prior to coming to the Emergency Room. It was noted her emesis and diarrhea was non-bloody. She was also worried that her left lower extremity was so red but it has improved. In the Emergency Room, her initial vital signs were temperature 96, heart rate 76, blood pressure 138/82, respiratory rate 20, oxygen saturation 97%. Lab studies were done and her WBCs were 5.1 with a hemoglobin 11.7, hematocrit 34.3. Sodium 139, potassium 5.8, it was reported that the day prior her potassium was 6.6. She had been given some Kayexalate which most likely contributed to her reported diarrhea. BUN 47, creatinine 3.86. She does have some renal insufficiency but her baseline creatinine was about 1.3. She was given some more Kayexalate and her lab was repeated. Her potassium went up to 6.6. She was given IV insulin, D50 and calcium gluconate as well as some sodium bicarb. After she was admitted to the Floor, her potassium did come down to 5.8. Her group A rapid strep was negative. Covid was negative. Flu type A and B per PCR were both negative. She was given some fluid in the Emergency Room as well as the Kayexalate, insulin, dextrose and calcium gluconate. She was admitted to the hospital in stable condition. PAST MEDICAL HISTORY: 1. Asthma. 2. Atrial flutter. 3. Hypertension. 4. Osteoarthritis. 5. Rheumatoid arthritis. 6. Osteoporosis. 7. Multiple MRSA infections, especially of the lower extremities. 8. Diabetes mellitus type 2. 9. Chronic renal insufficiency. 10. Chronic obstructive pulmonary disease. PAST SURGICAL HISTORY: 1. Above-knee amputation. 2. Tonsillectomy. 3. Cholecystectomy. 4. x2. 5. Bilateral tubal ligation. 6. Multiple toe amputations on left foot due to diabetic complications. 7. Multiple right knee hardware revisions prior to her amputation due to infection. CURRENT MEDICATIONS: Per the EMR and awaiting verification. ALLERGIES: TRAZODONE. FAMILY HISTORY: Positive for hypertension and chronic obstructive pulmonary disease. SOCIAL HISTORY: She lives at [facility]. She smokes about half pack cigarettes and has for many years. She denies ETOH or illicit drug use. REVIEW OF SYSTEMS: GENERAL: Negative for fever, fatigue or weight changes. HEENT: Negative for sinus symptoms, ear pain, vision changes, sore throat. RESPIRATORY: Positive for coughing and chronic shortness of breath. Negative for wheezing. CARDIAC: Negative for chest pain, palpitations, tachycardia. GI: As per history of present illness. GENITOURINARY: Negative for hematuria, dysuria, polyuria. SKIN: Positive for cellulitis on left lower leg and bruising on her right stump. Negative for lesions or rashes. NEUROLOGICAL: Negative for weakness, headaches or seizures. PHYSICAL EXAMINATION: VITAL SIGNS: Temperature 97.5, heart rate 85, blood pressure 148/68, respiratory rate 16, oxygen saturation 94% on room air. GENERAL: This is a 59 year-old female patient who is lying in her hospital bed. She is in no acute distress. She is obese. HEENT: Normocephalic and atraumatic. Pupils are equal and reactive. Oropharynx is clear. NECK: Supple, full range of motion. CHEST: Essentially clear to auscultation bilaterally. CARDIOVASCULAR: Regular rate and rhythm. ABDOMEN: Soft, nondistended, non-tender. Bowel sounds are positive. EXTREMITIES: She has right above-knee amputation with a small amount of ecchymoses on the stump. Left lower extremity has some redness on the anterior portion of her gant but is tender to palpation but there is no swelling and no fluctuance or drainage. NEUROLOGIC: She is awake, alert, and oriented x3. Cranial nerves II through XII are grossly intact as tested. SKIN: [place], warm and dry. Labs and films are as per the history of present illness. ASSESSMENT: 1. Hypokalemia that continues to be labile in spite of aggressive treatment. 2. Acute on chronic kidney failure. Baseline creatinine is 1.3, admitting creatinine 2.82. 3. Left lower extremity cellulitis recently treated with 10 days of Keflex and Bactrim. 4. Thrombocytopenia. 5. Diabetes mellitus type 2. 6. Gastroenteritis with nausea, vomiting, diarrhea and dehydration. 7. Hypertension. 8. Chronic obstructive pulmonary disease without acute exacerbation. PLAN: The patient has been admitted to the hospital. At this point, I am not going to put her on any antibiotics and will continue to monitor the left lower leg. I have given her some Kayexalate tonight, if her potassium does not improve overnight she may need more aggressive treatment. I have given her Lovenox for DVT prophylaxis and have started her on sliding scale insulin per protocol. I did not start her on her long-acting insulin because she will be on a full liquid diet until her abdominal symptoms resolve and she can be advanced to a diabetic diet. I have held her NSAIDS and she will have her home medications restarted as soon as they are verified. I also did not do stool studies, those may need to be done at some point but I believe her diarrhea is due to the Kayexalate. She is also getting fluids overnight. Labs will done for in the morning. #[id number] [facility]
[2020-02-27] MEDS ORDERED: GLUCAGON INJ 1 MG VIAL SUBCU PRN (20:37)
[2020-02-27] MEDS ORDERED: DEXTROSE 50% 25 GM/50 ML SYG IV PRN (20:37)
[2020-02-27] MEDS ORDERED: ALBUTEROL SULFATE 2.5 MG/3 ML VIAL NEB PRN (20:38)
[2020-02-27] MEDS ORDERED: ONDANSETRON INJ 4 MG/2 ML VIAL IV PRN (20:38)
[2020-02-27] MEDS: INSULIN LISPRO 100 UNITS/ML PEN SUBCU SCH (21:22)
[2020-02-27] MEDS: IV SET AND CAP CHANGE INJ INJ SCH (21:22)
[2020-02-27] MEDS: ENOXAPARIN SODIUM 30 MG/0.3 ML SYG SUBCU SCH (21:36)
[2020-02-27] MEDS: SODIUM CHLORIDE 0.9% (FLUSH) 10 ML SYG IV SCH (21:36)
[2020-02-27] MEDS: SODIUM CHLORIDE 0.45% 1000ML 1,000 ML IV PRN (21:37)
[2020-02-28] MEDS ORDERED: HYDROcodone 10MG/APAP 325MG 1 EA TAB PO ONE (00:13)
[2020-02-28] MEDS ORDERED: tiZANidine 4 MG TAB PO ONE (00:14)
[2020-02-28] MEDS ORDERED: HYDROcodone 10MG/APAP 325MG 1 EA TAB PO PRN (00:47)
[2020-02-28] MEDS: AMITRIPTYLINE HCL 25 MG TAB PO SCH ×2 (01:34→20:20)
[2020-02-28] MEDS: LACTULOSE SYRUP 20 GM/30 ML UD PO SCH ×2 (01:34→04:51)
[2020-02-28] MEDS: PANTOPRAZOLE SODIUM IV 40 MG VIAL IV SCH (05:44)
[2020-02-28] MEDS: INSULIN LISPRO 100 UNITS/ML PEN SUBCU SCH ×4 (07:53→21:40)
[2020-02-28] MEDS: IPRATROPIUM/ALBUTEROL 3 ML VIAL INH SCH ×2 (08:50→20:41)
[2020-02-28] MEDS ORDERED: EXENATIDE SC SCH (09:00)
[2020-02-28] MEDS ORDERED: busPIRone HCL 5 MG TAB ONE (09:29)
[2020-02-28] MEDS ORDERED: LACTOBACILLUS 1 TAB ONE ×2 (09:30→20:01)
[2020-02-28] MEDS ORDERED: METOPROLOL TARTRATE 25 MG TAB ONE (09:30)
[2020-02-28] MEDS: METOPROLOL TARTRATE 50 MG TAB PO SCH ×2 (09:35→20:24)
[2020-02-28] MEDS: NON-FORMULARY MEDICATION 1 EA MIS (Buspirone Hcl [Buspirone Hydrochloride] 7.5 MG) PO SCH (09:36)
[2020-02-28] MEDS: amLODIPine BESYLATE 5 MG TAB PO SCH (09:36)
[2020-02-28] MEDS: metFORMIN HCL 500 MG TAB PO SCH (09:37)
[2020-02-28] MEDS: SERTRALINE HCL 50 MG TAB PO SCH (09:37)
[2020-02-28] MEDS: ALLOPURINOL 100 MG TAB PO SCH (09:37)
[2020-02-28] MEDS: SITagliptin 50 MG TAB PO SCH (09:38)
[2020-02-28] MEDS: FUROSEMIDE 80 MG PO SCH (09:39)
[2020-02-28] MEDS: NON-FORMULARY MEDICATION 1 EA MIS (Fluticasone Furoate-Vilanterol [Breo Ellipta 200-25 Mcg PO SCH (09:39)
[2020-02-28] MEDS: SODIUM CHLORIDE 0.9% (FLUSH) 10 ML SYG IV SCH ×2 (09:40→20:25)
[2020-02-28] MEDS: OLMESARTAN MEDOXOMIL 40 MG PO SCH (09:40)
[2020-02-28] MEDS: PREGABALIN 100 MG CAP PO SCH ×3 (09:40→20:20)
[2020-02-28] MEDS: LACTOBACILLUS PO SCH ×2 (09:40→20:24)
[2020-02-28] MEDS: FUROSEMIDE 40 MG TAB PO SCH (12:24)
[2020-02-28] MEDS: HYDROcodone 10MG/APAP 325MG 1 EA TAB PO PRN ×2 (13:34→20:20)
[2020-02-28] MEDS ORDERED: cefTRIAXone SODIUM 1 GM VIAL ONE (15:52)
[2020-02-28] MEDS ORDERED: SODIUM CHL 0.9% 50ML MIN-BAG+ 50 ML IVPB ONE (15:53)
[2020-02-28] MEDS ORDERED: SODIUM CHLORIDE 0.45% 1000ML 1,000 ML IVS ONE (16:04)
[2020-02-28] MEDS: SODIUM CHLORIDE 0.45% 1000ML 1,000 ML IV PRN (16:12)
[2020-02-28] MEDS: cefTRIAXone SODIUM 1 GM in SODIUM CHL 0.9% 50ML MIN-BAG+ 50 ML IVPB SCH (16:17)
[2020-02-28] MEDS ORDERED: MELATONIN 3 MG TAB ONE ×2 (19:59→20:29)
[2020-02-28] MEDS ORDERED: AMITRIPTYLINE HCL 25 MG TAB ONE (19:59)
[2020-02-28] MEDS ORDERED: tiZANidine 4 MG TAB ONE (20:00)
[2020-02-28] MEDS ORDERED: ENOXAPARIN SODIUM 30 MG/0.3 ML SYG SUBCU ONE (20:00)
[2020-02-28] MEDS ORDERED: SODIUM CHLORIDE 0.9% (FLUSH) 10 ML SYG ONE (20:01)
[2020-02-28] MEDS: diphenhydrAMINE HCL 25 MG CAP PO SCH (20:20)
[2020-02-28] MEDS: tiZANidine 4 MG TAB PO PRN (20:21)
[2020-02-28] MEDS: ENOXAPARIN SODIUM 30 MG/0.3 ML SYG SUBCU SCH (20:21)
[2020-02-28] MEDS: MELATONIN 40 MG PO SCH (20:22)
[2020-02-28] MEDS ORDERED: INSULIN LISPRO 100 UNITS/ML PEN SUBCU ONE (21:39)
[2020-02-28] MEDS: IBUPROFEN 400 MG TAB PO PRN (23:23)
[2020-02-29] MEDS ORDERED: SODIUM CHLORIDE 0.45% 1000ML 1,000 ML IVS ONE ×2 (03:12→17:00)
[2020-02-29] MEDS: SODIUM CHLORIDE 0.45% 1000ML 1,000 ML IV PRN (03:13)
[2020-02-29] MEDS: HYDROcodone 10MG/APAP 325MG 1 EA TAB PO PRN ×3 (03:24→18:49)
[2020-02-29] MEDS: PANTOPRAZOLE SODIUM IV 40 MG VIAL IV SCH (06:04)
[2020-02-29] MEDS: IPRATROPIUM/ALBUTEROL 3 ML VIAL INH SCH ×2 (08:00→20:21)
[2020-02-29] MEDS ORDERED: IPRATROPIUM/ALBUTEROL 3 ML VIAL NEB ONE ×2 (08:17→20:08)
[2020-02-29] MEDS: INSULIN LISPRO 100 UNITS/ML PEN SUBCU SCH ×4 (09:11→21:02)
[2020-02-29] MEDS ORDERED: busPIRone HCL 5 MG TAB ONE (09:29)
[2020-02-29] MEDS ORDERED: amLODIPine BESYLATE 5 MG TAB ONE (09:29)
[2020-02-29] MEDS ORDERED: SERTRALINE HCL 50 MG TAB ONE (09:30)
[2020-02-29] MEDS ORDERED: ALLOPURINOL 100 MG TAB ONE (09:30)
[2020-02-29] MEDS ORDERED: FUROSEMIDE 40 MG TAB ONE ×2 (09:30→11:32)
[2020-02-29] MEDS ORDERED: PREGABALIN 100 MG CAP ONE ×3 (09:30→19:57)
[2020-02-29] MEDS ORDERED: SITagliptin 50 MG TAB PO ONE (09:31)
[2020-02-29] MEDS ORDERED: metFORMIN HCL 500 MG TAB ONE (09:31)
[2020-02-29] MEDS ORDERED: METOPROLOL TARTRATE 50 MG TAB ONE ×2 (09:31→19:57)
[2020-02-29] MEDS ORDERED: LACTOBACILLUS 1 TAB ONE ×2 (09:32→19:58)
[2020-02-29] MEDS: NON-FORMULARY MEDICATION 1 EA MIS (Buspirone Hcl [Buspirone Hydrochloride] 7.5 MG) PO SCH (09:57)
[2020-02-29] MEDS: METOPROLOL TARTRATE 50 MG TAB PO SCH ×2 (09:59→20:36)
[2020-02-29] MEDS: amLODIPine BESYLATE 5 MG TAB PO SCH (09:59)
[2020-02-29] MEDS: metFORMIN HCL 500 MG TAB PO SCH (09:59)
[2020-02-29] MEDS: SITagliptin 50 MG TAB PO SCH (09:59)
[2020-02-29] MEDS: PREGABALIN 100 MG CAP PO SCH ×3 (09:59→20:36)
[2020-02-29] MEDS: SODIUM CHLORIDE 0.9% (FLUSH) 10 ML SYG IV SCH ×2 (10:00→20:40)
[2020-02-29] MEDS: ALLOPURINOL 100 MG TAB PO SCH (10:00)
[2020-02-29] MEDS: SERTRALINE HCL 50 MG TAB PO SCH (10:00)
[2020-02-29] MEDS: FUROSEMIDE 80 MG PO SCH (10:01)
[2020-02-29] MEDS: LACTOBACILLUS PO SCH ×2 (10:01→20:36)
[2020-02-29] MEDS: OLMESARTAN MEDOXOMIL 40 MG PO SCH (10:01)
[2020-02-29] MEDS ORDERED: MAGNESIUM SULFATE PREMIX 2GM 2 GM in PREMIX BAG 1 BAG IVPB ONE (10:23)
--- NOTE | 2020-02-29 10:41 | PN ---
SUPERVISING PHYSICIAN: Akil Lopez MD DATE: 02/28/20 SUBJECTIVE: The patient's potassium is showing good response to treatment. She has not had any chest pain, no ectopy. She does have some discomfort to her right stump on the posterior aspect but no drainage. She notes that the pain has been present for awhile, in fact, she was on some cephalexin prior to hospitalization. She notes the cellulitis to her left lower extremity has improved drastically. She is tolerating a diet at this point. OBJECTIVE: VITAL SIGNS: Temperature 97.4, pulse 75, blood pressure 154/98, respirations 18, oxygen saturation 96% on room air. GENERAL: The patient is resting comfortably. She is alert. CHEST: Lung sounds clear bilaterally. HEART: Regular rate and rhythm. ABDOMEN: Obese, soft, non-tender, positive bowel sounds. EXTREMITIES: Left lower extremity shows some mild redness to the gant area but no obvious signs of cellulitis. There is an area on the above-knee amputation surgical stump on the posterior aspect about the size of a quarter that is reddened but no obvious fluctuation, no consolidation, no drainage noted. It is tender to palpation. No areas of cellulitis are noted. NEUROLOGIC: She is alert and oriented x 3. LABORATORY: White count 3,500, hemoglobin 10.3, hematocrit 30.4, platelet count down to 67,000, differential shows to be without a left shift. Chemistries show potassium down to 5.4, creatinine shows some slight improvement to 2.4 compared to 2.86 on admission. Blood sugars range between 85 and 118. Magnesium a little low at 1.7, calcium 8.3. Liver functions within normal limits. RADIOLOGY: No additional radiographic studies today. ASSESSMENT: 1. Hyperkalemia with history of chronic renal failure showing good response to treatment but no noted EKG changes. 2. Acute on chronic kidney failure. Baseline creatinine about 1.3, admitting creatinine 6.82 and showing some improvement with treatment. Probably some exacerbation due to recent administration of Bactrim. 3. Recent treatment of left lower extremity cellulitis on Keflex and Bactrim. 4. Cellulitis to left stump with possible pressure ulcer and no signs of cellulitis. 5. Chronic underlying thrombocytopenia. 6. Diabetes mellitus type 2. 7. Gastroenteritis with nausea, vomiting, diarrhea and dehydration. 8. Hypertension. 9. Chronic obstructive pulmonary disease without acute exacerbation. PLAN: Will continue current plan of care with adding Rocephin for empiric coverage of the questionable area on her right stump. I think she probably will be able to discharge back to [facility] on Sunday but she will certainly need an ultrasound of that lower extremity that I think would be beneficial just to further rule out there is not any kind of area of fluid collection and underlying tissue issues per the patient's history of diabetes. I have started her back on her regular diet which she seems to be tolerating well. I do not see any reason to add vancomycin to her regimen at this point. Again, we will continue to monitor as needed until we can discharge, hopefully will occur on Sunday. #[id number] [facility]TDD
[2020-02-29] MEDS ORDERED: MAGNESIUM SULFATE PREMIX 2GM 50 ML IVPB ONE (11:32)
[2020-02-29] MEDS ORDERED: tiZANidine 4 MG TAB ONE ×2 (11:32→18:47)
[2020-02-29] MEDS ORDERED: HYDROcodone 10MG/APAP 325MG 1 EA TAB ONE ×2 (11:32→18:47)
[2020-02-29] MEDS: NON-FORMULARY MEDICATION 1 EA MIS (Fluticasone Furoate-Vilanterol [Breo Ellipta 200-25 Mcg PO SCH (11:34)
[2020-02-29] MEDS: tiZANidine 4 MG TAB PO PRN ×2 (11:34→18:49)
[2020-02-29] MEDS: FUROSEMIDE 40 MG TAB PO SCH (11:34)
[2020-02-29] MEDS ORDERED: cefTRIAXone SODIUM 1 GM VIAL ONE (16:46)
[2020-02-29] MEDS ORDERED: SODIUM CHL 0.9% 50ML MIN-BAG+ 50 ML IVPB ONE (16:46)
[2020-02-29] MEDS: cefTRIAXone SODIUM 1 GM in SODIUM CHL 0.9% 50ML MIN-BAG+ 50 ML IVPB SCH (17:12)
--- NOTE | 2020-02-29 19:50 | PN ---
SUPERVISING PHYSICIAN: Akil Lopez MD DATE: 02/29/20 SUBJECTIVE: The patient is doing well. She still has a little bit of discomfort in her stump on the right side. Again, there is no obvious drainage. Potassium seems to be staying stable. She is not having any chest pain, shortness of breath, nausea, vomiting or diarrhea. OBJECTIVE: VITAL SIGNS: She remains afebrile at 97.8, pulse 61, blood pressure 124/84, respirations 18, oxygen saturation 98% on room air at rest. GENERAL: The patient is resting comfortably. She is alert. CHEST: Lung sounds clear bilaterally. HEART: Regular rate and rhythm. ABDOMEN: Obese, soft, nontender, positive bowel sounds. EXTREMITIES: Left lower extremity shows some mild redness to the gant area but no obvious signs of cellulitis. There is an area on the above-knee amputation surgical stump on the posterior aspect about the size of a quarter that is reddened but no obvious fluctuation, no consolidation, no drainage noted. It is tender to palpation. No areas of cellulitis are noted. NEUROLOGIC: She is alert and oriented x 3. LABORATORY: White count 3,100, hemoglobin 11.2, hematocrit 32.9, platelet count still a little low at 64,000. Differential is without a left shift. Chemistries show potassium stable at 5.4, creatinine down to 2.23. Blood sugars range between 105 and 190. Magnesium a little low at 1.6. RADIOLOGY: No additional radiographic studies today. ASSESSMENT: 1. Hyperkalemia with history of chronic renal failure showing good response to treatment but no noted EKG changes. 2. Acute on chronic kidney failure. Baseline creatinine about 1.3, admitting creatinine 6.82 and showing some improvement with treatment. Probably some exacerbation due to recent administration of Bactrim. 3. Recent treatment of left lower extremity cellulitis on Keflex and Bactrim. 4. Cellulitis to left stump with possible pressure ulcer and no signs of cellulitis. 5. Chronic underlying thrombocytopenia. 6. Diabetes mellitus type 2. 7. Gastroenteritis with nausea, vomiting, diarrhea and dehydration. 8. Hypertension. 9. Chronic obstructive pulmonary disease without acute exacerbation. PLAN: We will plan to discharge the patient tomorrow. We will recheck her labs one more time in the morning. Her kidney function seems to be returning to baseline levels. In regards to the area on the right stump, I have ordered a soft tissue ultrasound just to make sure there is not an abscess underneath there. It may need a CT if we cannot see it well enough, but that needs to be addressed before she goes back to the custodial. I do not think there is anything of concern there, but there is an area is tender to palpation. Until the patient can transition to outpatient management, we will continue to monitor and treat as needed. #[id number] [facility]TD[facility]
[2020-02-29] MEDS ORDERED: AMITRIPTYLINE HCL 25 MG TAB ONE (19:56)
[2020-02-29] MEDS ORDERED: IBUPROFEN 400 MG TAB ONE (19:57)
[2020-02-29] MEDS ORDERED: MELATONIN 3 MG TAB ONE (19:57)
[2020-02-29] MEDS ORDERED: diphenhydrAMINE HCL 25 MG CAP ONE (19:58)
[2020-02-29] MEDS ORDERED: SODIUM CHLORIDE 0.9% (FLUSH) 10 ML SYG ONE (19:58)
[2020-02-29] MEDS ORDERED: ENOXAPARIN SODIUM 30 MG/0.3 ML SYG SUBCU ONE (19:58)
[2020-02-29] MEDS: MELATONIN 40 MG PO SCH (20:34)
[2020-02-29] MEDS: IBUPROFEN 400 MG TAB PO PRN (20:34)
[2020-02-29] MEDS: ENOXAPARIN SODIUM 30 MG/0.3 ML SYG SUBCU SCH (20:36)
[2020-02-29] MEDS: diphenhydrAMINE HCL 25 MG CAP PO SCH (20:36)
[2020-02-29] MEDS: AMITRIPTYLINE HCL 25 MG TAB PO SCH (20:36)
[2020-03-01] MEDS ORDERED: SODIUM CHLORIDE 0.45% 1000ML 0 ML IVS ONE (03:43)
[2020-03-01] MEDS ORDERED: HYDROcodone 10MG/APAP 325MG 1 EA TAB ONE (03:43)
[2020-03-01] MEDS ORDERED: PANTOPRAZOLE SODIUM IV 40 MG VIAL ONE (03:44)
[2020-03-01] MEDS: HYDROcodone 10MG/APAP 325MG 1 EA TAB PO PRN ×4 (03:47→21:30)
[2020-03-01] MEDS: SODIUM CHLORIDE 0.45% 1000ML 1,000 ML IV PRN (03:48)
[2020-03-01] MEDS: PANTOPRAZOLE SODIUM IV 40 MG VIAL IV SCH (06:05)
[2020-03-01] MEDS ORDERED: amLODIPine BESYLATE 5 MG TAB ONE (07:10)
[2020-03-01] MEDS ORDERED: busPIRone HCL 5 MG TAB ONE (07:10)
[2020-03-01] MEDS ORDERED: FUROSEMIDE 40 MG TAB ONE ×2 (07:11→11:55)
[2020-03-01] MEDS ORDERED: ALLOPURINOL 100 MG TAB ONE (07:11)
[2020-03-01] MEDS ORDERED: PREGABALIN 100 MG CAP ONE (07:11)
[2020-03-01] MEDS ORDERED: SERTRALINE HCL 50 MG TAB ONE (07:11)
[2020-03-01] MEDS ORDERED: SITagliptin 50 MG TAB PO ONE (07:12)
[2020-03-01] MEDS ORDERED: METOPROLOL TARTRATE 50 MG TAB ONE (07:12)
[2020-03-01] MEDS ORDERED: metFORMIN HCL 500 MG TAB ONE (07:12)
[2020-03-01] MEDS: INSULIN LISPRO 100 UNITS/ML PEN SUBCU SCH ×4 (07:22→21:26)
[2020-03-01] MEDS: amLODIPine BESYLATE 5 MG TAB PO SCH (08:25)
[2020-03-01] MEDS: PREGABALIN 100 MG CAP PO SCH ×3 (08:25→21:28)
[2020-03-01] MEDS: metFORMIN HCL 500 MG TAB PO SCH (08:26)
[2020-03-01] MEDS: ALLOPURINOL 100 MG TAB PO SCH (08:26)
[2020-03-01] MEDS: METOPROLOL TARTRATE 50 MG TAB PO SCH ×2 (08:26→21:28)
[2020-03-01] MEDS: SITagliptin 50 MG TAB PO SCH (08:27)
[2020-03-01] MEDS: SERTRALINE HCL 50 MG TAB PO SCH (08:27)
[2020-03-01] MEDS: NON-FORMULARY MEDICATION 1 EA MIS (Buspirone Hcl [Buspirone Hydrochloride] 7.5 MG) PO SCH (08:29)
[2020-03-01] MEDS: NON-FORMULARY MEDICATION 1 EA MIS (Fluticasone Furoate-Vilanterol [Breo Ellipta 200-25 Mcg PO SCH (08:30)
[2020-03-01] MEDS: FUROSEMIDE 80 MG PO SCH (08:30)
[2020-03-01] MEDS: OLMESARTAN MEDOXOMIL 40 MG PO SCH (08:31)
[2020-03-01] MEDS: SODIUM CHLORIDE 0.9% (FLUSH) 10 ML SYG IV SCH ×2 (08:35→21:31)
[2020-03-01] MEDS: IPRATROPIUM/ALBUTEROL 3 ML VIAL INH SCH ×2 (08:42→22:19)
[2020-03-01] MEDS ORDERED: LACTOBACILLUS 1 TAB ONE ×2 (09:10→20:00)
[2020-03-01] MEDS: LACTOBACILLUS PO SCH (09:11)
[2020-03-01] MEDS ORDERED: IPRATROPIUM/ALBUTEROL 3 ML VIAL NEB ONE ×2 (09:15→21:59)
[2020-03-01] MEDS: IBUPROFEN 400 MG TAB PO PRN (11:16)
--- NOTE | 2020-03-01 12:08 | US ---
EXAM DESCRIPTION: Soft Tissue,Extremity: ULTRASOUND. CLINICAL HISTORY: 59 years Female right leg AKA; stump possible abcess COMPARISON: None Available. TECHNIQUE: Transcutaneous scanning: [place]-scale and Doppler modes. FINDINGS: Complex material solid hypoechoic tissue mixed with anechoic fluid which is palpable at the stump of the right above knee amputation. Nonvascular. The site of abnormality is large and difficult to include on the ultrasound scans. Measurements are approximately 9.1 x 9.4 x 5.6 cm. No large calcifications. No dominant solid mass. IMPRESSION: Complex tissue at the start of the right above knee amputation. Measures at least 9.4 cm. More likely to represent abscess than hemorrhage. Electronically signed by: Ye Terrazas MD 03/01/2020 12:07 PM [employer]
[2020-03-01] MEDS: FUROSEMIDE 40 MG TAB PO SCH (12:48)
[2020-03-01] MEDS: cefTRIAXone SODIUM 1 GM in SODIUM CHL 0.9% 50ML MIN-BAG+ 50 ML IVPB SCH (14:15)
[2020-03-01] MEDS ORDERED: SODIUM CHLORIDE 0.45% 1000ML 1,000 ML IVS ONE (15:08)
[2020-03-01] MEDS ORDERED: ALPRAZolam 0.25 MG TAB PO ONE (18:25)
--- NOTE | 2020-03-01 18:29 | PN ---
SUPERVISING PHYSICIAN: Marc Arriola MD DATE: 03/01/20 SUBJECTIVE: The patient is sitting up in bed. doing well. She still has complains of that stump hurting as well as the left lower leg but it is better than it was. Denies chest pain, nausea or vomiting or shortness of breath. OBJECTIVE: VITAL SIGNS: Temperature 98.5, heart rate 65, blood pressure 178/72, respirations 16, oxygen saturation 98% on room air.. CHEST: Essentially clear to auscultation bilaterally. HEART: Regular rate and rhythm. EXTREMITIES: The distal portion of her stump is somewhat edematous with some mild fluctuance. It is tender to palpation and slightly erythematous. Left lower gant area has a small amount of erythema on the anterior portion of that lower leg. No tenderness or edema noted. Peal pulse on her left foot is +2.. NEUROLOGIC: She is awake, alert and oriented x 3. LABORATORY: WBC 3.1, hemoglobin 11.2, hematocrit 32.9,blood sugars have run between 148 and 129. Potassium slightly high at 5.5. The remainder of her electrolytes are within normal limits. BUN 32, creatinine 2.23. RADIOLOGY: Soft tissue ultrasound of that right above-knee amputation shows complex tissue at the start of the right above-knee amputation measures at least 9.4 cm, more likely to represent abscess and hemorrhage. All other labs and films have been reviewed via the EMR. ASSESSMENT: 1. Hyperkalemia with history of chronic renal failure showing good response to treatment but no noted EKG changes. 2. Acute on chronic kidney failure. Baseline creatinine about 1.3, admitting creatinine 6.82 and showing some improvement with treatment. Probably some exacerbation due to recent administration of Bactrim. 3. Recent treatment of left lower extremity cellulitis on Keflex and Bactrim. 4. Cellulitis to the right stump with possible abscess, pending evaluation by Dr. Miller, general surgeon.. 5. Chronic underlying thrombocytopenia. 6. Diabetes mellitus type 2. 7. Gastroenteritis with nausea, vomiting, diarrhea and dehydration. 8. Hypertension. 9. Chronic obstructive pulmonary disease without acute exacerbation. PLAN: We will continue supportive care. I will await recommendations per Dr. Miller on that right lower leg. Will plan to continue on IV antibiotics given her significant history. She will get a PICC line tonight. I have ordered lab for in the morning and will and treat as needed. #[id number] MTDD
[2020-03-01] MEDS ORDERED: BIFIDOBACTERIUM INFANTIS 4 MG CAP ONE (19:56)
[2020-03-01] MEDS ORDERED: MELATONIN 3 MG TAB ONE (19:59)
[2020-03-01] MEDS: diphenhydrAMINE HCL 25 MG CAP PO SCH (21:26)
[2020-03-01] MEDS: BIFIDOBACTERIUM INFANTIS 4 MG CAP PO SCH (21:26)
[2020-03-01] MEDS: AMITRIPTYLINE HCL 25 MG TAB PO SCH (21:26)
[2020-03-01] MEDS: IV SET AND CAP CHANGE INJ INJ SCH (21:27)
[2020-03-01] MEDS: tiZANidine 4 MG TAB PO PRN (21:28)
[2020-03-01] MEDS: LACTOBACILLUS 1 TAB PO SCH (21:28)
[2020-03-01] MEDS: ENOXAPARIN SODIUM 30 MG/0.3 ML SYG SUBCU SCH (21:29)
[2020-03-01] MEDS: MELATONIN 3 MG TAB PO SCH (21:29)
[2020-03-02] MEDS: PANTOPRAZOLE SODIUM IV 40 MG VIAL IV SCH (05:53)
[2020-03-02] MEDS ORDERED: PREGABALIN 100 MG CAP ONE (06:56)
[2020-03-02] MEDS ORDERED: busPIRone HCL 5 MG TAB ONE (06:56)
[2020-03-02] MEDS ORDERED: amLODIPine BESYLATE 5 MG TAB ONE (06:56)
[2020-03-02] MEDS ORDERED: FUROSEMIDE 40 MG TAB ONE (06:56)
[2020-03-02] MEDS ORDERED: SERTRALINE HCL 50 MG TAB ONE (06:57)
[2020-03-02] MEDS ORDERED: LOSARTAN POTASSIUM 100 MG TAB ONE (06:57)
[2020-03-02] MEDS ORDERED: ALLOPURINOL 100 MG TAB ONE (06:57)
[2020-03-02] MEDS ORDERED: METOPROLOL TARTRATE 50 MG TAB ONE (06:57)
[2020-03-02] MEDS ORDERED: LACTOBACILLUS 1 TAB ONE (06:58)
[2020-03-02] MEDS: INSULIN LISPRO 100 UNITS/ML PEN SUBCU SCH ×4 (07:08→21:12)
[2020-03-02] MEDS: SITagliptin 50 MG TAB PO SCH (07:40)
[2020-03-02] MEDS: metFORMIN HCL 500 MG TAB PO SCH (07:41)
[2020-03-02] MEDS ORDERED: MAGNESIUM SULFATE PREMIX 2GM 2 GM in PREMIX BAG 1 BAG IVPB ONE (07:42)
[2020-03-02] MEDS: METOPROLOL TARTRATE 50 MG TAB PO SCH ×2 (08:05→21:09)
[2020-03-02] MEDS: PREGABALIN 100 MG CAP PO SCH ×3 (08:05→21:09)
[2020-03-02] MEDS: ALLOPURINOL 100 MG TAB PO SCH (08:05)
[2020-03-02] MEDS: BIFIDOBACTERIUM INFANTIS 4 MG CAP PO SCH ×2 (08:05→21:10)
[2020-03-02] MEDS: busPIRone HCL 5 MG TAB PO SCH (08:05)
[2020-03-02] MEDS: amLODIPine BESYLATE 5 MG TAB PO SCH (08:05)
[2020-03-02] MEDS: SODIUM CHLORIDE 0.9% (FLUSH) 10 ML SYG IV SCH ×2 (08:06→21:12)
[2020-03-02] MEDS: FUROSEMIDE 40 MG TAB PO SCH ×2 (08:06→12:25)
[2020-03-02] MEDS: SERTRALINE HCL 50 MG TAB PO SCH (08:06)
[2020-03-02] MEDS: LACTOBACILLUS 1 TAB PO SCH ×2 (08:08→21:12)
[2020-03-02] MEDS ORDERED: MAGNESIUM SULFATE PREMIX 2GM 50 ML IVPB ONE (08:10)
[2020-03-02] MEDS ORDERED: LACTULOSE SYRUP 20 GM/30 ML UD ONE (08:10)
[2020-03-02] MEDS ORDERED: SOD POLYSTYRENE SULFONATE 15 GM/60 ML BTTL PO ONE (08:11)
[2020-03-02] MEDS: LOSARTAN POTASSIUM 100 MG TAB PO SCH (08:18)
[2020-03-02] MEDS ORDERED: LACTULOSE SYRUP 20 GM/30 ML UD PO SCH (09:00)
[2020-03-02] MEDS ORDERED: LOSARTAN POTASSIUM 100 MG TAB PO SCH (09:00)
[2020-03-02] MEDS: IPRATROPIUM/ALBUTEROL 3 ML VIAL INH SCH ×2 (09:00→20:33)
[2020-03-02] MEDS: cefTRIAXone SODIUM 1 GM in SODIUM CHL 0.9% 50ML MIN-BAG+ 50 ML IVPB SCH (15:09)
[2020-03-02] MEDS: HYDROcodone 10MG/APAP 325MG 1 EA TAB PO PRN ×2 (16:39→21:09)
[2020-03-02] MEDS: NICOTINE PATCH 14 MG TD SCH (21:09)
[2020-03-02] MEDS: tiZANidine 4 MG TAB PO PRN (21:09)
[2020-03-02] MEDS: diphenhydrAMINE HCL 25 MG CAP PO SCH (21:09)
[2020-03-02] MEDS: AMITRIPTYLINE HCL 25 MG TAB PO SCH (21:10)
[2020-03-02] MEDS: ENOXAPARIN SODIUM 30 MG/0.3 ML SYG SUBCU SCH (21:10)
[2020-03-02] MEDS: MELATONIN 3 MG TAB PO SCH (21:11)
[2020-03-03] MEDS: NON-FORMULARY MEDICATION 1 EA MIS (Fluticasone Furoate-Vilanterol [Breo Ellipta 200-25 Mcg PO SCH (02:18)
[2020-03-03] MEDS: HYDROcodone 10MG/APAP 325MG 1 EA TAB PO PRN ×2 (04:36→17:46)
[2020-03-03] MEDS: tiZANidine 4 MG TAB PO PRN ×2 (04:36→21:28)
[2020-03-03] MEDS: PANTOPRAZOLE SODIUM IV 40 MG VIAL IV SCH (05:49)
[2020-03-03] MEDS ORDERED: LACTULOSE SYRUP 20 GM/30 ML UD PO ONE (08:06)
[2020-03-03] MEDS: INSULIN LISPRO 100 UNITS/ML PEN SUBCU SCH ×4 (08:14→21:06)
[2020-03-03] MEDS: busPIRone HCL 5 MG TAB PO SCH (08:19)
[2020-03-03] MEDS: amLODIPine BESYLATE 5 MG TAB PO SCH (08:19)
[2020-03-03] MEDS: ALLOPURINOL 100 MG TAB PO SCH (08:19)
[2020-03-03] MEDS: metFORMIN HCL 500 MG TAB PO SCH (08:19)
[2020-03-03] MEDS: BIFIDOBACTERIUM INFANTIS 4 MG CAP PO SCH ×2 (08:19→20:36)
[2020-03-03] MEDS: SITagliptin 50 MG TAB PO SCH (08:19)
[2020-03-03] MEDS: PREGABALIN 100 MG CAP PO SCH ×3 (08:20→20:36)
[2020-03-03] MEDS: LOSARTAN POTASSIUM 100 MG TAB PO SCH (08:20)
[2020-03-03] MEDS: SERTRALINE HCL 50 MG TAB PO SCH (08:21)
--- NOTE | 2020-03-03 08:27 | PN ---
SUPERVISING PHYSICIAN: Marc Arriola MD DATE: 03/02/20 SUBJECTIVE: The patient is sitting up in bed. We discussed her continued elevated potassium, that we would have to make some changes on her medications including lowering her Losartan and maybe sending her home on daily Kayexalate. She agreed to the plan of care. She had bloody hematoma-like drainage drawn from her right above-knee amputation per Dr. Miller the previous day and he felt like there was no infection. OBJECTIVE: VITAL SIGNS: Temperature 97.9, heart rate 78, blood pressure 141/79, respirations 18, oxygen saturation 95% on room air. CHEST: Essentially clear to auscultation bilaterally. HEART: Regular rate and rhythm. EXTREMITIES: There is some mild edema to that right above-knee amputation but no fluctuance or drainage noted. The patient feels like it is a little more edematous than the previous day. NEUROLOGIC: She is awake, alert and oriented x 3. LABORATORY: WBC 3.9, hemoglobin 12, hematocrit 35.1. Potassium is 5.7. Magnesium 1.7. Other electrolytes are within normal limits. BUN 39, creatinine 2.9. Liver enzymes were within normal limits. All other labs and films have been reviewed via the EMR. ASSESSMENT: 1. Hyperkalemia with history of chronic renal failure. She continues to have elevated potassium in spite of treatment. 2. Acute on chronic kidney failure. Baseline creatinine about 1.3, admitting creatinine 6.82 and showing some improvement with treatment. Probably some exacerbation due to recent administration of Bactrim. 3. Recent treatment of left lower extremity cellulitis on Keflex and Bactrim. 4. Cellulitis to the right stump with possible abscess, pending evaluation by Dr. Miller, general surgeon.. 5. Chronic underlying thrombocytopenia. 6. Diabetes mellitus type 2. 7. Gastroenteritis with nausea, vomiting, diarrhea and dehydration. 8. Hypertension. 9. Chronic obstructive pulmonary disease without acute exacerbation. PLAN: I have decreased her Losartan and potassium to under 50 mg daily as well as given her a dose of Kayexalate. I will order labs for in the morning. At this point, I am not putting her on any antibiotics as her right above-knee amputation does not look infected nor does the area on her left lower leg appear to be problematic. She may need to switch to another ARB without potassium and she may need to have daily dose of Kayexalate but hope to send her back to [facility] tomorrow or the next day. #[id number] MTDD
[2020-03-03] MEDS: IPRATROPIUM/ALBUTEROL 3 ML VIAL INH SCH ×2 (08:40→20:56)
[2020-03-03] MEDS: LACTOBACILLUS 1 TAB PO SCH ×2 (08:45→20:36)
[2020-03-03] MEDS: FUROSEMIDE 40 MG TAB PO SCH ×2 (08:46→17:39)
[2020-03-03] MEDS ORDERED: SODIUM CHLORIDE 0.9% 500ML 500 ML IVS ONE ×2 (09:30→11:05)
[2020-03-03] MEDS ORDERED: SODIUM CHLORIDE 0.9% 500ML 500 ML ONE (09:42)
[2020-03-03] MEDS: METOPROLOL TARTRATE 50 MG TAB PO SCH ×2 (09:54→20:36)
[2020-03-03] MEDS: SODIUM CHLORIDE 0.9% (FLUSH) 10 ML SYG IV SCH ×2 (09:54→20:37)
[2020-03-03] MEDS ORDERED: SOD POLYSTYRENE SULFONATE 15 GM/60 ML BTTL PO ONE ×2 (11:00→17:13)
[2020-03-03] MEDS: NICOTINE PATCH 14 MG TD SCH (17:39)
[2020-03-03] MEDS: cefTRIAXone SODIUM 1 GM in SODIUM CHL 0.9% 50ML MIN-BAG+ 50 ML IVPB SCH (17:40)
[2020-03-03] MEDS: ENOXAPARIN SODIUM 30 MG/0.3 ML SYG SUBCU SCH (20:35)
[2020-03-03] MEDS: IBUPROFEN 400 MG TAB PO PRN (20:35)
[2020-03-03] MEDS: AMITRIPTYLINE HCL 25 MG TAB PO SCH (20:36)
[2020-03-03] MEDS: diphenhydrAMINE HCL 25 MG CAP PO SCH (20:36)
[2020-03-03] MEDS: NON-FORMULARY MEDICATION 1 EA MIS PO SCH (20:37)
[2020-03-03] MEDS: MELATONIN 3 MG TAB PO SCH (20:37)
[2020-03-04 05:33] VITALS: O2SAT 99
[2020-03-04] MEDS: PANTOPRAZOLE SODIUM IV 40 MG VIAL IV SCH (06:06)
[2020-03-04] MEDS: INSULIN LISPRO 100 UNITS/ML PEN SUBCU SCH ×2 (08:35→12:20)
[2020-03-04] MEDS: NON-FORMULARY MEDICATION 1 EA MIS PO SCH (08:54)
[2020-03-04] MEDS: BIFIDOBACTERIUM INFANTIS 4 MG CAP PO SCH (08:55)
[2020-03-04] MEDS: NICOTINE PATCH 14 MG TD SCH (08:55)
[2020-03-04] MEDS: amLODIPine BESYLATE 5 MG TAB PO SCH ×2 (08:56→08:58)
[2020-03-04] MEDS: metFORMIN HCL 500 MG TAB PO SCH (08:56)
[2020-03-04] MEDS: SITagliptin 50 MG TAB PO SCH (08:56)
[2020-03-04] MEDS: METOPROLOL TARTRATE 50 MG TAB PO SCH (08:56)
[2020-03-04] MEDS: PREGABALIN 100 MG CAP PO SCH (08:56)
[2020-03-04] MEDS: busPIRone HCL 5 MG TAB PO SCH (08:57)
[2020-03-04] MEDS: ALLOPURINOL 100 MG TAB PO SCH (08:57)
[2020-03-04] MEDS: SERTRALINE HCL 50 MG TAB PO SCH (08:58)
[2020-03-04] MEDS: FUROSEMIDE 40 MG TAB PO SCH ×2 (08:58→12:19)
--- NOTE | 2020-03-04 08:59 | PN ---
SUPERVISING PHYSICIAN: Marc Arriola MD DATE: 03/03/20 SUBJECTIVE: The patient is sitting up in bed. She feels much better this evening. Earlier today, it was reported that her systolic blood pressures were in the 60s to 80s. After discussing her case with the patient, she revealed that Kayexalate does not work well on lowering her potassium and that due to her poor kidney function, she takes baking soda in water 3 times daily and that is the only thing that will decrease her potassium. She feels much better since her blood pressures have gone up. She denies shortness of breath, nausea or vomiting. OBJECTIVE: VITAL SIGNS: Temperature 97.7, heart rate 68, blood pressures have run as low as 80/51 on her right arm and have now stabilized to 127/70s. RESPIRATORY: Essentially clear to auscultation bilaterally. CARDIAC: Regular rate and rhythm. NEUROLOGIC: She is awake, alert and oriented x3. LABORATORY: WBC 4.6, hemoglobin 11.8, hematocrit 34.1. Chemistries show potassium this morning of 5.4 after. After lactulose, it was 6. BUN 50, creatinine 2.45. All other labs and films have been reviewed via the EMR. ASSESSMENT: 1. Hyperkalemia with history of chronic renal failure. She continues to have elevated potassium in spite of treatment. 2. Acute on chronic kidney failure. Baseline creatinine about 1.3, admitting creatinine 6.82 and showing some improvement with treatment. Probably some exacerbation due to recent administration of Bactrim. 3. Recent treatment of left lower extremity cellulitis on Keflex and Bactrim. 4. Cellulitis to the right stump with possible abscess, pending evaluation by Dr. Miller, general surgeon. 5. Chronic underlying thrombocytopenia. 6. Diabetes mellitus, type 2. 7. Gastroenteritis with nausea, vomiting, diarrhea and dehydration. 8. Hypertension. 9. Chronic obstructive pulmonary disease without acute exacerbation. PLAN: We will continue present supportive care. She will no longer be on Kayexalate and I have restarted her soda which is 1 tablespoon in 1 cup of water 3 times daily. I will repeat her lab in the morning. She received a liter of fluids due to her low blood pressure. I discontinued her losartan. We will monitor her blood pressure closely overnight in case we need to start another ARB without potassium tomorrow. Otherwise, we will continue to monitor the patient closely and follow as needed. #[id number] [facility]
[2020-03-04] MEDS: HYDROcodone 10MG/APAP 325MG 1 EA TAB PO PRN (09:10)
[2020-03-04] MEDS: IPRATROPIUM/ALBUTEROL 3 ML VIAL INH SCH (09:30)
[2020-03-04] MEDS: SODIUM CHLORIDE 0.9% (FLUSH) 10 ML SYG IV SCH (10:07)
[2020-03-04] MEDS: LACTOBACILLUS 1 TAB PO SCH (10:07)
[2020-03-04 15:39] VITALS: BP 107/64; TEMP 97.5
--- NOTE | 2020-03-15 11:57 | CONS ---
DATE OF CONSULTATION: 03/01/20 REASON FOR CONSULTATION: Swelling in her right leg at the amputation. HISTORY OF PRESENT ILLNESS: This is a 59-year-old woman who presented with hyperkalemia, acute renal failure and was known to have some cellulitis in her right stump with a possible abscess. She had a history of a right xgtbo-fduo-ywlbrdngkh apparently after a long course of infected knee operation. She had not really complained of the leg. She is constantly on it. She is morbidly obese, so it is difficult to care for her and know what is going on. She did not really have any pain in the area, no fevers, no chills and no active drainage. PAST MEDICAL HISTORY: 1. Chronic obstructive pulmonary disease. 2. Asthma. 3. Hypertension. 4. Diabetes. No coronary disease or hepatitis. MEDICATIONS: There is a long list, please see the list. FAMILY HISTORY: Noncontributory. SOCIAL HISTORY: She uses tobacco and social alcohol. She denies any drugs. REVIEW OF SYSTEMS: Related to her legs, she really has no complaints but swelling and mild pain. STUDIES: She had an ultrasound of the area that shows a complex collection, 9 x 9 cm. I reviewed this and it seems like fluid in there mixed with muscle tissue. Uncertain if it is seroma or not. PROCEDURE: I consented the patient for an aspiration, so this is a bedside procedure. With sterile technique, the area was prepped. No local was used. An 18-gauge needle and large syringe was used and aspirated non-infected appearing liquid hematoma, approximately 140 mL, which reduced significantly. There was the beginnings of a small eschar in the lower area of the stump, which could erode through, but I think aspirating this fluid will help that and maybe prevent an erosion. The fluid looked completely without infection. We will reassess this for recurrence. [facility][id number] [facility]
--- NOTE | 2020-04-06 15:38 | DS ---
SUPERVISING PHYSICIAN: Marc Arriola MD DISCHARGE DIAGNOSIS: 1. Hyperkalemia with history of chronic renal failure. She continues to have elevated potassium in spite of treatment. 2. Acute on chronic kidney failure. Baseline creatinine about 1.3, admitting creatinine 6.82, showing improvement. 3. Recent treatment of left lower extremity cellulitis with Keflex and Bactrim. 4. Cellulitis to the right stump with possible abscess, drained by Dr. Miller and is following. 5. Chronic underlying thrombocytopenia. 6. Diabetes mellitus, type 2. 7. Gastroenteritis with nausea, vomiting, diarrhea and dehydration, normalized. 8. Hypertension. 9. Chronic obstructive pulmonary disease without acute exacerbation. HISTORY OF PRESENT ILLNESS: This is a 59-year-old female patient who lives at [facility] and came to the Emergency Room after being told by her primary care physician, Dr. Joni Arriola, to be evaluated due to low platelets from a recent blood draw. She does have chronic thrombocytopenia. She has also had cellulitis of the left lower extremity for which she has had 10 days of antibiotic therapy that included Keflex and Bactrim. She also has a significant history of MRSA and diabetes. She has also had a right above-knee amputation about 2 years ago. Prior to admission, she had some nausea, vomiting, diarrhea that started about a week prior to coming to the Emergency Room. Her emesis and diarrhea was non-bloody. She was also concerned that her left lower extremity was red, but had improved by time she came to the ER. In the Emergency Room, her initial vital signs were stable. Her WBCs were 5.1 with a hemoglobin 11.7, hematocrit 34.3. BUN 47, creatinine 3.86. She does have renal insufficiency but her baseline creatinine was about 1.3. Her potassium went up to 6.6. She was given IV insulin, D50 and calcium gluconate as well as some sodium bicarb. She was admitted to the Floor, and after that, her potassium did come down to 5.8. Her group A rapid strep was negative. COVID was negative. Flu type A and B per PCR were both negative. She was given some fluid in the Emergency Room as well as the Kayexalate, insulin, dextrose and calcium gluconate. She was admitted to the hospital in stable condition. HOSPITAL COURSE: The patient was admitted to the hospital and antibiotics were held as she had had a full treatment. She was given Kayexalate and her potassium was monitored. She had Lovenox for DVT prophylaxis. She also had sliding scale insulin per protocol. She was placed on a full liquid diet due to her complaints of nausea and vomiting to get some bowel rest. Home medications were restarted. She showed good response to treatment, but she did have some discomfort to the right stump, especially no the posterior aspect. There was no drainage at that time. Rocephin was then added for empiric coverage due to the questionable area on her right stump. An ultrasound was then ordered to rule out any kind of fluid collection, especially given her extensive history of MRSA, diabetes and amputation of the right leg. Her potassium level stabilized. She still had some pain to the right stump. Kidney function returned to baseline levels. Dr. Miller was consulted after obtaining the results of the sonogram. She received a PICC line. At some point, that she usually takes sodium bicarbonate at the [facility] and it had not be restarted. She said she had taken it for years to help with her hyperkalemia, so that was restarted. Dr. Miller drained bloody type drainage from her amputation site and he felt there was no infection. It was not cultured at that time. Her labs all normalized to her baseline levels. Vital signs were stable except that she had about a 24-hour period of low blood pressures. She received some fluid boluses for that. Those normalized. Her medications were restarted and she has had no further problems with low blood pressures. She will be discharged to [facility] today in stable condition. LABORATORY: WBCs stable at 4.6, hemoglobin and hematocrit are stable at 11.8 and 34.1. Potassium was as high as 6.6 and now 5.6. Creatinine was 2.86 and now 2.45. RADIOLOGY: Her soft tissue ultrasound shows complex tissue at the site of the right [id number] amputation measures at least 9.4 cm, more likely to represent abscess than hemorrhage. DISCHARGE PLAN: The patient will be discharged to [facility] in stable condition. She is to resume her previous diet and increase her activity as tolerated. It is to be noted that her sodium bicarbonate was added to her routine home medications and she will need followup lab in the next week to check her potassium as well as her creatinine. She is to return to the hospital or followup with Dr. Arriola for any problems or complications. DISCHARGE MEDICATIONS: 1. Furosemide. 2. Lyrica. 3. Melatonin. 4. Bydureon. 5. Metoprolol. 6. Hydrocodone. 7. Albuterol. 8. Nystatin powder. 9. Sertraline. 10. Tizanidine. 11. Losartan. 12. Loperamide. 13. Clonidine. 14. Amlodipine. 15. Allopurinol. 16. Metformin. 17. Humalog insulin sliding scale. 18. Diclofenac. 19. Fluticasone vilanterol. 20. Amitriptyline. 21. Albuterol. 22. Tresiba insulin. 23. BuSpar. 24. Pseudoephedrine. 25. Omeprazole. 26. Meloxicam. 27. Januvia. 28. Align. 29. Vitamin C. 30. Benzonatate. 31. Diphenhydramine. 32. Acetaminophen. 33. Furosemide. 24. Sodium bicarbonate. #[id number] [facility]
== END 2020-03-04 13:05 | DRG 683 ==
LOC: ER 11:10 → OBSVTOIN 18:42 → MS 18:42
PROVIDERS: ADMIT Nurse Practitioner Acute Care; ATTEND Nurse Practitioner Acute Care
PROC: 0J9N3ZZ Drainage of Right Lower Leg Subcutaneous Tissue and Fascia, Percutaneous Approach (ICD-10-PCS; principal; 2020-03-01)
DX: N17.9 Acute kidney failure, unspecified (principal); L03.116 Cellulitis of left lower limb; L76.32 Postprocedural hematoma of skin and subcutaneous tissue following other procedure; K52.9 Noninfective gastroenteritis and colitis, unspecified; E87.5 Hyperkalemia; J45.909 Unspecified asthma, uncomplicated; E11.22 Type 2 diabetes mellitus with diabetic chronic kidney disease; I12.9 Hypertensive chronic kidney disease with stage 1 through stage 4 chronic kidney disease, or unspecified chronic kidney disease; N18.9 Chronic kidney disease, unspecified; J44.9 Chronic obstructive pulmonary disease, unspecified; M06.9 Rheumatoid arthritis, unspecified; E87.6 Hypokalemia; E86.0 Dehydration; D69.6 Thrombocytopenia, unspecified; E66.9 Obesity, unspecified; Z89.611 Acquired absence of right leg above knee; Z79.4 Long term (current) use of insulin; F17.210 Nicotine dependence, cigarettes, uncomplicated; T87.89 Other complications of amputation stump

== ENCOUNTER 2020-03-14 14:27 | Inpatient (IN) | payer MEDICARE, OTHER ==
[2020-03-14] MEDS ORDERED: POVIDONE IODINE 10 % 15 ML UD TOP ONE (14:37)
[2020-03-14] MEDS ORDERED: MORPHINE SULFATE INJ 10 MG/ML VIAL IV ONE (15:19)
--- NOTE | 2020-03-14 15:31 | CT ---
CT RIGHT FEMUR WITHOUT CONTRAST 03/14/2020 CLINICAL HISTORY: Bleeding ulcer within the right distal femur stump. COMPARISON: None. TECHNIQUE: Axial 2.[address] imaging of the right femur performed. Reformatted coronal and sagittal images obtained. No contrast utilized. Automated exposure control, adjustment of the mA and/or kV according to patient size, or use of iterative reconstruction was performed. FINDINGS: There is a right lower extremity amputation at the level of the mid right femur diaphysis. There is extensive edema and superficial skin thickening along the posterior aspect of the right thigh with a thick-walled air-filled tract extending from the posterior skin surface to the posterior margin of the distal femoral stump cortex. There is subtle periostitis along the posterior vertebral margin of the distal stump suggesting a small focus osteomyelitis. There is no fracture seen within the right femur. Right hip joint appears normal. Included right hemipelvis appears unremarkable. There is no deep or superficial soft tissue fluid collection to suggest an abscess. There are bubbles of air within the markedly thickened superficial skin suggesting a large wound tract rather than necrotizing fasciitis. IMPRESSION: 1. Status post right lower extremity amputation at the mid diaphysis of the right femur. There is a very large posterior stump wound with a tract of air extending to the posterior distal stump with mild osteomyelitis suspected. There is air throughout the superficial thickened soft tissue likely within a large wound tract/cavity rather than necrotizing fasciitis. No drainable abscess collection is seen. Electronically signed by: Sarah Marie DO 03/14/2020 3:29 PM [facility]
[2020-03-14] MEDS ORDERED: PIPERACILLIN/TAZOBACTAM 3.375 GM in SODIUM CHLORIDE 0.9% 100ML 100 ML IVPB ONE (15:44)
--- NOTE | 2020-03-14 16:01 | ED.PDOC ---
History of Present Illness - General Chief Complaint: Wound Recheck Stated Complaint: wound on RLE stump bleeding Time Seen by Provider: 03/14/20 14:35 Source: patient Exam Limitations: clinical condition - History of Present Illness Initial Comments: The patient is a 59-year-old female presented emergency room secondary to drainage from her right lower extremity amputation site hematoma versus pressure site. It started draining yesterday and has been putting out tissue fragments along with serosanguineous fluid. Actually saw the site 2 days ago and felt it was more of a pressure site. She was apparently seen by general surgery, which I do not know about about a week ago for hematoma at that site. No definite fevers. The area is tender. Timing/Duration: 24 hours Severity: moderate Improving Factors: nothing Worsening Factors: nothing Allergies/Adverse Reactions: Allergies Trazodone Allergy (Verified 02/27/20 12:15) orange juice Allergy (Mild, Uncoded 02/27/20 12:15) Other geographical tongue Home Medications: Ambulatory Orders Furosemide 40 mg PO DAILY 02/15/16 Pregabalin [Lyrica] 100 mg PO TID 08/29/17 Melatonin 40 mg PO BEDTIME 11/20/17 Exenatide [Bydureon] 0.65 ml SC WKLY 03/29/18 HYDROcodone 10MG/APAP 325MG [Highland 10] 1 tablet PO Q6H PRN 03/29/18 Metoprolol Tartrate 50 mg PO BID 03/29/18 Albuterol Sulfate [Proair Hfa] 2 inh IN Q4H PRN 05/03/18 Nystatin Powder 1 gm TOP BID PRN 05/03/18 Sertraline HCl [Zoloft] 150 mg PO DAILY 05/10/18 tiZANidine [Zanaflex] 4 mg PO Q6HR PRN 07/03/18 Allopurinol [Zyloprim] 100 mg PO DAILY 01/27/19 Amlodipine Besylate 5 mg PO DAILY #0 01/27/19 Clonidine HCl 0.1 mg PO PRN PRN 01/27/19 Insulin Lispro [Humalog] 100 units SUBCU ACHS 01/27/19 Loperamide Cap [Imodium Cap] 2 mg PO PRN PRN 01/27/19 Olmesartan Medoxomil 40 mg PO DAILY 01/27/19 metFORMIN HCL [Glucophage] 500 mg PO DAILY 01/27/19 Diclofenac Sodium (Actinic Ker [Diclofenac Sodium] 3 % TD BID 06/03/19 Albuterol Sulfate Nebs [Proventil Nebs] 1.25 mg INH Q4H 08/06/19 Amitriptyline HCl [Amitriptyline Hydrochlori] 50 mg PO BEDTIME 08/06/19 Fluticasone Furoate-Vilanterol [Breo Ellipta 200-25 Mcg/INH] 1 inh PO DAILY 08/06/19 Insulin Degludec [Tresiba Flextouch] 48 unit SC DAILY 08/06/19 Buspirone HCl [Buspirone Hydrochloride] 7.5 mg PO DAILY 08/14/19 Acetaminophen [Tylenol] 500 mg PO Q6HR PRN 02/28/20 Ascorbic Acid [Vitamin C 500 mg] 1 tab PO DAILY 02/28/20 Benzonatate 100 mg PO Q8HR PRN 02/28/20 Cephalexin 500 mg PO Q6HR 02/28/20 Diphenhydramine HCl [Diphenhydramine Hydrochlo] 25 mg PO BEDTIME 02/28/20 Furosemide 80 mg PO DAILY 02/28/20 Lactobacillus 1 tab PO BID 02/28/20 Meloxicam 15 mg PO DAILY 02/28/20 Omeprazole Magnesium [Prilosec Otc] 20 mg PO DAILY 02/28/20 Pseudoephedrine HCl 30 mg PO Q8HR PRN 02/28/20 Sitagliptin Phosphate [Januvia] 50 mg PO DAILY 02/28/20 Sulfamethoxazole-Trimethoprim [Bactrim Ds 800-160 mg] 1 tab PO Q12HR 02/28/20 Review of Systems - Review of Systems Constitutional: States: malaise EENTM: States: no symptoms reported Respiratory: States: no symptoms reported Cardiology: States: no symptoms reported Gastrointestinal/Abdominal: States: no symptoms reported Genitourinary: States: no symptoms reported Musculoskeletal: States: see HPI Skin: States: see HPI Neurological: States: no symptoms reported Endocrine: States: no symptoms reported All other Systems: No Change from Baseline Past Medical History (General) - Patient Medical History Hx Seizures: No Hx Stroke: No Hx Dementia: No Hx Asthma: Yes Hx of COPD: Yes Hx Cardiac Disorders: No Hx Congestive Heart Failure: No Hx Pacemaker: No Hx Hypertension: Yes Hx Thyroid Disease: No Hx Diabetes: Yes Hx Gastroesophageal Reflux: No Hx Renal Disease: No Hx Cancer: No Hx of HIV: No Hx Hepatitis C: No Hx MRSA: No MRSA Source:: knee - Vaccination History Hx Tetanus, Diphtheria Vaccination: Yes Hx Influenza Vaccination: Yes Hx Pneumococcal Vaccination: Yes - Social History Hx Tobacco Use: Yes Hx Chewing Tobacco Use: No Hx Alcohol Use: Yes Hx Substance Use: No Hx Substance Use Treatment: No Hx Depression: No Hx Physical Abuse: No Hx Emotional Abuse: No Hx Suspected Abuse: No - Female History Patient : No Family Medical History - Family History Father Family History: Unknown Living Status: Age at (years of age): 59 Cause of : cancer Hx Family Stroke: Yes - sister Hx Family Cancer: Yes - mesothelioma-dad;ovaries-mom Mother Family History: No Known Living Status: Age at (years of age): 59 Cause of : MVA Hx Family Diabetes: Yes Hx Family Cancer: Yes - ovarian Physical Exam - Physical Exam General Appearance: Alert, No apparent distress Eye Exam: bilateral normal Ears, Nose, Throat: hearing grossly normal, normal pharynx Neck: full range of motion, supple Respiratory: lungs clear, normal breath sounds, no respiratory distress, no accessory muscle use Cardiovascular/Chest: normal peripheral pulses, no edema, other - Regular rate Peripheral Pulses: radial,right: 2+, radial,left: 2+ Gastrointestinal/Abdominal: non tender - Morbidly obese, soft Rectal Exam: deferred Extremity: normal range of motion, no calf tenderness, other - Right lower extremity AKA Neurologic: alert, normal mood/affect, oriented x 3, other - Severe peripheral neuropathy. The patient is not a great historian. Skin Exam: other - Drainage from the pressure site at the stump of the right lower extremity. Culture is done. Comments: Vital Signs - 24 hr 03/14/20 14:48 Temperature 98.8 F Pulse Rate [ 72 left brachial] Respiratory 20 Rate Blood Pressure 144/71 [left brachial] O2 Sat by Pulse 95 Oximetry Progress - Progress Progress: 03/14/20 16:02 The patient is a 59-year-old female presenting to emergency room secondary to drainage from the hematoma versus pressure ulcer site to the right AKA stump. Blood and wound cultures have been done. I am uncertain if there is underlying infection at the site. We did irrigate the wound with saline. The patient is going to be started on linezolid and Zosyn here for now. Dr. Miller will evaluate the patient and determine if he feels antibiotics are warranted in the longer term for this or she needs further surgical revision. No evidence of sepsis at this time. She does have an elevated CRP of approximately 18 from 2 days ago. The patient does not have any leukocytosis however she may be unable to mount an leukocytic response. Admitting for continued care. pearl [email or web address] [phone] - Results/Orders Results/Orders: Laboratory Tests 03/14/20 03/14/20 14:50 14:50 WBC 4.1 L RBC 3.16 L Hgb 10.4 L Hct 30.7 L MCV 97.2 MCH 33.0 H MCHC 33.9 RDW 14.6 H Plt Count 78 L D MPV 9.6 Absolute Neuts (auto) 3.00 Absolute Lymphs (auto) 0.60 L Absolute Monos (auto) 0.40 Absolute Eos (auto) 0.10 Absolute Basos (auto) 0.00 Neutrophils % 74.6 Lymphocytes % 13.7 L Monocytes % 9.5 H Eosinophils % 1.5 Basophils % 0.7 Sodium 136 Potassium 4.5 Chloride 95 L Carbon Dioxide 28 Anion Gap 17.5 BUN 33 H D Creatinine 1.76 H BUN/Creatinine Ratio 18.8 Random Glucose 199 H Serum Osmolality 284.8 Calcium 8.3 L Total Bilirubin 0.7 AST 21 ALT 16 Alkaline Phosphatase 117 Serum Total Protein 7.9 Albumin 3.7 Globulin 4.2 H Albumin/Globulin Ratio 0.9 L Blood culture and wound cultures are done. CT scan of the right lower extremity shows the lower extremity ulcer and drainage site and tract and possibly a small tiny area of osteomyelitis to the tip of the bone. See report for details. Departure - Departure Clinical Impression: Pressure ulcer of right leg Disposition: Admit Patient Condition: Poor Departure Forms: ED Discharge - Pt. Copy, Patient Portal Self Enrollment Referrals: Marc Arriola MD [Primary Care Provider] - 1-2 Weeks Home Medications: Ambulatory Orders Furosemide 40 mg PO DAILY 02/15/16 Pregabalin [Lyrica] 100 mg PO TID 08/29/17 Melatonin 40 mg PO BEDTIME 11/20/17 Exenatide [Bydureon] 0.65 ml SC WKLY 03/29/18 HYDROcodone 10MG/APAP 325MG [Highland 10/325] 1 tablet PO Q6H PRN 03/29/18 Metoprolol Tartrate 50 mg PO BID 03/29/18 Albuterol Sulfate [Proair Hfa] 2 inh IN Q4H PRN 05/03/18 Nystatin Powder 1 gm TOP BID PRN 05/03/18 Sertraline HCl [Zoloft] 150 mg PO DAILY 05/10/18 tiZANidine [Zanaflex] 4 mg PO Q6HR PRN 07/03/18 Allopurinol [Zyloprim] 100 mg PO DAILY 01/27/19 Amlodipine Besylate 5 mg PO DAILY #0 01/27/19 Clonidine HCl 0.1 mg PO PRN PRN 01/27/19 Insulin Lispro [Humalog] 100 units SUBCU ACHS 01/27/19 Loperamide Cap [Imodium Cap] 2 mg PO PRN PRN 01/27/19 Olmesartan Medoxomil 40 mg PO DAILY 01/27/19 metFORMIN HCL [Glucophage] 500 mg PO DAILY 01/27/19 Diclofenac Sodium (Actinic Ker [Diclofenac Sodium] 3 % TD BID 06/03/19 Albuterol Sulfate Nebs [Proventil Nebs] 1.25 mg INH Q4H 08/06/19 Amitriptyline HCl [Amitriptyline Hydrochlori] 50 mg PO BEDTIME 08/06/19 Fluticasone Furoate-Vilanterol [Breo Ellipta 200-25 Mcg/INH] 1 inh PO DAILY 08/06/19 Insulin Degludec [Tresiba Flextouch] 48 unit SC DAILY 08/06/19 Buspirone HCl [Buspirone Hydrochloride] 7.5 mg PO DAILY 08/14/19 Acetaminophen [Tylenol] 500 mg PO Q6HR PRN 02/28/20 Ascorbic Acid [Vitamin C 500 mg] 1 tab PO DAILY 02/28/20 Benzonatate 100 mg PO Q8HR PRN 02/28/20 Cephalexin 500 mg PO Q6HR 02/28/20 Diphenhydramine HCl [Diphenhydramine Hydrochlo] 25 mg PO BEDTIME 02/28/20 Furosemide 80 mg PO DAILY 02/28/20 Lactobacillus 1 tab PO BID 02/28/20 Meloxicam 15 mg PO DAILY 12/05/20 Omeprazole Magnesium [Prilosec Otc] 20 mg PO DAILY 02/28/20 Pseudoephedrine HCl 30 mg PO Q8HR PRN 02/28/20 Sitagliptin Phosphate [Januvia] 50 mg PO DAILY 02/28/20 Sulfamethoxazole-Trimethoprim [Bactrim Ds 800-160 mg] 1 tab PO Q12HR 02/28/20 Decision To Admit - Decistion To Admit Decision to Admit Reason: Medical Nature Decision to Admit Date: 03/14/20 Decision to Admit Time: 16:04
--- NOTE | 2020-03-14 17:11 | HP ---
SUPERVISING PHYSICIAN: Froylan Alonso MD CHIEF COMPLAINT: Bleeding from wound on the right lower extremity stump. HISTORY OF PRESENT ILLNESS: Ms. Boyd is a 59-year-old female that presented to the Emergency Room today from [facility] with some drainage from her right lower extremity amputation. There is question of whether there is actual hematoma versus a pressure ulcer. The actual site started draining yesterday and she was seen in the ER two days previously for some bleeding. A pressure dressing was placed and she was [facility]. She was actually in the hospital on 02/29/20 and discharged on 03/04/20 and at that time was seen by Dr. Miller, general surgeon, who drained approximately 150 cc of sanguinous fluid. It was felt at the time that it was a hematoma. No cultures were actually sent and she was not put on antibiotics at that time. She endorses that the site has continued to leak a little bit and is severely tender. She has not had any fevers. Labs in the ER showed white count 4,100 which is about her baseline level, without a left shift. Hemoglobin 10.4, hematocrit 30.7. Chemistries showed an elevated C-reactive protein in the ER on 03/12/20. At that time, it was 13.9. A lower extremity CT was completed on the ER visit today which showed a very large posterior stump wound with a track of air extending to the posterior distal stump with mild osteomyelitis suspected. There was air throughout the superficial thickened soft tissue, likely with a large wound tract/cavity rather than necrotizing fasciitis. No drainable abscess collection was noted. She was given a dose of Zosyn and blood cultures were completed. She is now going to be placed in observation for surgical consultation with Dr. Miller in the morning with continued antibiotics with concerns for possible osteomyelitis. She was placed in observation in stable condition. PAST MEDICAL HISTORY: 1. Asthma. 2. Atrial flutter. 3. Hypertension. 4. Osteomyelitis. 5. Rheumatoid arthritis. 6. Osteoporosis. 7. 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 8. Diabetes mellitus, type 2. 9. Chronic renal insufficiency. 10. Chronic obstructive pulmonary disease. 11. Chronic thrombocytopenia. PAST SURGICAL HISTORY: 1. Above-knee amputation, right. 2. Tonsillectomy. 3. Cholecystectomy. 4. x2. 5. Bilateral tubal ligation. 6. Multiple toe amputations on left foot due to diabetic complications. 7. Multiple right knee hardware revisions prior to her amputation due to infection. MEDICATIONS: Please refer to the electronic medical record once those medications from the [facility] are updated. ALLERGIES: TRAZODONE. FAMILY HISTORY: Positive for hypertension and chronic obstructive pulmonary disease. SOCIAL HISTORY: She resides in [facility]. She smokes about half a pack of cigarettes per day and has for many years. She denies any alcohol or illicit drug use. REVIEW OF SYSTEMS: CONSTITUTIONAL: Positive for general malaise. Denies any fevers, chills. HEENT: Denies headaches, sore throats, earaches, nasal congestion, vision changes. RESPIRATORY: Denies coughing, wheezing or shortness of breath. CARDIOVASCULAR: Denies chest pain, palpitations or syncopal episodes. GASTROINTESTINAL: Denies nausea, vomiting, diarrhea, constipation or abdominal pain. GENITOURINARY: Denies dysuria, hematuria, polyuria. MUSCULOSKELETAL: As noted in history of present illness. SKIN: As noted in history of present illness. NEUROLOGIC: Denies any ataxia, seizures, syncopal episodes or other focal motor deficits. HEMATOLOGIC: As noted in history of present illness, recent bleeding from right stump, but prior to that, no reported unexplained bleeding, bruising or transfusion reactions. PHYSICAL EXAMINATION: VITAL SIGNS: On initial presentation in the Emergency Room, temperature 98.8, pulse 72, blood pressure 144/71, respirations 20, saturation 95% on room air. GENERAL: The patient is resting comfortably in no acute distress. She is alert. HEENT: Tympanic membranes clear bilaterally. Oropharynx is pink, moist without any lesions. NECK: Supple, nontender with full range of motion. No jugular venous distention noted. RESPIRATORY: Lung sounds are clear throughout and no obvious rhonchi, wheezes or rales. CARDIOVASCULAR: Regular rate and rhythm without any appreciable murmurs, gallops, or rubs. ABDOMEN: Morbidly obese, but soft, nontender. RECTAL: Deferred. EXTREMITIES: There is no cyanosis, clubbing to left lower extremity. Right lower extremity has juwos-wase-fpicjfuyln. NEUROLOGIC: Cranial nerves II-XII are grossly intact. The patient is alert and oriented times three. SKIN: Some drainage from pressure site on the stump of the right lower extremity. Otherwise, skin is warm, pink and dry. LABORATORY: White count 4,100, hemoglobin 10.4, hematocrit 30.7, platelet count 78,000. Chemistry shows normal potassium at 4.5, creatinine 1.76 which is close to her baseline levels. BUN 33, blood sugar 199, calcium 8.3. Liver functions within normal limits. C-reactive protein on 03/12/20 was 13.9. MICROBIOLOGY: Culture of the decubitus on the right stump is pending. Blood cultures pending. Nasal swab for COVID was negative. RADIOLOGY: Lower extremity CT shows status post right lower extremity amputation at the mid diaphysis of the right femur. There is a very large posterior stump wound with a tract of air extending to the posterior distal stump with mild osteomyelitis suspected. There is air throughout the superficial thickened soft tissue, likely within a large wound tract/cavity rather than necrotizing fasciitis, but there is no drainable abscess collection seen. ASSESSMENT: 1. Decubitus to the right uiagw-wflf-pcbojelutx with concerns for early osteomyelitis with cultures pending and surgical consultation pending. 2. Chronic kidney failure with creatinine close to baseline levels, which looks to be about 1.3. 3. Chronic thrombocytopenia. 4. Diabetes mellitus, type 2. 5. Hypertension. 6. Chronic obstructive pulmonary disease without any acute exacerbation and a component of asthma. 7. Microcytic/normochromic anemia, likely chronic, secondary to renal disease, stable. PLAN: Ms. Boyd is going to be placed in observation initially. After discussion today with Dr. Miller, he will see the patient in consultation tomorrow. I will discuss the case with Dr. Miller tomorrow and she will probably need an MRI at some point, but we will await 's consultation. Until then, we are going to start her on Zosyn and Zyvox for concern for underlying osteomyelitis. At this point, she does not appear to be septic, but more likely will need chronic management in regards to antibiotics, so we will probably need to get a PICC line pretty soon. We will restart her home medications once those have been updated and verified. She will be on sliding scale insulin per protocol. She will be on Lovenox per protocol and renally dosed. I anticipate her length of stay to be at least 1 to 2 days, possibly longer depending on findings on consultation. We will make her NPO tonight in case Dr. Miller does want to take her to surgery tomorrow. Until the patient can transition to outpatient management, we will continue to monitor and treat as needed. #[id number] [facility]
[2020-03-14] MEDS ORDERED: MORPHINE SULFATE INJ 10 MG/ML VIAL IV PRN (18:42)
[2020-03-14] MEDS ORDERED: SODIUM CHLORIDE 0.9% (FLUSH) 10 ML SYG IV PRN (18:42)
[2020-03-14] MEDS ORDERED: ONDANSETRON INJ 4 MG/2 ML VIAL IV PRN (18:42)
[2020-03-14] MEDS ORDERED: DEXTROSE 50% 25 GM/50 ML SYG IV PRN (18:42)
[2020-03-14] MEDS ORDERED: GLUCAGON INJ 1 MG VIAL SUBCU PRN (18:42)
[2020-03-14] MEDS ORDERED: PIPERACILLIN/TAZOBACTAM 3.375 GM in SODIUM CHLORIDE 0.9% 100ML 100 ML IVPB SCH (19:00)
[2020-03-14] MEDS ORDERED: IV SET AND CAP CHANGE INJ INJ SCH (19:00)
[2020-03-14] MEDS: LINEZOLID IV 600 MG in PREMIX BAG 1 BAG IVPB SCH (19:00)
[2020-03-14] MEDS ORDERED: LINEZOLID IV 300 ML IVPB ONE (19:27)
[2020-03-14] MEDS ORDERED: SODIUM CHLORIDE 0.9% 100ML 100 ML IVPB ONE (19:47)
[2020-03-14] MEDS ORDERED: PIPERACILLIN/TAZOBACTAM 3.375 GM VIAL IVPB ONE (19:47)
[2020-03-14] MEDS ORDERED: HYDROcodone 10MG/APAP 325MG 1 EA TAB PO PRN (19:54)
[2020-03-14] MEDS ORDERED: NYSTATIN POWDER 15GM BTTL TOP PRN (19:54)
[2020-03-14] MEDS: ALBUTEROL SULFATE 2.5 MG/3 ML VIAL NEB SCH ×2 (20:24→20:29)
[2020-03-14] MEDS ORDERED: MELATONIN 3 MG TAB ONE (20:46)
[2020-03-14] MEDS: AMITRIPTYLINE HCL 25 MG TAB PO SCH (20:54)
[2020-03-14] MEDS: PREGABALIN 100 MG CAP PO SCH (20:54)
[2020-03-14] MEDS: diphenhydrAMINE HCL 25 MG CAP PO SCH (20:54)
[2020-03-14] MEDS: METOPROLOL TARTRATE 50 MG TAB PO SCH (20:55)
[2020-03-14] MEDS: tiZANidine 4 MG TAB PO PRN (20:55)
[2020-03-14] MEDS: INSULIN LISPRO 100 UNITS/ML PEN SUBCU SCH ×2 (20:57→20:59)
[2020-03-14] MEDS: SODIUM CHLORIDE 0.9% (FLUSH) 10 ML SYG IV SCH (20:57)
[2020-03-14] MEDS: DICLOFENAC SODIUM TD SCH (20:58)
[2020-03-14] MEDS ORDERED: HYDROcodone 5MG/APAP 325MG 1 EA TAB PO PRN (20:59)
[2020-03-14] MEDS ORDERED: MELATONIN 40 MG PO SCH (21:00)
[2020-03-14] MEDS: PIPERACILLIN/TAZOBACTAM 3.375 GM in SODIUM CHLORIDE 0.9% 100ML 100 ML IVPB SCH (21:05)
[2020-03-14] MEDS ORDERED: HYDROcodone 10MG/APAP 325MG 1 EA TAB PO ONE (21:21)
[2020-03-14] MEDS ORDERED: HYDROmorphone HCL INJ 2 MG/ML VIAL IV ONE (22:43)
[2020-03-15] MEDS: ALBUTEROL SULFATE 2.5 MG/3 ML VIAL NEB SCH ×3 (00:15→11:24)
[2020-03-15] MEDS ORDERED: PIPERACILLIN/TAZOBACTAM 3.375 GM VIAL IVPB ONE (03:27)
[2020-03-15] MEDS ORDERED: SODIUM CHLORIDE 0.9% 100ML 100 ML IVPB ONE (03:27)
[2020-03-15] MEDS ORDERED: LINEZOLID IV 300 ML IVPB ONE (03:29)
[2020-03-15] MEDS: PIPERACILLIN/TAZOBACTAM 3.375 GM in SODIUM CHLORIDE 0.9% 100ML 100 ML IVPB SCH ×3 (04:01→20:46)
[2020-03-15] MEDS ORDERED: MELOXICAM 7.5 MG TAB ONE (06:54)
[2020-03-15] MEDS: LINEZOLID IV 600 MG in PREMIX BAG 1 BAG IVPB SCH ×2 (07:05→18:10)
[2020-03-15] MEDS: OMEPRAZOLE CAP 20 MG CAP PO SCH (07:05)
[2020-03-15] MEDS: INSULIN LISPRO 100 UNITS/ML PEN SUBCU SCH ×5 (07:27→20:49)
[2020-03-15] MEDS: FUROSEMIDE 40 MG TAB PO SCH (08:02)
[2020-03-15] MEDS: SERTRALINE HCL 50 MG TAB PO SCH (08:02)
[2020-03-15] MEDS: BIFIDOBACTERIUM INFANTIS 4 MG CAP PO SCH (08:02)
[2020-03-15] MEDS: PREGABALIN 100 MG CAP PO SCH ×3 (08:03→20:48)
[2020-03-15] MEDS: ALLOPURINOL 100 MG TAB PO SCH (08:03)
[2020-03-15] MEDS: METOPROLOL TARTRATE 50 MG TAB PO SCH ×2 (08:03→20:47)
[2020-03-15] MEDS: SODIUM CHLORIDE 0.9% (FLUSH) 10 ML SYG IV SCH ×2 (08:13→20:48)
[2020-03-15] MEDS: amLODIPine BESYLATE 5 MG TAB PO SCH (08:13)
[2020-03-15] MEDS: DICLOFENAC SODIUM TD SCH ×2 (08:14→20:48)
[2020-03-15] MEDS: HYDROmorphone HCL INJ 2 MG/ML VIAL IV PRN ×4 (08:33→20:50)
[2020-03-15] MEDS ORDERED: metFORMIN HCL 500 MG TAB PO SCH (09:00)
[2020-03-15] MEDS ORDERED: SITagliptin 50 MG TAB PO SCH (09:00)
[2020-03-15] MEDS ORDERED: OLMESARTAN MEDOXOMIL 40 MG PO SCH (09:00)
[2020-03-15] MEDS ORDERED: NON-FORMULARY MEDICATION 1 EA MIS (Meloxicam [Meloxicam] 15 MG) PO SCH (09:00)
[2020-03-15] MEDS ORDERED: ENOXAPARIN SODIUM 30 MG/0.3 ML SYG SUBCU SCH (09:00)
[2020-03-15] MEDS: ALBUTEROL SULFATE 2.5 MG/3 ML VIAL NEB PRN ×2 (10:00→13:45)
[2020-03-15] MEDS: LOSARTAN POTASSIUM 100 MG TAB PO SCH (10:08)
[2020-03-15] MEDS: ASCORBIC ACID 500 MG TAB PO SCH (10:08)
--- NOTE | 2020-03-15 10:55 | MRI ---
Study: MRI of the Right Femur. Indication: f/u of CT findings 03/14 Osteomyelitis rt AKA Technique: Multiplanar, multi sequence MRI of the right femur was obtained without intravenous contrast. Comparison: CT March 14, 2020 Findings: Moderately motion degraded examination. Peuau-xin-tdaa amputation redemonstrated with a large site of skin ulceration along the posterior inferior stump extending to the inferior margin of the distal femur. Extensive edema and granulation tissue along the peripheral margins of the ulceration site. An ill-defined subcutaneous fluid collection noted along the posteromedial margin of the ulceration and measures up to 5.5 cm transverse by 1.3 cm AP by 7 cm craniocaudal and is concerning for abscess. Cortical indistinctness of the inferior margin of the stump noted with internal elevated STIR signal extending over a craniocaudal length of at least 4 cm but difficult to evaluate full extent due to the motion degradation. Mild diminished T1 marrow signal at this site as well. Findings highly concerning for osteomyelitis. Moderate to severe atherosclerotic. No acute fracture. Impression: Awxsx-bdn-yrza amputation with cellulitis and subcutaneous abscess as well as ulceration tracking to the distal femoral stump where there are findings consistent with osteomyelitis. Electronically signed by: Daquan Daley MD 03/15/2020 10:53 AM [facility]
[2020-03-15] MEDS ORDERED: ALBUTEROL SULFATE 2.5 MG/3 ML VIAL NEB SCH (12:00)
--- NOTE | 2020-03-15 17:37 | PN ---
SUPERVISING PHYSICIAN: Boy Bunn MD DATE: 03/15/20 SUBJECTIVE: The patient is still having quite a bit of pain in her right amputation stump. We did an MRI and it does show some osteomyelitis in the distal end with still some fluid collection there. She has been having to use Dilaudid. Otherwise, she has not had any other complaints. OBJECTIVE: VITAL SIGNS: Temperature 98.5, pulse 81, blood pressure 131/75, respirations 16, oxygen saturation 96% on room air. GENERAL: The patient is resting comfortably. She does not appear to be in any distress although she says she hurts. At best, with morphine it is 8.5. At most, maximum pain is 10. CHEST: Lungs are clear to auscultation. HEART: Regular rate and rhythm. ABDOMEN: Obese, but soft and nontender. Positive bowel sounds. EXTREMITIES: Right nlrlh-zpve-fkrlrztpdc does not show any erythema. It actually is fairly soft on palpation, but is obviously tender to palpation. There is some drainage from where they initially drained some fluid off of it, but it is more of a serosanguineous type fluid, no obvious pus at this point. Otherwise, left lower extremity looks to be without any cellulitis or edema, cyanosis or clubbing. NEUROLOGIC: Alert and oriented times three. LABORATORY: White count 4,200, hemoglobin 10.1, hematocrit 29.7, platelet count 79,000. Differential is without a left shift. Chemistry today shows normal electrolytes with creatinine 1.87 with blood sugars ranging between 127 and 156. Calcium 8.0. RADIOLOGY: MRI of the right uvzzw-nqyl-yszhkkbpbn shows ltsbc-pskg-fwzacziqrv with cellulitis and subcutaneous abscess as well as ulceration tracking into the distal femoral stump. There are findings consistent with osteomyelitis. ASSESSMENT: 1. Abscess to the right tyuux-thiy-xtnsplzaap with osteomyelitis findings on MRI with cultures pending. 2. Acute on chronic kidney failure with levels returning to baseline. 3. Chronic thrombocytopenia. 4. Diabetes mellitus, type 2. 5. Hypertension. 6. Chronic obstructive pulmonary disease without any acute exacerbation and a component of asthma. 7. Microcytic/normochromic anemia, likely chronic, secondary to renal disease, stable. PLAN: I did talk to Dr. Miller. At this point, he does not want to do any surgical intervention, he feels like it is just a hematoma rather than an abscess, but he is concerned with the osteomyelitis that warrants at least a consultation with Infectious Disease and at some point may need surgical intervention with the surgeon who actually did the amputation. I will see if I can get a hold of Dr. Rankin, but I think at this point it would be best just to wait until that culture comes back so we can have all the information. I feel like probably the plan of care at this point will be to do PICC line and continued antibiotics, which we have her on Zosyn and Zyvox, but given the length of duration, we may need to modify that regimen. Again, as soon as we get the culture back, we will talk with Dr. Rankin. I have ordered PICC line placement. Given that she does have thrombocytopenia, I will hold off on her Lovenox. We may need to put her on subcutaneous heparin. I will talk with Pharmacy about that. She is on an ADA diet since there is no surgical intervention planned. Dr. Miller will followup with the patient as needed, but he will be out of town this following week and Dr. Ng will be project control analyst. Again, until we discharge her back to [facility], we will continue to monitor and treat as needed. #[id number] [facility]
[2020-03-15] MEDS: NON-FORMULARY MEDICATION 1 EA MIS (Fluticasone Furoate-Vilanterol [Breo Ellipta 200-25 Mcg IN SCH (19:38)
[2020-03-15] MEDS: MELATONIN 3 MG TAB PO SCH (20:47)
[2020-03-15] MEDS: tiZANidine 4 MG TAB PO PRN (20:47)
[2020-03-15] MEDS: AMITRIPTYLINE HCL 25 MG TAB PO SCH (20:48)
[2020-03-15] MEDS: diphenhydrAMINE HCL 25 MG CAP PO SCH (20:48)
[2020-03-16] MEDS: HYDROmorphone HCL INJ 2 MG/ML VIAL IV PRN ×6 (00:21→23:09)
[2020-03-16] MEDS: PIPERACILLIN/TAZOBACTAM 3.375 GM in SODIUM CHLORIDE 0.9% 100ML 100 ML IVPB SCH ×3 (04:46→21:40)
[2020-03-16] MEDS: OMEPRAZOLE CAP 20 MG CAP PO SCH (05:59)
[2020-03-16] MEDS: LINEZOLID IV 600 MG in PREMIX BAG 1 BAG IVPB SCH ×2 (06:18→19:07)
[2020-03-16] MEDS: ASCORBIC ACID 500 MG TAB PO SCH (07:32)
[2020-03-16] MEDS: metFORMIN HCL 500 MG TAB PO SCH (07:33)
[2020-03-16] MEDS: METOPROLOL TARTRATE 50 MG TAB PO SCH ×2 (07:33→21:47)
[2020-03-16] MEDS: LOSARTAN POTASSIUM 100 MG TAB PO SCH (07:33)
[2020-03-16] MEDS: FUROSEMIDE 40 MG TAB PO SCH (07:33)
[2020-03-16] MEDS: amLODIPine BESYLATE 5 MG TAB PO SCH (07:34)
[2020-03-16] MEDS: SITagliptin 50 MG TAB PO SCH (07:34)
[2020-03-16] MEDS: ALLOPURINOL 100 MG TAB PO SCH (07:34)
[2020-03-16] MEDS: BIFIDOBACTERIUM INFANTIS 4 MG CAP PO SCH (07:34)
[2020-03-16] MEDS: PREGABALIN 100 MG CAP PO SCH ×3 (07:34→21:40)
[2020-03-16] MEDS: SERTRALINE HCL 50 MG TAB PO SCH (07:35)
[2020-03-16] MEDS: SODIUM CHLORIDE 0.9% (FLUSH) 10 ML SYG IV SCH ×2 (07:35→21:40)
[2020-03-16] MEDS ORDERED: HEPARIN SODIUM (PORCINE) 5,000 U/ML VIAL ONE (07:39)
[2020-03-16] MEDS ORDERED: MELOXICAM 7.5 MG TAB ONE (07:39)
[2020-03-16] MEDS: MELOXICAM 7.5 MG TAB PO SCH (07:41)
[2020-03-16] MEDS: HEPARIN SODIUM (PORCINE) 5,000 U/ML VIAL SUBCU SCH ×2 (07:41→21:39)
[2020-03-16] MEDS: INSULIN LISPRO 100 UNITS/ML PEN SUBCU SCH ×4 (07:43→21:41)
[2020-03-16] MEDS: DICLOFENAC SODIUM TD SCH ×2 (07:57→21:39)
[2020-03-16] MEDS: ALBUTEROL SULFATE 2.5 MG/3 ML VIAL NEB PRN ×2 (09:00→15:45)
[2020-03-16] MEDS: NON-FORMULARY MEDICATION 1 EA MIS (Fluticasone Furoate-Vilanterol [Breo Ellipta 200-25 Mcg IN SCH (09:09)
[2020-03-16] MEDS ORDERED: HYDROcodone 10MG/APAP 325MG 1 EA TAB PO ONE (16:11)
--- NOTE | 2020-03-16 17:12 | PN ---
SUPERVISING PHYSICIAN: Boy Bunn MD DATE: 03/16/20 SUBJECTIVE: The patient is sitting up in bed. She says she has had quite a bit of pain today. We also discussed that she had MRSA in her culture and that most likely she would be on watermaster treatment for the infection in her left upper leg including the osteomyelitis. She received her PICC line last night. OBJECTIVE: VITAL SIGNS: Temperature 97.6, heart rate 83, blood pressure 117/57, respiratory rate 18, O2 saturation 95% on room air. RESPIRATORY: Diminished, but otherwise clear to auscultation. CARDIAC: Regular rate and rhythm. GASTROINTESTINAL: Abdomen is soft, nondistended, nontender. Bowel sounds are positive. NEUROLOGIC: Awake, alert and oriented times three. LABORATORY: WBCs 3,000, hemoglobin 9.8, hematocrit 28.7. Sodium 134, potassium 4.6, chloride 95, BUN 31, creatinine 1.84, magnesium 2, calcium 8.2, C-reactive protein 10.8. MICROBIOLOGY: Preliminary wound cultures show heavy growth of MRSA with light growth of Pseudomonas. Sensitivities to follow. Preliminary blood culture shows no growth after 48 hours. RADIOLOGY: Lower extremity MRI shows bqlux-cjij-waydcawrwi with cellulitis and subcutaneous abscess as well as ulceration tracking to the distal femoral stump where there are findings consistent with osteomyelitis. ASSESSMENT: 1. Abscess to the right lszet-qzqu-ogdicfznat with osteomyelitis findings on MRI with cultures pending. Preliminary cultures show methicillin-resistant Staphylococcus aureus with a light growth of Pseudomonas. 2. Acute on chronic kidney failure with levels mostly at baseline. 3. Chronic thrombocytopenia. 4. Diabetes mellitus, type 2. 5. Hypertension. 6. Chronic obstructive pulmonary disease without acute exacerbation. 7. Microcytic/normochromic anemia, most likely secondary to renal disease. PLAN: We will continue present supportive care. I will call Dr. Rankin after her sensitivities have been resulted on that wound. It was recommended by Dr. Miller that she see her surgeon that did the amputation after treatment for the osteomyelitis. Those will all be pending what Dr. Rankin says. Otherwise, I will order lab for in the morning. We will monitor the patient closely and follow as needed. [facility][id number] [facility]
[2020-03-16] MEDS: diphenhydrAMINE HCL 25 MG CAP PO SCH (21:39)
[2020-03-16] MEDS: AMITRIPTYLINE HCL 25 MG TAB PO SCH (21:39)
[2020-03-16] MEDS: MELATONIN 3 MG TAB PO SCH (21:40)
[2020-03-16] MEDS: tiZANidine 4 MG TAB PO PRN (21:48)
[2020-03-17] MEDS: PIPERACILLIN/TAZOBACTAM 3.375 GM in SODIUM CHLORIDE 0.9% 100ML 100 ML IVPB SCH (05:27)
[2020-03-17] MEDS: OMEPRAZOLE CAP 20 MG CAP PO SCH (05:34)
[2020-03-17 06:05] VITALS: TEMP 97.6
[2020-03-17] MEDS: LINEZOLID IV 600 MG in PREMIX BAG 1 BAG IVPB SCH (06:33)
[2020-03-17] MEDS: HYDROmorphone HCL INJ 2 MG/ML VIAL IV PRN ×2 (06:33→09:47)
[2020-03-17] MEDS: metFORMIN HCL 500 MG TAB PO SCH (07:43)
[2020-03-17] MEDS: SITagliptin 50 MG TAB PO SCH (07:43)
[2020-03-17] MEDS: INSULIN LISPRO 100 UNITS/ML PEN SUBCU SCH ×2 (07:43→13:19)
[2020-03-17] MEDS: METOPROLOL TARTRATE 50 MG TAB PO SCH (08:48)
[2020-03-17] MEDS: BIFIDOBACTERIUM INFANTIS 4 MG CAP PO SCH (08:48)
[2020-03-17] MEDS: FUROSEMIDE 40 MG TAB PO SCH (08:48)
[2020-03-17] MEDS: HEPARIN SODIUM (PORCINE) 5,000 U/ML VIAL SUBCU SCH (08:48)
[2020-03-17] MEDS: SERTRALINE HCL 50 MG TAB PO SCH (08:48)
[2020-03-17] MEDS: ASCORBIC ACID 500 MG TAB PO SCH (08:48)
[2020-03-17] MEDS: amLODIPine BESYLATE 5 MG TAB PO SCH (08:48)
[2020-03-17] MEDS: MELOXICAM 7.5 MG TAB PO SCH (08:48)
[2020-03-17] MEDS: LOSARTAN POTASSIUM 100 MG TAB PO SCH (08:48)
[2020-03-17] MEDS: ALLOPURINOL 100 MG TAB PO SCH (08:48)
[2020-03-17] MEDS: DICLOFENAC SODIUM TD SCH (08:49)
[2020-03-17] MEDS: SODIUM CHLORIDE 0.9% (FLUSH) 10 ML SYG IV SCH (08:49)
[2020-03-17] MEDS: NON-FORMULARY MEDICATION 1 EA MIS (Fluticasone Furoate-Vilanterol [Breo Ellipta 200-25 Mcg IN SCH (08:49)
[2020-03-17] MEDS: PREGABALIN 100 MG CAP PO SCH (08:49)
[2020-03-17 10:03] VITALS: BP 131/78; O2SAT 96
--- NOTE | 2020-03-31 14:58 | DS ---
SUPERVISING PHYSICIAN: Boy Bunn MD DISCHARGE DIAGNOSIS: 1. Abscess to the right pican-gagl-ysyllzrfsv with osteomyelitis findings on MRI with cultures pending. Preliminary cultures show methicillin-resistant Staphylococcus aureus with a light growth of Pseudomonas. 2. Acute on chronic kidney failure with levels mostly at baseline. 3. Chronic thrombocytopenia. 4. Diabetes mellitus, type 2. 5. Hypertension. 6. Chronic obstructive pulmonary disease without acute exacerbation. 7. Microcytic/normochromic anemia, most likely secondary to renal disease. HISTORY OF PRESENT ILLNESS: This is a 59-year-old female patient who has a longstanding history of MRSA. She has an bevsw-hxs-pcfv amputation of her right leg and has had multiple surgeries on it as well as long antibiotic treatment due to osteomyelitis and MRSA. She was in the hospital several weeks ago and the area was drained. At that time, it was mostly blood. She came back to the Emergency Room due to continued leaking as well as pain that leg. Her initial white count was 4,100 with hemoglobin 10.4 and hematocrit 30.7. Chemistries showed an elevated C-reactive protein in the ER on 03/12/20. At that time, it was 13.9. A lower extremity CT was completed on the ER today which showed a very large posterior stump wound with a track of air extending to the posterior distal stump with mild osteomyelitis suspected. There is air throughout the superficial thickened soft tissue likely within a large wound tract/cavity rather than necrotizing fasciitis. No drainable abscess collection was noted. She was given a dose of Zosyn and blood cultures were completed. She was placed in observation in the histologic for surgical consultation with Dr. Miller as well as to otherwise normal her culture and sensitivity. HOSPITAL COURSE: Dr. Miller was consulted and an MRI was ordered. She was continued on Zosyn and Zyvox with concern for osteomyelitis. She did not appear to be septic, but will most likely need chronic management in regards to her antibiotics. A PICC line was also ordered and it was placed. Her home medications were restarted. Sliding scale insulin per protocol was done. An MRI was done that showed osteomyelitis of the right stump. Dr. Miller felt like she should get her antibiotics and that her prior surgeon should do any surgical intervention. The patient's vital signs were stable. Her preliminary wound cultures came back as no growth. After consulting with Dr. Rankin, it was felt she should continue on her Zosyn and her Zyvox and she will be discharged back to [facility] today for at least 6 weeks of antibiotic therapy. LABORATORY: WBCs 2,800, hemoglobin 9.7, hematocrit 28.2. Electrolytes are basically within normal limits. BUN 30, creatinine 1.98. RADIOLOGY: Her lower extremity MRI shows 1) Above knee amputation with cellulitis and subcutaneous abscess as well as ulceration and tracking to the distal femoral stump where there are findings consistent with osteomyelitis. DISCHARGE PLAN: The patient will be discharged back to [facility] in fair condition. She is to resume her previous diabetic diet and increase her activity as tolerated. She is to followup with Dr. Arriola in 1 to 2 weeks for hospital followup. In addition to her routine medications, she is to be on at least 6 weeks of Zosyn and 6 weeks of Zyvox. At the time of followup, they can decide about further surgical intervention as well as length of antibiotic therapy. For any problems or complications, she is to return to the hospital or followup with Dr. Arriola. DISCHARGE MEDICATIONS: 1. Furosemide. 2. Pregabalin. 3. Melatonin. 4. Bydureon. 5. Metoprolol. 6. Hydrocodone. 7. Albuterol. 8. Nystatin. 9. Sertraline. 10. Zanaflex. 11. Olmesartan. 12. Loperamide. 13. Clonidine. 14. Amlodipine. 15. Allopurinol. 16. Metformin. 17. Humalog insulin. 18. Amitriptyline. 19. Buspirone. 20. Pseudoephedrine. 21. Meloxicam. 21. Januvia. 22. Align. 23. Vitamin C. 24. Tessalon Perles. 25. Benadryl. 26. Acetaminophen. 27. Furosemide. 28. Tresiba insulin. 29. Diclofenac gel. 30. Breo Ellipta. 31. Eucrisa. 32. Omeprazole. 33. Zosyn. 24. Zyvox. [facility][id number] [facility]
== END 2020-03-17 13:15 | DRG 638 ==
LOC: ER 14:27 → MS 17:09 → OBSVTOIN 17:09
PROVIDERS: ADMIT Nurse Practitioner Family; ATTEND Nurse Practitioner Acute Care
PROC: 05HY33Z Insertion of Infusion Device into Upper Vein, Percutaneous Approach (ICD-10-PCS; principal; 2020-03-15)
DX: E11.69 Type 2 diabetes mellitus with other specified complication (principal); L02.415 Cutaneous abscess of right lower limb; M86.9 Osteomyelitis, unspecified; T87.43 Infection of amputation stump, right lower extremity; I48.92 Unspecified atrial flutter; N17.9 Acute kidney failure, unspecified; D63.1 Anemia in chronic kidney disease; D69.6 Thrombocytopenia, unspecified; E11.22 Type 2 diabetes mellitus with diabetic chronic kidney disease; E11.42 Type 2 diabetes mellitus with diabetic polyneuropathy; N18.9 Chronic kidney disease, unspecified; J44.9 Chronic obstructive pulmonary disease, unspecified; B95.62 Methicillin resistant Staphylococcus aureus infection as the cause of diseases classified elsewhere; B96.5 Pseudomonas (aeruginosa) (mallei) (pseudomallei) as the cause of diseases classified elsewhere; M06.9 Rheumatoid arthritis, unspecified; M81.0 Age-related osteoporosis without current pathological fracture; F17.210 Nicotine dependence, cigarettes, uncomplicated; Y83.8 Other surgical procedures as the cause of abnormal reaction of the patient, or of later complication, without mention of misadventure at the time of the procedure; Z20.828 Contact with and (suspected) exposure to other viral communicable diseases; Z86.14 Personal history of Methicillin resistant Staphylococcus aureus infection; Z90.49 Acquired absence of other specified parts of digestive tract; Z89.422 Acquired absence of other left toe(s); Z82.49 Family history of ischemic heart disease and other diseases of the circulatory system; Z88.8 Allergy status to other drugs, medicaments and biological substances; Z91.018 Allergy to other foods; Z79.891 Long term (current) use of opiate analgesic; Z79.4 Long term (current) use of insulin

== ENCOUNTER → 2020-04-07 | Outpatient (CLI) | payer MEDICARE, OTHER | LOC: GOCC 16:57 | PROVIDERS: ATTEND Family Medicine | DX: Z51.81 Encounter for therapeutic drug level monitoring (principal); D69.6 Thrombocytopenia, unspecified; I10 Essential (primary) hypertension ==

== ENCOUNTER → 2020-04-09 | Outpatient (CLI) | payer MEDICARE, OTHER | LOC: GOCC 12:03 | PROVIDERS: ATTEND Family Medicine | DX: D69.6 Thrombocytopenia, unspecified (principal); I10 Essential (primary) hypertension; Z51.81 Encounter for therapeutic drug level monitoring ==

== ENCOUNTER 2020-04-10 21:26 | Emergency (ER) | payer MEDICARE, OTHER ==
[2020-04-10 21:44] VITALS: TEMP 99
[2020-04-10] MEDS: methylPREDNISolone SODIUM SUC 125 MG/2 ML VIAL IV ONE (21:53)
[2020-04-10] MEDS: SODIUM CHLORIDE 0.9% (FLUSH) 10 ML SYG IV PRN (21:53)
--- NOTE | 2020-04-10 21:55 | ED.PDOC ---
History of Present Illness - General Chief Complaint: Respiratory Problem Stated Complaint: SOB, CP, abdomen pain Time Seen by Provider: 04/10/20 21:29 Source: patient, RN notes reviewed, Vital Signs reviewed, EMS notes reviewed, EMS, halfway records, old records Exam Limitations: no limitations - History of Present Illness Initial Comments: Pt is a 59 yo female with PMH of COPD, DM, HTN, obesity who presents from [place] via EMS for 1 day h/o SOB. States she is not on oxygen at [place]. States she awoke this morning with SOB. Has had nonproductive cough today and achy chest wall pain. Denies fever, NVD. Per [place] staff, her O2 on RA was in low 80's tonight and improved to 86% after breathing treatment. Recieved 2 albuterol treatments this evening [employer]. Denies any other concerns at this time. Allergies/Adverse Reactions: Allergies Trazodone Allergy (Verified 04/10/20 21:44) orange juice Allergy (Mild, Uncoded 04/10/20 21:44) Other geographical tongue Home Medications: Ambulatory Orders Furosemide 40 mg PO DAILY 02/15/16 Pregabalin [Lyrica] 100 mg PO TID 08/29/17 Melatonin 40 mg PO BEDTIME 11/20/17 Exenatide [Bydureon] 0.65 ml SC WKLY 03/29/18 HYDROcodone 10MG/APAP 325MG [[place] 10/325] 1 tablet PO Q6H PRN 03/29/18 Metoprolol Tartrate 50 mg PO BID 03/29/18 Albuterol Sulfate [Proair Hfa] 2 inh IN Q4H PRN 05/03/18 Nystatin Powder 1 gm TOP BID PRN 05/03/18 Sertraline HCl [Zoloft] 150 mg PO DAILY 05/10/18 tiZANidine [Zanaflex] 4 mg PO Q6HR PRN 07/03/18 Allopurinol [Zyloprim] 100 mg PO DAILY 01/27/19 Amlodipine Besylate 5 mg PO DAILY #0 01/27/19 Clonidine HCl [Clonidine Hydrochloride] 0.1 mg PO Q6H PRN 01/27/19 Insulin Lispro [Humalog] 100 units SUBCU ACHS 01/27/19 Loperamide Cap [Imodium Cap] 2 mg PO PRN PRN 01/27/19 Olmesartan Medoxomil 40 mg PO DAILY 01/27/19 metFORMIN HCL [Glucophage] 500 mg PO DAILY 01/27/19 Albuterol Sulfate Nebs [Proventil Nebs] 1.25 mg INH Q4H 08/06/19 Amitriptyline HCl [Amitriptyline Hydrochlori] 50 mg PO BEDTIME 08/06/19 Buspirone HCl [Buspirone Hydrochloride] 7.5 mg PO DAILY 08/14/19 Acetaminophen [Tylenol] 500 mg PO Q6HR PRN 02/28/20 Ascorbic Acid [Vitamin C 500 mg] 1 tab PO DAILY 02/28/20 Benzonatate 100 mg PO Q8HR PRN 02/28/20 Diphenhydramine HCl [Diphenhydramine Hydrochlo] 25 mg PO BEDTIME 02/28/20 Furosemide 80 mg PO DAILY 02/28/20 Lactobacillus 1 tab PO BID 02/28/20 Meloxicam 15 mg PO DAILY 02/28/20 Pseudoephedrine HCl 30 mg PO Q8HR PRN 02/28/20 Sitagliptin Phosphate [Januvia] 50 mg PO DAILY 02/28/20 Acetaminophen [Cvs Acetaminophen Extra S] 500 mg PO Q6H PRN 03/14/20 Crisaborole [Eucrisa] 2 % EX Q12H PRN 03/14/20 Diclofenac Sodium (Actinic Ker [Diclofenac Sodium] 3 % TD BID 03/14/20 Fluticasone Furoate-Vilanterol [Breo Ellipta 200-25 Mcg/INH] 1 inh IN DAILY 03/14/20 Insulin Degludec [Tresiba Flextouch] 48 unit SC DAILY 03/14/20 Omeprazole Magnesium [Prilosec Otc] 20 mg PO DAILY 03/14/20 Bifidobacterium Infantis [Align] 4 mg PO DAILY cap 03/17/20 Linezolid IV [Zyvox IV] 600 mg IVPB Q12H #84 bag 03/17/20 Piperacillin/Tazobactam [Zosyn] 3.375 gm IVPB Q8H #126 vial 03/17/20 Ipratropium/Albuterol [Duoneb] 3 ml NEB Q4H PRN #25 vial 04/10/20 Methylprednisolone [Medrol Dose [place]] 4 mg PO DAILY 6 Days #21 tab 04/10/20 Review of Systems - Review of Systems Constitutional: Denies: chills, fever, weakness EENTM: Denies: nose congestion, throat pain Respiratory: States: cough, short of breath, wheezing Cardiology: States: chest pain. Denies: edema, palpitations, syncope Gastrointestinal/Abdominal: Denies: diarrhea, nausea, vomiting Genitourinary: Denies: dysuria, frequency Musculoskeletal: Denies: back pain Neurological: Denies: headache, paresthesia Hematologic/Lymphatic: States: no symptoms reported All other Systems: Reviewed and Negative Past Medical History (General) - Patient Medical History Hx Seizures: No Hx Stroke: No Hx Dementia: No Hx Asthma: Yes Hx of COPD: Yes Hx Cardiac Disorders: No Hx Congestive Heart Failure: No Hx Pacemaker: No Hx Hypertension: Yes Hx Thyroid Disease: No Hx Diabetes: Yes Hx Gastroesophageal Reflux: No Hx Renal Disease: No Hx Cancer: No Hx of HIV: No Hx Hepatitis C: No Hx MRSA: Yes - right stump MRSA Source:: Wound - Vaccination History Hx Tetanus, Diphtheria Vaccination: Yes Hx Influenza Vaccination: Yes Hx Pneumococcal Vaccination: Yes - Social History Hx Tobacco Use: Yes Hx Chewing Tobacco Use: No Hx Alcohol Use: No Hx Substance Use: No Hx Substance Use Treatment: No Hx Depression: No Hx Physical Abuse: No Hx Emotional Abuse: No Hx Suspected Abuse: No - Activities of Daily Living Prison/Assisted Living (if applicable):: [facility] - Female History Patient : No Family Medical History - Family History Father Family History: Unknown Living Status: Age at (years of age): 59 Cause of : cancer Hx Family Stroke: Yes - sister Hx Family Cancer: Yes - mesothelioma-dad;ovaries-mom Mother Family History: No Known Living Status: Age at (years of age): 59 Cause of : MVA Hx Family Diabetes: Yes Hx Family Cancer: Yes - ovarian Physical Exam - Physical Exam General Appearance: Alert, Anxious, No apparent distress, Other - Obese Eyes, Ears, Nose, Throat Exam: pharynx normal Neck: non-tender, full range of motion, supple Respiratory: chest non-tender, no respiratory distress, no accessory muscle use, other - Bilateral wheezes. Speaks in full sentences. No respiratory distress Cardiovascular/Chest: no edema, no murmur, tachycardia Gastrointestinal/Abdominal: non tender, soft, no pulsatile mass, other - obese Extremity: normal range of motion, non-tender, normal inspection Neurologic: no motor/sensory deficits, alert, normal mood/affect Skin Exam: normal color, warm/dry Progress - Progress Progress: 04/10/20 22:17 Pt recheck. After duoneb, pt feels much improved. Good air movement with mild expiratory wheezes(much improved). She is talking on her cell phone in no distress and requesting to go home. I have discussed we are waiting on labs to return. 04/10/20 22:28 I have d/w pt results. She feels much improved and O2 sat is 93-95% on 3L NC. I have d/w pt that if she lived at home I would admit her for supplemental O2 and Duoneb Q4 hrs and steroids for COPD exacerbation. She is at [facility] and we called staff and they do have capability to perform these therapies. Shared decision making used and I have offered pt admission here or DC to [place] for continued treatment and she would much prefer to go back to [place]. She has a mildly elevated lactic that I believe is due to hypoxia and not sepsis. no fever and CXR shows no sign of infection. D dimer ordered to ev aluate for COVID. Her symptoms resolved with treatment for COPD and I doubt PE at this time. Pt feels comfortable going to [place] with COPD therapy and will f/u with PCP in 1-2 days for recheck. SRP given. - Results/Orders Results/Orders: EKG- sinus tachy, rate 104, nml intervals, no ST abnormality CHEST xray EXAM: Chest,1 View CLINICAL INDICATION: Shortness of breath COMPARISON: 03/12/2020 FINDINGS: A single view of the chest was obtained. The heart size is mildly enlarged. The pulmonary vascularity is mildly prominent. There is mild atelectasis at the right costophrenic angle. The lungs are otherwise clear. There is no pneumothorax. IMPRESSION: Mild atelectasis of the right costophrenic angle. Mild CHF. COVID Negative 04/10/20 21:45 EKG STAT 04/10/20 21:50 BLOOD CULTURE Stat Laboratory Results - last 24 hr 04/10/20 04/10/20 04/10/20 21:50 21:50 21:50 WBC 5.5 RBC 2.72 L Hgb 8.7 L Hct 25.9 L MCV 95.3 MCH 31.9 H MCHC 33.5 RDW 15.7 H Plt Count 67 L MPV 8.8 Absolute Neuts (auto) 4.20 Absolute Lymphs (auto) 0.60 L Absolute Monos (auto) 0.60 Absolute Eos (auto) 0.10 Absolute Basos (auto) 0.10 Neutrophils % 75.2 Lymphocytes % 11.3 L Monocytes % 10.9 H Eosinophils % 1.3 Basophils % 1.3 D-Dimer, Quantitative 1540.0 H* Sodium 137 Potassium 3.9 Chloride 99 L Carbon Dioxide 27 Anion Gap 14.9 BUN 19 H Creatinine 1.44 H BUN/Creatinine Ratio 13.2 Random Glucose 235 H Serum Osmolality 283.7 Lactic Acid Calcium 8.0 L Total Bilirubin 0.6 AST 24 ALT 12 Alkaline Phosphatase 150 H B-Natriuretic Peptide 309.0 H* Serum Total Protein 7.5 Albumin 3.5 Globulin 4.0 H Albumin/Globulin Ratio 0.9 L 04/10/20 21:50 WBC RBC Hgb Hct MCV MCH MCHC RDW Plt Count MPV Absolute Neuts (auto) Absolute Lymphs (auto) Absolute Monos (auto) Absolute Eos (auto) Absolute Basos (auto) Neutrophils % Lymphocytes % Monocytes % Eosinophils % Basophils % D-Dimer, Quantitative Sodium Potassium Chloride Carbon Dioxide Anion Gap BUN Creatinine BUN/Creatinine Ratio Random Glucose Serum Osmolality Lactic Acid 2.3 H Calcium Total Bilirubin AST ALT Alkaline Phosphatase B-Natriuretic Peptide Serum Total Protein Albumin Globulin Albumin/Globulin Ratio Departure - Departure Clinical Impression: COPD with exacerbation HTN (hypertension) Qualifiers: Hypertension type: essential hypertension Qualified Code(s): I10 - Essential (primary) hypertension CKD (chronic kidney disease) Qualifiers: Chronic kidney disease stage: unspecified stage Qualified Code(s): N18.9 - Chronic kidney disease, unspecified Time of Disposition: 22:34 Disposition: Discharge to SNF Condition: Fair Departure Forms: ED Discharge - Pt. Copy, Patient Portal Self Enrollment Instructions: Exacerbation of COPD (DC) Diet: resume usual diet Activity: increase activity as tolerated Referrals: Marc Arriola MD [Primary Care Provider] - 1-2 Days Prescriptions: Ipratropium/Albuterol [Duoneb] 3 ml NEB Q4H PRN #25 vial PRN Reason: Wheezing Methylprednisolone [Medrol Dose [place]] 4 mg PO DAILY 6 Days #21 tab Home Medications: Ambulatory Orders Furosemide 40 mg PO DAILY 02/15/16 Pregabalin [Lyrica] 100 mg PO TID 08/29/17 Melatonin 40 mg PO BEDTIME 11/20/17 Exenatide [Bydureon] 0.65 ml SC WKLY 03/29/18 HYDROcodone 10MG/APAP 325MG [[place] 10/325] 1 tablet PO Q6H PRN 03/29/18 Metoprolol Tartrate 50 mg PO BID 03/29/18 Albuterol Sulfate [Proair Hfa] 2 inh IN Q4H PRN 05/03/18 Nystatin Powder 1 gm TOP BID PRN 05/03/18 Sertraline HCl [Zoloft] 150 mg PO DAILY 05/10/18 tiZANidine [Zanaflex] 4 mg PO Q6HR PRN 07/03/18 Allopurinol [Zyloprim] 100 mg PO DAILY 01/27/19 Amlodipine Besylate 5 mg PO DAILY #0 01/27/19 Clonidine HCl [Clonidine Hydrochloride] 0.1 mg PO Q6H PRN 01/27/19 Insulin Lispro [Humalog] 100 units SUBCU ACHS 01/27/19 Loperamide Cap [Imodium Cap] 2 mg PO PRN PRN 01/27/19 Olmesartan Medoxomil 40 mg PO DAILY 01/27/19 metFORMIN HCL [Glucophage] 500 mg PO DAILY 01/27/19 Albuterol Sulfate Nebs [Proventil Nebs] 1.25 mg INH Q4H 08/06/19 Amitriptyline HCl [Amitriptyline Hydrochlori] 50 mg PO BEDTIME 08/06/19 Buspirone HCl [Buspirone Hydrochloride] 7.5 mg PO DAILY 08/14/19 Acetaminophen [Tylenol] 500 mg PO Q6HR PRN 02/28/20 Ascorbic Acid [Vitamin C 500 mg] 1 tab PO DAILY 02/28/20 Benzonatate 100 mg PO Q8HR PRN 02/28/20 Diphenhydramine HCl [Diphenhydramine Hydrochlo] 25 mg PO BEDTIME 02/28/20 Furosemide 80 mg PO DAILY 02/28/20 Lactobacillus 1 tab PO BID 02/28/20 Meloxicam 15 mg PO DAILY 02/28/20 Pseudoephedrine HCl 30 mg PO Q8HR PRN 02/28/20 Sitagliptin Phosphate [Januvia] 50 mg PO DAILY 02/28/20 Acetaminophen [Cvs Acetaminophen Extra S] 500 mg PO Q6H PRN 03/14/20 Crisaborole [Eucrisa] 2 % EX Q12H PRN 03/14/20 Diclofenac Sodium (Actinic Ker [Diclofenac Sodium] 3 % TD BID 03/14/20 Fluticasone Furoate-Vilanterol [Breo Ellipta 200-25 Mcg/INH] 1 inh IN DAILY 03/14/20 Insulin Degludec [Tresiba Flextouch] 48 unit SC DAILY 03/14/20 Omeprazole Magnesium [Prilosec Otc] 20 mg PO DAILY 03/14/20 Bifidobacterium Infantis [Align] 4 mg PO DAILY cap 03/17/20 Linezolid IV [Zyvox IV] 600 mg IVPB Q12H #84 bag 03/17/20 Piperacillin/Tazobactam [Zosyn] 3.375 gm IVPB Q8H #126 vial 03/17/20 Ipratropium/Albuterol [Duoneb] 3 ml NEB Q4H PRN #25 vial 04/10/20 Methylprednisolone [Medrol Dose [place]] 4 mg PO DAILY 6 Days #21 tab 04/10/20
[2020-04-10] MEDS: IPRATROPIUM/ALBUTEROL 3 ML VIAL INH ONE (22:00)
--- NOTE | 2020-04-10 22:04 | RAD ---
EXAM: Chest,1 View CLINICAL INDICATION: Shortness of breath COMPARISON: 03/12/2020 FINDINGS: A single view of the chest was obtained. The heart size is mildly enlarged. The pulmonary vascularity is mildly prominent. There is mild atelectasis at the right costophrenic angle. The lungs are otherwise clear. There is no pneumothorax. IMPRESSION: Mild atelectasis of the right costophrenic angle. Mild CHF. Electronically signed by: Gio Long MD 04/10/2020 10:02 PM [facility]
[2020-04-10 22:13] VITALS: O2SAT 93
[2020-04-11 00:02] VITALS: BP 136/69
== END 2020-04-10 22:57 ==
LOC: ER 21:26
DX: J44.1 Chronic obstructive pulmonary disease with (acute) exacerbation (principal); N18.9 Chronic kidney disease, unspecified; I12.9 Hypertensive chronic kidney disease with stage 1 through stage 4 chronic kidney disease, or unspecified chronic kidney disease; E11.22 Type 2 diabetes mellitus with diabetic chronic kidney disease; E66.9 Obesity, unspecified; Z87.891 Personal history of nicotine dependence; Z79.4 Long term (current) use of insulin; Z79.899 Other long term (current) drug therapy; Z88.8 Allergy status to other drugs, medicaments and biological substances; Z68.41 Body mass index [BMI] 40.0-44.9, adult; Z20.822 Contact with and (suspected) exposure to COVID-19
CPT/HCPCS: 71045; 80053; 83605; 83880; 85025; 85379; 87040; 87635; 93005; 94640; J2930; J7620

== ENCOUNTER → 2020-04-11 | Outpatient (CLI) | payer MEDICARE, OTHER | LOC: GOCC 08:50 | PROVIDERS: ATTEND Family Medicine | DX: Z51.81 Encounter for therapeutic drug level monitoring (principal); D69.6 Thrombocytopenia, unspecified; I10 Essential (primary) hypertension ==

== ENCOUNTER → 2020-04-13 | Outpatient (CLI) | payer MEDICARE, MEDICAID | LOC: GOCC 14:01 | PROVIDERS: ATTEND Family Medicine | DX: Z51.81 Encounter for therapeutic drug level monitoring (principal); D69.6 Thrombocytopenia, unspecified; I10 Essential (primary) hypertension ==

== ENCOUNTER → 2020-04-15 | Outpatient (CLI) | payer MEDICARE, MEDICAID | LOC: GOCC 11:32 | PROVIDERS: ATTEND Family Medicine | DX: Z51.81 Encounter for therapeutic drug level monitoring (principal); D69.6 Thrombocytopenia, unspecified; I10 Essential (primary) hypertension ==

== ENCOUNTER → 2020-04-17 | Outpatient (CLI) | payer MEDICARE, MEDICAID | LOC: GOCC 09:48 | PROVIDERS: ATTEND Family Medicine | DX: A49.02 Methicillin resistant Staphylococcus aureus infection, unspecified site (principal); A41.9 Sepsis, unspecified organism; M86.9 Osteomyelitis, unspecified; Z47.1 Aftercare following joint replacement surgery ==

== ENCOUNTER → 2020-04-19 | Outpatient (CLI) | payer MEDICARE, MEDICAID | LOC: GOCC 08:36 | PROVIDERS: ATTEND Family Medicine | DX: Z51.81 Encounter for therapeutic drug level monitoring (principal); D69.6 Thrombocytopenia, unspecified; I10 Essential (primary) hypertension ==

== ENCOUNTER → 2020-04-22 | Outpatient (CLI) | payer MEDICARE, OTHER | LOC: GOCC 09:13 | PROVIDERS: ATTEND Family Medicine | DX: Z51.81 Encounter for therapeutic drug level monitoring (principal) ==

== ENCOUNTER → 2020-04-23 | Outpatient (CLI) | payer MEDICARE, OTHER | LOC: GOCC 10:31 | PROVIDERS: ATTEND Family Medicine | DX: Z51.81 Encounter for therapeutic drug level monitoring (principal); D69.6 Thrombocytopenia, unspecified; I10 Essential (primary) hypertension ==

== ENCOUNTER → 2020-04-25 | Outpatient (CLI) | payer MEDICARE, OTHER | LOC: GOCC 08:43 | PROVIDERS: ATTEND Family Medicine | DX: Z51.81 Encounter for therapeutic drug level monitoring (principal); D69.6 Thrombocytopenia, unspecified; I10 Essential (primary) hypertension ==

== ENCOUNTER 2020-04-26 17:00 | Emergency (ER) | payer MEDICARE, OTHER ==
--- NOTE | 2020-04-26 17:13 | ED.PDOC ---
History of Present Illness - General Stated Complaint: Blocked PICC line Time Seen by Provider: 04/26/20 17:12 Source: [facility], [facility] Exam Limitations: no limitations Additional Information: Sent from [facility] facility for blocked PICC line in the right upper arm which was placed 3 days ago. Patient is receiving IV vancomycin for an infection in her stump of the right lower extremity. - History of Present Illness Initial Comments: As noted above. Patient complains of a blocked PICC line in the right upper arm. It was placed 3 days ago. No chest pain or trouble breathing. No fever or chills. No cough or upper Respiratory Symptoms. Timing/Duration: 24 hours Severity: mild Improving Factors: nothing Worsening Factors: nothing Associated Symptoms: denies symptoms Allergies/Adverse Reactions: Allergies Trazodone Allergy (Verified 04/26/20 17:20) orange juice Allergy (Mild, Uncoded 04/26/20 17:20) Other geographical tongue Home Medications: Ambulatory Orders Furosemide 40 mg PO DAILY 02/15/16 Pregabalin [Lyrica] 100 mg PO TID 08/29/17 Melatonin 40 mg PO BEDTIME 11/20/17 Exenatide [Bydureon] 0.65 ml SC WKLY 03/29/18 HYDROcodone 10MG/APAP 325MG [Lindstrom 10/325] 1 tablet PO Q6H PRN 03/29/18 Metoprolol Tartrate 50 mg PO BID 03/29/18 Albuterol Sulfate [Proair Hfa] 2 inh IN Q4H PRN 05/03/18 Nystatin Powder 1 gm TOP BID PRN 05/03/18 Sertraline HCl [Zoloft] 150 mg PO DAILY 05/10/18 tiZANidine [Zanaflex] 4 mg PO Q6HR PRN 07/03/18 Allopurinol [Zyloprim] 100 mg PO DAILY 01/27/19 Amlodipine Besylate 5 mg PO DAILY #0 01/27/19 Clonidine HCl [Clonidine Hydrochloride] 0.1 mg PO Q6H PRN 01/27/19 Insulin Lispro [Humalog] 100 units SUBCU ACHS 01/27/19 Loperamide Cap [Imodium Cap] 2 mg PO PRN PRN 01/27/19 Olmesartan Medoxomil 40 mg PO DAILY 01/27/19 metFORMIN HCL [Glucophage] 500 mg PO DAILY 01/27/19 Albuterol Sulfate Nebs [Proventil Nebs] 1.25 mg INH Q4H 08/06/19 Amitriptyline HCl [Amitriptyline Hydrochlori] 50 mg PO BEDTIME 08/06/19 Buspirone HCl [Buspirone Hydrochloride] 7.5 mg PO DAILY 08/14/19 Acetaminophen [Tylenol] 500 mg PO Q6HR PRN 02/28/20 Ascorbic Acid [Vitamin C 500 mg] 1 tab PO DAILY 02/28/20 Benzonatate 100 mg PO Q8HR PRN 02/28/20 Diphenhydramine HCl [Diphenhydramine Hydrochlo] 25 mg PO BEDTIME 02/28/20 Furosemide 80 mg PO DAILY 02/28/20 Lactobacillus 1 tab PO BID 02/28/20 Meloxicam 15 mg PO DAILY 02/28/20 Pseudoephedrine HCl 30 mg PO Q8HR PRN 02/28/20 Sitagliptin Phosphate [Januvia] 50 mg PO DAILY 02/28/20 Acetaminophen [Cvs Acetaminophen Extra S] 500 mg PO Q6H PRN 03/14/20 Crisaborole [Eucrisa] 2 % EX Q12H PRN 03/14/20 Diclofenac Sodium (Actinic Ker [Diclofenac Sodium] 3 % TD BID 03/14/20 Fluticasone Furoate-Vilanterol [Breo Ellipta 200-25 Mcg/INH] 1 inh IN DAILY 03/14/20 Insulin Degludec [Tresiba Flextouch] 48 unit SC DAILY 03/14/20 Omeprazole Magnesium [Prilosec Otc] 20 mg PO DAILY 03/14/20 Bifidobacterium Infantis [Align] 4 mg PO DAILY cap 03/17/20 Linezolid IV [Zyvox IV] 600 mg IVPB Q12H #84 bag 03/17/20 Piperacillin/Tazobactam [Zosyn] 3.375 gm IVPB Q8H #126 vial 03/17/20 Ipratropium/Albuterol [Duoneb] 3 ml NEB Q4H PRN #25 vial 04/10/20 Methylprednisolone [Medrol Dose [place]] 4 mg PO DAILY 6 Days #21 tab 04/10/20 Review of Systems - Review of Systems Constitutional: States: no symptoms reported EENTM: States: no symptoms reported Respiratory: States: no symptoms reported Cardiology: States: no symptoms reported Gastrointestinal/Abdominal: States: no symptoms reported Genitourinary: States: no symptoms reported Musculoskeletal: States: no symptoms reported Skin: States: other - Healing stump infection right lower extremity Neurological: States: no symptoms reported Endocrine: States: no symptoms reported Hematologic/Lymphatic: States: no symptoms reported Past Medical History (General) - Patient Medical History Hx Seizures: No Hx Stroke: No Hx Dementia: No Hx Asthma: Yes Hx of COPD: Yes Hx Cardiac Disorders: No Hx Congestive Heart Failure: No Hx Pacemaker: No Hx Hypertension: Yes Hx Thyroid Disease: No Hx Diabetes: Yes Hx Gastroesophageal Reflux: No Hx Renal Disease: No Hx Cancer: No Hx of HIV: No Hx Hepatitis C: No Hx MRSA: Yes - right stump MRSA Source:: Wound - Vaccination History Hx Tetanus, Diphtheria Vaccination: Yes Hx Influenza Vaccination: Yes Hx Pneumococcal Vaccination: Yes - Social History Hx Tobacco Use: Yes Hx Chewing Tobacco Use: No Hx Alcohol Use: No Hx Substance Use: No Hx Substance Use Treatment: No Hx Depression: No Hx Physical Abuse: No Hx Emotional Abuse: No Hx Suspected Abuse: No - Female History Patient : No Family Medical History - Family History Father Family History: Unknown Living Status: Age at (years of age): 59 Cause of : cancer Hx Family Stroke: Yes - sister Hx Family Cancer: Yes - mesothelioma-dad;ovaries-mom Mother Family History: No Known Living Status: Age at (years of age): 60 Cause of : MVA Hx Family Diabetes: Yes Hx Family Cancer: Yes - ovarian Physical Exam - Physical Exam General Appearance: Alert, Comfortable, Other - Obese body habitus Eye Exam: bilateral normal Ears, Nose, Throat: hearing grossly normal, normal ENT inspection Neck: non-tender, full range of motion, supple Respiratory: normal breath sounds Cardiovascular/Chest: regular rate, rhythm Gastrointestinal/Abdominal: normal bowel sounds, non tender, soft Back Exam: normal inspection, no CVA tenderness Extremity: no pedal edema, no calf tenderness, other - PICC line in place medial surface of right upper arm. No active bleeding, skin swelling, redness or drainage noted. Healing stump of the right thigh is noted. No erythema, d rainage, induration or tenderness noted. There is no tenderness swelling erythema or induration of the right upper extremity. 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 It was her opinion that this line would work successfully with an infusion pump. A peripheral line was started as a temporary Venous access until the prison could make arrangements to obtain a pump or have the heel boom operator who placed the line we examined the patient. - Results/Orders Results/Orders: Laboratory Results - last 24 hr 04/26/20 04/26/20 17:20 17:20 Urine Color Yellow Urine Appearance Clear Urine pH 7.0 Ur Specific [place] 1.015 Urine Protein 100 H Urine Glucose (UA) Negative Urine Ketones Negative Urine Blood Trace-intact H Urine Nitrite Negative Urine Bilirubin Negative Urine Urobilinogen 0.2 Ur Leukocyte Esterase Trace H Urine RBC 1-3 Urine WBC 1-3 Ur Epithelial Cells 3-5 Amorphous Sediment Trace Urine Bacteria Rare Urine Mucus Trace Urine Opiates Screen Negative Urine Barbiturates Negative Ur Phencyclidine Scrn Negative U Amphetamin/Meth Scrn Negative U Benzodiazepines Scrn Negative U Cocaine Metab Screen Negative U Cannabinoids Screen Negative Vital Signs - 24 hr 04/26/20 04/26/20 04/26/20 17:13 17:16 18:01 Temperature 97.9 F 97.9 F Pulse Rate [ 84 76 brachial] Respiratory 18 18 18 Rate Blood Pressure 182/92 150/79 [Left Arm] O2 Sat by Pulse 97 96 Oximetry Departure - Departure Clinical Impression: Intravenous access problem,Blocked PICC , Infection of amputation stump, right upper extremity, Diabetes Time of Disposition: 18:46 Disposition: Discharge to SNF Condition: Good Departure Forms: ED Discharge - Pt. Copy Diet: resume usual diet Activity: other - Usual activity Referrals: Marc Arriola MD [Family Provider] - 1-2 Weeks Home Medications: Ambulatory Orders Furosemide 40 mg PO DAILY 02/15/16 Pregabalin [Lyrica] 100 mg PO TID 08/29/17 Melatonin 40 mg PO BEDTIME 11/20/17 Exenatide [Bydureon] 0.65 ml SC WKLY 03/29/18 HYDROcodone 10MG/APAP 325MG [Lindstrom 10/325] 1 tablet PO Q6H PRN 03/29/18 Metoprolol Tartrate 50 mg PO BID 03/29/18 Albuterol Sulfate [Proair Hfa] 2 inh IN Q4H PRN 05/03/18 Nystatin Powder 1 gm TOP BID PRN 05/03/18 Sertraline HCl [Zoloft] 150 mg PO DAILY 05/10/18 tiZANidine [Zanaflex] 4 mg PO Q6HR PRN 07/03/18 Allopurinol [Zyloprim] 100 mg PO DAILY 01/27/19 Amlodipine Besylate 5 mg PO DAILY #0 01/27/19 Clonidine HCl [Clonidine Hydrochloride] 0.1 mg PO Q6H PRN 01/27/19 Insulin Lispro [Humalog] 100 units SUBCU ACHS 01/27/19 Loperamide Cap [Imodium Cap] 2 mg PO PRN PRN 01/27/19 Olmesartan Medoxomil 40 mg PO DAILY 01/27/19 metFORMIN HCL [Glucophage] 500 mg PO DAILY 01/27/19 Albuterol Sulfate Nebs [Proventil Nebs] 1.25 mg INH Q4H 08/06/19 Amitriptyline HCl [Amitriptyline Hydrochlori] 50 mg PO BEDTIME 08/06/19 Buspirone HCl [Buspirone Hydrochloride] 7.5 mg PO DAILY 08/14/19 Acetaminophen [Tylenol] 500 mg PO Q6HR PRN 02/28/20 Ascorbic Acid [Vitamin C 500 mg] 1 tab PO DAILY 02/28/20 Benzonatate 100 mg PO Q8HR PRN 02/28/20 Diphenhydramine HCl [Diphenhydramine Hydrochlo] 25 mg PO BEDTIME 02/28/20 Furosemide 80 mg PO DAILY 02/28/20 Lactobacillus 1 tab PO BID 02/28/20 Meloxicam 15 mg PO DAILY 02/28/20 Pseudoephedrine HCl 30 mg PO Q8HR PRN 02/28/20 Sitagliptin Phosphate [Januvia] 50 mg PO DAILY 02/28/20 Acetaminophen [Cvs Acetaminophen Extra S] 500 mg PO Q6H PRN 03/14/20 Crisaborole [Eucrisa] 2 % EX Q12H PRN 03/14/20 Diclofenac Sodium (Actinic Ker [Diclofenac Sodium] 3 % TD BID 03/14/20 Fluticasone Furoate-Vilanterol [Breo Ellipta 200-25 Mcg/INH] 1 inh IN DAILY 03/14/20 Insulin Degludec [Tresiba Flextouch] 48 unit SC DAILY 03/14/20 Omeprazole Magnesium [Prilosec Otc] 20 mg PO DAILY 03/14/20 Bifidobacterium Infantis [Align] 4 mg PO DAILY cap 03/17/20 Linezolid IV [Zyvox IV] 600 mg IVPB Q12H #84 bag 03/17/20 Piperacillin/Tazobactam [Zosyn] 3.375 gm IVPB Q8H #126 vial 03/17/20 Ipratropium/Albuterol [Duoneb] 3 ml NEB Q4H PRN #25 vial 04/10/20 Methylprednisolone [Medrol Dose [place]] 4 mg PO DAILY 6 Days #21 tab 04/10/20 Additional Instructions: To maintain patency the PICC line and the peripheral IV should both be flushed with a heparin solution immediately following infusion of any medications. Consult the heel boom operator who placed the PICC line to reassess the PICC line.
[2020-04-26 18:12] VITALS: O2SAT 96
[2020-04-26] MEDS ORDERED: HEPARIN SODIUM 100 U/ML 5 ML SYG IV ONE (18:30)
[2020-04-26 19:08] VITALS: BP 159/62
[2020-04-26 19:28] VITALS: TEMP 98
== END 2020-04-26 19:28 ==
LOC: ER 17:00
DX: T82.594A Other mechanical complication of infusion catheter, initial encounter (principal); Y82.8 Other medical devices associated with adverse incidents; T87.41 Infection of amputation stump, right upper extremity; E11.9 Type 2 diabetes mellitus without complications; J44.9 Chronic obstructive pulmonary disease, unspecified; I10 Essential (primary) hypertension; Z86.14 Personal history of Methicillin resistant Staphylococcus aureus infection; Z87.891 Personal history of nicotine dependence; Z79.899 Other long term (current) drug therapy; Z79.4 Long term (current) use of insulin; Z88.8 Allergy status to other drugs, medicaments and biological substances
CPT/HCPCS: 80307; 81001; J1642

== ENCOUNTER → 2020-04-29 | Outpatient (CLI) | payer MEDICARE, OTHER | LOC: GOCC 10:45 | PROVIDERS: ATTEND Family Medicine | DX: Z51.81 Encounter for therapeutic drug level monitoring (principal); D69.6 Thrombocytopenia, unspecified; I10 Essential (primary) hypertension ==

== ENCOUNTER → 2020-05-03 | Outpatient (CLI) | payer MEDICARE, OTHER | LOC: GOCC 09:23 | PROVIDERS: ATTEND Family Medicine | DX: Z51.81 Encounter for therapeutic drug level monitoring (principal); D69.6 Thrombocytopenia, unspecified; I10 Essential (primary) hypertension ==

== ENCOUNTER → 2020-05-07 | Outpatient (CLI) | payer MEDICARE, MEDICAID | LOC: GOCC 10:41 | PROVIDERS: ATTEND Family Medicine | DX: Z51.81 Encounter for therapeutic drug level monitoring (principal); D69.6 Thrombocytopenia, unspecified; I10 Essential (primary) hypertension ==

== ENCOUNTER → 2020-05-09 | Outpatient (CLI) | payer MEDICARE, MEDICAID | LOC: GOCC 11:45 | PROVIDERS: ATTEND Family Medicine | DX: Z51.81 Encounter for therapeutic drug level monitoring (principal); D69.6 Thrombocytopenia, unspecified ==

== ENCOUNTER → 2020-05-16 | Outpatient (CLI) | payer MEDICARE, MEDICAID | LOC: GOCC 09:06 | PROVIDERS: ATTEND Family Medicine | DX: M86.9 Osteomyelitis, unspecified (principal); A49.02 Methicillin resistant Staphylococcus aureus infection, unspecified site ==

== ENCOUNTER → 2020-05-17 | Outpatient (CLI) | payer MEDICARE, MEDICAID | LOC: GOCC 10:58 | PROVIDERS: ATTEND Family Medicine | DX: Z51.81 Encounter for therapeutic drug level monitoring (principal); D69.6 Thrombocytopenia, unspecified ==